=== PATIENT | male | born 1950 | race Caucasian/White ===

== ENCOUNTER → 2020-02-21 11:18 | Outpatient (REF) | payer MEDICAID, SELFPAY ==
--- NOTE | 2020-02-21 11:30 | CA_ITS ---
Transthoracic Echocardiogram Patient (Last, First, Middle): Wilfred Mccarthy C Gender: Male Date of : 1950 Age: 69 Procedure Date: 02/21/2020 Procedure Type: Transthoracic Echocardiogram Location: OP Height: 180.34 cm Weight: 99.79 kg BSA: 2.20 m2 Heart Rate: bpm BP: 140 / 72 mmHg Appeals Manager: Referring MD: Suhas Anton MD Adobe Flex Developer: Suhas Anton MD Symptoms: I48.0 PAF I44.7 LBBB Study Quality: Good ECG Rhythm: Sinus Conclusions: - 1. Normal LV systolic and diastolic function 2. Trace aortic regurgitation 3. Normal RV systolic pressure 4. No pericardial effusion Findings Left Ventricle Normal left ventricular size, thickness, and systolic function. The visually estimated ejection fraction is between 60-65%. There is paradoxical septal motion consistent with a left bundle branch block. Diastolic function is normal for age. Right Ventricle Normal right ventricular cavity size and systolic function. Atria Both atria are normal in size. There is no evidence of interatrial shunt. Aortic Valve There is mild thickening of the aortic valve. There is no aortic valve stenosis. There is trace (trivial) aortic valve regurgitation. Mitral Valve Normal mitral valve structure and function. There is no mitral valve regurgitation. There is no mitral valve stenosis. Pulmonic Valve The pulmonic valve was not well visualized. Tricuspid Valve Likely normal tricuspid valve structure and function. There is mild tricuspid valve regurgitation. The right ventricular systolic pressure is normal. The right ventricular systolic pressure is 38 mmHg. Normal right atrial pressure. There is no evidence of pulmonary hypertension. Great Vessels All visible segments of the aorta are normal in size. The pulmonary artery was not well visualized. Venous The inferior vena cava is normal in size and collapses greater than 50% with inspiration. Pericardium/Pleural There is no evidence of pericardial effusion. Prior Study Comparison No significant change compared to prior study dated: 07/22/2018. Measurements 2D Linear Measurements RVIDd: 2.99 RVIDd Index: 1.36 IVSd: 1.07 0.6-0.9/0.6-1.0 cm LVIDd: 5.50 3.9-5.3/4.2-5.9 cm LVIDd Index: 2.50 2.4-3.2/2.2-3.1 cm/m2 LVIDs: 3.63 2.0-3.6 cm LVPWd: 1.12 0.7-1.1 cm Ao Root: 3.20 2.1-3.5 cm LA Diam: 4.20 2.7-3.8/3.0-4.0 cm LAIDs Index: 1.91 1.5-2.3 cm/m2 LV Mass: 299.92 67-162/88-224 g LV Mass Index: 136.33 43-95/49-115 g/m2 LVOT Diam: 2.30 3.0+(-)1.3 cm 2D Systolic Function EF 4C: 45.80 >55% EF 2C: 70.50 >55% EF BiP: 60.80 >55% Mitral Valve MV Pk E: 0.83 MV PK A: 0.63 MV Decel Time: 207.00 E/A: 1.30 E'Lateral: 7.51 E'Medial: 8.49 E/E' Med: 9.70 E/E' Lat: 11.00 Aortic Valve AoV Pk Dominic: 1.30 AoV Mn Dominic: 0.84 AoV VTI: 0.25 AoV Pk Grad: 7.00 Aov Mn Grad: 3.00 MARLEE Cont.VTI: 3.68 AI Pk Dominic: 3.58 AI Glynn: 0.95 LVOT LVOT Pk Dominic: 0.93 LVOT Mn Dominic: 0.71 LVOT VTI: 0.22 LVOT Pk Grad: 3.00 LVOT Mn Grad: 2.00 LVOT Diam: 2.30 LVOT Area: 4.15 Diastolic Function MV Pk E: 0.83 MV Pk A: 0.63 E/A: 1.30 E'Medial: 8.49 E/E' Med: 9.70 E' Laterial: 7.51 E/E' Lat: 11.00 Tricuspid Valve TR Pk Dominic: 2.76 TR Pk Grad: 30.00 RA Press: 8.00 RVSP: 38.00 Great Vessels Aorta Ao Root-2D: 3.20 2.0-3.7 cm Ao Asc: 3.20 2.1-3.4 cm Ao Arch: 2.70 Updated in Other Vendor System with Status of Final Suhas Anton MD electronically signed on 02/22/2020 12:53:53 PM with status of Final
== END ==
LOC: HO.CARD 11:18
PROVIDERS: Visit Provider Internal Medicine Cardiovascular Disease
DX: I48.0 Paroxysmal atrial fibrillation (principal); I44.7 Left bundle-branch block, unspecified
CPT/HCPCS: 93306

== ENCOUNTER 2020-05-27 11:21 | Outpatient (REF) | payer MEDICAID, SELFPAY ==
--- NOTE | ~2020-05-27 | US_ITS ---
EXAMINATION: US SOFT TISSUE HEAD/NECK CLINICAL INFORMATION: Submandibular lymph nodes, bilateral. COMPARISON: None. TECHNIQUE: Linear transducer grayscale and color Doppler examination with attention to the region of the right and left submandibular areas. FINDINGS: The submandibular glands are normal appearing. There are bilateral small lymph nodes adjacent to the submandibular glands. These are normal in size, each measuring 0.5 cm in transverse dimension. These demonstrate normal ultrasound morphology and flow. US/US soft tiss head and/or neck IMPRESSION: Small normal-appearing lymph nodes adjacent to both submandibular glands..
[2020-05-27 14:33] LABS: Alanine Aminotransferase 32 U/L (0-40); Albumin Level 4.1 g/dL (3.5-5.0); Alkaline Phosphatase 91 U/L (39-117); Anion Gap 14 (12-20); Aspartate Amino Transferase 36 U/L (5-37); Bilirubin Total 0.4 mg/dL (0.0-1.0); Blood Urea Nitrogen 17 mg/dL (9-16); Calcium 8.8 mg/dL (8.4-10.2); Carbon Dioxide 25 mmol/L (22-29); Chloride 107 mmol/L (96-108); Cholesterol 136 mg/dL; Estimated Glomerular Filt Rate > 60; Glucose Fasting 92 mg/dL (60-99); HDL Cholesterol 37 mg/dL; LDL Cholesterol Calculated 88 mg/dl; Potassium 4.7 mmol/L (3.3-5.1); Sodium 141 mmol/L (135-145); Total Protein 6.7 g/dL (6.5-8.0); Triglycerides 56 mg/dL
[2020-05-27 14:56] LABS: TSH reflex Free T4 0.87 uIU/mL (0.32-4.0)
[2020-05-27 15:26] LABS: Prostate Specific Antigen Scr 0.52 ng/mL (<0.05-4.0)
== END 2020-05-27 11:22 | disposition home or self-care (01) ==
LOC: HO.HMGCX 11:21
PROVIDERS: PCP Nurse Practitioner Family; Visit Provider Nurse Practitioner Family
DX: R09.89 Other specified symptoms and signs involving the circulatory and respiratory systems (principal); I10 Essential (primary) hypertension; Z12.5 Encounter for screening for malignant neoplasm of prostate
CPT/HCPCS: 36415; 76536; 80053; 80061; 84153; 84443

== ENCOUNTER → 2020-06-06 11:09 | Outpatient (BNVA) | payer MEDICAID, SELFPAY | PROVIDERS: PCP Nurse Practitioner Family; Visit Provider Internal Medicine Cardiovascular Disease | DX: I48.0 Paroxysmal atrial fibrillation (principal); I44.7 Left bundle-branch block, unspecified; R55 Syncope and collapse | CPT/HCPCS: 99212 ==

== ENCOUNTER 2020-06-13 09:42 | Outpatient (REF) | payer MEDICAID, SELFPAY ==
[2020-06-13 09:47] VITALS: BP 159/59; PULSE 120; RESP 16; TEMP 36.4; O2SAT 97
[2020-06-13 09:51] VITALS: BMI 28.5
--- NOTE | 2020-06-13 10:04 | ECG_ITS ---
Test Reason : AFIB Blood Pressure : / mmHG Vent. Rate : 120 BPM Atrial Rate : 144 BPM P-R Int : 000 ms QRS Dur : 140 ms QT Int : 370 ms P-R-T Axes : 000 030 153 degrees QTc Int : 522 ms Atrial fibrillation with rapid ventricular response Left bundle branch block Abnormal ECG When compared with ECG of 20-JUL-2018 07:38, T wave inversion less evident in Inferior leads Referred By: Suhas Anton Electronically Signed By:SUHAS ANTON MD
[2020-06-13 10:40] VITALS: BP 155/90; PULSE 85; RESP 16; O2SAT 97
--- NOTE | 2020-06-13 11:59 | PM.OP ---
Brief Operative Note Date of Service: 06/13/20 Pre-op diagnosis: Syncope, paroxysmal atrial fibrillation Post-op diagnosis: same Procedure: Implantable loop recorder placement Implants: Patient was brought to the minor surgery suite. Patient was then laid supine on the surgical table. The patient's precordial area was then prepped and draped in a sterile fashion. 2% lidocaine with epinephrine was then injected intra dermally and subcutaneoaul;y. A small incision was made in the 4th intercostal space. [facility] Confirm ILT was then placed using Seldinger technique. WOund was then closed withDermabond and Steritripos. Patient tolerated the procedure well. Confirm serial NO. [id number] Surgeon: Suhas Anton MD Anesthesia: local Estimated blood loss (mL): 1 Pathology: none sent Condition: stable Disposition: same day
== END 2020-06-13 09:43 | disposition home or self-care (01) ==
LOC: HO.MS 09:42
PROVIDERS: PCP Nurse Practitioner Family; Visit Provider Internal Medicine Cardiovascular Disease
PROC: (CPT 33285; principal; 2020-06-13 10:00)
DX: I48.0 Paroxysmal atrial fibrillation (principal); R55 Syncope and collapse
CPT/HCPCS: 33285; 93005; C1764

== ENCOUNTER → 2020-06-27 11:28 | Outpatient (BNVA) | payer MEDICAID, SELFPAY | PROVIDERS: PCP Nurse Practitioner Family; Visit Provider Internal Medicine Cardiovascular Disease | DX: R55 Syncope and collapse (principal); I48.0 Paroxysmal atrial fibrillation; Z79.899 Other long term (current) drug therapy | CPT/HCPCS: 99212 ==

== ENCOUNTER → 2020-07-21 14:53 | Outpatient (BNVA) | payer MEDICAID, SELFPAY | PROVIDERS: PCP Nurse Practitioner Family; Visit Provider Internal Medicine Cardiovascular Disease ==

== ENCOUNTER → 2021-02-10 10:55 | Outpatient (BNVA) | payer MEDICAID, SELFPAY | PROVIDERS: PCP Nurse Practitioner Family; Referring Provider Nurse Practitioner Family; Visit Provider Internal Medicine Cardiovascular Disease | DX: Z45.09 Encounter for adjustment and management of other cardiac device (principal); I48.0 Paroxysmal atrial fibrillation; R55 Syncope and collapse | CPT/HCPCS: 99212 ==

== ENCOUNTER → 2021-08-11 10:40 | Outpatient (BNVA) | payer MEDICAID, SELFPAY | PROVIDERS: PCP Nurse Practitioner Family; Referring Provider Nurse Practitioner Family; Visit Provider Internal Medicine Cardiovascular Disease | DX: I48.0 Paroxysmal atrial fibrillation (principal); I44.7 Left bundle-branch block, unspecified; R55 Syncope and collapse; Z95.818 Presence of other cardiac implants and grafts | CPT/HCPCS: 93005; 99212 ==

== ENCOUNTER 2021-08-20 14:16 | Outpatient (REF) | payer MEDICAID, SELFPAY ==
[2021-08-22 17:56] LABS: Immunoglobulin A 246 mg/dL (70-320)
[2021-08-24 13:31] LABS: Gliadin Deamidated IgA Ab >250.0 U/mL; Gliadin Deamidated IgG Ab 34.2 U/mL; Transglutaminase Ab IgG 1.6 U/mL; Transglutaminase IgA 81.9 U/mL
[2021-08-27 13:51] LABS: Endomysial IgA Antibody Positive (Negative); Endomysial Titer 1:40 titer (<1:5)
== END 2021-08-20 14:17 | disposition home or self-care (01) ==
LOC: HO.HMGCLDS 14:16
PROVIDERS: PCP Nurse Practitioner Family; Visit Provider Internal Medicine
DX: K90.0 Celiac disease (principal)
CPT/HCPCS: 36415; 82784; 86231; 86258; 86364

== ENCOUNTER 2021-08-26 08:04 | Day surgery (SDC) | payer MEDICAID, SELFPAY ==
[2021-08-20 13:47] VITALS: BMI 27.8
--- NOTE | 2021-08-25 09:15 | HO.ANESPROP2 ---
Documented by User: Jody Parker NP 08/25/21 09:18 HPI - Anesthesia Eval Consult details Narrative: 70yo M for Upper Endoscopy and Colonoscopy Afib - no OAC - ILR in situ - tx with prn Cardizem PMFSH Active Problems Active Problems: All Active Problems (Updated 08/20/21 @ 13:51 by Emi Cunningham RN) HTN (hypertension) (Acute) Screening PSA (prostate specific antigen) (Acute) Firm lymph node (Acute) Syncope (Acute) Physical exam (Acute) LBBB (left bundle branch block) (Acute) Paroxysmal atrial fibrillation (Acute) Past Medical History Medical History Barretts esophagus Celiac disease Chronic neck and back pain Failed back syndrome Frequent PVCs GERD (gastroesophageal reflux disease) History of blood transfusion History of thyrotoxicosis LBBB (left bundle branch block) Paroxysmal atrial fibrillation PHN (postherpetic neuralgia) Family History Family History Father CVD (cardiovascular disease) Mother Leukemia Son No problems noted. Son No problems noted. Daughter No problems noted. Daughter No problems noted. Surgical History Surgical History H/O prior ablation treatment History of appendectomy History of back surgery History of colonoscopy History of esophagogastroduodenoscopy (EGD) History of inguinal hernia History of lymph node excision Hx laparoscopic cholecystectomy Social History Social History Housing: House Alcohol intake: current Alcohol intake frequency: holidays/special occasions only Patient Tobacco Use Status: Never used Tobacco e-Cigarette/Vaping Use: Never Used Second Hand Smoke Exposure: Yes (years ago ) Use of substances other than those prescribed or required for medical reasons: No Are you DNR?: No Advance Directives: No Advance Directives Information Provided: No Advance Directives on File: No Recently lost weight without trying: No Nutrition Risks: No Nutritional Risk service: Yes Current occupational status: employed Current occupation: [employer] Current occupational exposures/hazards: No Meds Allergies Allergy/AdvReac Type Severity Reaction Status Date / Time Iodinated Contrast Media Allergy Severe ANAPHYLAXIS Verified 08/11/21 10:53 [IV DYE, IODINE CONTAINING] gluten [GLUTEN] Allergy Intermediate BLOATING,SEVERE Verified 08/11/21 10:53 GI PAIN NSAIDS (Non-Steroidal Allergy Intermediate HIVES, can Verified 08/11/21 10:53 Anti-Inflamma take [NSAIDS] green gel caps ibuprofen Allergy Unknown unknown Verified 08/11/21 10:53 anti inflammatory Allergy Unknown unknown Uncoded 08/11/21 10:53 Home Medications Medication Instructions Recorded Confirmed Last Taken Type omeprazole 20 mg capsule,delayed 20 mg PO DAILY cap 08/11/21 08/26/21 08/26/21 07:00 History release Exam Exam Date and Time: August 25, 2021 0915 Height,Weight and Vital Signs: Height 5 ft 11 in Weight 90.718 kg Narrative Narrative: EKG 07/2021 normal sinus rhythm with left bundle-branch block ILR 07/2021 Cardiac Device Check Details: ?remote implantable loop recorder report generated 08/08/2021.? Total of 12 episodes of paroxysmal atrial fibrillation noted with episodes lasting as long as 1 day and 15 hours.? no patient reported symptoms ECHO 2020 Conclusions: - 1. Normal LV systolic and diastolic function ? 2. Trace aortic regurgitation? 3. Normal RV systolic pressure ? 4. No pericardial effusion ? Assessment and Plan Assessment Anesthesia Assessment: Chart Reviewed Documented by User: Lamonte Ibanez MD 08/26/21 08:45 [facility] Past Medical History Medical History Barretts esophagus Celiac disease Chronic neck and back pain Failed back syndrome Frequent PVCs GERD (gastroesophageal reflux disease) History of blood transfusion History of thyrotoxicosis LBBB (left bundle branch block) Paroxysmal atrial fibrillation PHN (postherpetic neuralgia) Family History Family History Father CVD (cardiovascular disease) Mother Leukemia Son No problems noted. Son No problems noted. Daughter No problems noted. Daughter No problems noted. Family history of problems with anesthesia: No Surgical History Surgical History H/O prior ablation treatment History of appendectomy History of back surgery History of colonoscopy History of esophagogastroduodenoscopy (EGD) History of inguinal hernia History of lymph node excision Hx laparoscopic cholecystectomy History of Problems with Anesthesia: No Social History Social History Housing: House Alcohol intake: current Alcohol intake frequency: holidays/special occasions only Patient Tobacco Use Status: Never used Tobacco e-Cigarette/Vaping Use: Never Used Second Hand Smoke Exposure: Yes (years ago ) Use of substances other than those prescribed or required for medical reasons: No Are you DNR?: No Advance Directives: No Advance Directives Information Provided: No Advance Directives on File: No Recently lost weight without trying: No Nutrition Risks: No Nutritional Risk service: Yes Current occupational status: employed Current occupation: [employer] Current occupational exposures/hazards: No Meds Allergies Allergy/AdvReac Type Severity Reaction Status Date / Time Iodinated Contrast Media Allergy Severe ANAPHYLAXIS Verified 08/11/21 10:53 [IV DYE, IODINE CONTAINING] gluten [GLUTEN] Allergy Intermediate BLOATING,SEVERE Verified 08/11/21 10:53 GI PAIN NSAIDS (Non-Steroidal Allergy Intermediate HIVES, can Verified 08/11/21 10:53 Anti-Inflamma take [NSAIDS] green gel caps ibuprofen Allergy Unknown unknown Verified 08/11/21 10:53 anti inflammatory Allergy Unknown unknown Uncoded 08/11/21 10:53 Home Medications Medication Instructions Recorded Confirmed Last Taken Type omeprazole 20 mg capsule,delayed 20 mg PO DAILY cap 08/11/21 08/26/21 08/26/21 07:00 History release Exam Airway Mallampati Class: I TM Dist: >3cm Neck ROM: Full Assessment and Plan Assessment Anesthesia Assessment: Anesthesia Plan Discussed Final Anesthetic Review Family History of Problems with Anesthesia: No History of Problems with Anesthesia: No NPO: Yes ASA Class: III Final Preanesthetic Review: No Changes in Pt Med Stat, Meds/Allgs Chart Reviewed, Consent Obtained/Reviewed and Anes Risks/Benef Reviewed Patient Risk: Low Procedure Risk: Low Anesthetic Plan Anesthetic Plan: MAC: Disposition: Standard PACU
[2021-08-26 08:29] VITALS: BP 124/72; PULSE 69; RESP 16; TEMP 36.6; O2SAT 99
[2021-08-26] MEDS: Lactated Ringers 1,000 ML 100 ML IVCONT (08:36)
[2021-08-26 10:25] VITALS: BP 98/58; PULSE 70; RESP 16; TEMP 36.5; O2SAT 98
--- NOTE | 2021-08-26 10:29 | PM.OP ---
Brief Operative Note Date of Service: 08/26/21 Pre-op diagnosis: Peacock's, Screening Post-op diagnosis: other (Same, Hx of celiac disease, Diverticulosis) Procedure: EGD with biopsies, Colonoscopy to the cecum and TI Surgeon: Rich Lawler Anesthesia: MAC Was an Radiologic Technologist Mammogram used for this Procedure?: No Estimated blood loss (mL): 2.0 Pathology: other (A. Descending duodenum B. EG Junction at 40cm) Condition: stable Disposition: PACU
[2021-08-26 10:40] VITALS: BP 110/63; PULSE 71; RESP 16; TEMP 36.5; O2SAT 97
--- NOTE | 2021-08-26 13:48 | OP_ITS ---
SURGEON: Rich Lawler MD INDICATIONS: The patient presents for followup of history of Peacock esophagus, celiac disease, personal history of tubular adenoma of the colon, and colorectal cancer screening. Full consent was obtained from him for this, including risks of bleeding and perforation. PREOPERATIVE DIAGNOSIS: POSTOPERATIVE DIAGNOSIS: PROCEDURE PERFORMED: Esophagogastroduodenoscopy with biopsies, and colonoscopy to the cecum and terminal ileum. ESTIMATED BLOOD LOSS: COMPLICATIONS: ANESTHESIA: Monitored anesthesia care. ASSISTANTS: SPECIMENS: PREOPERATIVE DIAGNOSES: Gastroesophageal reflux, Peacock esophagus, celiac disease, personal history of tubular adenoma of the colon, and colorectal cancer screening. POSTOPERATIVE DIAGNOSES: Gastroesophageal reflux, Peacock esophagus, celiac disease, personal history of tubular adenoma of the colon, and colorectal cancer screening, minimal hiatal hernia, diverticulosis and internal hemorrhoids. DESCRIPTION OF PROCEDURE: The patient was placed in the left lateral decubitus position. The Olympus video gastroscope was passed in the posterior oropharynx and upper esophagus under direct vision. The scope was passed slowly into the distal esophagus. The gastroesophageal junction appeared at 40 cm. There was some very slight irregularity, but no evidence of any esophagitis nor any definitive evidence of Peacock mucosa. The scope entered into the stomach. There was a minimal hiatal hernia. The scope was advanced to the pylorus and the duodenum was cannulated to the descending portion. The duodenum including the bulb appeared normal without mass or ulceration. Biopsies were obtained in the 2nd and 3rd portions of duodenum. The scope was withdrawn back from the stomach. The gastric antrum and body appeared normal with good peristalsis. The scope was retroflexed visualizing the proximal stomach carefully, which appeared normal, without any sign of mass or ulceration. Scope was straightened and withdrawn back from the esophagus. Biopsies were obtained at the EG junction at 40 cm. Proximal to this, the esophageal mucosa appeared normal. The scope was withdrawn from the patient. He tolerated the procedure well and was turned around for colonoscopy. The digital rectal exam revealed no abnormalities. The Olympus video pediatric colonoscope was entered into the rectum and advanced easily to the cecum. Once in the cecum, I did identify normal-appearing cecal pouch with appendiceal orifice and a normal-appearing ileocecal valve. The terminal ileum was cannulated and appeared normal. The scope was withdrawn back in the colon. The entire cecum and ileocecal valve appeared normal. The scope was slowly withdrawn assessing all mucosal surfaces carefully. Preparation was excellent. I did not visualize any sign of polyps, colitis, or angiodysplasia. There was a mild amount of sigmoid diverticulosis. In the rectum, scope was retroflexed visualizing internal hemorrhoids, but no other pathology. The rectal mucosa appeared normal. The scope was straightened and withdrawn from the patient. He tolerated the procedure well and was returned to the recovery area in stable condition. IMPRESSION: 1. Minimal hiatal hernia, gastroesophageal reflux, history of Peacock esophagus. 2. History of celiac disease. 3. Diverticulosis. 4. Internal hemorrhoids. PLAN: The results of biopsies will be checked. I would recommend a repeat upper endoscopy and colonoscopy in 5 years. He was advised to continue his gluten free diet. He was advised that he could resume his aspirin in 48 hours. He will continue his omeprazole. MD JOLENE Flores/SREEKANTH / [phone]
== END 2021-08-26 11:28 | disposition home or self-care (01) ==
PROVIDERS: PCP Nurse Practitioner Family; Visit Provider Internal Medicine
PROC: (CPT 45378; principal; 2021-08-26 09:10)
DX: Z12.11 Encounter for screening for malignant neoplasm of colon (principal); Z86.010 Personal history of colon polyps; K57.30 Diverticulosis of large intestine without perforation or abscess without bleeding; K64.8 Other hemorrhoids; K21.9 Gastro-esophageal reflux disease without esophagitis; K22.70 Barrett's esophagus without dysplasia; K90.0 Celiac disease; K44.9 Diaphragmatic hernia without obstruction or gangrene; I44.7 Left bundle-branch block, unspecified; I48.0 Paroxysmal atrial fibrillation; B02.29 Other postherpetic nervous system involvement; Z79.899 Other long term (current) drug therapy; Z79.82 Long term (current) use of aspirin; Z91.041 Radiographic dye allergy status; Z88.8 Allergy status to other drugs, medicaments and biological substances; Z90.49 Acquired absence of other specified parts of digestive tract
CPT/HCPCS: 45378; 43239; 88305; 88342; J2250; J3010

== ENCOUNTER 2021-11-05 08:22 | Emergency (ER) | payer MEDICAID, SELFPAY ==
[2021-11-05 08:40] VITALS: BP 120/74; PULSE 72; RESP 18; TEMP 36.7; O2SAT 98; BMI 27.8
== END 2021-11-05 15:39 | disposition left against medical advice (07) ==
PROVIDERS: Emergency Provider Emergency Medicine; PCP Nurse Practitioner Family
DX: R10.31 Right lower quadrant pain (principal); I10 Essential (primary) hypertension; I48.0 Paroxysmal atrial fibrillation
CPT/HCPCS: 99281

== ENCOUNTER 2021-11-05 10:19 | Outpatient (REF) | payer MEDICAID, SELFPAY ==
[2021-11-05 13:17] LABS: MANUAL DIFF FLAG NO
[2021-11-05 13:17] LABS: Appearance Urine CLEAR; Color Urine YELLOW; Glucose Urine UA NEG (NEG); Leukocyte Esterase Urine NEG (NEG); Nitrite Urine NEG (NEG); PH 5.5 (5.0-8.0); Specific Gravity - Urine >= 1.030 (1.005-1.025); Urine Blood NEG (NEG); Urine Ketones 15 MG/DL (NEG); Urine Protein NEG (NEG-TRACE)
[2021-11-05 13:23] LABS: Basophils Absolute Auto 0.1 X10*3/uL (0.0-0.2); Basophils Percent Auto 0.5 % (0-2); Eosinophils Absolute Auto 0.2 X10*3/uL (0.0-0.4); Eosinophils Percent Auto 1.3 % (0-4); Hematocrit 38.5 % (42.0-52.0); Hemoglobin 12.2 g/dl (14.0-18.0); Imm Gran Abs Auto 0.06 X10*3/uL (0.00-0.03); Imm Gran Pct Auto 0.5 % (0.0-0.4); Lymphocytes Absolute Auto 1.4 X10*3/uL (1.2-4.9); Lymphocytes Percent Auto 12.4 % (20-40); Mean Corpuscular HGB Conc 31.7 g/dl (31.0-36.0); Mean Corpuscular Hemoglobin 30.3 pg (27.0-33.0); Mean Corpuscular Volume 95.8 fL (80.0-98.0); Mean Platelet Volume 8.7 fL (9.4-12.4); Monocytes Absolute Auto 0.6 X10*3/uL (0.1-1.2); Monocytes Percent Auto 5.5 % (2-11); Neutrophils Percent Auto 79.8 % (45-73); Platelet Count 351 X10*3/uL (160-400); Red Blood Count 4.02 X10*6/uL (4.60-5.80); Red Cell Distribution Width 13.5 % (11.0-16.0); White Blood Count 11.3 X10*3/uL (4.8-10.8)
[2021-11-05 13:29] LABS: INTERNATIONAL NORM RATIO 1.1 (0.9-1.1); Prothrombin Time 12.9 SEC (10.0-13.1)
[2021-11-05 13:53] LABS: Alanine Aminotransferase 17 U/L (0-40); Alanine Aminotransferase 18 U/L (0-40); Albumin Level 4.2 g/dL (3.5-5.0); Albumin Level 4.3 g/dL (3.5-5.0); Alkaline Phosphatase 118 U/L (39-117); Anion Gap 15 (12-20); Aspartate Amino Transferase 23 U/L (5-37); Aspartate Amino Transferase 24 U/L (5-37); Bilirubin Direct 0.2 mg/dL (0.0-0.5); Bilirubin Total 0.4 mg/dL (0.0-1.0); Blood Urea Nitrogen 21 mg/dL (9-16); Calcium 9.3 mg/dL (8.4-10.2); Carbon Dioxide 23 mmol/L (22-29); Chloride 106 mmol/L (96-108); Cholesterol 127 mg/dL; Estimated Glomerular Filt Rate 56; Glucose Fasting 76 mg/dL (60-99); HDL Cholesterol 33 mg/dL; LDL Cholesterol Calculated 74 mg/dl; Lipase 14 U/L (8-78); Potassium 4.8 mmol/L (3.3-5.1); Sodium 139 mmol/L (135-145); Total Protein 7.5 g/dL (6.5-8.0); Triglycerides 101 mg/dL
[2021-11-05 13:56] LABS: Amylase 85 U/L (28-100)
[2021-11-05 14:02] LABS: TSH reflex Free T4 0.68 uIU/mL (0.32-4.0)
== END 2021-11-05 10:20 | disposition home or self-care (01) ==
LOC: HO.10HDL 10:19
PROVIDERS: Absent Provider Internal Medicine; Visit Provider Nurse Practitioner Family
DX: Z00.00 Encounter for general adult medical examination without abnormal findings (principal); Z12.5 Encounter for screening for malignant neoplasm of prostate; R10.11 Right upper quadrant pain
CPT/HCPCS: 36415; 80053; 80061; 80076; 81003; 82150; 82248; 83690; 84153; 84443; 85025; 85610

== ENCOUNTER 2021-11-13 09:15 | Emergency (ER) | payer MEDICAID, SELFPAY ==
--- NOTE | ~2021-11-13 | US_ITS ---
EXAMINATION: US ABDOMEN COMPLETE CLINICAL INFORMATION: Right upper quadrant pain. COMPARISON: CT abdomen pelvis 07/22/2018. TECHNIQUE: Real-time imaging of the abdominal viscera. FINDINGS: PANCREAS: The pancreas is obscured by overlying gas. ABDOMINAL AORTA: The proximal, mid, and distal segments are normal in caliber. INFERIOR VENA CAVA: Visualized portions are normal. LIVER: There is a large complex fluid collection anterior to the left hepatic lobe and posterior to the abdominal wall with a large calcification. The collection which appears septated measures 9.37 x 3.10 x 4.6 cm. The large calcification with shadowing measures 1.5 cm. The liver is normal in size. The liver contour is normal. Parenchymal echogenicity is normal. No focal hepatic lesion. There is no intrahepatic biliary duct dilatation seen. GALLBLADDER: Cholecystectomy in 2019. COMMON BILE DUCT: Normal in caliber measuring 0.754 cm in diameter. RIGHT KIDNEY: There is anechoic cysts. The upper pole cyst measures 3.8 x 3.7 x 4.7 cm and lower pole cyst measures 1.7 x 0.90 x 1.2 cm . No hydronephrosis. No renal calculi or focal parenchymal lesions. The kidney measures 10.9 cm in maximum dimension. LEFT KIDNEY: There is a anechoic cyst in upper pole measuring 2.1 x 2.1 x 2.2 cm. No hydronephrosis. No renal calculi or focal parenchymal lesions. The kidney measures 11.9 cm in maximum dimension. SPLEEN: Normal. The spleen measures 10.4 cm in maximum dimension. FREE FLUID: None. US/US abdomen complete IMPRESSION: Bilateral renal cysts. No echogenic renal calculi or hydronephrosis. Complex fluid collection anterior to left hepatic lobe and posterior to abdominal wall with a echogenic calcification.Findings are most suggestive of a complex cyst such as hematoma or loculated ascites. Patient had previous cholecystectomy. 2019 CT abdomen and pelvis revealed cholecystectomy with no residual gallstones.
--- NOTE | ~2021-11-13 | CT_ITS ---
EXAMINATION: CT ABDOMEN AND PELVIS WITHOUT CONTRAST CLINICAL INFORMATION: Right upper quadrant pain. COMPARISON: CT scan of the abdomen and pelvis dated 07/22/2018, abdominal ultrasound from today. TECHNIQUE: Multidetector volumetric imaging was performed from the superior aspect of the liver through the pubic symphysis. Sagittal and coronal reformatted images were obtained on the technologist's workstation. Lack of intravenous and oral contrast limits visceral evaluation. This CT examination was performed using dose optimization techniques as appropriate, variously including the following: *Automated exposure control *Adjustment of mA and/or kV according to patient size (this includes techniques or standardized protocols for targeted exams where dose is matched to indication/reason for exam; i.e. extremities or head) *Use of iterative reconstruction technique DLP: 717 mGy-cm FINDINGS: LUNG BASES: The visualized lung bases are unremarkable. LIVER, GALLBLADDER, AND BILIARY TREE: A subcapsular, mildly heterogeneous hypoechoic focus is seen laterally in the right hepatic lobe measuring approximately 9.0 x 6.7 x 2.6 cm (image 22, series 3; image 54, series 7). Status post cholecystectomy. Correlating mild dilatation of the common bile duct up to 1.2 cm (image 40, series 7). PANCREAS: Mild atrophy. No pancreatic ductal dilatation. No peripancreatic abnormality. SPLEEN: Unremarkable. ADRENAL GLANDS: Unremarkable. KIDNEYS AND URETERS: Noncalcified fluid attenuation cysts bilaterally. A aircraft sales representative cyst in the interpolar right kidney measures 4.0 cm (image 62, series 7). No nephrolithiasis or hydroureteronephrosis. BLADDER: Unremarkable. GASTROINTESTINAL TRACT: Small duodenal diverticuli proximally without associated abnormality or change. The remainder of the small bowel and appendix are unremarkable. The colon shows mild diverticulosis distally without surrounding abnormality. ABDOMINAL WALL: No significant hernia is appreciated. LYMPH NODES: No lymphadenopathy. VASCULAR: Unremarkable. PELVIC VISCERA: Unremarkable. OSSEOUS STRUCTURES: Mild to moderate multilevel degenerative changes in the thoracolumbar spine without acute or suspicious abnormality. CT/CT abdomen pelvis wo con IMPRESSION: 1. Heterogeneous subcapsular collection laterally in the right hepatic lobe correlates with recent ultrasound findings. This is nonspecific and could be better characterized with contrast-enhanced abdominal MRI. 2. Bilateral renal cysts demonstrate benign features not requiring follow-up. 3. Duodenal and distal colonic diverticuli without acute associated abnormality.
[2021-11-13 09:31] VITALS: BP 145/57; PULSE 81; RESP 16; TEMP 36.7; O2SAT 97; BMI 27.6
--- NOTE | 2021-11-13 10:01 | ECG_ITS ---
Test Reason : abd pain Blood Pressure : / mmHG Vent. Rate : 078 BPM Atrial Rate : 078 BPM P-R Int : 184 ms QRS Dur : 142 ms QT Int : 428 ms P-R-T Axes : 044 030 157 degrees QTc Int : 487 ms Normal sinus rhythm Left bundle branch block Abnormal ECG When compared with ECG of 13-JUN-2020 10:15, Sinus rhythm has replaced Atrial fibrillation Vent. rate has decreased BY 42 BPM Referred By: Eda Chandler Electronically Signed By:LILY STOCK
--- NOTE | 2021-11-13 10:26 | ED_ITS ---
HPI - Abdominal Pain General Chief Complaint: Abdominal Pain Time Seen by Provider: 11/13/21 10:01 Source: patient Mode of arrival: ambulatory History of Present Illness HPI narrative: 70-year-old male with history of paroxysmal atrial fibrillation not on any anticoagulation despite being prescribed Eliquis. Patient reports that he fell approximately 6 months ago and has had a persistent right upper quadrant pain radiating into the back that initially was severe and he was unable to sleep and now only occurs when he lies on his back for a few minutes in the evening and then again in the morning. It is not been associated with any fever, chills, shortness of breath, chest pain/palpitations, GI or symptoms. He was evaluated by Dr. Lawler who had concerns regarding a possible bleed on his liver and sent him to the emergency room for further evaluation. Related Data Home Medications Medication Instructions Recorded Confirmed omeprazole 20 mg capsule,delayed 20 mg PO DAILY 08/11/21 09/22/21 release Previous Rx's Medication Instructions Recorded diltiazem HCl 30 mg tablet 30 mg PO QID PRN afib #20 tabs 06/06/20 tramadol 50 mg tablet 50 mg PO BID PRN pain 10 days #20 09/22/21 tabs apixaban 5 mg tablet (Eliquis) 5 mg PO BID 30 days #60 tabs 10/23/21 acebutolol 200 mg capsule 400 mg PO BID #360 caps 10/27/21 Allergies Allergy/AdvReac Type Severity Reaction Status Date / Time Iodinated Contrast Media Allergy Severe ANAPHYLAXIS Verified 11/13/21 09:31 [IV DYE, IODINE CONTAINING] gluten [GLUTEN] Allergy Intermediate BLOATING,SEVERE Verified 09/22/21 10:55 GI PAIN NSAIDS (Non-Steroidal Allergy Intermediate HIVES, can Verified 09/22/21 10:55 Anti-Inflamma take [NSAIDS] green gel caps ibuprofen Allergy Unknown Hives Verified 09/22/21 10:55 anti inflammatory Allergy Unknown unknown Uncoded 09/22/21 10:55 Review of Systems Review of Systems Pertinent positives and negatives as stated in HPI 10 point review of systems is otherwise negative. PMFSH Past Medical History Source: nursing notes reviewed Medical History Barretts esophagus Celiac disease Chronic neck and back pain Failed back syndrome Frequent PVCs GERD (gastroesophageal reflux disease) History of blood transfusion History of thyrotoxicosis LBBB (left bundle branch block) Paroxysmal atrial fibrillation PHN (postherpetic neuralgia) Surgical History H/O prior ablation treatment History of appendectomy History of back surgery History of colonoscopy History of esophagogastroduodenoscopy (EGD) History of inguinal hernia History of lymph node excision Hx laparoscopic cholecystectomy Family History Family History Father CVD (cardiovascular disease) Mother Leukemia Son No problems noted. Son No problems noted. Daughter No problems noted. Daughter No problems noted. Social History Social History Housing: House Alcohol intake: current Alcohol intake frequency: holidays/special occasions only Patient Tobacco Use Status: Never used Tobacco e-Cigarette/Vaping Use: Never Used Second Hand Smoke Exposure: Yes (years ago ) service: Yes Current occupational status: employed Current occupation: [employer] Current occupational exposures/hazards: No Cognitive needs: No Hearing needs: No Vision needs: Yes Physical Exam ED Vital Signs: Vital Signs - 24 hr 11/13/21 09:31 Temperature 98.1 F Pulse Rate 81 Respiratory Rate 16 Blood Pressure 145/57 H Pulse Oximetry 97 Oxygen Delivery Method Room Air BMI result Body Mass Index 27.6 VITAL SIGNS: Reviewed. GENERAL: Well developed, well nourished, in no acute distress. HEAD: Normocephalic/atraumatic EYES: PERRLA, EOMI EARS: Ext canals without abnormality OROPHARYNX: no oral lesions noted, posterior pharynx clear LUNGS: Normal breath sounds. No adventitious sounds or accessory muscle use. SpO2<97> CARDIOVASCULAR: Regular rate and rhythm without noted murmurs ABDOMEN: Soft, pain on deeper palpation at right upper quadrant laterally towards the mid axillary line, non-distended with bowel sounds. MUSCULOSKELETAL: No tenderness, deformities, or effusions noted on gross inspection. EXTREMITIES: No cyanosis, clubbing or edema. SKIN: Inspection of the skin reveals no rashes NEUROLOGIC: Alert and oriented x 4. Strength and sensation to light touch were g rossly intact x 4. Course Course Course Narrative: This is a 70-year-old male with history and clinical presentation suggestive of a liver hematoma that is chronic in nature as the only historical event that may have contributed to this. Review of all investigations demonstrates heterogeneous subcapsular collection laterally in the right hepatic lobe and investigations are limited by patient's allergy to IV contrast. At this time an MRI is indicated but patient is otherwise hemodynamically stable. Reevaluation(s) Reevaluation #1: I discussed the case with General surgery, Dr. Valencia, who agrees that as patient is otherwise hemodynamically stable that this is a further outpatient workup and recommends IR for aspiration. In addition, patient could get MRI as an outpatient. Time: 15:17 Reevaluation #2: I discussed this case with Dr. Lawler and explained that the patient wishes to leave and that the MRI schedule is fully booked at this time. Dr. Lawler agrees and wishes for the patient to contact him next week and he will schedule the ou tpatient MRI. Time: 03:10 MDM - Abdominal Pain Lab Data Result diagrams: 11/13/21 10:57 11/13/21 10:57 Labs: Lab Results 11/13/21 11/13/21 11/13/21 Range/Units 10:57 10:57 10:57 WBC 8.7 (4.8-10.8) X10*3/uL RBC 3.65 L (4.60-5.80) X10*6/uL Hgb 11.3 L (14.0-18.0) g/dl Hct 34.6 L (42.0-52.0) % MCV 94.8 (80.0-98.0) fL MCH 31.0 (27.0-33.0) pg MCHC 32.7 (31.0-36.0) g/dl RDW 13.5 (11.0-16.0) % Plt Count 299 (160-400) X10*3/uL MPV 8.6 L (9.4-12.4) fL Immature Gran % (Auto) 0.5 H (0.0-0.4) % Neut % (Auto) 75.0 H (45-73) % Lymph % (Auto) 14.0 L (20-40) % [place] % (Auto) 7.4 (2-11) % Eos % (Auto) 2.6 (0-4) % Baso % (Auto) 0.5 (0-2) % Lymph # (Auto) 1.2 (1.2-4.9) X10*3/uL [place] # (Auto) 0.6 (0.1-1.2) X10*3/uL Eos # (Auto) 0.2 (0.0-0.4) X10*3/uL Baso # (Auto) 0.0 (0.0-0.2) X10*3/uL Abs Immat Gran (auto) 0.04 H (0.00-0.03) X10*3/uL Absolute Neuts (auto) 6.5 (2.0-8.3) x10*3/uL Absolute Nucleated RBC 0.000 (0.0-0.012) X10*3/uL Nucleated RBC % (auto) 0.0 (0.0-0.2) /100WBC PT 12.3 (10.0-13.1) SEC INR 1.1 (0.9-1.1) Sodium 139 (135-145) mmol/L Potassium 4.4 (3.3-5.1) mmol/L Chloride 107 (96-108) mmol/L Carbon Dioxide 23 (22-29) mmol/L Anion Gap 13 (12-20) BUN 30 H (9-16) mg/dL Creatinine 1.39 (0.5-1.4) mg/dL Estim Creat Clear Calc 51.1 Estimated GFR 50 Random Glucose 94 (60-115) mg/dL Calcium 9.3 (8.4-10.2) mg/dL Total Bilirubin 0.3 (0.0-1.0) mg/dL AST 24 (5-37) U/L ALT 19 (0-40) U/L Alkaline Phosphatase 112 (39-117) U/L Total Protein 7.5 (6.5-8.0) g/dL Albumin 4.3 (3.5-5.0) g/dL ECG Data Attestation: I personally reviewed and interpreted this ECG as follows: Prior ECG tracings: available for review Interpretation: Normal sinus rhythm, LBBB, HR-78, no STEMI, [place] and QTC are within normal limits. Discharge Plan Discharge Clinical Impression: Subcapsular hepatic hematoma Patient Disposition: Home, Self-Care Instructions: Abdominal Pain (ED) Additional Instructions: 1. Resume all home medications as prescribed. As you are not currently taking your Eliquis please continue this. Recommend [id number] Tylenol/ibuprofen as needed for pain control. 2. Please call the office of Dr. Lawler and he will schedule an outpatient MRI. Return to the ER for any acute worsening of your symptoms. Prescriptions: No Action Eliquis 5 mg tablet 5 mg PO BID 30 Days Qty: 60 5RF acebutolol 200 mg capsule 400 mg PO BID Qty: 360 0RF omeprazole 20 mg capsule,delayed release(DR/EC) 20 mg PO DAILY tramadol 50 mg tablet 50 mg PO BID PRN (Reason: pain) 10 Days Qty: 20 0RF diltiazem HCl 30 mg tablet 30 mg PO QID PRN (Reason: afib) Qty: 20 1RF Referrals: Rich Lawler [Physician] -
[2021-11-13 11:18] LABS: MANUAL DIFF FLAG NO
[2021-11-13 11:21] LABS: Basophils Percent Auto 0.5 % (0-2); Eosinophils Absolute Auto 0.2 X10*3/uL (0.0-0.4); Eosinophils Percent Auto 2.6 % (0-4); Hematocrit 34.6 % (42.0-52.0); Hemoglobin 11.3 g/dl (14.0-18.0); Imm Gran Abs Auto 0.04 X10*3/uL (0.00-0.03); Imm Gran Pct Auto 0.5 % (0.0-0.4); Lymphocytes Absolute Auto 1.2 X10*3/uL (1.2-4.9); Mean Corpuscular HGB Conc 32.7 g/dl (31.0-36.0); Mean Corpuscular Volume 94.8 fL (80.0-98.0); Mean Platelet Volume 8.6 fL (9.4-12.4); Monocytes Absolute Auto 0.6 X10*3/uL (0.1-1.2); Monocytes Percent Auto 7.4 % (2-11); Neutrophils Absolute Auto 6.5 x10*3/uL (2.0-8.3); Platelet Count 299 X10*3/uL (160-400); Red Blood Count 3.65 X10*6/uL (4.60-5.80); Red Cell Distribution Width 13.5 % (11.0-16.0); White Blood Count 8.7 X10*3/uL (4.8-10.8)
[2021-11-13 11:28] LABS: INTERNATIONAL NORM RATIO 1.1 (0.9-1.1); Prothrombin Time 12.3 SEC (10.0-13.1)
[2021-11-13 12:24] LABS: Alanine Aminotransferase 19 U/L (0-40); Albumin Level 4.3 g/dL (3.5-5.0); Alkaline Phosphatase 112 U/L (39-117); Anion Gap 13 (12-20); Aspartate Amino Transferase 24 U/L (5-37); Bilirubin Total 0.3 mg/dL (0.0-1.0); Blood Urea Nitrogen 30 mg/dL (9-16); Calcium 9.3 mg/dL (8.4-10.2); Carbon Dioxide 23 mmol/L (22-29); Chloride 107 mmol/L (96-108); Creatinine Clr Calc Pharmacy 51.1; Estimated Glomerular Filt Rate 50; Glucose Random 94 mg/dL (60-115); Potassium 4.4 mmol/L (3.3-5.1); Sodium 139 mmol/L (135-145); Total Protein 7.5 g/dL (6.5-8.0)
--- NOTE | 2021-11-13 15:37 | PC.NURSE ---
DR HEADLEY UPDATED PATIENT ON RESULTS OF TESTING AND PLAN OF CARE. PT AWARE AND AGREEABLE TO PLAN AND FOLLOW UP. IV REMOVED. PT STATES NO PAIN. NO ACUTE DISTRESS NOTED.
== END 2021-11-13 15:43 | disposition home or self-care (01) ==
LOC: HO.ED 09:16
PROVIDERS: Emergency Provider Student in an Organized Health Care Education/Training Program; Visit Provider Internal Medicine
DX: S36.112A Contusion of liver, initial encounter (principal); W19.XXXA Unspecified fall, initial encounter; R10.11 Right upper quadrant pain; I48.0 Paroxysmal atrial fibrillation; I10 Essential (primary) hypertension; Y93.9 Activity, unspecified; Y92.9 Unspecified place or not applicable; Y99.9 Unspecified external cause status; Z79.01 Long term (current) use of anticoagulants
CPT/HCPCS: 36415; 74176; 76700; 80053; 85025; 85610; 93005; 99284

== ENCOUNTER 2021-11-22 13:04 | Emergency (ER) | payer MEDICAID, SELFPAY ==
[2021-11-22 13:11] VITALS: BP 155/69; PULSE 74; RESP 18; TEMP 36.8; O2SAT 98; BMI 27.8
[2021-11-22 13:22] LABS: MANUAL DIFF FLAG NO
[2021-11-22 13:23] LABS: Basophils Percent Auto 0.4 % (0-2); Eosinophils Absolute Auto 0.2 X10*3/uL (0.0-0.4); Eosinophils Percent Auto 1.9 % (0-4); Hematocrit 33.6 % (42.0-52.0); Hemoglobin 11.1 g/dl (14.0-18.0); Imm Gran Abs Auto 0.04 X10*3/uL (0.00-0.03); Imm Gran Pct Auto 0.4 % (0.0-0.4); Lymphocytes Absolute Auto 1.4 X10*3/uL (1.2-4.9); Lymphocytes Percent Auto 13.3 % (20-40); Mean Corpuscular Hemoglobin 30.7 pg (27.0-33.0); Mean Corpuscular Volume 93.1 fL (80.0-98.0); Mean Platelet Volume 8.3 fL (9.4-12.4); Monocytes Absolute Auto 0.7 X10*3/uL (0.1-1.2); Monocytes Percent Auto 6.4 % (2-11); Neutrophils Absolute Auto 8.3 x10*3/uL (2.0-8.3); Neutrophils Percent Auto 77.6 % (45-73); Platelet Count 266 X10*3/uL (160-400); Red Blood Count 3.61 X10*6/uL (4.60-5.80); Red Cell Distribution Width 13.3 % (11.0-16.0); White Blood Count 10.7 X10*3/uL (4.8-10.8)
[2021-11-22 13:40] LABS: Alanine Aminotransferase 19 U/L (0-40); Alkaline Phosphatase 106 U/L (39-117); Anion Gap 15 (12-20); Aspartate Amino Transferase 26 U/L (5-37); Bilirubin Direct < 0.2 mg/dL (0.0-0.5); Bilirubin Total 0.3 mg/dL (0.0-1.0); Blood Urea Nitrogen 15 mg/dL (9-16); Carbon Dioxide 23 mmol/L (22-29); Chloride 107 mmol/L (96-108); Creatinine Clr Calc Pharmacy 86.4; Estimated Glomerular Filt Rate > 60; Glucose Random 96 mg/dL (60-115); Lipase 19 U/L (8-78); Potassium 4.7 mmol/L (3.3-5.1); Sodium 140 mmol/L (135-145); Total Protein 7.1 g/dL (6.5-8.0)
== END 2021-11-22 19:57 | disposition left against medical advice (07) ==
LOC: HO.ED 19:56
PROVIDERS: Emergency Provider Emergency Medicine; PCP Nurse Practitioner Family
DX: R10.9 Unspecified abdominal pain (principal); K22.70 Barrett's esophagus without dysplasia; I10 Essential (primary) hypertension; I48.0 Paroxysmal atrial fibrillation
CPT/HCPCS: 36415; 80053; 82248; 83690; 85025; 99281; 99283

== ENCOUNTER → 2021-12-15 10:21 | Outpatient (BNVA) | payer MEDICAID, SELFPAY | PROVIDERS: PCP Nurse Practitioner Family; Referring Provider Internal Medicine; Visit Provider Surgery | DX: K76.89 Other specified diseases of liver (principal); R10.11 Right upper quadrant pain; R63.4 Abnormal weight loss; Z79.899 Other long term (current) drug therapy | CPT/HCPCS: 99202 ==

== ENCOUNTER 2021-12-30 07:59 | Inpatient (IN) | payer MEDICARE, MEDICAID, SELFPAY ==
[2021-12-24 12:08] VITALS: BMI 25.7
[2021-12-24 12:17] VITALS: BP 105/66; PULSE 74; RESP 20; O2SAT 98
--- NOTE | 2021-12-24 12:29 | HO.ANESPROP2 ---
Documented by User: Jody Parker NP 12/24/21 13:43 HPI - Anesthesia Eval Consult details Narrative: 71yo M for Laparoscopy Exploratory, drainage of Subcapsular liver hematoma and removal of dropped gallstone Afib, no anticoag, pill in pocket approach - ILR in situ without arrhythmias - Pt denies palps PMFSH Active Problems Active Problems: All Active Problems (Updated 12/23/21 @ 10:16 by Yanet Wick RN) HTN (hypertension) (Acute) Screening PSA (prostate specific antigen) (Acute) Firm lymph node (Acute) Syncope (Acute) Physical exam (Acute) Varicose veins of both lower extremities (Acute) Subcapsular hematoma of liver (Acute) LBBB (left bundle branch block) (Acute) Paroxysmal atrial fibrillation (Acute) Past Medical History Medical History Barretts esophagus Celiac disease Chronic neck and back pain Failed back syndrome Frequent PVCs GERD (gastroesophageal reflux disease) History of blood transfusion History of thyrotoxicosis Implantable loop recorder present LBBB (left bundle branch block) Paroxysmal atrial fibrillation PHN (postherpetic neuralgia) Family History Family History Father CVD (cardiovascular disease) Mother Leukemia Son No problems noted. Son No problems noted. Daughter No problems noted. Daughter No problems noted. Family history of problems with anesthesia: No Surgical History Surgical History H/O prior ablation treatment History of appendectomy History of back surgery History of colonoscopy History of esophagogastroduodenoscopy (EGD) History of inguinal hernia History of lymph node excision Hx laparoscopic cholecystectomy History of Problems with Anesthesia: No Social History Social History Housing: House Are you a primary senior care manager to a significant other at home: Yes (- mod dementia) Do you presently have visiting nurse or other home services: Yes ([employer] for ) Alcohol intake: current Alcohol intake frequency: holidays/special occasions only Patient Tobacco Use Status: Never used Tobacco e-Cigarette/Vaping Use: Never Used Second Hand Smoke Exposure: No Use of substances other than those prescribed or required for medical reasons: No Have you been hit, kicked, punched, or otherwise hurt by someone within the past year? If so, by whom?: No Are you DNR?: No Advance Directives: No Advance Directives Information Provided: Yes (daughter Donnie Rollins) Advance Directives on File: No Recently lost weight without trying: Yes How much weight loss: 14-23 pounds Eating poorly because of decreased appetite: Yes Nutrition screen score: 5 Nutrition Risks: Anorexia Poor oral hygiene: No (missing teeth) service: Yes Current occupational status: employed Current occupation: [employer] Current occupational exposures/hazards: No Cognitive needs: No Hearing needs: No Vision needs: Yes Narrative Narrative: No recent illness (weightloss d/t pain with hematoma and gallstone) No CP/SOB with >4 mets Meds Allergies Allergy/AdvReac Type Severity Reaction Status Date / Time Iodinated Contrast Media Allergy Severe ANAPHYLAXIS Verified 12/28/21 07:36 [IV DYE, IODINE CONTAINING] gluten [GLUTEN] Allergy Intermediate BLOATING,SEVERE Verified 12/28/21 07:36 GI PAIN morphine AdvReac Nausea and Verified 12/28/21 07:36 Vomiting Home Medications Medication Instructions Recorded Confirmed Last Taken Type omeprazole 20 mg capsule,delayed 20 mg PO DAILY 08/11/21 12/23/21 12/28/21 05:30 History release aspirin 81 mg capsule 81 mg PO DAILY 12/24/21 12/24/21 12/21/21 History dicyclomine 10 mg capsule 10 mg PO BID 12/24/21 12/24/21 Unknown History Exam Exam Date and Time: December 24, 2021 1229 Height,Weight and Vital Signs: Height 5 ft 11 in Weight 83.915 kg Last Vital Signs Pulse 74 12/24/21 12:17 Resp 20 12/24/21 12:17 BP 105/66 12/24/21 12:17 Pulse Ox 98 12/24/21 12:17 O2 Del Method 12/24/21 12:17 Narrative Narrative: Cardiac Device Check 11/2021 Details: Remote implantable loop recorder report generated 12/10/2021.? No arrhythmias noted. EKG 10/2021 Vent. Rate : 078 BPM ? ? Atrial Rate : 078 BPM ?? P-R Int : 184 ms? QRS Dur : 142 ms ? ? QT Int : 428 ms ? ? ? P-R-T Axes : 044 030 157 degrees ?? QTc Int : 487 ms ? Normal sinus rhythm Left bundle branch block Abnormal ECG When compared with ECG of 13-JUN-2020 10:15, Sinus rhythm has replaced Atrial fibrillation Vent. rate has decreased BY? 42 BPM ECHO 2019 (checked q2-3yrs) Conclusions: - 1. Normal LV systolic and diastolic function ? 2. Trace aortic regurgitation? 3. Normal RV systolic pressure ? 4. No pericardial effusion ? ?? Airway Mallampati Class: I TM Dist: >3cm Neck ROM: Full Loose/Missing/Broken Teeth: Yes (Molars missing) Heart: RRR Lungs: CTAB Assessment and Plan Assessment Anesthesia Assessment: Anesthesia Plan Discussed and PAT Visit Final Anesthetic Review Family History of Problems with Anesthesia: No History of Problems with Anesthesia: No Documented by User: Lilian Benjamin MD 12/28/21 08:10 [facility] Past Medical History Medical History Barretts esophagus Celiac disease Chronic neck and back pain Failed back syndrome Frequent PVCs GERD (gastroesophageal reflux disease) History of blood transfusion History of thyrotoxicosis Implantable loop recorder present LBBB (left bundle branch block) Paroxysmal atrial fibrillation PHN (postherpetic neuralgia) Family History Family History Father CVD (cardiovascular disease) Mother Leukemia Son No problems noted. Son No problems noted. Daughter No problems noted. Daughter No problems noted. Surgical History Surgical History H/O prior ablation treatment History of appendectomy History of back surgery History of colonoscopy History of esophagogastroduodenoscopy (EGD) History of inguinal hernia History of lymph node excision Hx laparoscopic cholecystectomy Social History Social History Housing: House Are you a primary senior care manager to a significant other at home: Yes (- mod dementia) Do you presently have visiting nurse or other home services: Yes ([employer] for ) Alcohol intake: current Alcohol intake frequency: holidays/special occasions only Patient Tobacco Use Status: Never used Tobacco e-Cigarette/Vaping Use: Never Used Second Hand Smoke Exposure: No Use of substances other than those prescribed or required for medical reasons: No Have you been hit, kicked, punched, or otherwise hurt by someone within the past year? If so, by whom?: No Are you DNR?: No Advance Directives: No Advance Directives Information Provided: Yes (daughter Donnie Rollins) Advance Directives on File: No Recently lost weight without trying: Yes How much weight loss: 14-23 pounds Eating poorly because of decreased appetite: Yes Nutrition screen score: 5 Nutrition Risks: Anorexia Poor oral hygiene: No (missing teeth) service: Yes Current occupational status: employed Current occupation: [employer] Current occupational exposures/hazards: No Cognitive needs: No Hearing needs: No Vision needs: Yes Meds Allergies Allergy/AdvReac Type Severity Reaction Status Date / Time Iodinated Contrast Media Allergy Severe ANAPHYLAXIS Verified 12/28/21 07:36 [IV DYE, IODINE CONTAINING] gluten [GLUTEN] Allergy Intermediate BLOATING,SEVERE Verified 12/28/21 07:36 GI PAIN morphine AdvReac Nausea and Verified 12/28/21 07:36 Vomiting Home Medications Medication Instructions Recorded Confirmed Last Taken Type omeprazole 20 mg capsule,delayed 20 mg PO DAILY 08/11/21 12/23/21 12/28/21 05:30 History release aspirin 81 mg capsule 81 mg PO DAILY 12/24/21 12/24/21 12/21/21 History dicyclomine 10 mg capsule 10 mg PO BID 12/24/21 12/24/21 Unknown History Exam Height,Weight and Vital Signs: Height 5 ft 11 in Weight 83.915 kg Last Vital Signs Pulse 74 12/24/21 12:17 Resp 20 12/24/21 12:17 BP 105/66 12/24/21 12:17 Pulse Ox 98 09/08/22 12:17 O2 Del Method 12/24/21 12:17 Vital Signs Temp Pulse Resp BP Pulse Ox O2 Del Method 12/28/21 07:19 98.3 F 80 17 129/76 97 Room Air Pertinent Lab Results Pertinent Lab Results: Lab Results 12/24/21 12/24/21 12/24/21 Range/Units 13:03 13:05 13:08 WBC 13.6 H (4.8-10.8) X10*3/uL RBC 3.54 L (4.60-5.80) X10*6/uL Hgb 10.8 L (14.0-18.0) g/dl Hct 33.5 L (42.0-52.0) % MCV 94.6 (80.0-98.0) fL MCH 30.5 (27.0-33.0) pg MCHC 32.2 (31.0-36.0) g/dl RDW 13.2 (11.0-16.0) % Plt Count 404 H D (160-400) X10*3/uL MPV 8.6 L (9.4-12.4) fL Immature Gran % (Auto) (0.0-0.4) % Neut % (Auto) (45-73) % Lymph % (Auto) (20-40) % [place] % (Auto) (2-11) % Eos % (Auto) (0-4) % Baso % (Auto) (0-2) % Lymph # (Auto) (1.2-4.9) X10*3/uL [place] # (Auto) (0.1-1.2) X10*3/uL Eos # (Auto) (0.0-0.4) X10*3/uL Baso # (Auto) (0.0-0.2) X10*3/uL Abs Immat Gran (auto) (0.00-0.03) X10*3/uL Absolute Neuts (auto) (2.0-8.3) x10*3/uL Absolute Nucleated RBC 0.000 (0.0-0.012) X10*3/uL Nucleated RBC % (auto) 0.0 (0.0-0.2) /100WBC Sodium (135-145) mmol/L Potassium (3.3-5.1) mmol/L Chloride (96-108) mmol/L Carbon Dioxide (22-29) mmol/L Anion Gap (12-20) BUN (9-16) mg/dL Creatinine (0.5-1.4) mg/dL Estim Creat Clear Calc Estimated GFR Fasting Glucose (60-99) mg/dL Calcium (8.4-10.2) mg/dL Total Bilirubin (0.0-1.0) mg/dL AST (5-37) U/L ALT (0-40) U/L Alkaline Phosphatase (39-117) U/L Total Protein (6.5-8.0) g/dL Albumin (3.5-5.0) g/dL Triglycerides mg/dL Cholesterol mg/dL LDL Cholesterol, Calc mg/dl HDL Cholesterol mg/dL TSH (0.32-4.0) uIU/mL Urine Color Dark Yellow Urine Appearance Clear Urine pH 5.5 (5.0-9.0) Ur Specific [place] 1.025 (1.005-1.025) Urine Protein Trace (Neg-Trace) mg/dL Urine Glucose (UA) Negative (Negative) mg/dL Urine Ketones Trace (Negative) mg/dL Urine Blood Negative (Negative) Urine Nitrite Negative (Negative) Ur Leukocyte Esterase Negative (Negative) COVID-19 ([facility]) (Negative) COVID-19 Clin Com Blood Type O Positive Antibody Screen NEGATIVE 12/24/21 12/28/21 12/28/21 Range/Units 13:08 07:09 07:09 WBC 12.1 H (4.8-10.8) X10*3/uL RBC 3.53 L (4.60-5.80) X10*6/uL Hgb 10.6 L (14.0-18.0) g/dl Hct 32.6 L (42.0-52.0) % MCV 92.4 (80.0-98.0) fL MCH 30.0 (27.0-33.0) pg MCHC 32.5 (31.0-36.0) g/dl RDW 13.2 (11.0-16.0) % Plt Count 365 (160-400) X10*3/uL MPV 8.1 L (9.4-12.4) fL Immature Gran % (Auto) 0.5 H (0.0-0.4) % Neut % (Auto) 79.5 H (45-73) % Lymph % (Auto) 10.1 L (20-40) % [place] % (Auto) 7.4 (2-11) % Eos % (Auto) 2.0 (0-4) % Baso % (Auto) 0.5 (0-2) % Lymph # (Auto) 1.2 (1.2-4.9) X10*3/uL [place] # (Auto) 0.9 (0.1-1.2) X10*3/uL Eos # (Auto) 0.2 (0.0-0.4) X10*3/uL Baso # (Auto) 0.1 (0.0-0.2) X10*3/uL Abs Immat Gran (auto) 0.06 H (0.00-0.03) X10*3/uL Absolute Neuts (auto) 9.6 H (2.0-8.3) x10*3/uL Absolute Nucleated RBC 0.000 (0.0-0.012) X10*3/uL Nucleated RBC % (auto) 0.0 (0.0-0.2) /100WBC Sodium 136 138 (135-145) mmol/L Potassium 5.8 H D 4.5 D (3.3-5.1) mmol/L Chloride 102 103 (96-108) mmol/L Carbon Dioxide 24 25 (22-29) mmol/L Anion Gap 16 15 (12-20) BUN 23 H D (9-16) mg/dL Creatinine 1.41 H (0.5-1.4) mg/dL Estim Creat Clear Calc 49.6 Estimated GFR 49 Fasting Glucose 91 (60-99) mg/dL Calcium 9.1 (8.4-10.2) mg/dL Total Bilirubin 0.3 (0.0-1.0) mg/dL AST 24 (5-37) U/L ALT 20 (0-40) U/L Alkaline Phosphatase 117 (39-117) U/L Total Protein 7.3 (6.5-8.0) g/dL Albumin 3.8 (3.5-5.0) g/dL Triglycerides 66 mg/dL Cholesterol 103 mg/dL LDL Cholesterol, Calc 58 mg/dl HDL Cholesterol 32 mg/dL TSH 0.62 (0.32-4.0) uIU/mL Urine Color Urine Appearance Urine pH (5.0-9.0) Ur Specific [place] (1.005-1.025) Urine Protein (Neg-Trace) mg/dL Urine Glucose (UA) (Negative) mg/dL Urine Ketones (Negative) mg/dL Urine Blood (Negative) Urine Nitrite (Negative) Ur Leukocyte Esterase (Negative) COVID-19 ([facility]) (Negative) COVID-19 Clin Com Blood Type Antibody Screen 12/28/21 Range/Units 07:25 WBC (4.8-10.8) X10*3/uL RBC (4.60-5.80) X10*6/uL Hgb (14.0-18.0) g/dl Hct (42.0-52.0) % MCV (80.0-98.0) fL MCH (27.0-33.0) pg MCHC (31.0-36.0) g/dl RDW (11.0-16.0) % Plt Count (160-400) X10*3/uL MPV (9.4-12.4) fL Immature Gran % (Auto) (0.0-0.4) % Neut % (Auto) (45-73) % Lymph % (Auto) (20-40) % [place] % (Auto) (2-11) % Eos % (Auto) (0-4) % Baso % (Auto) (0-2) % Lymph # (Auto) (1.2-4.9) X10*3/uL [place] # (Auto) (0.1-1.2) X10*3/uL Eos # (Auto) (0.0-0.4) X10*3/uL Baso # (Auto) (0.0-0.2) X10*3/uL Abs Immat Gran (auto) (0.00-0.03) X10*3/uL Absolute Neuts (auto) (2.0-8.3) x10*3/uL Absolute Nucleated RBC (0.0-0.012) X10*3/uL Nucleated RBC % (auto) (0.0-0.2) /100WBC Sodium (135-145) mmol/L Potassium (3.3-5.1) mmol/L Chloride (96-108) mmol/L Carbon Dioxide (22-29) mmol/L Anion Gap (12-20) BUN (9-16) mg/dL Creatinine (0.5-1.4) mg/dL Estim Creat Clear Calc Estimated GFR Fasting Glucose (60-99) mg/dL Calcium (8.4-10.2) mg/dL Total Bilirubin (0.0-1.0) mg/dL AST (5-37) U/L ALT (0-40) U/L Alkaline Phosphatase (39-117) U/L Total Protein (6.5-8.0) g/dL Albumin (3.5-5.0) g/dL Triglycerides mg/dL Cholesterol mg/dL LDL Cholesterol, Calc mg/dl HDL Cholesterol mg/dL TSH (0.32-4.0) uIU/mL Urine Color Urine Appearance Urine pH (5.0-9.0) Ur Specific [place] (1.005-1.025) Urine Protein (Neg-Trace) mg/dL Urine Glucose (UA) (Negative) mg/dL Urine Ketones (Negative) mg/dL Urine Blood (Negative) Urine Nitrite (Negative) Ur Leukocyte Esterase (Negative) COVID-19 ([facility]) Negative (Negative) COVID-19 Clin Com See Note Blood Type Antibody Screen Assessment and Plan Assessment Anesthesia Assessment: Chart Reviewed Final Anesthetic Review NPO: Yes ASA Class: III Final Preanesthetic Review: No Changes in Pt Med Stat, Meds/Allgs Chart Reviewed, Consent Obtained/Reviewed and Anes Risks/Benef Reviewed Patient Risk: Intermediate Procedure Risk: Intermediate Assessment/Block/Sedation in SS: Assess/Block/Sedation-SS Anesthetic Plan Anesthetic Plan: GA Disposition: Standard PACU
[2021-12-24 13:40] LABS: Hematocrit 33.5 % (42.0-52.0); Hemoglobin 10.8 g/dl (14.0-18.0); Mean Corpuscular HGB Conc 32.2 g/dl (31.0-36.0); Mean Corpuscular Hemoglobin 30.5 pg (27.0-33.0); Mean Corpuscular Volume 94.6 fL (80.0-98.0); Mean Platelet Volume 8.6 fL (9.4-12.4); Platelet Count 404 X10*3/uL (160-400); Red Blood Count 3.54 X10*6/uL (4.60-5.80); Red Cell Distribution Width 13.2 % (11.0-16.0); White Blood Count 13.6 X10*3/uL (4.8-10.8)
[2021-12-24 14:02] LABS: Appearance Urine Clear; Color Urine Dark Yellow; Glucose Urine UA Negative (Negative); Leukocyte Esterase Urine Negative (Negative); Nitrite Urine Negative (Negative); PH 5.5 (5.0-9.0); Specific Gravity - Urine 1.025 (1.005-1.025); Urine Blood Negative (Negative); Urine Ketones Trace mg/dL (Negative); Urine Protein Trace mg/dL (Neg-Trace)
[2021-12-24 14:30] LABS: Alanine Aminotransferase 20 U/L (0-40); Albumin Level 3.8 g/dL (3.5-5.0); Alkaline Phosphatase 117 U/L (39-117); Anion Gap 16 (12-20); Aspartate Amino Transferase 24 U/L (5-37); Bilirubin Total 0.3 mg/dL (0.0-1.0); Blood Urea Nitrogen 23 mg/dL (9-16); Calcium 9.1 mg/dL (8.4-10.2); Carbon Dioxide 24 mmol/L (22-29); Chloride 102 mmol/L (96-108); Cholesterol 103 mg/dL; Creatinine Clr Calc Pharmacy 49.6; Estimated Glomerular Filt Rate 49; Glucose Fasting 91 mg/dL (60-99); HDL Cholesterol 32 mg/dL; LDL Cholesterol Calculated 58 mg/dl; Potassium 5.8 mmol/L (3.3-5.1); Sodium 136 mmol/L (135-145); Total Protein 7.3 g/dL (6.5-8.0); Triglycerides 66 mg/dL
[2021-12-24 14:53] LABS: TSH reflex Free T4 0.62 uIU/mL (0.32-4.0)
[2021-12-28] VITALS (31 sets, daily range): BP systolic 93–156; BP diastolic 48–76; PULSE 66–81; RESP 16–20; TEMP 36.2–37; O2SAT 94–100
[2021-12-28 07:12] LABS: MANUAL DIFF FLAG NO
[2021-12-28 07:18] LABS: Basophils Absolute Auto 0.1 X10*3/uL (0.0-0.2); Basophils Percent Auto 0.5 % (0-2); Eosinophils Absolute Auto 0.2 X10*3/uL (0.0-0.4); Hematocrit 32.6 % (42.0-52.0); Hemoglobin 10.6 g/dl (14.0-18.0); Imm Gran Abs Auto 0.06 X10*3/uL (0.00-0.03); Imm Gran Pct Auto 0.5 % (0.0-0.4); Lymphocytes Absolute Auto 1.2 X10*3/uL (1.2-4.9); Lymphocytes Percent Auto 10.1 % (20-40); Mean Corpuscular HGB Conc 32.5 g/dl (31.0-36.0); Mean Corpuscular Volume 92.4 fL (80.0-98.0); Mean Platelet Volume 8.1 fL (9.4-12.4); Monocytes Absolute Auto 0.9 X10*3/uL (0.1-1.2); Monocytes Percent Auto 7.4 % (2-11); Neutrophils Absolute Auto 9.6 x10*3/uL (2.0-8.3); Neutrophils Percent Auto 79.5 % (45-73); Platelet Count 365 X10*3/uL (160-400); Red Blood Count 3.53 X10*6/uL (4.60-5.80); Red Cell Distribution Width 13.2 % (11.0-16.0); White Blood Count 12.1 X10*3/uL (4.8-10.8)
[2021-12-28 07:34] LABS: Anion Gap 15 (12-20); Carbon Dioxide 25 mmol/L (22-29); Chloride 103 mmol/L (96-108); Potassium 4.5 mmol/L (3.3-5.1); Sodium 138 mmol/L (135-145)
[2021-12-28] MEDS: Lactated Ringers 1,000 ML 100 ML IVCONT (07:52)
[2021-12-28 07:59] LABS: COVID-19 Test Negative (Negative)
--- NOTE | 2021-12-28 08:32 | MHC.SHP ---
Pre-Procedural Eval Section A Date of Service: 12/28/21 The patient is an INPATIENT: No Changes since office visit: Yes Patient answered all questions; No Cold of Flu in the past 2 weeks, No New Medical Problems and No Changes in Medication The History & Physical has been completed within 30 days and I have reviewed it.: Yes Section B Chief Complaint: other disease of liver Allergies: Allergies Allergy/AdvReac Type Severity Reaction Status Date / Time Iodinated Contrast Media Allergy Severe ANAPHYLAXIS Verified 12/28/21 07:36 [IV DYE, IODINE CONTAINING] gluten [GLUTEN] Allergy Intermediate BLOATING,SEVERE Verified 12/28/21 07:36 GI PAIN morphine AdvReac Nausea and Verified 12/28/21 07:36 Vomiting Plan Diagnosis/Plan: Unchanged I have reviewed the history and physical and performed a pertinent physical examination on my patient. No changes have occurred unless specified.
--- NOTE | 2021-12-28 10:43 | W.PM.OPN ---
Operative Note Operative Note Date of Service: 12/28/21 Narrative: Preoperative diagnosis: right subcapsular hematoma, dropped gallstone Postoperative diagnosis: right chest wall abscess, dropped gallstone Procedure: exploratory laparoscopy, lysis of adhesions, drainage of chest wall abscess and removal of dropped gallstone Surgeon: Jeff Ramos MD Irrigation Supervisor: Tait Triana PA-C, James ESPINOZA Anesthesia: general ET Indications for procedure: 71-year-old male patient status post laparoscopic cholecystectomy 2019, status post fall on right chest now presenting with chronic abdominal pain and right chest wall pain. Patient was found to have a fluid collection with a possible dropped gallstone over the lateral surface of the liver right side. This was felt to be possibly a subcapsular hematoma. Operative findings: Large abscess within the chest wall extending to the lateral surface of the liver. Gallstone within the collection able to be removed. Specimen: Wound culture, gallstone Estimated blood loss: 10 mL Complications: non Procedure details: patient was brought to the OR placed in a supine position. After administering general anesthesia he was placed in a slightly lateral position with right side up. The abdomen was prepped with ChloraPrep and draped in a sterile fashion. A surgical time-out was called the consent confirmed. Patient received preoperative antibiotics and Venodyne boots were in place. Local anesthesia consisting of 0.5% Sensorcaine was infiltrated in a periumbilical location. A 5 mm incision was then made above the umbilicus. Veress needle was then inserted while elevating abdominal cavity with towel clips. After a positive drop test the abdomen was insufflated to a pressure 15 mmHg. The Veress needle was removed and a 5 mm trocar inserted. The camera was then inserted in the above findings noted. Dense adhesions were noted from his previous appendectomy scar in the right lower quadrant. There was also adhesions over the liver and along the sidewall of the liver. A 2nd 5 mm port was placed in the right upper quadrant at the midclavicular line. This was then a subcostal location. A LigaSure was then inserted in the adhesions taken down off the abdominal wall. A 2nd right upper quadrant 5 mm port was placed and then later converted to a 12 mm port. This was placed in the anterior axillary line. Adhesions were then taken down over the liver in the right upper quadrant. A large abscess collection was then identified at this location. This was drained and a wound culture obtained. The abscess cavity was explored and multiple pockets purulence fluid was identified. The various the loculations were broken up and drained with the suction. In addition the adhesions to the lateral surface of the right lobe of the liver were taken down along the peritoneum. No intraperitoneal abscess could be identified. The abscess cavity was irrigated and a gallstone noted within the base of the abscess collection. This was grasped with a grasper and placed into a Endo-Catch bag and removed from the abdominal cavity. The abscess cavity was further irrigated and suctioned dry. No active bleeding was identified. A 7 Garcia-Gallagher drain was then placed in the abscess cavity. This was brought out through the lateral trocar site and secured to the skin using a nylon suture. The remaining trocars removed and the CO2 evacuated. Trocar sites were then closed using 4-0 Polysorb suture. Sterile dressings were then applied. The patient tolerated the procedure well. Sponge, instrument, and needle counts reported as correct. Patient was transferred to PACU in stable condition.
[2021-12-28] MEDS: ondansetron HCL 4 MG/2 ML VIAL IVPUSH (10:53)
[2021-12-28] MEDS: HYDROmorphone HCl 0.5 MG/0.5 ML SYRINGE 0.25 MG IVPUSH ×4 (10:54→13:28)
--- NOTE | 2021-12-28 11:17 | PHA.MEDREC ---
Pharmacy Consult ? Medication Reconciliation Pharmacy has completed the medication reconciliation. Reviewed med rec done by nursing
[2021-12-28] MEDS: fentaNYL citrate/PF 100 MCG/2 ML VIAL 25 MCG IVPUSH ×4 (11:20→12:32)
[2021-12-28] MEDS: oxyCODONE HCl Immed Release 5 MG TABLET PO (13:15)
[2021-12-28] MEDS: HYDROmorphone HCl 0.5 MG/0.5 ML SYRINGE IM (13:48)
[2021-12-28] MEDS: HYDROmorphone HCl 1 MG/ML SYRINGE 0.5 MG IVPUSH (15:17)
[2021-12-28] MEDS: Dextrose 5 % and Lactated Ring 1,000 ML 125 ML IVCONT ×2 (15:17→23:03)
[2021-12-28] MEDS: 0.9 % Sodium Chloride Flush 3 ML SYRINGE IVFLUSH (15:18)
[2021-12-28] MEDS: Acetaminophen 325 MG TABLET 650 MG PO (16:26)
[2021-12-28] MEDS: HYDROmorphone HCl 1 MG/ML SYRINGE IVPUSH ×3 (17:02→23:01)
[2021-12-28] MEDS: Piperacillin Sodium/Tazobactam 3.375 GM in 0.9 % Sodium Chloride 50 ML IV ×2 (17:03→23:02)
[2021-12-28] MEDS: Metoprolol Tartrate 100 MG TABLET 200 MG PO (23:00)
[2021-12-28] MEDS: Dicyclomine HCl 10 MG CAPSULE PO (23:00)
[2021-12-29] VITALS (8 sets, daily range): BP systolic 99–126; BP diastolic 55–64; PULSE 67–94; RESP 17–19; TEMP 36.4–38.7; O2SAT 91–96; BMI 25.7
[2021-12-29] MEDS: HYDROmorphone HCl 1 MG/ML SYRINGE IVPUSH ×6 (02:10→22:23)
[2021-12-29] MEDS: Omeprazole 20 MG CAPSULE.DR PO (05:36)
[2021-12-29] MEDS: Piperacillin Sodium/Tazobactam 3.375 GM in 0.9 % Sodium Chloride 50 ML IV ×4 (05:36→22:30)
[2021-12-29] MEDS: Dextrose 5 % and Lactated Ring 1,000 ML 125 ML IVCONT ×2 (05:37→15:49)
[2021-12-29 05:58] LABS: Basophils Percent Auto 0.2 % (0-2); Hematocrit 26.9 % (42.0-52.0); Hemoglobin 8.7 g/dl (14.0-18.0); Imm Gran Abs Auto 0.18 X10*3/uL (0.00-0.03); Imm Gran Pct Auto 0.8 % (0.0-0.4); Lymphocytes Percent Auto 4.3 % (20-40); MANUAL DIFF FLAG SCAN; Mean Corpuscular HGB Conc 32.3 g/dl (31.0-36.0); Mean Corpuscular Hemoglobin 30.4 pg (27.0-33.0); Mean Corpuscular Volume 94.1 fL (80.0-98.0); Mean Platelet Volume 8.7 fL (9.4-12.4); Monocytes Absolute Auto 0.8 X10*3/uL (0.1-1.2); Monocytes Percent Auto 3.7 % (2-11); Neutrophils Absolute Auto 20.4 x10*3/uL (2.0-8.3); Platelet Count 335 X10*3/uL (160-400); Red Blood Count 2.86 X10*6/uL (4.60-5.80); Red Cell Distribution Width 13.2 % (11.0-16.0); SCAN SMEAR FLAG 1; White Blood Count 22.4 X10*3/uL (4.8-10.8)
[2021-12-29 06:20] LABS: SLIDE REVIEW VERIFIED
--- NOTE | 2021-12-29 08:07 | PM.PNGS ---
Subjective Subjective Date of Service: 12/29/21 Interval history: Reports right side pain 10 today. Denies na Physical Exam Vital Signs: Vital Signs: Last Vital Signs Temp 98.5 F 12/29/21 07:27 Pulse 69 12/29/21 07:27 Resp 18 12/29/21 07:27 BP 101/56 L 12/29/21 07:27 Pulse Ox 96 12/29/21 07:27 O2 Del Method 12/29/21 07:27 O2 Flow Rate 1.5 12/28/21 15:53 Oxygen Flow Rate 1 12/28/21 13:13 BMI result Body Mass Index 25.7 Const: General: cooperative and no acute distress Nutritional Appearance: thin Orientation/consciousness: patient oriented x3 Resp: Effort & Inspection: normal respiratory effort GI: Other: incisions clean and intact without redness or discharge. ADIEL with serous discharge, no puss Skin: General skin exam: no rashes or lesions noted Neuro: General: patient oriented x3 Objective Data Active Medications Aspirin (Aspirin Enteric Coated 81 Mg Tablet.Dr) 81 mg PO DAILY [facility] Dicyclomine HCl (Dicyclomine Hcl 10 Mg Capsule) 10 mg PO BID [facility] Last Admin: 12/28/21 23:00 Dose: 10 mg Documented By: LAURA Diltiazem HCl (Diltiazem Hcl 30 Mg Tablet) 30 mg PO QID PRN; Protocol PRN Reason: episodes of palpatations Docusate Sodium (Docusate Sodium 100 Mg Capsule) 100 mg PO DAILY PRN PRN Reason: Constipation Hydromorphone HCl (Hydromorphone Hcl 1 Mg/Ml Syringe) 1 mg IVPUSH Q2H PRN; Protocol PRN Reason: Pain, Severe (Pain Scale 7-10) Last Admin: 12/29/21 05:59 Dose: 1 mg Documented By: LAURA Dextrose/Lactated Ringer's (D5lr) 1,000 mls @ 125 mls/hr IVCONT .Q8H [facility] Last Admin: 12/29/21 05:37 Dose: 125 mls/hr Documented By: LAURA Piperacillin Sod/Tazobactam (Sod 3.375 gm/ Sodium Chloride) 50 mls @ 100 mls/hr IV Q6H [facility] Last Infusion: 12/29/21 06:14 Dose: 0 mls/hr Documented By: LAURA Acetaminophen (Ofirmev) 1,000 mg in 100 mls @ 400 mls/hr IV Q6H [facility] Last Infusion: 12/29/21 06:13 Dose: 0 mls/hr Documented By: LAURA Metoprolol Tartrate (Metoprolol Tartrate 100 Mg Tablet) 200 mg PO BID [facility] Last Admin: 12/28/21 23:00 Dose: 200 mg Documented By: LAURA Omeprazole (Omeprazole 20 Mg Capsule.Dr) 20 mg PO DAILY@0630 [facility] Last Admin: 12/29/21 05:36 Dose: 20 mg Documented By: LAURA Oxycodone HCl (Oxycodone Hcl Immed Release 5 Mg Tablet) 10 mg PO Q4H PRN PRN Reason: Pain, Moderate (Pain Scale 4-6 Sodium Chloride (0.9 % Sodium Chloride Flush 3 Ml Syringe) 3 ml IVFLUSH QSHIFT [facility] Last Admin: 12/29/21 01:09 Dose: Not Given Documented By: LAURA Non-Admin Reason: IV Running Zolpidem Tartrate (Zolpidem Tartrate 5 Mg Tablet) 5 mg PO BEDTIME PRN PRN Reason: Insomnia Labs CBC & Chem 7: 12/29/21 05:23 12/28/21 07:09 Labs: Laboratory Results - last 24 hr 12/29/21 05:23 MCV 94.1 MCH 30.4 MCHC 32.3 RDW 13.2 Plt Count 335 MPV 8.7 L Immature Gran % (Auto) 0.8 H Neut % (Auto) 91.0 H Lymph % (Auto) 4.3 L [place] % (Auto) 3.7 Eos % (Auto) 0.0 Baso % (Auto) 0.2 Lymph # (Auto) 1.0 L [place] # (Auto) 0.8 Eos # (Auto) 0.0 Baso # (Auto) 0.0 Abs Immat Gran (auto) 0.18 H Absolute Neuts (auto) 20.4 H Absolute Nucleated RBC 0.000 Nucleated RBC % (auto) 0.0 Smear Tech's Comments VERIFIED Microbiology Microbiology Results: Microbiology 12/28/21 Unknown Gram Stain - Final Abscess Intra-abdominal Procedures Date of Service Date of Service: 12/29/21 Progress Note: A&P Assessment and plan (1) Abscess of abdominal wall: Status: Acute Assessment and Plan: POD # 1 s/p drainage of large abscess abdominal wall and removal of gallstone, he is still sore but improved. Wounds are clean and intact. WBC is elevated to 22k. Will need to continue inpatient status for IV antibiotics. Will recheck WBC. Encouraged OOB and ambulate. Time Spent With Patient Time: Total time spent is greater than 50% in coordination of care (as documented) at patient's floor/unit and/or counseling patient: Quality Stroke Does the patient have a stroke diagnosis?: No VTE Prior VTE?: No VTE Risk Level:: Surgical - moderate VTE Device Contraindication: N/A - Device Ordered VTE Drug Contraindication: Treatment Not Indicated
[2021-12-29] MEDS: Aspirin Enteric Coated 81 MG TABLET.DR PO (09:03)
[2021-12-29] MEDS: 0.9 % Sodium Chloride Flush 3 ML SYRINGE IVFLUSH ×2 (09:03→22:22)
[2021-12-29] MEDS: Dicyclomine HCl 10 MG CAPSULE PO ×2 (09:03→20:23)
--- NOTE | 2021-12-29 09:04 | HO.POSTANES ---
Post Anesthesia Evaluation Post Anesthesia Evaluation Vital Signs: Vital Signs Temp Pulse Resp BP Pulse Ox O2 Del Method 12/29/21 07:27 98.5 F 69 18 101/56 L 96 Room Air 12/29/21 04:00 97.5 F 67 17 99/55 L 95 Room Air 12/29/21 00:00 97.6 F 76 17 109/59 L 95 Room Air Anesthesia: General Endotracheal-GETA Mental Status: Awake Pain Control: Satisfactory (pain was difficult to control throughout the night) Nausea/Vomiting: Mild Hydration: Adequate Anesthesia-Related Issues: No Anes. Related Issues
--- NOTE | 2021-12-29 09:07 | MHC.CM.PN ---
PT REPORTS HE LIVES AT HOME WITH HIS , WHO HAS DEMENTIA AND HIS DAUGHTER WHO IS DEVELOPMENTALLY DELAYED HE REPORTS HIS DAUGHTER IS PRETTY FUNCTIONAL AND CAN HELP WITH HIS 'S CARE HIS ALSO HAS 23 HOURS OF [employer] SERVICES PER WEEK PT REPORTS HE DOES NOT HAVE ANY SERVICES OR DME IN THE HOME FOR HIMSELF PT COMPLETED A NEW HCP TODAY NAMING HIS DAUGHTER, JEANNE HASSAN AND SON, CATHIE CADET JR, HIS PRIMARY AND ALTERNATE AGENTS RESPECTIVELY PT CONFIRMS HIS PCP IS LORIE CLEMONS PT REPORTS HE IS COVID-19 VACCINATED CURRENT DC PLAN IS HOME WITH NO SERVICES PT TO ARRANGE TRANSPORT
[2021-12-29] MEDS: oxyCODONE HCl Immed Release 5 MG TABLET 10 MG PO (11:57)
[2021-12-29] MEDS: Docusate Sodium 100 MG CAPSULE PO (11:59)
--- NOTE | 2021-12-29 14:08 | MHC.CLN ---
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
[2021-12-29] MEDS: ondansetron HCL 4 MG/2 ML VIAL IVPUSH (15:48)
[2021-12-29] MEDS: LORazepam 0.5 MG TABLET PO (16:55)
[2021-12-30] VITALS (21 sets, daily range): BP systolic 80–147; BP diastolic 46–79; PULSE 84–170; RESP 17–25; TEMP 36.6–39.1; O2SAT 85–96
--- NOTE | 2021-12-30 | ECG_ITS ---
Test Reason : rapid response Blood Pressure : / mmHG Vent. Rate : 163 BPM Atrial Rate : 000 BPM P-R Int : 000 ms QRS Dur : 124 ms QT Int : 300 ms P-R-T Axes : 000 042 218 degrees QTc Int : 494 ms Atrial fibrillation with rapid ventricular response Left bundle branch block Abnormal ECG When compared with ECG of 13-NOV-2021 13:41, Atrial fibrillation has replaced Sinus rhythm Vent. rate has increased BY 85 BPM T wave inversion more evident in Inferior leads Referred By: Agusto Ca Electronically Signed By:VERONIQUE HUBBARD
--- NOTE | ~2021-12-30 | XR_ITS ---
EXAMINATION: XR CHEST CLINICAL INFORMATION: Hypoxia COMPARISON: 12/28/2021 TECHNIQUE: Frontal view of the chest was obtained. FINDINGS: Lungs are hypoinflated. The lower lobes are suboptimally evaluated due to the hypoinflation. There are grossly unchanged hazy, streaky opacities from atelectasis or infiltrates in the lower lobes. Cardiac silhouette is normal in size. The pulmonary vascular pattern is normal. The visualized bones are intact. There is a cardiac loop recorder of the left chest wall. A skinfold projects over the right chest. XR/XR chest 1V IMPRESSION: * Lungs remain hypoinflated. The hazy, streaky opacities within the suboptimally visualized lower lobes probably represent atelectasis rather than pneumonia. * No new cardiopulmonary findings compared to chest radiograph from 12/28/2021.
--- NOTE | ~2021-12-30 | CT_ITS ---
EXAMINATION: CT ABDOMEN AND PELVIS WITHOUT CONTRAST CLINICAL INFORMATION: Reason for Exam abd pain COMPARISON: None. TECHNIQUE: Multidetector volumetric imaging was performed from the lung bases through the pubic symphysis. Sagittal and coronal reformatted images were obtained on the technologist workstation. This CT examination was performed using dose optimization techniques as appropriate, variously including the following: *Automated exposure control *Adjustment of mA and/or kV according to patient size (this includes techniques or standardized protocols for targeted exams where dose is matched to indication/reason for exam; i.e. extremities or head) *Use of iterative reconstruction technique DLP 682 FINDINGS: The lack of intravenous contrast limits evaluation of the solid visceral organs including the liver, spleen, pancreas, and kidneys. LUNG BASES: Small bilateral pleural effusions with right greater than left posterior dependent bibasilar atelectasis. These are improved from the prior study. Normal heart size. LIVER, GALLBLADDER, AND BILIARY TREE: No focal liver lesions seen. Previously seen pneumobilia has resolved. Again seen is a complex fluid collection along the right lateral margin of the liver, scalloping the liver margin. There are a few foci of internal gas. The previously seen drainage catheter has been removed since the prior study 12/30/2021. The collection measures 8.8 x 1.8 cm. Gallbladder surgically absent. Common bile duct remains dilated to 1.4 cm, similar to prior. PANCREAS: Diffuse pancreatic atrophy. SPLEEN: Limited non-contrast evaluation is normal. ADRENAL GLANDS: Normal; no adrenal mass. KIDNEYS AND URETERS: Simple bilateral renal cysts for which no imaging follow-up is recommended. No hydronephrosis or calculi.. GASTROINTESTINAL TRACT: Stomach is collapsed. There are increasingly prominent distended loops of small bowel in the left abdomen, up to 3.2 cm in diameter with fluid levels. These taper to normal caliber in the mid to distal small bowel. Also seen is increasing gaseous distention of the nondependent colon. The sigmoid colon remains collapsed. New small volume of ascites is present with fluid seen adjacent the spleen and along both paracolic gutters into the pelvis. There is new diffuse fat stranding throughout the central mesentery. ABDOMINAL WALL: Developing anasarca. There is skin thickening of the right lateral buttock with subcutaneous fat stranding suggesting soft tissue infection. LYMPH NODES: No pathologically enlarged lymph nodes in the abdomen or pelvis. VASCULAR: Normal caliber abdominal aorta. BLADDER: Unremarkable. PELVIC VISCERA: Normal noncontrast appearance of the prostate and seminal vesicles. OSSEOUS STRUCTURES: No acute or suspicious osseous abnormalities. CT/CT abdomen pelvis wo IV con IMPRESSION: Subcapsular collection scalloping the right lateral margin of the liver persists with a drain having been removed. The size is not convincingly changed from the prior study 12/30/2021. There is new small volume of ascites with diffuse fluid and fat stranding throughout the mesentery. There is developing anasarca with new skin thickening and subcutaneous stranding of the right lateral buttock consistent with soft tissue infection. The etiology for the ascites is unclear. Peritonitis is possible. Increasing gaseous distention of small bowel particularly in the left abdomen with gaseous distention of the nondependent colon. The appearance favors a developing ileus rather than a bowel obstruction but careful attention on follow-up is recommended. Recommendation: Given the worsening findings, recommend contrast-enhanced CT scan of the abdomen and pelvis. Prior studies indicate history of contrast allergy. The patient could be premedicated for an allergy.
--- NOTE | ~2021-12-30 | NM_ITS ---
PULMONARY PERFUSION ONLY STUDY: CLINICAL INDICATION: 71-year-old male with hypoxia. Pleuritic chest pain. Atrial fibrillation. History of allergy to iodinated contrast material. PROCEDURE: Following the intravenous administration of 4.0 millicuries technetium 99m MAA, images of the chest were obtained in multiple projections using a gamma scintiphotographic camera. COMPARISON: Chest radiograph done on 12/30/2021 and VQ scan done on 07/22/2018. PERFUSION IMAGES: No large segmental perfusion defect identified on either side. A small subsegmental perfusion defect however is present within the right lung base. NM/NM pul perfusion IMPRESSION: Based on perfusion only modified PIOPED 2 criteria, pulmonary thromboembolism is considered absent.
--- NOTE | ~2021-12-30 | CT_ITS ---
EXAMINATION: CT ABDOMEN AND PELVIS WITHOUT CONTRAST CLINICAL INFORMATION: Abdominal wall abscess, fever, abdominal pain. COMPARISON: 11/13/2021 TECHNIQUE: Multidetector volumetric imaging was performed from the superior aspect of the liver through the pubic symphysis. Sagittal and coronal reformatted images were obtained on the technologist's workstation. This CT examination was performed using dose optimization techniques as appropriate, variously including the following: *Automated exposure control *Adjustment of mA and/or kV according to patient size (this includes techniques or standardized protocols for targeted exams where dose is matched to indication/reason for exam; i.e. extremities or head) *Use of iterative reconstruction technique DLP: 750 mGy-cm FINDINGS: LUNG BASES: Bilateral lower lobe consolidation with air bronchograms. Small right pleural effusion. LIVER, GALLBLADDER, AND BILIARY TREE: The liver is normal in size, shape, and attenuation. No focal hepatic lesion or biliary ductal dilatation is present. There is increased. There is a drain within the subcapsular fluid collection along the margin of the liver. The collection is significantly decreased from prior with internal gas noted. Difficult to measure the collection, though this currently has a thickness up to 1.5 cm. This compares to 2.5 cm on prior. Cholecystectomy. PANCREAS: Atrophic with no focal abnormality. SPLEEN: Unremarkable. ADRENAL GLANDS: Unremarkable. KIDNEYS AND URETERS: The kidneys are normal in size, shape, and attenuation. No hydronephrosis, hydroureter, or calculi seen. No perinephric stranding. Simple bilateral renal cysts. No follow-up imaging recommended. BLADDER: Unremarkable. GASTROINTESTINAL TRACT: The stomach is unremarkable. Normal caliber small bowel. No obstruction. Scattered diverticulosis without diverticulitis. No colonic wall thickening or inflammatory change. The appendix is not seen. No significant free fluid. Small amount of free air, likely associated with placement of the drain. ABDOMINAL WALL: No significant hernia is appreciated. LYMPH NODES: Normal. VASCULAR: Normal caliber aorta with mild atherosclerotic calcification. PELVIC VISCERA: The prostate and seminal vesicles are unremarkable. OSSEOUS STRUCTURES: No acute or suspicious osseous abnormality. Degenerative change throughout the spine. CT/CT abdomen pelvis wo IV con IMPRESSION: Significant decrease in the subcapsular liver collection with a drain in place. No new collection. Small right pleural effusion. Bilateral lower lobe consolidation could be atelectasis or pneumonia. Fleischner guidelines were followed.
--- NOTE | ~2021-12-30 | XR_ITS ---
EXAMINATION: XR CHEST CLINICAL INFORMATION: Evaluate for pneumothorax COMPARISON: Chest x-ray 07/25/2018 TECHNIQUE: Frontal view of the chest was obtained. FINDINGS: Cardiac silhouette is not enlarged. Hypoinflated lungs. There is no lobar consolidation. No pleural effusion or pneumothorax. XR/XR chest 1V IMPRESSION: Hypoinflated lungs without acute pulmonary pathology.
[2021-12-30] MEDS: HYDROmorphone HCl 1 MG/ML SYRINGE IVPUSH ×6 (03:06→14:55)
[2021-12-30] MEDS: Dextrose 5 % and Lactated Ring 1,000 ML 125 ML IVCONT ×2 (03:09→08:27)
[2021-12-30] MEDS: Piperacillin Sodium/Tazobactam 3.375 GM in 0.9 % Sodium Chloride 50 ML IV ×2 (05:03→11:11)
[2021-12-30] MEDS: Omeprazole 20 MG CAPSULE.DR PO (05:10)
--- NOTE | 2021-12-30 05:34 | PC.NURSE ---
PT running low grade temp on/off, scheduled APAP given as ordered. PT asymptomatic, PT C/O pain in abd, pain meds given with some effect. MD assessed 12/29/21 for fever and pain. Cat scan ordered for today.
[2021-12-30] MEDS: ondansetron HCL 4 MG/2 ML VIAL IVPUSH (06:33)
[2021-12-30 06:39] LABS: Basophils Absolute Auto 0.1 X10*3/uL (0.0-0.2); Basophils Percent Auto 0.3 % (0-2); Eosinophils Absolute Auto 0.2 X10*3/uL (0.0-0.4); Eosinophils Percent Auto 0.7 % (0-4); Hematocrit 26.2 % (42.0-52.0); Hemoglobin 8.5 g/dl (14.0-18.0); Imm Gran Abs Auto 0.32 X10*3/uL (0.00-0.03); Imm Gran Pct Auto 1.3 % (0.0-0.4); Lymphocytes Absolute Auto 0.9 X10*3/uL (1.2-4.9); Lymphocytes Percent Auto 3.8 % (20-40); MANUAL DIFF FLAG SCAN; Mean Corpuscular HGB Conc 32.4 g/dl (31.0-36.0); Mean Corpuscular Hemoglobin 30.6 pg (27.0-33.0); Mean Corpuscular Volume 94.2 fL (80.0-98.0); Mean Platelet Volume 8.9 fL (9.4-12.4); Monocytes Absolute Auto 0.6 X10*3/uL (0.1-1.2); Monocytes Percent Auto 2.6 % (2-11); Neutrophils Absolute Auto 22.1 x10*3/uL (2.0-8.3); Neutrophils Percent Auto 91.3 % (45-73); Platelet Count 363 X10*3/uL (160-400); Red Blood Count 2.78 X10*6/uL (4.60-5.80); Red Cell Distribution Width 13.4 % (11.0-16.0); SCAN SMEAR FLAG 1; White Blood Count 24.3 X10*3/uL (4.8-10.8)
[2021-12-30 07:26] LABS: SLIDE REVIEW VERIFIED
--- NOTE | 2021-12-30 07:42 | P.PNGS_ITS ---
Subjective Subjective Date of Service: 12/30/21 Interval history: Continued abdominal pain in the right upper quadrant. Patient tolerated some p.o. but not much of an appetite still. No BM yet. Reported feeling shortness of breath during the night. Physical Exam Vital Signs: Vital Signs: Last Vital Signs Temp 100.3 F 12/30/21 04:00 Pulse 86 12/30/21 04:00 Resp 17 12/30/21 04:00 BP 98/55 L 12/30/21 04:00 Pulse Ox 93 12/30/21 04:00 O2 Del Method 12/30/21 04:00 O2 Flow Rate 1.5 12/28/21 15:53 Oxygen Flow Rate 1 12/28/21 13:13 BMI result Body Mass Index 25.7 Const: Other: Awake alert, no acute distress Resp: Other: Shallow respirations, mildly short of breath. No wheezing GI: Other: Soft, mildly distended, no tympany to percussion. Decreased bowel sounds. ADIEL with serous discharge. Incisions clean and intact. Skin: Other: Warm, dry, no rash, brisk capillary refill. Extrem: General: Yes capillary refill normal and Yes normal exam except as noted Objective Data Active Medications Aspirin (Aspirin Enteric Coated 81 Mg Tablet.) 81 mg PO DAILY [facility] Last Admin: 12/29/21 09:03 Dose: 81 mg Documented By: ANNA Dicyclomine HCl (Dicyclomine Hcl 10 Mg Capsule) 10 mg PO BID [facility] Last Admin: 12/29/21 20:23 Dose: 10 mg Documented By: WOLFGANG Diltiazem HCl (Diltiazem Hcl 30 Mg Tablet) 30 mg PO QID PRN; Protocol PRN Reason: episodes of palpatations Docusate Sodium (Docusate Sodium 100 Mg Capsule) 100 mg PO DAILY PRN PRN Reason: Constipation Last Admin: 12/29/21 11:59 Dose: 100 mg Documented By: AMAURY Hydromorphone HCl (Hydromorphone Hcl 1 Mg/Ml Syringe) 1 mg IVPUSH Q2H PRN; Pro tocol PRN Reason: Pain, Severe (Pain Scale 7-10) Last Admin: 12/30/21 05:59 Dose: 1 mg Documented By: WOLFGANG Dextrose/Lactated Ringer's (D5lr) 1,000 mls @ 125 mls/hr IVCONT .Q8H [facility] Last Admin: 12/30/21 03:09 Dose: 125 mls/hr Documented By: WOLFGANG Piperacillin Sod/Tazobactam (Sod 3.375 gm/ Sodium Chloride) 50 mls @ 100 mls/hr IV Q6H [facility] Last Infusion: 12/30/21 06:04 Dose: 0 mls/hr Documented By: WOLFGANG Acetaminophen (Ofirmev) 1,000 mg in 100 mls @ 400 mls/hr IV Q6H [facility] Last Infusion: 12/30/21 04:24 Dose: 0 mls/hr Documented By: WOLFGANG Lorazepam (Lorazepam 0.5 Mg Tablet) 0.5 mg PO Q8H PRN PRN Reason: anxiety Last Admin: 12/29/21 16:55 Dose: 0.5 mg Documented By: NICKY Metoprolol Tartrate (Metoprolol Tartrate 100 Mg Tablet) 200 mg PO BID [facility] Last Admin: 12/29/21 20:23 Dose: Not Given Documented By: WOLFGANG Non-Admin Reason: Patient Refused Pt Own (Acebutolol (Hcl 200 Mg Capsule)) 2 caplet PO BID [facility] Last Admin: 12/29/21 20:26 Dose: 2 caplet Documented By: WOLFGANG Omeprazole (Omeprazole 20 Mg Capsule.Dr) 20 mg PO DAILY@0630 [facility] Last Admin: 12/30/21 05:10 Dose: 20 mg Documented By: WOLFGANG Ondansetron HCl (Ondansetron Hcl 4 Mg/2 Ml Vial) 4 mg IVPUSH Q4H PRN PRN Reason: nausea Last Admin: 12/30/21 06:33 Dose: 4 mg Documented By: WOLFGANG Oxycodone HCl (Oxycodone Hcl Immed Release 5 Mg Tablet) 10 mg PO Q4H PRN PRN Reason: Pain, Moderate (Pain Scale 4-6 Last Admin: 12/29/21 11:57 Dose: 10 mg Documented By: AMAURY Polyethylene Glycol (Polyethylene Glycol 3350 17 Gm Powd.Pack) 17 gm PO DAILY PRN PRN Reason: Constipation Sodium Chloride (0.9 % Sodium Chloride Flush 3 Ml Syringe) 3 ml IVFLUSH QSHIFT [facility] Last Admin: 12/29/21 22:22 Dose: 3 ml Documented By: WOLFGANG Zolpidem Tartrate (Zolpidem Tartrate 5 Mg Tablet) 5 mg PO BEDTIME PRN PRN Reason: Insomnia Labs CBC & Chem 7: 12/30/21 05:56 12/28/21 07:09 Labs: Laboratory Results - last 24 hr 12/30/21 05:56 MCV 94.2 MCH 30.6 MCHC 32.4 RDW 13.4 Plt Count 363 MPV 8.9 L Immature Gran % (Auto) 1.3 H Neut % (Auto) 91.3 H Lymph % (Auto) 3.8 L [place] % (Auto) 2.6 Eos % (Auto) 0.7 Baso % (Auto) 0.3 Lymph # (Auto) 0.9 L [place] # (Auto) 0.6 Eos # (Auto) 0.2 Baso # (Auto) 0.1 Abs Immat Gran (auto) 0.32 H Absolute Neuts (auto) 22.1 H Absolute Nucleated RBC 0.000 Nucleated RBC % (auto) 0.0 Smear Tech's Comments VERIFIED Microbiology Microbiology Results: Microbiology 12/28/21 Unknown Gram Stain - Final Abscess Intra-abdominal Routine Culture - Preliminary Gram negative sandra Procedures Date of Service Date of Service: 12/30/21 Progress Note: A&P Assessment and plan (1) Abscess of abdominal wall: Status: Acute Plan Patient with a known abscess of the right upper quadrant abdominal wall associated with a dropped gallstone. Wound cultures revealing Gram-negative rods. Patient's WBC continues to rise despite Zosyn. Will consult Infectious Disease for assistance with antibiotics. Increase IV fluids. Continue Zosyn for now. Awaiting culture sensitivities. Will obtain blood cultures as well. Patient will be converted to inpatient status. Time Spent With Patient Time: Total time spent is greater than 50% in coordination of care (as documented) at patient's floor/unit and/or counseling patient: Quality Stroke Does the patient have a stroke diagnosis?: No VTE Prior VTE?: No VTE Risk Level:: Surgical - moderate VTE Device Contraindication: N/A - Device Ordered VTE Drug Contraindication: Treatment Not Indicated
--- NOTE | 2021-12-30 08:04 | PHA.MEDREC ---
Pharmacy Consult ? Medication Reconciliation Pharmacy has completed the medication reconciliation. Double checked overnight med rec
[2021-12-30] MEDS: Dicyclomine HCl 10 MG CAPSULE PO ×2 (08:28→21:07)
[2021-12-30] MEDS: Aspirin Enteric Coated 81 MG TABLET.DR PO (08:28)
[2021-12-30] MEDS: polyethylene glycoL 3350 17 GM POWD.PACK PO (08:38)
[2021-12-30 09:01] LABS: Lactic Acid 0.9 mmol/L (0.5-2.0)
[2021-12-30] MEDS: LORazepam 0.5 MG TABLET PO (09:24)
--- NOTE | 2021-12-30 11:31 | MHC.CLN ---
F/U S/P DRAINAGE OF ABDOMINAL WALL ABSCESS AND GALLSTONE REMOVAL. INTAKE APPEARS 50-100%. DIET=REGULAR, GLUTEN FREE. CONTINUE ENSURE TID (1050 KCALS, 60 G PROTEIN). FOLLOW FOR INTAKE AND DIET TOLERANCE.
--- NOTE | 2021-12-30 14:40 | PC.NURSE ---
At approximately 14:30 pt c/o of shakiness after waking up and still SOB due to pain. VSA were checked with O2 saturation 85% on room air, O2 was applied at 2L and a temperature of 101.4. Hospitalsts notified.
--- NOTE | 2021-12-30 15:20 | P.CONHOSP_ITS ---
History of Present Illness Data of Consult Service Date: 12/30/21 Requesting physician: Jeff Ramos Primary Care Provider: Jeff Rivas, [facility]- HPI Reason for consult: sob following abdominal wall abscess drainage 71 year old male s/p chest wall abscess drainage post op day 2 admitted to general surgery consulted on for new SOB. Since his surgery patient has had increasing leukocytosis, now at 24.3 and is febrile with temp of 102.4. Now with tachycardia at 104 and hypoxia at 85% now on 2L O2 via NC. Pt complaining of sob without o2 with occassional nonproductive cough. No chest pain or palpitations. Has been on zosyn and infectious disease has been consulted. Last lactic acid was 1.9 this morning. No hypotension. Review of Systems Review of Systems: General: No fevers, malaise, unintentional weight loss Cardiovascular: No chest pain, palpitations, or leg edema Respiratory: +sob, +cough GI: +RUQ pain at surgical sit. No nausea, vomiting, diarrhea, constipation, melena, hematochezia Neuro: No headaches, weakness, paresthesias Skin: No rashes or lesions [facility] Medical History Barretts esophagus Celiac disease Chronic neck and back pain Failed back syndrome Frequent PVCs GERD (gastroesophageal reflux disease) History of blood transfusion History of thyrotoxicosis Implantable loop recorder present LBBB (left bundle branch block) Paroxysmal atrial fibrillation PHN (postherpetic neuralgia) Family History Father CVD (cardiovascular disease) Mother Leukemia Son No problems noted. Son No problems noted. Daughter No problems noted. Daughter No problems noted. 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 If so, by whom?: No Are you DNR?: No Advance Directives: No Advance Directives Information Provided: Yes (daughter Donnie Rollins) Advance Directives on File: No Recently lost weight without trying: Yes How much weight loss: 14-23 pounds Eating poorly because of decreased appetite: Yes Nutrition screen score: 5 Nutrition Risks: Anorexia Poor oral hygiene: No (missing teeth) service: Yes Current occupational status: employed Current occupation: [employer] Current occupational exposures/hazards: No Cognitive needs: No Hearing needs: No Vision needs: Yes Meds Allergies Allergy/AdvReac Type Severity Reaction Status Date / Time Iodinated Contrast Media Allergy Severe ANAPHYLAXIS Verified 12/28/21 07:36 [IV DYE, IODINE CONTAINING] gluten [GLUTEN] Allergy Intermediate BLOATING,SEVERE Verified 12/28/21 07:36 GI PAIN morphine AdvReac Nausea and Verified 12/28/21 07:36 Vomiting Active Medications: Current Medications Aspirin (Aspirin Enteric Coated 81 Mg Tablet.Dr) 81 mg PO DAILY [facility] Last Admin: 12/30/21 08:28 Dose: 81 mg Dicyclomine HCl (Dicyclomine Hcl 10 Mg Capsule) 10 mg PO BID [facility] Last Admin: 12/30/21 08:28 Dose: 10 mg Diltiazem HCl (Diltiazem Hcl 30 Mg Tablet) 30 mg PO QID PRN; Protocol PRN Reason: episodes of palpatations Docusate Sodium (Docusate Sodium 100 Mg Capsule) 100 mg PO DAILY PRN PRN Reason: Constipation Last Admin: 12/29/21 11:59 Dose: 100 mg Hydromorphone HCl (Hydromorphone Hcl 1 Mg/Ml Syringe) 1 mg IVPUSH Q2H PRN; Protocol PRN Reason: Pain, Severe (Pain Scale 7-10) Last Admin: 12/30/21 14:55 Dose: 1 mg Acetaminophen (Ofirmev) 1,000 mg in 100 mls @ 400 mls/hr IV Q6H [facility] Last Infusion: 12/30/21 10:54 Dose: Infused Piperacillin Sod/Tazobactam (Sod 4.5 gm/ Sodium Chloride) 50 mls @ 100 mls/hr IV Q6H [facility] Lactated Ringer's (Lr) 500 mls @ 999 mls/hr IV .Q31M ONE Stop: 12/30/21 15:43 Lorazepam (Lorazepam 0.5 Mg Tablet) 0.5 mg PO Q8H PRN PRN Reason: anxiety Last Admin: 12/30/21 09:24 Dose: 0.5 mg Pt Own (Acebutolol (Hcl 200 Mg Capsule)) 2 caplet PO BID [facility] Last Admin: 12/30/21 08:31 Dose: 2 caplet Omeprazole (Omeprazole 20 Mg Capsule.Dr) 20 mg PO DAILY@0630 [facility] Last Admin: 12/30/21 05:10 Dose: 20 mg Ondansetron HCl (Ondansetron Hcl 4 Mg/2 Ml Vial) 4 mg IVPUSH Q4H PRN PRN Reason: nausea Last Admin: 12/30/21 06:33 Dose: 4 mg Oxycodone HCl (Oxycodone Hcl Immed Release 5 Mg Tablet) 10 mg PO Q4H PRN PRN Reason: Pain, Moderate (Pain Scale 4-6 Last Admin: 12/29/21 11:57 Dose: 10 mg Polyethylene Glycol (Polyethylene Glycol 3350 17 Gm Powd.Pack) 17 gm PO DAILY PRN PRN Reason: Constipation Last Admin: 12/30/21 08:38 Dose: 17 gm Sodium Chloride (0.9 % Sodium Chloride Flush 3 Ml Syringe) [facility] Last Admin: 12/30/21 08:38 Dose: Not Given Zolpidem Tartrate (Zolpidem Tartrate 5 Mg Tablet) 5 mg PO BEDTIME PRN PRN Reason: Insomnia Home Medications Medication Instructions Recorded Confirmed Last Taken Type omeprazole 20 mg capsule,delayed 20 mg PO DAILY 08/11/21 12/23/21 12/28/21 05:30 History release aspirin 81 mg capsule 81 mg PO DAILY 12/24/21 12/24/21 12/21/21 History dicyclomine 10 mg capsule 10 mg PO BID 12/24/21 12/24/21 Unknown History Physical Exam Vital Signs and Narrative: Vital Signs: Last Vital Signs Temp 102.4 F H 12/30/21 14:29 Pulse 104 H 12/30/21 14:29 Resp 18 12/30/21 14:29 BP 138/68 12/30/21 14:29 Pulse Ox 85 L 12/30/21 14:29 O2 Del Method 12/30/21 14:29 O2 Flow Rate 1 12/30/21 11:33 Oxygen Flow Rate 2 12/30/21 13:00 BMI result Body Mass Index 25.7 Constitutional - Awake and Alert, No apparent distress Eyes - PERRLA, EOMI Cardiovascular - S1S2, tachycardic with regular rhythm, No edema Respiratory - Normal lung expansion, Normal respiratory effort, No respiratory distress, CTA bilaterally Gastrointestinal - Mild ttp ruq with ADIEL drain with serosanguinous drainage. Otherwise NT / ND; +BS; No rebound or guarding Extremities - no calf tenderness bilaterally, no swelling Musculoskeletal - Normal inspection, normal ROM Skin - Warm/Dry Neurological - Alert & oriented x3, No focal deficit Psychological - Appropriate affect Results Labs CBC and Chem 7: 12/30/21 05:56 12/28/21 07:09 Labs: Laboratory Results - last 24 hr 12/30/21 12/30/21 05:56 08:32 MCV 94.2 MCH 30.6 MCHC 32.4 RDW 13.4 Plt Count 363 MPV 8.9 L Immature Gran % (Auto) 1.3 H Neut % (Auto) 91.3 H Lymph % (Auto) 3.8 L [place] % (Auto) 2.6 Eos % (Auto) 0.7 Baso % (Auto) 0.3 Lymph # (Auto) 0.9 L [place] # (Auto) 0.6 Eos # (Auto) 0.2 Baso # (Auto) 0.1 Abs Immat Gran (auto) 0.32 H Absolute Neuts (auto) 22.1 H Absolute Nucleated RBC 0.000 Nucleated RBC % (auto) 0.0 Smear Tech's Comments VERIFIED Lactic Acid 0.9 Imaging Radiologist's Impressions: Impressions Abdomen/Pelvis CT 12/30/21 06:25 IMPRESSION: Significant decrease in the subcapsular liver collection with a drain in place. No new collection. Small right pleural effusion. Bilateral lower lobe consolidation could be atelectasis or pneumonia. Fleischner guidelines were followed. Assessment and Plan (1) Abscess of abdominal wall: Status: Acute (2) Sepsis with acute hypoxic respiratory failure: Status: Acute Plan 71 year old male s/p chest wall abscess drainage post op day 2 admitted to general surgery consulted on for hypoxia and shortness of breath. 1-Abscess of abdominal wall with sepsis -Plan per general surgery -Wound cultures growing gram negative rods -Continue IV Zosyn. ID consulted 2-Acute hypoxic respiratory failure secondary- possibly secondary to sepsis -Pt 85% on oximetry. Continue O2 to maintain O2 sat >93%. -Pt post op day 2 with sob with hypoxia and tachycardia. EKG ordered. ABG ordered. CT chest and cxr ordered -ABG- pH 7.45, pCO2 31, pO2 56. Pt to be transferred per surgery 3-Atrial fibrillation with RVR -Rapid response called as patient's rate elevated to 170. EKG showed rapid AFib -10mg diltiazem push given -80mg lovenox ordered -Patient to be transferred per surgery 4-HTN- BP soft -1L LR ordered -Hold home bp meds We will continue to follow patient
[2021-12-30] MEDS: Lactated Ringers 500 ML 999 ML IV (15:22)
[2021-12-30 15:36] LABS: Basophils Absolute Auto 0.1 X10*3/uL (0.0-0.2); Basophils Percent Auto 0.3 % (0-2); Eosinophils Absolute Auto 0.3 X10*3/uL (0.0-0.4); Eosinophils Percent Auto 1.2 % (0-4); Hematocrit 30.4 % (42.0-52.0); Hemoglobin 9.9 g/dl (14.0-18.0); Imm Gran Pct Auto 1.7 % (0.0-0.4); Lymphocytes Absolute Auto 1.2 X10*3/uL (1.2-4.9); MANUAL DIFF FLAG SCAN; Mean Corpuscular HGB Conc 32.6 g/dl (31.0-36.0); Mean Corpuscular Hemoglobin 30.7 pg (27.0-33.0); Mean Corpuscular Volume 94.1 fL (80.0-98.0); Mean Platelet Volume 8.7 fL (9.4-12.4); Monocytes Absolute Auto 0.6 X10*3/uL (0.1-1.2); Monocytes Percent Auto 1.9 % (2-11); Neutrophils Absolute Auto 26.3 x10*3/uL (2.0-8.3); Neutrophils Percent Auto 90.9 % (45-73); Platelet Count 413 X10*3/uL (160-400); Red Blood Count 3.23 X10*6/uL (4.60-5.80); Red Cell Distribution Width 13.4 % (11.0-16.0); SCAN SMEAR FLAG 1
[2021-12-30 15:39] LABS: ABG Base Excess -0.4 mmol/L; ABG HCO3 22 mmol/L (22-26); ABG pCO2 31 mmHg (32-45); ABG pH 7.45 (7.35-7.45); ABG pO2 56 mmHg (83-108)
[2021-12-30 15:44] LABS: Anion Gap 17 (12-20); Blood Urea Nitrogen 16 mg/dL (9-16); Calcium 8.4 mg/dL (8.4-10.2); Carbon Dioxide 23 mmol/L (22-29); Chloride 101 mmol/L (96-108); Creatinine Clr Calc Pharmacy 60.4; Estimated Glomerular Filt Rate > 60; Glucose Random 96 mg/dL (60-115); Potassium 4.2 mmol/L (3.3-5.1); Sodium 137 mmol/L (135-145)
[2021-12-30] MEDS: dilTIAZem HCL 50 MG/10 ML VIAL 10 MG IVPUSH ×2 (15:53→16:47)
[2021-12-30] MEDS: Enoxaparin Sodium 80 MG/0.8 ML SYRINGE SUBCUT (16:04)
[2021-12-30 16:12] LABS: SLIDE REVIEW VERIFIED
[2021-12-30] MEDS: dilTIAZem HCL 30 MG TABLET PO (16:15)
--- NOTE | 2021-12-30 16:19 | P.CNID_ITS ---
History of Present Illness Data of Consult Service Date: 12/30/21 Requesting physician: [id number] Onc MA Primary Care Provider: [facility] HPI Reason for consult: sepsis , E coli abdominal wall He presents with abdominal disomfort 7/10 RUQ over last week,started since fall six months ago. He saw GI. He has atrial fibrillation but not on anticoagulation at this time. He was found to have abdominal abscess E coli Review of Systems Review of Systems: Yes all other systems are reviewed and are negative [facility] Past Medical History Medical History Barretts esophagus Celiac disease Chronic neck and back pain Failed back syndrome Frequent PVCs GERD (gastroesophageal reflux disease) History of blood transfusion History of thyrotoxicosis Implantable loop recorder present LBBB (left bundle branch block) Paroxysmal atrial fibrillation PHN (postherpetic neuralgia) Family History Family History Father CVD (cardiovascular disease) Mother Leukemia Son No problems noted. Son No problems noted. Daughter No problems noted. Daughter No problems noted. 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 If so, by whom?: No Are you DNR?: No Advance Directives: No Advance Directives Information Provided: Yes (daughter Donnie Rollins) Advance Directives on File: No Recently lost weight without trying: Yes How much weight loss: 14-23 pounds Eating poorly because of decreased appetite: Yes Nutrition screen score: 5 Nutrition Risks: Anorexia Poor oral hygiene: No (missing teeth) service: Yes Current occupational status: employed Current occupation: [employer] Current occupational exposures/hazards: No Cognitive needs: No Hearing needs: No Vision needs: Yes Meds Allergies Allergy/AdvReac Type Severity Reaction Status Date / Time Iodinated Contrast Media Allergy Severe ANAPHYLAXIS Verified 12/28/21 07:36 [IV DYE, IODINE CONTAINING] gluten [GLUTEN] Allergy Intermediate BLOATING,SEVERE Verified 12/28/21 07:36 GI PAIN morphine AdvReac Nausea and Verified 12/28/21 07:36 Vomiting Active Medications: Current Medications Aspirin (Aspirin Enteric Coated 81 Mg Tablet.) 81 mg PO DAILY [facility] Last Admin: 12/30/21 08:28 Dose: 81 mg Dicyclomine HCl (Dicyclomine Hcl 10 Mg Capsule) 10 mg PO BID [facility] Last Admin: 12/30/21 08:28 Dose: 10 mg Diltiazem HCl (Diltiazem Hcl 30 Mg Tablet) 30 mg PO QID PRN; Protocol PRN Reason: episodes of palpatations Diltiazem HCl (Diltiazem Hcl 50 Mg/10 Ml Vial) 10 mg IVPUSH STAT STA Stop: 12/30/21 15:59 Docusate Sodium (Docusate Sodium 100 Mg Capsule) 100 mg PO DAILY PRN PRN Reason: Constipation Last Admin: 12/29/21 11:59 Dose: 100 mg Hydromorphone HCl (Hydromorphone Hcl 1 Mg/Ml Syringe) 1 mg IVPUSH Q2H PRN; Protocol PRN Reason: Pain, Severe (Pain Scale 7-10) Last Admin: 12/30/21 14:55 Dose: 1 mg Acetaminophen (Ofirmev) 1,000 mg in 100 mls @ 400 mls/hr IV Q6H [facility] Last Admin: 12/30/21 16:11 Dose: 400 mls/hr Piperacillin Sod/Tazobactam (Sod 4.5 gm/ Sodium Chloride) 50 mls @ 100 mls/hr IV Q6H [facility] Vancomycin HCl 1,500 mg/ (Sodium Chloride) 500 mls @ 333.333 mls/hr IV ONCE ONE Stop: 12/30/21 17:29 Lorazepam (Lorazepam 0.5 Mg Tablet) 0.5 mg PO Q8H PRN PRN Reason: anxiety Last Admin: 12/30/21 09:24 Dose: 0.5 mg Pt Own (Acebutolol (Hcl 200 Mg Capsule)) 2 caplet PO BID [facility] Last Admin: 12/30/21 08:31 Dose: 2 caplet Omeprazole (Omeprazole 20 Mg Capsule.Dr) 20 mg PO DAILY@0630 [facility] Last Admin: 12/30/21 05:10 Dose: 20 mg Ondansetron HCl (Ondansetron Hcl 4 Mg/2 Ml Vial) 4 mg IVPUSH Q4H PRN PRN Reason: nausea Last Admin: 12/30/21 06:33 Dose: 4 mg Oxycodone HCl (Oxycodone Hcl Immed Release 5 Mg Tablet) 10 mg PO Q4H PRN PRN Reason: Pain, Moderate (Pain Scale 4-6 Last Admin: 12/29/21 11:57 Dose: 10 mg Pharmacy Consult (Consult Rx Vancomycin Dosing) 1 each MISCELLANE DAILY PRN PRN Reason: Consult order Polyethylene Glycol (Polyethylene Glycol 3350 17 Gm Powd.Pack) 17 gm PO DAILY PRN PRN Reason: Constipation Last Admin: 12/30/21 08:38 Dose: 17 gm Sodium Chloride (0.9 % Sodium Chloride Flush 3 Ml Syringe) [facility] Last Admin: 12/30/21 08:38 Dose: Not Given Zolpidem Tartrate (Zolpidem Tartrate 5 Mg Tablet) 5 mg PO BEDTIME PRN PRN Reason: Insomnia Home Medications Medication Instructions Recorded Confirmed Last Taken Type omeprazole 20 mg capsule,delayed 20 mg PO DAILY 08/11/21 12/23/21 12/28/21 05:30 History release aspirin 81 mg capsule 81 mg PO DAILY 12/24/21 12/24/21 12/21/21 History dicyclomine 10 mg capsule 10 mg PO BID 12/24/21 12/24/21 Unknown History Physical Exam Vital Signs: Vital Signs: Last Vital Signs Temp 102.0 F H 12/30/21 15:31 Pulse 152 H 12/30/21 16:01 Resp 18 12/30/21 15:31 BP 104/71 12/30/21 16:01 Pulse Ox 90 L 12/30/21 16:01 O2 Del Method 12/30/21 16:01 O2 Flow Rate 15 12/30/21 16:01 Oxygen Flow Rate 2 12/30/21 13:00 BMI result Body Mass Index 25.7 Const: General: cooperative HEENT: Head: Yes normal to inspection Face and sinus: Yes normal facial exam Mouth: Normal oral and palatal mucosa present Teeth and gingiva: dentition normal Eyes: General: appearance normal, both eyes and all related structures P upils: Equal, round and reactive pupils present Resp: Effort & Inspection: normal respiratory effort Cardio: Rate: regular rate Rhythm: regular rhythm GI: Other: drain abdomen RUQ Palpation (GI): Soft to palpation and nontender : General: Yes no CVA tenderness Back/Spine/Pelvis: Back: no CVA tenderness Skin: General skin exam: no rashes or lesions noted Neuro: General: moves all extremities Cranial nerves: Yes Equal, round and reactive pupils present Extrem: General: Yes normal to inspection Psych: Appearance: grossly normal Results Labs CBC & Chem 7: 12/30/21 15:19 12/30/21 15:19 Labs: Short CBC 12/30/21 12/30/21 Range/Units 05:56 15:19 WBC 24.3 H 29.0 H (4.8-10.8) X10*3/uL Hgb 8.5 L 9.9 L (14.0-18.0) g/dl Hct 26.2 L 30.4 L (42.0-52.0) % Plt Count 363 413 H (160-400) X10*3/uL BMP 12/30/21 15:19 Sodium 137 Potassium 4.2 Chloride 101 Carbon Dioxide 23 BUN 16 Creatinine 1.16 Calcium 8.4 D Microbiology Microbiology Results: Microbiology 12/28/21 Unknown Abscess Intra-abdominal Gram Stain - Final 12/28/21 Unknown Abscess Intra-abdominal Routine Culture - Final Escherichia coli Assessment and Plan (1) Sepsis with acute hypoxic respiratory failure: Status: Acute He has abscess and E coli part of polymicrobial cornelio. Leukocytosis can persist for a while (2) Abscess of abdominal wall: Status: Acute Plan Continue piperacillin/tazobactam and may stop Vancomycin tomorrow if blood culture negative. Duration of antibiotics to be determined
[2021-12-30 16:33] LABS: Hematocrit 28.3 % (42.0-52.0); Hemoglobin 9.1 g/dl (14.0-18.0); Mean Corpuscular HGB Conc 32.2 g/dl (31.0-36.0); Mean Corpuscular Hemoglobin 29.8 pg (27.0-33.0); Mean Corpuscular Volume 92.8 fL (80.0-98.0); Mean Platelet Volume 8.6 fL (9.4-12.4); Platelet Count 371 X10*3/uL (160-400); Red Blood Count 3.05 X10*6/uL (4.60-5.80); Red Cell Distribution Width 13.5 % (11.0-16.0); White Blood Count 28.1 X10*3/uL (4.8-10.8)
[2021-12-30 16:40] LABS: D Dimer High Sensitivity 2586 NG/ML
[2021-12-30 16:46] LABS: Lactic Acid 1.3 mmol/L (0.5-2.0)
[2021-12-30] MEDS: dilTIAZem HCL 50 MG/10 ML VIAL 20 MG IVPUSH (16:47)
[2021-12-30] MEDS: Ibuprofen 400 MG TABLET PO (16:49)
[2021-12-30] MEDS: 0.9 % Sodium Chloride Flush 3 ML SYRINGE IVFLUSH (16:50)
--- NOTE | 2021-12-30 17:20 | PC.NURSE ---
Assumed care of patient at this time. Patient in rapid AFib HR-150's. 1L NS bolus, vanco, and zosyn hanging. Patient alert and oriented x4, speaking full sentences, [address]. Denies chest pain, just flutters . Requiring supplemental o2 via oxymask on 15L- o2 sat 94%. Denies SOB. WOB normal, unlabored. Report received from RASHEED Fuentes.
[2021-12-30] MEDS: 0.9 % Sodium Chloride 1,000 ML 999 ML IV (17:30)
[2021-12-30] MEDS: Piperacillin Sodium/Tazobactam 4.5 GM in 0.9 % Sodium Chloride 100 ML IV (17:33)
[2021-12-30 18:12] LABS: INTERNATIONAL NORM RATIO 1.4 (0.9-1.1); Prothrombin Time 16.8 SEC (10.0-13.1)
[2021-12-30 18:14] LABS: Partial Thromboplastin Time 30.3 SEC (26.0-36.4)
--- NOTE | 2021-12-30 18:15 | PM.EVENT ---
Event Note Date of Service: 12/30/21 Event Note: hypotension due to medication, not severe sepsis
[2021-12-30] MEDS: Digoxin 0.5 MG/2 ML AMPUL 0.25 MG IVPUSH (18:50)
--- NOTE | 2021-12-30 19:13 | PC.NURSE ---
Gave report to Jabier Jose assuming care of patient at this time.
[2021-12-30 22:25] LABS: ABG Refer to POC result
[2021-12-31] VITALS (8 sets, daily range): BP systolic 95–126; BP diastolic 52–68; PULSE 84–148; RESP 16–22; TEMP 36.7–37.6; O2SAT 91–96
--- NOTE | 2021-12-31 | ECG_ITS ---
Test Reason : afib Blood Pressure : / mmHG Vent. Rate : 131 BPM Atrial Rate : 000 BPM P-R Int : 000 ms QRS Dur : 130 ms QT Int : 348 ms P-R-T Axes : 000 032 198 degrees QTc Int : 513 ms Atrial fibrillation with rapid ventricular response Left bundle branch block Abnormal ECG When compared with ECG of 30-DEC-2021 15:37, ST no longer elevated in Anterior leads Referred By: Jeff Ramos Electronically Signed By:VERONIQUE HUBBARD
[2021-12-31] MEDS: Piperacillin Sodium/Tazobactam 4.5 GM in 0.9 % Sodium Chloride 100 ML IV ×5 (00:38→23:27)
[2021-12-31] MEDS: oxyCODONE HCl Immed Release 5 MG TABLET 10 MG PO ×2 (00:38→17:55)
[2021-12-31] MEDS: 0.9 % Sodium Chloride Flush 3 ML SYRINGE IVFLUSH ×4 (00:39→20:53)
[2021-12-31] MEDS: Digoxin 0.5 MG/2 ML AMPUL 0.25 MG IVPUSH (00:39)
[2021-12-31] MEDS: HYDROmorphone HCl 1 MG/ML SYRINGE IVPUSH ×5 (04:48→16:56)
[2021-12-31] MEDS: ondansetron HCL 4 MG/2 ML VIAL IVPUSH (04:54)
[2021-12-31 05:01] LABS: Leukocytes Stool Qualitative FEW: < 2/OIF (NEGATIVE)
[2021-12-31 06:19] LABS: Hematocrit 26.5 % (42.0-52.0); Hemoglobin 8.5 g/dl (14.0-18.0); Mean Corpuscular HGB Conc 32.1 g/dl (31.0-36.0); Mean Corpuscular Hemoglobin 30.4 pg (27.0-33.0); Mean Corpuscular Volume 94.6 fL (80.0-98.0); Mean Platelet Volume 8.9 fL (9.4-12.4); Platelet Count 366 X10*3/uL (160-400); Red Cell Distribution Width 13.6 % (11.0-16.0); White Blood Count 20.8 X10*3/uL (4.8-10.8)
[2021-12-31 06:43] LABS: Anion Gap 14 (12-20); Blood Urea Nitrogen 18 mg/dL (9-16); Calcium 8.3 mg/dL (8.4-10.2); Carbon Dioxide 25 mmol/L (22-29); Chloride 105 mmol/L (96-108); Creatinine Clr Calc Pharmacy 67.3; Estimated Glomerular Filt Rate > 60; Glucose Random 89 mg/dL (60-115); Potassium 4.2 mmol/L (3.3-5.1); Sodium 140 mmol/L (135-145)
[2021-12-31] MEDS: Omeprazole 20 MG CAPSULE.DR PO (06:43)
[2021-12-31] MEDS: Diphenoxylate/Atrop 2.5/0.025 TABLET 1 TAB PO ×3 (06:43→16:55)
[2021-12-31] MEDS: Aspirin Enteric Coated 81 MG TABLET.DR PO (07:40)
[2021-12-31] MEDS: Dicyclomine HCl 10 MG CAPSULE PO ×2 (07:40→20:47)
--- NOTE | 2021-12-31 08:22 | PM.PNGS ---
Subjective Subjective Date of Service: 12/31/21 Interval history: Reviewed the events of yesterday with the patient. He does feel improved today but does continue to feel his heart race on occasion. He denies chest pain. He does have some shortness of breath but is currently off Oxygen. Abdominal pain is improved. He reports multiple watery bowel movements yesterday and today. Physical Exam Vital Signs: Vital Signs: Last Vital Signs Temp 99.7 F 12/31/21 08:00 Pulse 84 12/31/21 08:00 Resp 20 12/31/21 08:00 BP 112/57 L 12/31/21 08:00 Pulse Ox 91 L 12/31/21 08:00 O2 Del Method 12/31/21 08:00 O2 Flow Rate 15 12/30/21 19:42 Oxygen Flow Rate 2 12/30/21 13:00 BMI result Body Mass Index 25.7 Const: General: comfortable and no acute distress Nutritional Appearance: thin Orientation/consciousness: patient oriented x3 Eyes: Sclerae: sclerae normal Resp: Effort & Inspection: normal respiratory effort and tachypneic GI: Other: ADIEL with serosanguinous, thin fluid Inspection: Yes normal to inspection Palpation (GI): Soft to palpation, nontender, no guarding and not rigid Percussion: Yes normal to percussion Auscultation: normal bowel sounds Skin: Other: warm and dry Neuro: General: patient oriented x3 Extrem: General: Yes no clubbing, cyanosis or edema Objective Data Active Medications Aspirin (Aspirin Enteric Coated 81 Mg Tablet.) 81 mg PO DAILY FORMERLY [facility], 1928–1983 Last Admin: 12/31/21 07:40 Dose: 81 mg Documented By: MATT Dicyclomine HCl (Dicyclomine Hcl 10 Mg Capsule) 10 mg PO BID FORMERLY [facility], 1928–1983 Last Admin: 12/31/21 07:40 Dose: 10 mg Documented By: MATT Diltiazem HCl (Diltiazem Hcl 30 Mg Tablet) 30 mg PO QID PRN; Protocol PRN Reason: episodes of palpatations Last Admin: 12/30/21 16:15 Dose: 30 mg Documented By: JIL Diphenoxylate HCl/Atropine (Diphenoxylate/Atrop 2.5/0.025 Tablet) 1 tab PO QID PRN PRN Reason: Diarrhea Last Admin: 12/31/21 06:43 Dose: 1 tab Documented By: SHERINE Docusate Sodium (Docusate Sodium 100 Mg Capsule) 100 mg PO DAILY PRN PRN Reason: Constipation Last Admin: 12/29/21 11:59 Dose: 100 mg Documented By: AMAURY Hydromorphone HCl (Hydromorphone Hcl 1 Mg/Ml Syringe) 1 mg IVPUSH Q2H PRN; Protocol PRN Reason: Pain, Severe (Pain Scale 7-10) Last Admin: 12/31/21 07:40 Dose: 1 mg Documented By: MATT Acetaminophen ([facility]) 1,000 mg in 100 mls @ 400 mls/hr IV Q6H FORMERLY [facility], [facility]–1983 Last Infusion: 12/31/21 06:38 Dose: 0 mls/hr Documented By: SHERINE Vancomycin HCl 1,500 mg/ (Sodium Chloride) 500 mls @ 333.333 mls/hr IV Q24H ANTIONE Piperacillin Sod/Tazobactam (Sod 4.5 gm/ Sodium Chloride) 100 mls @ 200 mls/hr IV Q6H ANTIONE Last Infusion: 12/31/21 07:41 Dose: 0 mls/hr Documented By: MATT Lorazepam (Lorazepam 0.5 Mg Tablet) 0.5 mg PO Q8H PRN PRN Reason: anxiety Last Admin: 12/30/21 09:24 Dose: 0.5 mg Documented By: JIL Pt Own (Acebutolol (Hcl 200 Mg Capsule)) 2 caplet PO BID FORMERLY [facility], [facility]1983 Last Admin: 12/31/21 07:47 Dose: Not Given Documented By: MATT Non-Admin Reason: Med Not Available Omeprazole (Omeprazole 20 Mg Capsule.Dr) 20 mg PO DAILY@0630 FOR[facility]LY [facility], [facility]–1983 Last Admin: 12/31/21 06:43 Dose: 20 mg Documented By: SHERINE Ondansetron HCl (Ondansetron Hcl 4 Mg/2 Ml Vial) 4 mg IVPUSH Q4H PRN PRN Reason: nausea Last Admin: 12/31/21 04:54 Dose: 4 mg Documented By: SHERINE Oxycodone HCl (Oxycodone Hcl Immed Release 5 Mg Tablet) 10 mg PO Q4H PRN PRN Reason: Pain, Moderate (Pain Scale 4-6 Last Admin: 12/31/21 00:38 Dose: 10 mg Documented By: SHERINE Pharmacy Consult (Consult Rx Vancomycin Dosing) 1 each MISCELLANE DAILY PRN PRN Reason: Consult order Polyethylene Glycol (Polyethylene Glycol 3350 17 Gm Powd.Pack) 17 gm PO DAILY PRN PRN Reason: Constipation Last Admin: 12/30/21 08:38 Dose: 17 gm Documented By: JIL Sodium Chloride (0.9 % Sodium Chloride Flush 3 Ml Syringe) 3 ml IVFLUSH QSHIFT ANTIONE Last Admin: 12/31/21 07:41 Dose: 3 ml Documented By: MATT Zolpidem Tartrate (Zolpidem Tartrate 5 Mg Tablet) 5 mg PO BEDTIME PRN PRN Reason: Insomnia Labs CBC & Chem 7: 12/31/21 05:48 12/31/21 05:48 Labs: Laboratory Results - last 24 hr 12/30/21 12/30/21 12/30/21 08:32 15:19 15:19 MCV 94.1 MCH 30.7 MCHC 32.6 RDW 13.4 Plt Count 413 H MPV 8.7 L Immature Gran % (Auto) 1.7 H Neut % (Auto) 90.9 H Lymph % (Auto) 4.0 L Wheeler % (Auto) 1.9 L Eos % (Auto) 1.2 Baso % (Auto) 0.3 Lymph # (Auto) 1.2 Wheeler # (Auto) 0.6 Eos # (Auto) 0.3 Baso # (Auto) 0.1 Abs Immat Gran (auto) 0.50 H Absolute Neuts (auto) 26.3 H Absolute Nucleated RBC 0.000 Nucleated RBC % (auto) 0.0 Smear Tech's Comments VERIFIED PT INR APTT D-Dimer High Sensitivty O2 Saturation ABG pH at Pt Temp ABG pCO2 at Pt Temp ABG pO2 at Pt Temp ABG HCO3 ABG Base Excess (Actual) Anion Gap 17 Estim Creat Clear Calc 60.4 Estimated GFR > 60 Random Glucose 96 Lactic Acid 0.9 Calcium 8.4 D Stool Leukocytes, Qual 12/30/21 12/30/21 12/30/21 15:33 16:25 16:25 MCV 92.8 MCH 29.8 MCHC 32.2 RDW 13.5 Plt Count 371 MPV 8.6 L Immature Gran % (Auto) Neut % (Auto) Lymph % (Auto) Wheeler % (Auto) Eos % (Auto) Baso % (Auto) Lymph # (Auto) Wheeler # (Auto) Eos # (Auto) Baso # (Auto) Abs Immat Gran (auto) Absolute Neuts (auto) Absolute Nucleated RBC 0.000 Nucleated RBC % (auto) 0.0 Smear Tech's Comments PT INR APTT D-Dimer High Sensitivty O2 Saturation 88.0 ABG pH at Pt Temp 7.45 ABG pCO2 at Pt Temp 31 L ABG pO2 at Pt Temp 56 L ABG HCO3 22 ABG Base Excess (Actual) -0.4 Anion Gap Estim Creat Clear Calc Estimated GFR Random Glucose Lactic Acid 1.3 Calcium Stool Leukocytes, Qual 12/30/21 12/30/21 12/31/21 16:25 16:25 03:36 MCV MCH MCHC RDW Plt Count MPV Immature Gran % (Auto) Neut % (Auto) Lymph % (Auto) Wheeler % (Auto) Eos % (Auto) Baso % (Auto) Lymph # (Auto) Wheeler # (Auto) Eos # (Auto) Baso # (Auto) Abs Immat Gran (auto) Absolute Neuts (auto) Absolute Nucleated RBC Nucleated RBC % (auto) Smear Tech's Comments PT Cancelled 16.8 H INR Cancelled 1.4 H APTT Cancelled 30.3 D-Dimer High Sensitivty 2586 O2 Saturation ABG pH at Pt Temp ABG pCO2 at Pt Temp ABG pO2 at Pt Temp ABG HCO3 ABG Base Excess (Actual) Anion Gap Estim Creat Clear Calc Estimated GFR Random Glucose Lactic Acid Calcium Stool Leukocytes, Qual FEW: < 2/OIF 12/31/21 12/31/21 05:48 05:48 MCV 94.6 MCH 30.4 MCHC 32.1 RDW 13.6 Plt Count 366 MPV 8.9 L Immature Gran % (Auto) Neut % (Auto) Lymph % (Auto) Wheeler % (Auto) Eos % (Auto) Baso % (Auto) Lymph # (Auto) Wheeler # (Auto) Eos # (Auto) Baso # (Auto) Abs Immat Gran (auto) Absolute Neuts (auto) Absolute Nucleated RBC 0.000 Nucleated RBC % (auto) 0.0 Smear Tech's Comments PT INR APTT D-Dimer High Sensitivty O2 Saturation ABG pH at Pt Temp ABG pCO2 at Pt Temp ABG pO2 at Pt Temp ABG HCO3 ABG Base Excess (Actual) Anion Gap 14 Estim Creat Clear Calc 67.3 Estimated GFR > 60 Random Glucose 89 Lactic Acid Calcium 8.3 L Stool Leukocytes, Qual Microbiology Microbiology Results: Microbiology 12/28/21 Unknown Gram Stain - Final Abscess Intra-abdominal Routine Culture - Final Escherichia coli Procedures Date of Service Date of Service: 12/31/21 Progress Note: A&P Assessment and plan (1) Sepsis with acute hypoxic respiratory failure: Status: Acute Assessment and Plan: WBC improved. Appreciate ID and hospitalist input. E.coli on wound cultures. Blood cultures pending. On Zosyn. Received Vanco yesterday. (2) Abscess of abdominal wall: Status: Acute Assessment and Plan: Decreased output from ADIEL, clear fluid. Will probably be able to remove tomorrow. (3) Paroxysmal atrial fibrillation: Status: Acute Assessment and Plan: Continued Afib this morning on the monitor, HR 80s - 120s. Management per hospitalist team. Time Spent With Patient Time: Total time spent is greater than 50% in coordination of care (as documented) at patient's floor/unit and/or counseling patient: Quality Stroke Does the patient have a stroke diagnosis?: No VTE Prior VTE?: No VTE Risk Level:: Surgical - moderate VTE Device Contraindication: N/A - Device Ordered VTE Drug Contraindication: Treatment Not Indicated
[2021-12-31] MEDS: LORazepam 0.5 MG TABLET PO ×2 (10:14→18:26)
--- NOTE | 2021-12-31 12:00 | P.PNIM_ITS ---
Subjective Subjective Date of Service: 12/31/21 Interval History: No significant nursing events overnight. Patient in sinus rhythm this morning. He is maintaining normal oxygen saturation on room air. No new complaints. Review of Systems All 13 review of systems are negative except as noted in HPI Physical Exam Vital Signs: Vital Signs: Last Vital Signs Temp 99.5 F 12/31/21 11:16 Pulse 88 12/31/21 11:16 Resp 22 H 12/31/21 11:16 BP 126/65 12/31/21 11:16 Pulse Ox 94 12/31/21 11:16 O2 Del Method 12/31/21 11:16 O2 Flow Rate 15 12/30/21 19:42 Oxygen Flow Rate 2 12/30/21 13:00 BMI result Body Mass Index 25.7 Elderly male lying in bed in no distress S1-S2 heard, normal sinus rhythm Neck supple, no JVD Mild tenderness in the right upper quadrant with ADIEL drain present positive bowel sounds, no guarding or rigidity No pedal edema Patient is awake, alert and oriented x3, no focal motor deficit Psych: Normal mood Objective Data Active Medications Aspirin (Aspirin Enteric Coated 81 Mg Tablet.) 81 mg PO DAILY [facility] Last Admin: 12/31/21 07:40 Dose: 81 mg Documented By: MATT Dicyclomine HCl (Dicyclomine Hcl 10 Mg Capsule) 10 mg PO BID [facility] Last Admin: 12/31/21 07:40 Dose: 10 mg Documented By: MATT Diltiazem HCl (Diltiazem Hcl 30 Mg Tablet) 30 mg PO QID PRN; Protocol PRN Reason: episodes of palpatations Last Admin: 12/30/21 16:15 Dose: 30 mg Documented By: JIL Diphenoxylate HCl/Atropine (Diphenoxylate/Atrop 2.5/0.025 Tablet) 1 tab PO QID PRN PRN Reason: Diarrhea Last Admin: 12/31/21 06:43 Dose: 1 tab Documented By: SHERINE Docusate Sodium (Docusate Sodium 100 Mg Capsule) 100 mg PO DAILY PRN PRN Reason: Constipation Last Admin: 12/29/21 11:59 Dose: 100 mg Documented By: AMAURY Hydromorphone HCl (Hydromorphone Hcl 1 Mg/Ml Syringe) 1 mg IVPUSH Q2H PRN; Protocol PRN Reason: Pain, Severe (Pain Scale 7-10) Last Admin: 12/31/21 10:14 Dose: 1 mg Documented By: MATT Vancomycin HCl 1,500 mg/ (Sodium Chloride) 500 mls @ 333.333 mls/hr IV Q24H [facility] Piperacillin Sod/Tazobactam (Sod 4.5 gm/ Sodium Chloride) 100 mls @ 200 mls/hr IV Q6H [facility] Last Infusion: 12/31/21 07:41 Dose: 0 mls/hr Documented By: MATT Acetaminophen ([facility]) 1,000 mg in 100 mls @ 400 mls/hr IV Q6H PRN PRN Reason: Pain, Moderate (Pain Scale 4-6 Lorazepam (Lorazepam 0.5 Mg Tablet) 0.5 mg PO Q8H PRN PRN Reason: anxiety Last Admin: 12/31/21 10:14 Dose: 0.5 mg Documented By: MATT Pt Own (Acebutolol (Hcl 200 Mg Capsule)) 2 caplet PO BID [facility] Last Admin: 12/31/21 09:51 Dose: 2 caplet Documented By: MATT Omeprazole (Omeprazole 20 Mg Capsule.Dr) 20 mg PO DAILY@0630 [facility] Last Admin: 12/31/21 06:43 Dose: 20 mg Documented By: SHERINE Ondansetron HCl (Ondansetron Hcl 4 Mg/2 Ml Vial) 4 mg IVPUSH Q4H PRN PRN Reason: nausea Last Admin: 12/31/21 04:54 Dose: 4 mg Documented By: SHERINE Oxycodone HCl (Oxycodone Hcl Immed Release 5 Mg Tablet) 10 mg PO Q4H PRN PRN Reason: Pain, Moderate (Pain Scale 4-6 Last Admin: 12/31/21 00:38 Dose: 10 mg Documented By: SHERINE Pharmacy Consult (Consult Rx Vancomycin Dosing) 1 each MISCELLANE DAILY PRN PRN Reason: Consult order Polyethylene Glycol (Polyethylene Glycol 3350 17 Gm Powd.Pack) 17 gm PO DAILY PRN PRN Reason: Constipation Last Admin: 12/30/21 08:38 Dose: 17 gm Documented By: JIL Sodium Chloride (0.9 % Sodium Chloride Flush 3 Ml Syringe) 3 ml IVFLUSH QSHIFT [facility] Last Admin: 12/31/21 07:41 Dose: 3 ml Documented By: MATT Zolpidem Tartrate (Zolpidem Tartrate 5 Mg Tablet) 5 mg PO BEDTIME PRN PRN Reason: Insomnia Labs CBC & Chem 7: 12/31/21 05:48 12/31/21 05:48 Labs: Laboratory Results - last 24 hr 12/30/21 12/30/21 12/30/21 15:19 15:19 15:33 MCV 94.1 MCH 30.7 MCHC 32.6 RDW 13.4 Plt Count 413 H MPV 8.7 L Immature Gran % (Auto) 1.7 H Neut % (Auto) 90.9 H Lymph % (Auto) 4.0 L Kimble % (Auto) 1.9 L Eos % (Auto) 1.2 Baso % (Auto) 0.3 Lymph # (Auto) 1.2 Kimble # (Auto) 0.6 Eos # (Auto) 0.3 Baso # (Auto) 0.1 Abs Immat Gran (auto) 0.50 H Absolute Neuts (auto) 26.3 H Absolute Nucleated RBC 0.000 Nucleated RBC % (auto) 0.0 Smear Tech's Comments VERIFIED PT INR APTT D-Dimer High Sensitivty O2 Saturation 88.0 ABG pH at Pt Temp 7.45 ABG pCO2 at Pt Temp 31 L ABG pO2 at Pt Temp 56 L ABG HCO3 22 ABG Base Excess (Actual) -0.4 Anion Gap 17 Estim Creat Clear Calc 60.4 Estimated GFR > 60 Random Glucose 96 Lactic Acid Calcium 8.4 D Stool Leukocytes, Qual 12/30/21 12/30/21 12/30/21 16:25 16:25 16:25 MCV 92.8 MCH 29.8 MCHC 32.2 RDW 13.5 Plt Count 371 MPV 8.6 L Immature Gran % (Auto) Neut % (Auto) Lymph % (Auto) Kimble % (Auto) Eos % (Auto) Baso % (Auto) Lymph # (Auto) Kimble # (Auto) Eos # (Auto) Baso # (Auto) Abs Immat Gran (auto) Absolute Neuts (auto) Absolute Nucleated RBC 0.000 Nucleated RBC % (auto) 0.0 Smear Tech's Comments PT Cancelled INR Cancelled APTT Cancelled D-Dimer High Sensitivty O2 Saturation ABG pH at Pt Temp ABG pCO2 at Pt Temp ABG pO2 at Pt Temp ABG HCO3 ABG Base Excess (Actual) Anion Gap Estim Creat Clear Calc Estimated GFR Random Glucose Lactic Acid 1.3 Calcium Stool Leukocytes, Qual 12/30/21 12/31/21 12/31/21 16:25 03:36 05:48 MCV 94.6 MCH 30.4 MCHC 32.1 RDW 13.6 Plt Count 366 MPV 8.9 L Immature Gran % (Auto) Neut % (Auto) Lymph % (Auto) Kimble % (Auto) Eos % (Auto) Baso % (Auto) Lymph # (Auto) Kimble # (Auto) Eos # (Auto) Baso # (Auto) Abs Immat Gran (auto) Absolute Neuts (auto) Absolute Nucleated RBC 0.000 Nucleated RBC % (auto) 0.0 Smear Tech's Comments PT 16.8 H INR 1.4 H APTT 30.3 D-Dimer High Sensitivty 2586 O2 Saturation ABG pH at Pt Temp ABG pCO2 at Pt Temp ABG pO2 at Pt Temp ABG HCO3 ABG Base Excess (Actual) Anion Gap Estim Creat Clear Calc Estimated GFR Random Glucose Lactic Acid Calcium Stool Leukocytes, Qual FEW: < 2/OIF 12/31/21 05:48 MCV MCH MCHC RDW Plt Count MPV Immature Gran % (Auto) Neut % (Auto) Lymph % (Auto) Kimble % (Auto) Eos % (Auto) Baso % (Auto) Lymph # (Auto) Kimble # (Auto) Eos # (Auto) Baso # (Auto) Abs Immat Gran (auto) Absolute Neuts (auto) Absolute Nucleated RBC Nucleated RBC % (auto) Smear Tech's Comments PT INR APTT D-Dimer High Sensitivty O2 Saturation ABG pH at Pt Temp ABG pCO2 at Pt Temp ABG pO2 at Pt Temp ABG HCO3 ABG Base Excess (Actual) Anion Gap 14 Estim Creat Clear Calc 67.3 Estimated GFR > 60 Random Glucose 89 Lactic Acid Calcium 8.3 L Stool Leukocytes, Qual Microbiology Microbiology Results: Microbiology 12/30/21 08:35 Blood Culture - Preliminary Blood - Venous No growth after 24 hours. 12/30/21 08:35 Blood Culture - Preliminary Blood - Venous No growth after 24 hours. 12/28/21 Unknown Gram Stain - Final Abscess Intra-abdominal Routine Culture - Final Escherichia coli Assessment and Plan (1) Abscess of abdominal wall: Status: Acute (2) Paroxysmal atrial fibrillation: Status: Acute (3) Sepsis with acute hypoxic respiratory failure: Status: Acute Plan 71 year old male s/p chest wall abscess drainage post op day 2 admitted to general surgery consulted on for hypoxia and shortness of breath. 1-Abscess of abdominal wall with sepsis -Plan per general surgery -Wound cultures growing gram negative rods -Continue IV Zosyn. ID consulted. Vancomycin discontinued as per ID. Pending final cultures. 2-Acute hypoxic respiratory failure likely due to sepsis -resolved and patient currently maintaining normal oxygen saturation on room air. -PE was in the differential diagnosis but V/Q scan isnt suggestive 3-Paroxysmal atrial fibrillation with RVR -Rapid response called as patient's rate elevated to 170. EKG showed rapid AFib -converted to normal sinus rhythm after IV diltiazem and digoxin. Will initiate on anticoagulation, Eliquis 5 mg b.i.d. Thank you for the consult. Will continue to follow patient Quality Stroke Does the patient have a stroke diagnosis?: No VTE Prior VTE?: No VTE Risk Level:: Medical - moderate - high VTE Device Contraindication: N/A - Device Ordered VTE Drug Contraindication: N/A - Med Ordered
[2021-12-31] MEDS: Apixaban 5 MG TABLET PO ×2 (12:40→20:47)
[2021-12-31 17:21] LABS: INTERNATIONAL NORM RATIO 1.7 (0.9-1.1); Prothrombin Time 19.4 SEC (10.0-13.1)
[2021-12-31] MEDS: dilTIAZem HCL 30 MG TABLET PO (23:26)
[2022-01-01] VITALS (10 sets, daily range): BP systolic 110–132; BP diastolic 55–80; PULSE 79–135; RESP 18–20; TEMP 36.8–37.6; O2SAT 91–98
[2022-01-01] MEDS: dilTIAZem HCL 50 MG/10 ML VIAL 10 MG IVPUSH (01:08)
[2022-01-01] MEDS: Metoprolol Tartrate 5 MG/5 ML VIAL IVPUSH (03:53)
[2022-01-01] MEDS: Piperacillin Sodium/Tazobactam 4.5 GM in 0.9 % Sodium Chloride 100 ML IV ×4 (06:29→23:29)
[2022-01-01] MEDS: Omeprazole 20 MG CAPSULE.DR PO (06:29)
[2022-01-01] MEDS: LORazepam 0.5 MG TABLET PO ×2 (06:30→20:11)
[2022-01-01] MEDS: HYDROmorphone HCl 1 MG/ML SYRINGE IVPUSH ×5 (06:30→23:28)
[2022-01-01] MEDS: 0.9 % Sodium Chloride Flush 3 ML SYRINGE IVFLUSH ×2 (08:13→15:13)
[2022-01-01] MEDS: Apixaban 5 MG TABLET PO ×2 (08:23→20:12)
[2022-01-01] MEDS: Dicyclomine HCl 10 MG CAPSULE PO ×2 (08:24→20:12)
[2022-01-01] MEDS: oxyCODONE HCl Immed Release 5 MG TABLET 10 MG PO ×3 (08:24→20:12)
[2022-01-01] MEDS: Benzonatate 100 MG CAPSULE 200 MG PO ×2 (09:59→20:12)
[2022-01-01] MEDS: dilTIAZem HCL 30 MG TABLET PO ×2 (10:00→21:19)
--- NOTE | 2022-01-01 11:18 | P.PNGS_ITS ---
Subjective Subjective Date of Service: 01/01/22 Interval history: Had a difficult night due to irregular heart rate. Still with abdominal pain especially in the right upper quadrant. Continues to have loose bowel movements. Physical Exam Vital Signs: Vital Signs: Last Vital Signs Temp 98.2 F 01/01/22 08:00 Pulse 117 H 01/01/22 08:00 Resp 20 01/01/22 08:00 BP 120/80 01/01/22 08:00 Pulse Ox 96 01/01/22 08:00 O2 Del Method 01/01/22 08:00 O2 Flow Rate 3 01/01/22 08:00 FiO2 88 12/31/21 15:45 Oxygen Flow Rate 2 12/30/21 13:00 BMI result Body Mass Index 25.7 Const: General: tired appearing Nutritional Appearance: thin Orientation/consciousness: patient oriented x3 Resp: Effort & Inspection: normal respiratory effort, no cough and no respiratory distress GI: Inspection: Yes normal to inspection and Yes incision (Trocar incisions are clean and intact.) Palpation (GI): Soft to palpation, Tenderness to palpation present (GI) in the RUQ, no guarding and not rigid Neuro: General: patient oriented x3 Extrem: General: No cyanosis Objective Data Active Medications Acetaminophen (Acetaminophen 325 Mg Tablet) 650 mg PO Q4H PRN PRN Reason: Fever Apixaban (Apixaban 5 Mg Tablet) 5 mg PO BID [facility] Last Admin: 01/01/22 08:23 Dose: 5 mg Documented By: MATT Benzonatate (Benzonatate 100 Mg Capsule) 200 mg PO TID PRN PRN Reason: Cough Last Admin: 01/01/22 09:59 Dose: 200 mg Documented By: MATT Dicyclomine HCl (Dicyclomine Hcl 10 Mg Capsule) 10 mg PO BID [facility] Last Admin: 01/01/22 08:24 Dose: 10 mg Documented By: MATT Diltiazem HCl (Diltiazem Hcl 30 Mg Tablet) 30 mg PO QID PRN; Protocol PRN Reason: episodes of palpatations Last Admin: 01/01/22 10:00 Dose: 30 mg Documented By: MATT Diphenoxylate HCl/Atropine (Diphenoxylate/Atrop 2.5/0.025 Tablet) 1 tab PO QID PRN PRN Reason: Diarrhea Last Admin: 12/31/21 16:55 Dose: 1 tab Documented By: MATT Docusate Sodium (Docusate Sodium 100 Mg Capsule) 100 mg PO DAILY PRN PRN Reason: Constipation Last Admin: 12/29/21 11:59 Dose: 100 mg Documented By: AMAURY Hydromorphone HCl (Hydromorphone Hcl 1 Mg/Ml Syringe) 1 mg IVPUSH Q2H PRN; Protocol PRN Reason: Pain, Severe (Pain Scale 7-10) Last Admin: 01/01/22 10:02 Dose: 1 mg Documented By: MATT Piperacillin Sod/Tazobactam (Sod 4.5 gm/ Sodium Chloride) 100 mls @ 200 mls/hr IV Q6H [facility] Last Infusion: 01/01/22 07:10 Dose: 0 mls/hr Documented By: SHERINE Lorazepam (Lorazepam 0.5 Mg Tablet) 0.5 mg PO Q8H PRN PRN Reason: anxiety Last Admin: 01/01/22 06:30 Dose: 0.5 mg Documented By: SHERINE Pt Own (Acebutolol (Hcl 200 Mg Capsule)) 2 caplet PO BID [facility] Last Admin: 01/01/22 08:13 Dose: 2 caplet Documented By: MATT Omeprazole (Omeprazole 20 Mg Capsule.Dr) 20 mg PO DAILY@0630 [facility] Last Admin: 01/01/22 06:29 Dose: 20 mg Documented By: SHERINE Ondansetron HCl (Ondansetron Hcl 4 Mg/2 Ml Vial) 4 mg IVPUSH Q4H PRN PRN Reason: nausea Last Admin: 12/31/21 04:54 Dose: 4 mg Documented By: SHERINE Oxycodone HCl (Oxycodone Hcl Immed Release 5 Mg Tablet) 10 mg PO Q4H PRN PRN Reason: Pain, Moderate (Pain Scale 4-6 Last Admin: 01/01/22 08:24 Dose: 10 mg Documented By: MATT Pharmacy Consult (Consult Rx Vancomycin Dosing) 1 each MISCELLANE DAILY PRN PRN Reason: Consult order Polyethylene Glycol (Polyethylene Glycol 3350 17 Gm Powd.Pack) 17 gm PO DAILY PRN PRN Reason: Constipation Last Admin: 12/30/21 08:38 Dose: 17 gm Documented By: JIL Sodium Chloride (0.9 % Sodium Chloride Flush 3 Ml Syringe) 3 ml IVFLUSH QSHIFT [facility] Last Admin: 01/01/22 08:13 Dose: 3 ml Documented By: MATT Zolpidem Tartrate (Zolpidem Tartrate 5 Mg Tablet) 5 mg PO BEDTIME PRN PRN Reason: Insomnia Labs CBC & Chem 7: 12/31/21 05:48 12/31/21 05:48 Labs: Laboratory Results - last 24 hr 12/31/21 16:48 PT 19.4 H INR 1.7 H Microbiology Microbiology Results: Microbiology 12/30/21 08:35 Blood Culture - Preliminary Blood - Venous No growth after 48 hours. 12/30/21 08:35 Blood Culture - Preliminary Blood - Venous No growth after 48 hours. Procedures Date of Service Date of Service: 01/01/22 Progress Note: A&P Assessment and plan (1) Abscess of abdominal wall: Status: Acute (2) Sepsis with acute hypoxic respiratory failure: Status: Acute Plan Patient with acute onset of shortness of breath, evaluated for pulmonary embolism. Perfusion scan is negative for pulmonary embolism. Patient with E coli abscess resistant to ampicillin and Levaquin. Blood cultures pending. Abdominal pain may be more related to the drain which will be removed later today. Output is mainly serosanguineous, thin fluid. AFib management per hospitalist team. Time Spent With Patient Time: Total time spent is greater than 50% in coordination of care (as documented) at patient's floor/unit and/or counseling patient: Quality Stroke Does the patient have a stroke diagnosis?: No VTE Prior VTE?: No VTE Risk Level:: Medical - moderate - high VTE Device Contraindication: N/A - Device Ordered VTE Drug Contraindication: N/A - Med Ordered
[2022-01-01] MEDS: ondansetron HCL 4 MG/2 ML VIAL IVPUSH ×2 (12:12→17:24)
--- NOTE | 2022-01-01 13:33 | MHC.CLN ---
F/U PT IS MODERATELY MALNOURISHED SEE FULL CLINICAL NUTRITION ASSESSMENT DATED 12/29/21 PO INTAKE VARIABLE; NOTED PT REFUSED LUNCH PT REPORTS HE IS STRUGGLING WITH HIS APPETITE , ALTHOUGH HE FEELS IT IS IMPROVING S/P SURGERY DIET RX: REGULAR GLUTEN FREE-APPROPRIATE PT RECEPTIVE TO DRINKING ENSURE PLUS HIGH PROTEIN TID (PREFERS VANILLA) SUPP PROVIDES 1050KCALS, 60G PROTEIN MONITOR PO INTAKE CLOSELY
--- NOTE | 2022-01-01 13:52 | P.PNIM_ITS ---
Subjective Subjective Date of Service: 01/01/22 Interval History: Patient required IV SA ronni blocking agent for episodes of AFib with RVR overnight. Rate well controlled at the time of examination. No new complaints. Review of Systems All 13 review of systems are negative except as noted in HPI Physical Exam Vital Signs: Vital Signs: Last Vital Signs Temp 99.6 F 01/01/22 11:43 Pulse 79 01/01/22 11:43 Resp 20 01/01/22 11:43 BP 110/60 01/01/22 11:43 Pulse Ox 91 L 01/01/22 13:00 O2 Del Method 01/01/22 13:00 O2 Flow Rate 2 01/01/22 11:43 FiO2 88 12/31/21 15:45 Oxygen Flow Rate 2 01/01/22 13:00 BMI result Body Mass Index 25.7 Elderly male lying in bed in no distress S1-S2 heard, irregularly irregular Neck supple, no JVD Mild tenderness in the right upper quadrant with ADIEL drain present positive bowel sounds, no guarding or rigidity No pedal edema Patient is awake, alert and oriented x3, no focal motor deficit Psych:? Normal mood Objective Data Active Medications Acetaminophen (Acetaminophen 325 Mg Tablet) 650 mg PO Q4H PRN PRN Reason: Fever Apixaban (Apixaban 5 Mg Tablet) 5 mg PO BID [facility] Last Admin: 01/01/22 08:23 Dose: 5 mg Documented By: MATT Benzonatate (Benzonatate 100 Mg Capsule) 200 mg PO TID PRN PRN Reason: Cough Last Admin: 01/01/22 09:59 Dose: 200 mg Documented By: MATT Dicyclomine HCl (Dicyclomine Hcl 10 Mg Capsule) 10 mg PO BID [facility] Last Admin: 01/01/22 08:24 Dose: 10 mg Documented By: MATT Diltiazem HCl (Diltiazem Hcl 30 Mg Tablet) 30 mg PO QID PRN; Protocol PRN Reason: episodes of palpatations Last Admin: 01/01/22 10:00 Dose: 30 mg Documented By: MATT Diphenoxylate HCl/Atropine (Diphenoxylate/Atrop 2.5/0.025 Tablet) 1 tab PO QID PRN PRN Reason: Diarrhea Last Admin: 12/31/21 16:55 Dose: 1 tab Documented By: MATT Docusate Sodium (Docusate Sodium 100 Mg Capsule) 100 mg PO DAILY PRN PRN Reason: Constipation Last Admin: 12/29/21 11:59 Dose: 100 mg Documented By: AMAURY Hydromorphone HCl (Hydromorphone Hcl 1 Mg/Ml Syringe) 1 mg IVPUSH Q2H PRN; Protocol PRN Reason: Pain, Severe (Pain Scale 7-10) Last Admin: 01/01/22 12:06 Dose: 1 mg Documented By: MATT Piperacillin Sod/Tazobactam (Sod 4.5 gm/ Sodium Chloride) 100 mls @ 200 mls/hr IV Q6H [facility] Last Infusion: 01/01/22 13:33 Dose: 0 mls/hr Documented By: MATT Lorazepam (Lorazepam 0.5 Mg Tablet) 0.5 mg PO Q8H PRN PRN Reason: anxiety Last Admin: 01/01/22 06:30 Dose: 0.5 mg Documented By: SHERINE Pt Own (Acebutolol (Hcl 200 Mg Capsule)) 2 caplet PO BID [facility] Last Admin: 01/01/22 08:13 Dose: 2 caplet Documented By: MATT Omeprazole (Omeprazole 20 Mg Capsule.Dr) 20 mg PO DAILY@0630 [facility] Last Admin: 01/01/22 06:29 Dose: 20 mg Documented By: SHERINE Ondansetron HCl (Ondansetron Hcl 4 Mg/2 Ml Vial) 4 mg IVPUSH Q4H PRN PRN Reason: nausea Last Admin: 01/01/22 12:12 Dose: 4 mg Documented By: MATT Oxycodone HCl (Oxycodone Hcl Immed Release 5 Mg Tablet) 10 mg PO Q4H PRN PRN Reason: Pain, Moderate (Pain Scale 4-6 Last Admin: 01/01/22 13:42 Dose: 10 mg Documented By: MATT Pharmacy Consult (Consult Rx Vancomycin Dosing) 1 each MISCELLANE DAILY PRN PRN Reason: Consult order Polyethylene Glycol (Polyethylene Glycol 3350 17 Gm Powd.Pack) 17 gm PO DAILY PRN PRN Reason: Constipation Last Admin: 12/30/21 08:38 Dose: 17 gm Documented By: JIL Sodium Chloride (0.9 % Sodium Chloride Flush 3 Ml Syringe) 3 ml IVFLUSH QSHIFT [facility] Last Admin: 01/01/22 08:13 Dose: 3 ml Documented By: MATT Zolpidem Tartrate (Zolpidem Tartrate 5 Mg Tablet) 5 mg PO BEDTIME PRN PRN Reason: Insomnia Labs CBC & Chem 7: 12/31/21 05:48 12/31/21 05:48 Labs: Laboratory Results - last 24 hr 12/31/21 16:48 PT 19.4 H INR 1.7 H Microbiology Microbiology Results: Microbiology 12/30/21 08:35 Blood Culture - Preliminary Blood - Venous No growth after 48 hours. 12/30/21 08:35 Blood Culture - Preliminary Blood - Venous No growth after 48 hours. Assessment and Plan (1) Abscess of abdominal wall: Status: Acute (2) Sepsis with acute hypoxic respiratory failure: Status: Acute (3) Paroxysmal atrial fibrillation: Status: Acute Plan 71 year old male s/p chest wall abscess drainage post op day 2 admitted to general surgery consulted on for hypoxia and shortness of breath. 1-Abscess of abdominal wall with sepsis -Plan per general surgery -Wound cultures isolated E coli -Continue IV Zosyn. ID consulted. Vancomycin discontinued as per ID. Defer antibiotic deescalation to Infectious Disease and primary team 2-Acute hypoxic respiratory failure likely due to sepsis -resolved and patient currently maintaining normal oxygen saturation on room air. -PE was in the differential diagnosis but V/Q scan isnt suggestive 3-Paroxysmal atrial fibrillation with RVR -Resumed patient's home acebutolol. Initiated anticoagulation, Eliquis 5 mg b.i.d. Received IV diltiazem, metoprolol and digoxin for episodes of RVR thr oughout hospitalization. Currently well controlled, titrate rate/rhythm controlling agents as appropriate Thank you for the consult. Will continue to follow patient until AFib treatment is optimized Quality Stroke Does the patient have a stroke diagnosis?: No VTE Prior VTE?: No VTE Risk Level:: Medical - moderate - high VTE Device Contraindication: N/A - Device Ordered VTE Drug Contraindication: N/A - Med Ordered
[2022-01-01 16:34] LABS: Vancomycin Random < 3.0 mcg/mL (15-20)
[2022-01-02] VITALS (11 sets, daily range): BP systolic 97–124; BP diastolic 55–69; PULSE 70–78; RESP 12–18; TEMP 36.8–37.4; O2SAT 92–98
[2022-01-02] MEDS: HYDROmorphone HCl 1 MG/ML SYRINGE IVPUSH ×6 (02:22→23:11)
[2022-01-02] MEDS: guaiFENesin 100 MG/5 ML LIQUID PO (02:32)
[2022-01-02] MEDS: ondansetron HCL 4 MG/2 ML VIAL IVPUSH ×3 (02:32→16:19)
[2022-01-02] MEDS: 0.9 % Sodium Chloride Flush 3 ML SYRINGE IVFLUSH ×4 (02:39→20:38)
[2022-01-02] MEDS: Piperacillin Sodium/Tazobactam 4.5 GM in 0.9 % Sodium Chloride 100 ML IV ×3 (06:05→18:34)
[2022-01-02] MEDS: Omeprazole 20 MG CAPSULE.DR PO (06:05)
[2022-01-02 06:38] LABS: MANUAL DIFF FLAG NO
[2022-01-02 06:40] LABS: Basophils Percent Auto 0.3 % (0-2); Eosinophils Absolute Auto 0.5 X10*3/uL (0.0-0.4); Eosinophils Percent Auto 5.3 % (0-4); Hematocrit 24.2 % (42.0-52.0); Hemoglobin 7.8 g/dl (14.0-18.0); Imm Gran Pct Auto 1.2 % (0.0-0.4); Lymphocytes Percent Auto 11.5 % (20-40); Mean Corpuscular HGB Conc 32.2 g/dl (31.0-36.0); Mean Corpuscular Hemoglobin 30.2 pg (27.0-33.0); Mean Corpuscular Volume 93.8 fL (80.0-98.0); Mean Platelet Volume 8.7 fL (9.4-12.4); Monocytes Absolute Auto 0.7 X10*3/uL (0.1-1.2); Monocytes Percent Auto 7.8 % (2-11); Neutrophils Absolute Auto 6.4 x10*3/uL (2.0-8.3); Neutrophils Percent Auto 73.9 % (45-73); Platelet Count 334 X10*3/uL (160-400); Red Blood Count 2.58 X10*6/uL (4.60-5.80); Red Cell Distribution Width 13.9 % (11.0-16.0); White Blood Count 8.6 X10*3/uL (4.8-10.8)
[2022-01-02 08:32] LABS: Anion Gap 15 (12-20); Blood Urea Nitrogen 13 mg/dL (9-16); Calcium 8.2 mg/dL (8.4-10.2); Carbon Dioxide 25 mmol/L (22-29); Chloride 101 mmol/L (96-108); Creatinine Clr Calc Pharmacy 74.5; Estimated Glomerular Filt Rate > 60; Glucose Random 98 mg/dL (60-115); Potassium 3.6 mmol/L (3.3-5.1); Sodium 137 mmol/L (135-145)
[2022-01-02] MEDS: Dicyclomine HCl 10 MG CAPSULE PO ×2 (08:58→20:32)
[2022-01-02] MEDS: Apixaban 5 MG TABLET PO (08:58)
[2022-01-02] MEDS: dilTIAZem HCL 30 MG TABLET PO (08:58)
[2022-01-02] MEDS: Benzonatate 100 MG CAPSULE 200 MG PO (08:58)
--- NOTE | 2022-01-02 09:26 | HO.PM.IMPN ---
Subjective Subjective Date of Service: 01/02/22 Interval History: cc: abdominal pain interval history:ongoing pain, paroxysmal palpitations correlating to afib Cardiovascular Cardiovascular: Reports no additional cardiovascular complaints Respiratory Respiratory: Reports no additional respiratory complaints Physical Exam Vital Signs: Vital Signs: Last Vital Signs Temp 98.8 F 01/02/22 07:43 Pulse 70 01/02/22 07:43 Resp 12 01/02/22 07:43 BP 120/61 01/02/22 07:43 Pulse Ox 97 01/02/22 07:43 O2 Del Method 01/02/22 07:43 O2 Flow Rate 2 01/02/22 07:43 FiO2 88 12/31/21 15:45 Oxygen Flow Rate 2 01/01/22 13:00 BMI result Body Mass Index 25.7 General: AO X 3, no acute distress Resp: CTA bilateral, no accessory muscles used CVS: S1,S2,RRR GI: soft, tender, non distended Neuro: motor grossly intact, alert Psych: appropriate affect, appropriate insight Objective Data Active Medications Acetaminophen (Acetaminophen 325 Mg Tablet) 650 mg PO Q4H PRN PRN Reason: Fever Apixaban (Apixaban 5 Mg Tablet) 5 mg PO BID [facility] Last Admin: 01/02/22 08:58 Dose: 5 mg Documented By: AGUSTÍN Benzonatate (Benzonatate 100 Mg Capsule) 200 mg PO TID PRN PRN Reason: Cough Last Admin: 01/02/22 08:58 Dose: 200 mg Documented By: AGUSTÍN Dicyclomine HCl (Dicyclomine Hcl 10 Mg Capsule) 10 mg PO BID [facility] Last Admin: 01/02/22 08:58 Dose: 10 mg Documented By: AGUSTÍN Diltiazem HCl (Diltiazem Hcl 30 Mg Tablet) 30 mg PO QID PRN; Protocol PRN Reason: episodes of palpatations Last Admin: 01/02/22 08:58 Dose: 30 mg Documented By: AGUSTÍN Diphenoxylate HCl/Atropine (Diphenoxylate/Atrop 2.5/0.025 Tablet) 1 tab PO QID PRN PRN Reason: Diarrhea Last Admin: 12/31/21 16:55 Dose: 1 tab Documented By: MATT Docusate Sodium (Docusate Sodium 100 Mg Capsule) 100 mg PO DAILY PRN PRN Reason: Constipation Last Admin: 12/29/21 11:59 Dose: 100 mg Documented By: AMAURY Hydromorphone HCl (Hydromorphone Hcl 1 Mg/Ml Syringe) 1 mg IVPUSH Q2H PRN; Protocol PRN Reason: Pain, Severe (Pain Scale 7-10) Last Admin: 01/02/22 08:57 Dose: 1 mg Documented By: AGUSTÍN Piperacillin Sod/Tazobactam (Sod 4.5 gm/ Sodium Chloride) 100 mls @ 200 mls/hr IV Q6H [facility] Last Infusion: 01/02/22 09:06 Dose: 0 mls/hr Documented By: AGUSTÍN Lorazepam (Lorazepam 0.5 Mg Tablet) 0.5 mg PO Q8H PRN PRN Reason: anxiety Last Admin: 01/01/22 20:11 Dose: 0.5 mg Documented By: TERRANCE Metoprolol Tartrate (Metoprolol Tartrate 25 Mg Tablet) 25 mg PO BID [facility]; Protocol Pt Own (Acebutolol (200 Mg Capsule)) 2 cap PO BID [facility] Last Admin: 01/02/22 08:58 Dose: 2 cap Documented By: AGUSTÍN Omeprazole (Omeprazole 20 Mg Capsule.Dr) 20 mg PO DAILY@0630 [facility] Last Admin: 01/02/22 06:05 Dose: 20 mg Documented By: TERRANCE Ondansetron HCl (Ondansetron Hcl 4 Mg/2 Ml Vial) 4 mg IVPUSH Q4H PRN PRN Reason: nausea Last Admin: 01/02/22 08:58 Dose: 4 mg Documented By: AGUSTÍN Oxycodone HCl (Oxycodone Hcl Immed Release 5 Mg Tablet) 10 mg PO Q4H PRN PRN Reason: Pain, Moderate (Pain Scale 4-6 Last Admin: 01/01/22 20:12 Dose: 10 mg Documented By: TERRANCE Pharmacy Consult (Consult Rx Vancomycin Dosing) 1 each MISCELLANE DAILY PRN PRN Reason: Consult order Polyethylene Glycol (Polyethylene Glycol 3350 17 Gm Powd.Pack) 17 gm PO DAILY PRN PRN Reason: Constipation Last Admin: 12/30/21 08:38 Dose: 17 gm Documented By: JIL Sodium Chloride (0.9 % Sodium Chloride Flush 3 Ml Syringe) 3 ml IVFLUSH QSHIFT [facility] Last Admin: 01/02/22 09:00 Dose: 3 ml Documented By: AGUSTÍN Zolpidem Tartrate (Zolpidem Tartrate 5 Mg Tablet) 5 mg PO BEDTIME PRN PRN Reason: Insomnia Labs CBC & Chem 7: 01/02/22 06:22 01/02/22 06:22 Labs: Laboratory Results - last 24 hr 01/01/22 01/02/22 01/02/22 16:02 06:22 06:22 MCV 93.8 MCH 30.2 MCHC 32.2 RDW 13.9 Plt Count 334 MPV 8.7 L Immature Gran % (Auto) 1.2 H Neut % (Auto) 73.9 H Lymph % (Auto) 11.5 L [place] % (Auto) 7.8 Eos % (Auto) 5.3 H Baso % (Auto) 0.3 Lymph # (Auto) 1.0 L [place] # (Auto) 0.7 Eos # (Auto) 0.5 H Baso # (Auto) 0.0 Abs Immat Gran (auto) 0.10 H Absolute Neuts (auto) 6.4 Absolute Nucleated RBC 0.000 Nucleated RBC % (auto) 0.0 Anion Gap 15 Estim Creat Clear Calc 74.5 Estimated GFR > 60 Random Glucose 98 Calcium 8.2 L Random Vancomycin < 3.0 L Microbiology Microbiology Results: Microbiology 12/30/21 08:35 Blood Culture - Preliminary Blood - Venous No growth after 48 hours. 12/30/21 08:35 Blood Culture - Preliminary Blood - Venous No growth after 48 hours. Assessment and Plan (1) Abscess of abdominal wall: Status: Acute (2) Sepsis with acute hypoxic respiratory failure: Status: Acute (3) Paroxysmal atrial fibrillation: Status: Acute Plan 71 year old male with PMH paroxysmal afib (not on AC per patient choice, normally pill in pocket - cardizem), celiac, HTN, s/p chest wall abscess drainage complicated by sepsis, afib with rvr Abscess of abdominal wall with sepsis (not severe sepsis) Wound cultures grew ecoli E coli Continue IV Zosyn. blood cultures negative - Vancomycin discontinued Acute hypoxic respiratory failure likely due to sepsis resolved and patient currently maintaining normal oxygen saturation on room air. PE was in the differential diagnosis but V/Q scan isnt suggestive Paroxysmal atrial fibrillation with RVR continue home acebutolol. Initiated anticoagulation, Eliquis 5 mg b.i.d. still with episodes of symptomatic afib, will change to scheduled cardizem 60mg q8, cardio following anemia hgb decreased from 12.2 in october 2021 to 7.8 today likely mostly inflammatory related to infection check iron studies, b12, folate transfuse 1 unit prbc dvt prophylaxis - on eliquis full code Quality Stroke Does the patient have a stroke diagnosis?: No VTE Prior VTE?: No VTE Risk Level:: Medical - moderate - high VTE Device Contraindication: N/A - Device Ordered VTE Drug Contraindication: N/A - Med Ordered
--- NOTE | 2022-01-02 10:00 | P.PNGS_ITS ---
Subjective Subjective Date of Service: 01/02/22 Interval history: Continued soreness on the right abdomen, better after removal of drain. Still not very hungry, picking at his food. He is still aware of his AFib. Physical Exam Vital Signs: Vital Signs: Last Vital Signs Temp 98.8 F 01/02/22 07:43 Pulse 70 01/02/22 07:43 Resp 12 01/02/22 07:43 BP 120/61 01/02/22 07:43 Pulse Ox 97 01/02/22 07:43 O2 Del Method 01/02/22 07:43 O2 Flow Rate 2 01/02/22 07:43 FiO2 88 12/31/21 15:45 Oxygen Flow Rate 2 01/01/22 13:00 BMI result Body Mass Index 25.7 Const: General: tired appearing Nutritional Appearance: thin Orientation/consciousness: patient oriented x3 Resp: Effort & Inspection: normal respiratory effort, no cough and no respiratory distress GI: Inspection: Yes normal to inspection and Yes incision (Trocar incisions are clean and intact.) Palpation (GI): Soft to palpation, Tenderness to palpation present (GI) in the RUQ, no guarding and not rigid Skin: Other: Warm and dry, pale Neuro: General: patient oriented x3 Extrem: General: No cyanosis Objective Data Active Medications Acetaminophen (Acetaminophen 325 Mg Tablet) 650 mg PO Q4H PRN PRN Reason: Fever Apixaban (Apixaban 5 Mg Tablet) 5 mg PO BID [facility] Last Admin: 01/02/22 08:58 Dose: 5 mg Documented By: AGUSTÍN Benzonatate (Benzonatate 100 Mg Capsule) 200 mg PO TID PRN PRN Reason: Cough Last Admin: 01/02/22 08:58 Dose: 200 mg Documented By: AGUSTÍN Dicyclomine HCl (Dicyclomine Hcl 10 Mg Capsule) 10 mg PO BID [facility] Last Admin: 01/02/22 08:58 Dose: 10 mg Documented By: AGUSTÍN Diltiazem HCl (Diltiazem Hcl 60 Mg Tablet) 60 mg PO Q8H [facility]; Protocol Diphenoxylate HCl/Atropine (Diphenoxylate/Atrop 2.5/0.025 Tablet) 1 tab PO QID PRN PRN Reason: Diarrhea Last Admin: 12/31/21 16:55 Dose: 1 tab Documented By: MATT Docusate Sodium (Docusate Sodium 100 Mg Capsule) 100 mg PO DAILY PRN PRN Reason: Constipation Last Admin: 12/29/21 11:59 Dose: 100 mg Documented By: AMAURY Hydromorphone HCl (Hydromorphone Hcl 1 Mg/Ml Syringe) 1 mg IVPUSH Q2H PRN; Protocol PRN Reason: Pain, Severe (Pain Scale 7-10) Last Admin: 01/02/22 08:57 Dose: 1 mg Documented By: AGUSTÍN Piperacillin Sod/Tazobactam (Sod 4.5 gm/ Sodium Chloride) 100 mls @ 200 mls/hr IV Q6H [facility] Last Infusion: 01/02/22 09:06 Dose: 0 mls/hr Documented By: AGUSTÍN Lorazepam (Lorazepam 0.5 Mg Tablet) 0.5 mg PO Q8H PRN PRN Reason: anxiety Last Admin: 01/01/22 20:11 Dose: 0.5 mg Documented By: TERRANCE Pt Own (Acebutolol (200 Mg Capsule)) 2 cap PO BID [facility] Last Admin: 01/02/22 08:58 Dose: 2 cap Documented By: AGUSTÍN Omeprazole (Omeprazole 20 Mg Capsule.Dr) 20 mg PO DAILY@0630 [facility] Last Admin: 01/02/22 06:05 Dose: 20 mg Documented By: TERRANCE Ondansetron HCl (Ondansetron Hcl 4 Mg/2 Ml Vial) 4 mg IVPUSH Q4H PRN PRN Reason: nausea Last Admin: 01/02/22 08:58 Dose: 4 mg Documented By: AGUSTÍN Oxycodone HCl (Oxycodone Hcl Immed Release 5 Mg Tablet) 10 mg PO Q4H PRN PRN Reason: Pain, Moderate (Pain Scale 4-6 Last Admin: 01/01/22 20:12 Dose: 10 mg Documented By: TERRANCE Pharmacy Consult (Consult Rx Vancomycin Dosing) 1 each MISCELLANE DAILY PRN PRN Reason: Consult order Polyethylene Glycol (Polyethylene Glycol 3350 17 Gm Powd.Pack) 17 gm PO DAILY PRN PRN Reason: Constipation Last Admin: 12/30/21 08:38 Dose: 17 gm Documented By: JIL Sodium Chloride (0.9 % Sodium Chloride Flush 3 Ml Syringe) 3 ml IVFLUSH QSHIFT [facility] Last Admin: 01/02/22 09:00 Dose: 3 ml Documented By: AGUSTÍN Zolpidem Tartrate (Zolpidem Tartrate 5 Mg Tablet) 5 mg PO BEDTIME PRN PRN Reason: Insomnia Labs CBC & Chem 7: 01/02/22 06:22 01/02/22 06:22 Labs: Laboratory Results - last 24 hr 01/01/22 01/02/22 01/02/22 16:02 06:22 06:22 MCV 93.8 MCH 30.2 MCHC 32.2 RDW 13.9 Plt Count 334 MPV 8.7 L Immature Gran % (Auto) 1.2 H Neut % (Auto) 73.9 H Lymph % (Auto) 11.5 L [place] % (Auto) 7.8 Eos % (Auto) 5.3 H Baso % (Auto) 0.3 Lymph # (Auto) 1.0 L [place] # (Auto) 0.7 Eos # (Auto) 0.5 H Baso # (Auto) 0.0 Abs Immat Gran (auto) 0.10 H Absolute Neuts (auto) 6.4 Absolute Nucleated RBC 0.000 Nucleated RBC % (auto) 0.0 Anion Gap 15 Estim Creat Clear Calc 74.5 Estimated GFR > 60 Random Glucose 98 Calcium 8.2 L Random Vancomycin < 3.0 L Microbiology Microbiology Results: Microbiology 12/30/21 08:35 Blood Culture - Preliminary Blood - Venous No growth after 48 hours. 12/30/21 08:35 Blood Culture - Preliminary Blood - Venous No growth after 48 hours. Procedures Date of Service Date of Service: 01/02/22 Progress Note: A&P Assessment and plan (1) Abscess of abdominal wall: Status: Acute (2) Paroxysmal atrial fibrillation: Status: Acute Plan S/p drainage of chest wall/abdominal wall abscess, removal of dropped gallstone, complicated by sepsis, rapid AFib. Patient is now improved but continues to have soreness in the right upper quadrant with anorexia. WBC is now improved however H&H has drifted down. 1 unit PRBC be transfused today. Patient is not ready for discharge, continue cardiac monitoring. Appreciate hospitalist's input. Time Spent With Patient Time: Total time spent is greater than 50% in coordination of care (as documented) at patient's floor/unit and/or counseling patient: Quality Stroke Does the patient have a stroke diagnosis?: No VTE Prior VTE?: No VTE Risk Level:: Medical - moderate - high VTE Device Contraindication: N/A - Device Ordered VTE Drug Contraindication: N/A - Med Ordered
[2022-01-02 10:27] LABS: Iron 23 mcg/dL (45-160); Percent Iron Saturation 15 % (15-50); Total Iron Binding Capacity 152 mcg/dL (228-428); Unsaturated Iron Binding 129 ug/dL
[2022-01-02 10:50] LABS: Ferritin 687 ng/mL (20-250)
[2022-01-02 11:07] LABS: Folate 10.9 ng/mL (> or = 4.0); Vitamin B12 1719 pg/mL (200-900)
--- NOTE | 2022-01-02 11:07 | PM.CNCAR ---
History of Present Illness History of Present Illness Date of Service: 01/02/22 Requesting physician: Tom Shane Consult reason: atrial fibrillation Chief complaint: other disease of liver Narrative: I was consulted to see Wilfred in cardiology consultation today for atrial fibrillation. His well known to me with prior history of highly symptomatic paroxysmal atrial fibrillation status post ablation many years ago and difficult control atrial fibrillation the past with intolerance to multiple medications the past. Patient present to the hospital with right upper quadrant discomfort and subsequently diagnosed to have right abdominal wall abscess along with gallstone with E coli sepsis. He was very ill but is now getting better after surgery. Review of Systems Constitutional: Constitutional: Reports fatigue, Reports malaise and Reports weakness Eyes: Eyes: Reports no additional eye complaints Cardiovascular: Cardiovascular: Denies chest pain, Denies lightheadedness, Denies Loss of Consciousness, Reports palpitations and Reports dyspnea Respiratory: Respiratory: Reports dyspnea Gastrointestinal: Gastrointestinal: Reports other (Right hypochondriac discomfort related to surgery) Musculoskeletal: Musculoskeletal: Reports no additional musculoskeletal complaints Integumentary/Breasts: Skin/Breast: Reports system reviewed and no additional complaints, except as docu Neurologic: Reports system reviewed and no additional complaints, except as documented and Reports weakness Psychiatric: Psychiatric: Reports no additional psychiatric complaints Endocrine: Endocrine: Reports no additional endocrine complaints, Reports fatigue and Reports palpitations Hematologic/Lymphatic: Hematologic/Lymphatic: Reports no additional hematologic/lymphatic complaints PMFSH Past Medical History Medical History Barretts esophagus Celiac disease Chronic neck and back pain Failed back syndrome Frequent PVCs GERD (gastroesophageal reflux disease) History of blood transfusion History of thyrotoxicosis Implantable loop recorder present LBBB (left bundle branch block) Paroxysmal atrial fibrillation PHN (postherpetic neuralgia) Family History Family History Father CVD (cardiovascular disease) Mother Leukemia Son No problems noted. Son No problems noted. Daughter No problems noted. Daughter No problems noted. Family history: reviewed and not pertinent Surgical History Surgical History H/O prior ablation treatment History of appendectomy History of back surgery History of colonoscopy History of esophagogastroduodenoscopy (EGD) History of inguinal hernia History of lymph node excision Hx laparoscopic cholecystectomy Social History Social History Housing: House Are you a primary critical care unit manager to a significant other at home: Yes (- mod dementia) Do you presently have visiting nurse or other home services: Yes (SURGERY SCHEDULER for ) Alcohol intake: current Alcohol intake frequency: holidays/special occasions only Patient Tobacco Use Status: Never used Tobacco e-Cigarette/Vaping Use: Never Used Second Hand Smoke Exposure: No Use of substances other than those prescribed or required for medical reasons: No Currently Displaying Signs/Symptoms of Drug Intoxication Withdrawal: No Have you been hit, kicked, punched, or otherwise hurt by someone within the past year? If so, by whom?: No Are you DNR?: No Advance Directives: No Advance Directives Information Provided: Yes (daughter Donnie Rollins) Advance Directives on File: No Recently lost weight without trying: Yes How much weight loss: 14-23 pounds Eating poorly because of decreased appetite: Yes Nutrition screen score: 5 Nutrition Risks: Anorexia Poor oral hygiene: No (missing teeth) service: Yes Current occupational status: employed Current occupation: [employer] Current occupational exposures/hazards: No Cognitive needs: No Hearing needs: No Vision needs: Yes Meds Allergies Allergy/AdvReac Type Severity Reaction Status Date / Time Iodinated Contrast Media Allergy Severe ANAPHYLAXIS Verified 12/28/21 07:36 [IV DYE, IODINE CONTAINING] gluten [GLUTEN] Allergy Intermediate BLOATING,SEVERE Verified 12/28/21 07:36 GI PAIN amiodarone AdvReac Severe hyperthyroi Verified 12/30/21 18:51 d morphine AdvReac Nausea and Verified 12/28/21 07:36 Vomiting Active Medications: Current Medications Acetaminophen (Acetaminophen 325 Mg Tablet) 650 mg PO Q4H PRN PRN Reason: Fever Apixaban (Apixaban 5 Mg Tablet) 5 mg PO BID [facility] Last Admin: 01/02/22 08:58 Dose: 5 mg Benzonatate (Benzonatate 100 Mg Capsule) 200 mg PO TID PRN PRN Reason: Cough Last Admin: 01/02/22 08:58 Dose: 200 mg Dicyclomine HCl (Dicyclomine Hcl 10 Mg Capsule) 10 mg PO BID [facility] Last Admin: 01/02/22 08:58 Dose: 10 mg Diltiazem HCl (Diltiazem Hcl 60 Mg Tablet) 60 mg PO Q8H [facility]; Protocol Diphenoxylate HCl/Atropine (Diphenoxylate/Atrop 2.5/0.025 Tablet) 1 tab PO QID PRN PRN Reason: Diarrhea Last Admin: 12/31/21 16:55 Dose: 1 tab Docusate Sodium (Docusate Sodium 100 Mg Capsule) 100 mg PO DAILY PRN PRN Reason: Constipation Last Admin: 12/29/21 11:59 Dose: 100 mg Hydromorphone HCl (Hydromorphone Hcl 1 Mg/Ml Syringe) 1 mg IVPUSH Q2H PRN; Protocol PRN Reason: Pain, Severe (Pain Scale 7-10) Last Admin: 01/02/22 08:57 Dose: 1 mg Piperacillin Sod/Tazobactam (Sod 4.5 gm/ Sodium Chloride) 100 mls @ 200 mls/hr IV Q6H [facility] Last Infusion: 01/02/22 09:06 Dose: Infused Lorazepam (Lorazepam 0.5 Mg Tablet) 0.5 mg PO Q8H PRN PRN Reason: anxiety Last Admin: 01/01/22 20:11 Dose: 0.5 mg Pt Own (Acebutolol (200 Mg Capsule)) 2 cap PO BID [facility] Last Admin: 01/02/22 08:58 Dose: 2 cap Omeprazole (Omeprazole 20 Mg Capsule.Dr) 20 mg PO DAILY@0630 [facility] Last Admin: 01/02/22 06:05 Dose: 20 mg Ondansetron HCl (Ondansetron Hcl 4 Mg/2 Ml Vial) 4 mg IVPUSH Q4H PRN PRN Reason: nausea Last Admin: 01/02/22 08:58 Dose: 4 mg Oxycodone HCl (Oxycodone Hcl Immed Release 5 Mg Tablet) 10 mg PO Q4H PRN PRN Reason: Pain, Moderate (Pain Scale 4-6 Last Admin: 01/01/22 20:12 Dose: 10 mg Pharmacy Consult (Consult Rx Vancomycin Dosing) 1 each MISCELLANE DAILY PRN PRN Reason: Consult order Polyethylene Glycol (Polyethylene Glycol 3350 17 Gm Powd.Pack) 17 gm PO DAILY PRN PRN Reason: Constipation Last Admin: 12/30/21 08:38 Dose: 17 gm Sodium Chloride (0.9 % Sodium Chloride Flush 3 Ml Syringe) 3 ml IVFLUSH QSHIFT ANTIONE Last Admin: 01/02/22 09:00 Dose: 3 ml Zolpidem Tartrate (Zolpidem Tartrate 5 Mg Tablet) 5 mg PO BEDTIME PRN PRN Reason: Insomnia Home Medications Medication Instructions Recorded Confirmed Last Taken Type omeprazole 20 mg capsule,delayed 20 mg PO DAILY 08/11/21 12/23/21 12/28/21 05:30 History release aspirin 81 mg capsule 81 mg PO DAILY 12/24/21 12/24/21 12/21/21 History dicyclomine 10 mg capsule 10 mg PO BID 12/24/21 12/24/21 Unknown History Physical Exam Vital Signs: Vital Signs: Last Vital Signs Temp 98.8 F 01/02/22 07:43 Pulse 70 01/02/22 07:43 Resp 12 01/02/22 07:43 BP 120/61 01/02/22 07:43 Pulse Ox 97 01/02/22 07:43 O2 Del Method 01/02/22 07:43 O2 Flow Rate 2 01/02/22 07:43 FiO2 88 12/31/21 15:45 Oxygen Flow Rate 2 01/01/22 13:00 BMI result Body Mass Index 25.7 Const: General: cooperative, comfortable, in distress mild and other (Due to pain), ill appearing and other ([place]) Nutritional Appearance: average body habitus Orientation/consciousness: patient oriented x3 HEENT: Head: Yes normocephalic and Yes atraumatic Neck: Neck: Yes trachea midline, Yes supple and Yes no JVD Resp: Effort & Inspection: decreased respiratory effort Auscultation: no rales, no wheezes and diminished lung sounds Cardio: Jugular venous distension: no JVD Palpation: normal PMI Rate: regular rate Rhythm: abnormal rhythm with ectopic beats Heart sounds: S1 normal heart sound present, S2 normal heart sound present, no click, no gallops and no murmurs GI: Auscultation: normal bowel sounds Skin: General skin exam: no rashes or lesions noted and ecchymosis Neuro: General: patient oriented x3 and no focal motor deficits Extrem: General: Yes no clubbing, cyanosis or edema Objective Labs and Meds Result diagrams: 01/02/22 06:22 01/02/22 06:22 Lab results: Laboratory Results - last 24 hr 01/01/22 01/02/22 01/02/22 16:02 06:22 06:22 WBC 8.6 RBC 2.58 L Hgb 7.8 L Hct 24.2 L MCV 93.8 MCH 30.2 MCHC 32.2 RDW 13.9 Plt Count 334 MPV 8.7 L Immature Gran % (Auto) 1.2 H Neut % (Auto) 73.9 H Lymph % (Auto) 11.5 L [place] % (Auto) 7.8 Eos % (Auto) 5.3 H Baso % (Auto) 0.3 Lymph # (Auto) 1.0 L [place] # (Auto) 0.7 Eos # (Auto) 0.5 H Baso # (Auto) 0.0 Abs Immat Gran (auto) 0.10 H Absolute Neuts (auto) 6.4 Absolute Nucleated RBC 0.000 Nucleated RBC % (auto) 0.0 Sodium 137 Potassium 3.6 Chloride 101 Carbon Dioxide 25 Anion Gap 15 BUN 13 Creatinine 0.94 Estim Creat Clear Calc 74.5 Estimated GFR > 60 Random Glucose 98 Calcium 8.2 L Iron 23 L TIBC 152 L % Saturation 15 Unsat Iron Binding 129 Ferritin 687 H Random Vancomycin < 3.0 L Blood Type Antibody Screen Crossmatch 01/02/22 10:12 WBC RBC Hgb Hct MCV MCH MCHC RDW Plt Count MPV Immature Gran % (Auto) Neut % (Auto) Lymph % (Auto) [place] % (Auto) Eos % (Auto) Baso % (Auto) Lymph # (Auto) [place] # (Auto) Eos # (Auto) Baso # (Auto) Abs Immat Gran (auto) Absolute Neuts (auto) Absolute Nucleated RBC Nucleated RBC % (auto) Sodium Potassium Chloride Carbon Dioxide Anion Gap BUN Creatinine Estim Creat Clear Calc Estimated GFR Random Glucose Calcium Iron TIBC % Saturation Unsat Iron Binding Ferritin Random Vancomycin Blood Type O Positive Antibody Screen NEGATIVE Crossmatch See Detail Assessment and Plan (1) Paroxysmal atrial fibrillation: Status: Acute Patient with recurrent bouts of intermittent episodes of paroxysmal atrial fibrillation highly symptomatic as he has been in the past triggered by his acute medical/surgical illness and pain and associated stressed. Patient currently has remained more stable had episode last night. He has responded well at home with pill in a pocket approach with Cardizem. For now will continue his acebutolol at home does and had Cardizem 60 mg q.8 hours to suppress his atrial fibrillation. Continue treat his underlying medical condition and surgical condition and treat his infection aggressively. Continue pain control. If he fails to maintain rhythm with this strategy can add antiarrhythmic drug therapy with Multaq given that he has normal LV systolic function no overt signs of heart failure. Also transfuse him 1-2 units of packed RBC as he has had significant dropped since admission over the last couple of months from baseline of 12 to 7.4 of hemoglobin. Blood pressure is optimized at this point time. Continue hydration. Management was discussed with him in details. He understands. Will follow with you Procedures Date of Service Date of Service: 01/02/22
[2022-01-02] MEDS: LORazepam 0.5 MG TABLET PO (11:14)
[2022-01-02] MEDS: dilTIAZem HCL 60 MG TABLET PO ×2 (12:19→20:32)
[2022-01-02] MEDS: Diphenoxylate/Atrop 2.5/0.025 TABLET 1 TAB PO (12:26)
[2022-01-02] MEDS: oxyCODONE HCl Immed Release 5 MG TABLET 10 MG PO (18:41)
[2022-01-03] VITALS (13 sets, daily range): BP systolic 100–129; BP diastolic 53–66; PULSE 72–77; RESP 12–20; TEMP 36.7–37.7; O2SAT 91–97
[2022-01-03] MEDS: Piperacillin Sodium/Tazobactam 4.5 GM in 0.9 % Sodium Chloride 100 ML IV ×4 (00:02→18:46)
[2022-01-03] MEDS: Benzonatate 100 MG CAPSULE 200 MG PO (00:47)
[2022-01-03] MEDS: HYDROmorphone HCl 1 MG/ML SYRINGE IVPUSH ×6 (02:33→22:56)
[2022-01-03] MEDS: dilTIAZem HCL 60 MG TABLET PO ×3 (03:48→20:31)
[2022-01-03] MEDS: ondansetron HCL 4 MG/2 ML VIAL IVPUSH ×3 (06:21→13:23)
--- NOTE | 2022-01-03 06:26 | PM.EVENT ---
Event Note Date of Service: 01/03/22 Event Note: Abd pain: pt complaining worsening abd pain. ordered stat CT abd. will pass on to day team as well.
[2022-01-03] MEDS: Omeprazole 20 MG CAPSULE.DR PO (07:20)
--- NOTE | 2022-01-03 08:46 | P.PNGS_ITS ---
Subjective Subjective Date of Service: 01/03/22 Interval history: Reported increased abdominal pain during the night. CT abdomen and pelvis obtained. Pain comes in waves. Reports he was not allowed to get out of bed. Physical Exam Vital Signs: Vital Signs: Last Vital Signs Temp 98.9 F 01/03/22 08:00 Pulse 72 01/03/22 08:00 Resp 12 01/03/22 08:00 BP 126/61 01/03/22 08:00 Pulse Ox 92 01/03/22 08:00 O2 Del Method 01/03/22 08:00 O2 Flow Rate 2 01/03/22 08:00 FiO2 88 12/31/21 15:45 Oxygen Flow Rate 2 01/02/22 13:00 BMI result Body Mass Index 25.7 Const: General: tired appearing Nutritional Appearance: thin Orientation/consciousness: patient oriented x3 Resp: Effort & Inspection: normal respiratory effort, no cough and no respiratory distress GI: Inspection: Yes normal to inspection, Yes distended and Yes incision (Trocar incisions are clean and intact.) Palpation (GI): Soft to palpation, Tenderness to palpation present (GI) in the RUQ, no guarding and not rigid P ercussion: Yes tympanic to percussion Auscultation: Hypoactive bowel sounds present Skin: Other: Warm and dry, pale Neuro: General: patient oriented x3 Extrem: General: No cyanosis Objective Data Active Medications Acetaminophen (Acetaminophen 325 Mg Tablet) 650 mg PO Q4H PRN PRN Reason: Fever Apixaban (Apixaban 5 Mg Tablet) 5 mg PO BID [facility] Last Admin: 01/02/22 23:26 Dose: Not Given Documented By: DYLON Non-Admin Reason: Physician Held Med Comments: Reported patient had a nose bleed during day shift, per RN holding eliquis. Benzonatate (Benzonatate 100 Mg Capsule) 200 mg PO TID PRN PRN Reason: Cough Last Admin: 01/03/22 00:47 Dose: 200 mg Documented By: DYLON Dicyclomine HCl (Dicyclomine Hcl 10 Mg Capsule) 10 mg PO BID [facility] Last Admin: 01/02/22 20:32 Dose: 10 mg Documented By: DYLON Diltiazem HCl (Diltiazem Hcl 60 Mg Tablet) 60 mg PO Q8H [facility]; Protocol Last Admin: 01/03/22 03:48 Dose: 60 mg Documented By: DYLON Diphenoxylate HCl/Atropine (Diphenoxylate/Atrop 2.5/0.025 Tablet) 1 tab PO QID PRN PRN Reason: Diarrhea Last Admin: 01/02/22 12:26 Dose: 1 tab Documented By: AGUSTÍN Docusate Sodium (Docusate Sodium 100 Mg Capsule) 100 mg PO DAILY PRN PRN Reason: Constipation Last Admin: 12/29/21 11:59 Dose: 100 mg Documented By: AMAURY Hydromorphone HCl (Hydromorphone Hcl 1 Mg/Ml Syringe) 1 mg IVPUSH Q2H PRN; Protocol PRN Reason: Pain, Severe (Pain Scale 7-10) Last Admin: 01/03/22 06:15 Dose: 1 mg Documented By: TERRANCE Piperacillin Sod/Tazobactam (Sod 4.5 gm/ Sodium Chloride) 100 mls @ 200 mls/hr IV Q6H [facility] Last Admin: 01/03/22 07:21 Dose: 200 mls/hr Documented By: DYLON Lorazepam (Lorazepam 0.5 Mg Tablet) 0.5 mg PO Q8H PRN PRN Reason: anxiety Last Admin: 01/02/22 11:14 Dose: 0.5 mg Documented By: AGUSTÍN Pt Own (Acebutolol (200 Mg Capsule)) 2 cap PO BID [facility] Last Admin: 01/02/22 20:32 Dose: 2 cap Documented By: DYLON Omeprazole (Omeprazole 20 Mg Capsule.Dr) 20 mg PO DAILY@0630 [facility] Last Admin: 01/03/22 07:20 Dose: 20 mg Documented By: DYLON Ondansetron HCl (Ondansetron Hcl 4 Mg/2 Ml Vial) 4 mg IVPUSH Q4H PRN PRN Reason: nausea Last Admin: 01/03/22 06:21 Dose: 4 mg Documented By: TERRANCE Oxycodone HCl (Oxycodone Hcl Immed Release 5 Mg Tablet) 10 mg PO Q4H PRN PRN Reason: Pain, Moderate (Pain Scale 4-6 Last Admin: 01/02/22 18:41 Dose: 10 mg Documented By: AGUSTÍN Pharmacy Consult (Consult Rx Vancomycin Dosing) 1 each MISCELLANE DAILY PRN PRN Reason: Consult order Polyethylene Glycol (Polyethylene Glycol 3350 17 Gm Powd.Pack) 17 gm PO DAILY PRN PRN Reason: Constipation Last Admin: 12/30/21 08:38 Dose: 17 gm Documented By: JIL Sodium Chloride (0.9 % Sodium Chloride Flush 3 Ml Syringe) 3 ml IVFLUSH QSHIFT ANTIONE Last Admin: 01/02/22 20:38 Dose: 3 ml Documented By: DYLON Zolpidem Tartrate (Zolpidem Tartrate 5 Mg Tablet) 5 mg PO BEDTIME PRN PRN Reason: Insomnia Labs CBC & Chem 7: 01/02/22 06:22 01/02/22 06:22 Labs: Laboratory Results - last 24 hr 01/02/22 01/02/22 01/02/22 06:22 06:22 10:12 Iron 23 L TIBC 152 L % Saturation 15 Unsat Iron Binding 129 Ferritin 687 H Vitamin B12 1719 H Folate 10.9 Blood Type O Positive Antibody Screen NEGATIVE Crossmatch See Detail Procedures Date of Service Date of Service: 01/03/22 Progress Note: A&P Assessment and plan (1) Abscess of abdominal wall: Status: Acute (2) Paroxysmal atrial fibrillation: Status: Acute (3) Anemia of chronic disease: Status: Acute Plan S/p drainage of chest wall/abdominal wall abscess, removal of dropped gallstone, complicated by sepsis, rapid AFib. patient developed increased abdominal pain during the night. CT abdomen and pelvis performed. Reading pending. I reviewed the images which appeared to show increased ascitic fluid especially along the liver and right gutter extending into the pelvis. Small amount of fluid on the left side as well. Does not appear to be an abscess. Dilated loops of small bowel and colon suggestive of an ileus. No evidence of obstruction. No free air to my evaluation. Await final reading from radiol ogist. WBC From yesterday is normal. Patient never received a transfusion yesterday. Requested transfusion for today. recheck CBC in a.m. Will request physical therapy for out of bed and ambulation. Time Spent With Patient Time: Total time spent is greater than 50% in coordination of care (as documented) at patient's floor/unit and/or counseling patient: Quality Stroke Does the patient have a stroke diagnosis?: No VTE Prior VTE?: No VTE Risk Level:: Medical - moderate - high VTE Device Contraindication: N/A - Device Ordered VTE Drug Contraindication: N/A - Med Ordered
[2022-01-03] MEDS: Apixaban 5 MG TABLET PO ×2 (09:04→20:31)
[2022-01-03] MEDS: Dicyclomine HCl 10 MG CAPSULE PO ×2 (09:04→20:31)
[2022-01-03] MEDS: 0.9 % Sodium Chloride Flush 3 ML SYRINGE IVFLUSH ×2 (09:05→13:23)
[2022-01-03 10:07] LABS: Hematocrit 27.2 % (42.0-52.0); Hemoglobin 8.8 g/dl (14.0-18.0); Mean Corpuscular HGB Conc 32.4 g/dl (31.0-36.0); Mean Corpuscular Hemoglobin 29.9 pg (27.0-33.0); Mean Corpuscular Volume 92.5 fL (80.0-98.0); Mean Platelet Volume 8.6 fL (9.4-12.4); Platelet Count 399 X10*3/uL (160-400); Red Blood Count 2.94 X10*6/uL (4.60-5.80); Red Cell Distribution Width 13.7 % (11.0-16.0); White Blood Count 11.1 X10*3/uL (4.8-10.8)
[2022-01-03] MEDS: LORazepam 0.5 MG TABLET PO ×2 (10:13→20:31)
--- NOTE | 2022-01-03 11:01 | P.PNIM_ITS ---
Subjective Subjective Date of Service: 01/03/22 Interval History: cc: abdominal pain interval history:ongoing pain, paroxysmal palpitations correlating to afib - did not have last 24hrs Cardiovascular Cardiovascular: Reports no additional cardiovascular complaints Respiratory Respiratory: Reports no additional respiratory complaints Physical Exam Vital Signs: Vital Signs: Last Vital Signs Temp 98.9 F 01/03/22 08:00 Pulse 72 01/03/22 08:00 Resp 12 01/03/22 08:00 BP 126/61 01/03/22 08:00 Pulse Ox 92 01/03/22 08:00 O2 Del Method 01/03/22 08:00 O2 Flow Rate 2 01/03/22 08:00 FiO2 88 12/31/21 15:45 Oxygen Flow Rate 2 01/02/22 13:00 BMI result Body Mass Index 25.7 Const: General: tired appearing Nutritional Appearance: thin Orientation/consciousness: patient oriented x3 Resp: Effort & Inspection: normal respiratory effort, no cough and no respiratory distress GI: Inspection: Yes normal to inspection, Yes distended and Yes incision (Trocar incisions are clean and intact.) Palpation (GI): Soft to palpation, Tenderness to palpation present (GI) in the RUQ, no guarding and not rigid Percussion: Yes tympanic to percussion Auscultation: Hypoactive bowel sounds present Skin: Other: Warm and dry, pale Neuro: General: patient oriented x3 Extrem: General: No cyanosis Objective Data Active Medications Acetaminophen (Acetaminophen 325 Mg Tablet) 650 mg PO Q4H PRN PRN Reason: Fever Apixaban (Apixaban 5 Mg Tablet) 5 mg PO BID [facility] [place] Last Admin: 01/03/22 09:04 Dose: 5 mg Documented By: DENIA Benzonatate (Benzonatate 100 Mg Capsule) 200 mg PO TID PRN PRN Reason: Cough Last Admin: 01/03/22 00:47 Dose: 200 mg Documented By: DYLON Dicyclomine HCl (Dicyclomine Hcl 10 Mg Capsule) 10 mg PO BID [facility] [place] Last Admin: 01/03/22 09:04 Dose: 10 mg Documented By: DENIA Diltiazem HCl (Diltiazem Hcl 60 Mg Tablet) 60 mg PO Q8H [facility] [place]; Protocol Last Admin: 01/03/22 03:48 Dose: 60 mg Documented By: DYLON Diphenoxylate HCl/Atropine (Diphenoxylate/Atrop 2.5/0.025 Tablet) 1 tab PO QID PRN PRN Reason: Diarrhea Last Admin: 01/02/22 12:26 Dose: 1 tab Documented By: AGUSTÍN Docusate Sodium (Docusate Sodium 100 Mg Capsule) 100 mg PO DAILY PRN PRN Reason: Constipation Last Admin: 12/29/21 11:59 Dose: 100 mg Documented By: AMAURY Hydromorphone HCl (Hydromorphone Hcl 1 Mg/Ml Syringe) 1 mg IVPUSH Q2H PRN; Protocol PRN Reason: Pain, Severe (Pain Scale 7-10) Last Admin: 01/03/22 06:15 Dose: 1 mg Documented By: TERRANCE Piperacillin Sod/Tazobactam (Sod 4.5 gm/ Sodium Chloride) 100 mls @ 200 mls/hr IV Q6H [facility] Last Infusion: 01/03/22 09:16 Dose: 0 mls/hr Documented By: DENIA Lorazepam (Lorazepam 0.5 Mg Tablet) 0.5 mg PO Q8H PRN PRN Reason: anxiety Last Admin: 01/03/22 10:13 Dose: 0.5 mg Documented By: DENIA Pt Own (Acebutolol (200 Mg Capsule)) 2 cap PO BID [facility] [place] Last Admin: 01/03/22 09:12 Dose: 2 cap Documented By: DENIA Omeprazole (Omeprazole 20 Mg Capsule.Dr) 20 mg PO DAILY@0630 [facility] Last Admin: 01/03/22 07:20 Dose: 20 mg Documented By: DYLON Ondansetron HCl (Ondansetron Hcl 4 Mg/2 Ml Vial) 4 mg IVPUSH Q4H PRN PRN Reason: nausea Last Admin: 01/03/22 06:21 Dose: 4 mg Documented By: TERRANCE Oxycodone HCl (Oxycodone Hcl Immed Release 5 Mg Tablet) 10 mg PO Q4H PRN PRN Reason: Pain, Moderate (Pain Scale 4-6 Last Admin: 01/02/22 18:41 Dose: 10 mg Documented By: AGUSTÍN Pharmacy Consult (Consult Rx Vancomycin Dosing) 1 each MISCELLANE DAILY PRN PRN Reason: Consult order Polyethylene Glycol (Polyethylene Glycol 3350 17 Gm Powd.Pack) 17 gm PO DAILY PRN PRN Reason: Constipation Last Admin: 12/30/21 08:38 Dose: 17 gm Documented By: JIL Sodium Chloride (0.9 % Sodium Chloride Flush 3 Ml Syringe) 3 ml IVFLUSH QSHIFT ANTIONE Last Admin: 01/03/22 09:05 Dose: 3 ml Documented By: DENIA Zolpidem Tartrate (Zolpidem Tartrate 5 Mg Tablet) 5 mg PO BEDTIME PRN PRN Reason: Insomnia Labs CBC & Chem 7: 01/03/22 09:52 01/02/22 06:22 Labs: Laboratory Results - last 24 hr 01/02/22 01/03/22 06:22 09:52 MCV 92.5 MCH 29.9 MCHC 32.4 RDW 13.7 Plt Count 399 MPV 8.6 L Absolute Nucleated RBC 0.000 Nucleated RBC % (auto) 0.0 Vitamin B12 1719 H Folate 10.9 Assessment and Plan (1) Abscess of abdominal wall: Status: Acute (2) Sepsis with acute hypoxic respiratory failure: Status: Acute (3) Paroxysmal atrial fibrillation: Status: Acute Plan 71 year old male with PMH paroxysmal afib (not on AC per patient choice, normally pill in pocket - cardizem), celiac, HTN, s/p chest wall abscess drainage complicated by sepsis, afib with rvr Abscess of abdominal wall with sepsis (not severe sepsis) Wound cultures grew ecoli E coli Continue IV Zosyn. blood cultures negative - Vancomycin discontinued ongoing abd pain, ascites, will defer to primary team Acute hypoxic respiratory failure likely due to sepsis V/Q scan negative Paroxysmal atrial fibrillation with RVR continue home acebutolol. Initiated anticoagulation, Eliquis 5 mg b.i.d. changed to scheduled cardizem 60mg q8, cardio following anemia hgb decreased from 12.2 in october 2021 to 7.8 today iron studies consistent with inflammation due to infection. b12, folate normal transfused 1 unit prbc dvt prophylaxis - on eliquis full code Quality Stroke Does the patient have a stroke diagnosis?: No VTE Prior VTE?: No VTE Risk Level:: Medical - moderate - high VTE Device Contraindication: N/A - Device Ordered VTE Drug Contraindication: N/A - Med Ordered
--- NOTE | 2022-01-03 13:02 | P.PNCA_ITS ---
Subjective Subjective Date of Service: 01/03/22 Principal diagnosis: Paroxysmal atrial fibrillation Interval history: Since yesterday the burden of atrial fibrillation is much improved. He still has palpitations with associated PACs. No sustained atrial fibrillation. Hemodynamically stable. Continues to have significant pain in his right side at the surgical site. Review of Systems Constitutional: Reports fatigue and Reports malaise Eyes: Reports no additional eye complaints Cardiovascular: Denies chest pain, Reports irregular heart rhythm and Denies dyspnea Respiratory: Denies dyspnea Gastrointestinal: Reports other (Pain) Reports system reviewed and no additional complaints, except as documented Psychiatric: Reports no additional psychiatric complaints Endocrine: Reports no additional endocrine complaints and Reports fatigue Hematologic/Lymphatic: Reports no additional hematologic/lymphatic complaints Allergic/Immunologic: Reports no additional allergic/immunologic complaints Physical Exam Vital Signs: Last Vital Signs Temp 98.6 F 01/03/22 12:00 Pulse 76 01/03/22 12:00 Resp 16 01/03/22 12:00 BP 115/62 01/03/22 12:00 Pulse Ox 93 01/03/22 12:00 O2 Del Method 01/03/22 12:00 O2 Flow Rate 2 01/03/22 12:00 FiO2 88 12/31/21 15:45 Oxygen Flow Rate 2 01/02/22 13:00 BMI result Body Mass Index 25.7 Const General: cooperative, comfortable, in distress mild and other (Due to pain), ill appearing and other (Pallor) Nutritional Appearance: average body habitus Orientation/consciousness: patient oriented x3 Neck Neck: Yes trachea midline, Yes supple and Yes no JVD Resp Effort & Inspection: decreased respiratory effort Auscultation: no rales, no wheezes and diminished lung sounds Cardio Jugular venous distension: no JVD Palpation: normal PMI Rate: regular rate Rhythm: abnormal rhythm with ectopic beats Heart sounds: S1 normal heart sound present, S2 normal heart sound present, no click, no gallops and no murmurs GI Auscultation: normal bowel sounds Skin General skin exam: no rashes or lesions noted and ecchymosis Neuro General: patient oriented x3 and no focal motor deficits Extrem General: Yes no clubbing, cyanosis or edema Objective Labs and Meds Result diagrams: 01/03/22 09:52 01/02/22 06:22 Lab results: Laboratory Results - last 24 hr 01/03/22 09:52 WBC 11.1 H RBC 2.94 L Hgb 8.8 L Hct 27.2 L MCV 92.5 MCH 29.9 MCHC 32.4 RDW 13.7 Plt Count 399 MPV 8.6 L Absolute Nucleated RBC 0.000 Nucleated RBC % (auto) 0.0 Imaging Radiologist's impression: Impressions Abdomen/Pelvis CT 01/03/22 07:34 IMPRESSION: Subcapsular collection scalloping the right lateral margin of the liver persists with a drain having been removed. The size is not convincingly changed from the prior study 12/30/2021. There is new small volume of ascites with diffuse fluid and fat stranding throughout the mesentery. There is developing anasarca with new skin thickening and subcutaneous stranding of the right lateral buttock consistent with soft tissue infection. The etiology for the ascites is unclear. Peritonitis is possible. Increasing gaseous distention of small bowel particularly in the left abdomen with gaseous distention of the nondependent colon. The appearance favors a developing ileus rather than a bowel obstruction but careful attention on follow-up is recommended. Recommendation: Given the worsening findings, recommend contrast-enhanced CT scan of the abdomen and pelvis. Prior studies indicate history of contrast allergy. The patient could be premedicated for an allergy. Progress Note: A&P Assessment and plan (1) Paroxysmal atrial fibrillation: Status: Acute Assessment and Plan: Highly symptomatic paroxysmal atrial fibrillation known in this gentleman with prior history, currently exacerbated by her acute medical/surgical illness. Currently the arrhythmias have subsided significantly with dual therapy. Continue the same. Continue to avoid stimulants. I would consider transfusing him with packed RBC to reduce myocardial burden and excitability. Continue pain control. Continue to manage from surgical and medical perspective with IV antibiotics and treat her is infection/sepsis. Out of bed to chair and i ncentive spirometry as tolerated. Antianxiety medicines as needed. Continue with Eliquis Will sign of the case. If he continues to have sustained atrial arrhythmias please consult us. Time Spent With Patient Time: Total time spent is greater than 50% in coordination of care (as documented) at patient's floor/unit and/or counseling patient: Progress Note: Quality Stroke Does the patient have a stroke diagnosis?: No Procedures Date of Service Date of Service: 01/03/22
[2022-01-03] MEDS: Diphenoxylate/Atrop 2.5/0.025 TABLET 1 TAB PO (18:49)
[2022-01-03] MEDS: oxyCODONE HCl Immed Release 5 MG TABLET 10 MG PO (20:31)
[2022-01-04] VITALS (7 sets, daily range): BP systolic 111–126; BP diastolic 56–85; PULSE 63–77; RESP 18–20; TEMP 36.4–37.4; O2SAT 91–97
[2022-01-04] MEDS: dilTIAZem HCL 60 MG TABLET PO ×3 (03:34→20:27)
[2022-01-04] MEDS: HYDROmorphone HCl 1 MG/ML SYRINGE IVPUSH ×6 (03:35→23:29)
[2022-01-04] MEDS: Acetaminophen 325 MG TABLET 650 MG PO (03:36)
[2022-01-04] MEDS: Omeprazole 20 MG CAPSULE.DR PO (06:25)
[2022-01-04] MEDS: Piperacillin Sodium/Tazobactam 4.5 GM in 0.9 % Sodium Chloride 100 ML IV ×4 (06:25→23:29)
[2022-01-04] MEDS: ondansetron HCL 4 MG/2 ML VIAL IVPUSH ×2 (06:31→11:27)
[2022-01-04 06:49] LABS: MANUAL DIFF FLAG NO
[2022-01-04 06:56] LABS: Basophils Percent Auto 0.3 % (0-2); Eosinophils Absolute Auto 0.3 X10*3/uL (0.0-0.4); Eosinophils Percent Auto 2.9 % (0-4); Hematocrit 27.7 % (42.0-52.0); Hemoglobin 9.1 g/dl (14.0-18.0); Imm Gran Abs Auto 0.24 X10*3/uL (0.00-0.03); Imm Gran Pct Auto 2.1 % (0.0-0.4); Lymphocytes Absolute Auto 0.9 X10*3/uL (1.2-4.9); Lymphocytes Percent Auto 7.5 % (20-40); Mean Corpuscular HGB Conc 32.9 g/dl (31.0-36.0); Mean Corpuscular Hemoglobin 30.1 pg (27.0-33.0); Mean Corpuscular Volume 91.7 fL (80.0-98.0); Mean Platelet Volume 8.9 fL (9.4-12.4); Monocytes Absolute Auto 0.9 X10*3/uL (0.1-1.2); Monocytes Percent Auto 7.6 % (2-11); Neutrophils Absolute Auto 9.1 x10*3/uL (2.0-8.3); Neutrophils Percent Auto 79.6 % (45-73); Platelet Count 407 X10*3/uL (160-400); Red Blood Count 3.02 X10*6/uL (4.60-5.80); Red Cell Distribution Width 13.8 % (11.0-16.0); White Blood Count 11.4 X10*3/uL (4.8-10.8)
[2022-01-04 07:48] LABS: Anion Gap 15 (12-20); Blood Urea Nitrogen 10 mg/dL (9-16); Calcium 8.1 mg/dL (8.4-10.2); Carbon Dioxide 24 mmol/L (22-29); Chloride 103 mmol/L (96-108); Creatinine Clr Calc Pharmacy 84.4; Estimated Glomerular Filt Rate > 60; Glucose Fasting 93 mg/dL (60-99); Sodium 138 mmol/L (135-145)
--- NOTE | 2022-01-04 07:57 | PM.PNGS ---
Subjective Subjective Date of Service: 01/08/22 Interval history: incisional pain tolerating diet well but poor appetite transfused yesterday Physical Exam Vital Signs: Vital Signs: Last Vital Signs Temp 97.5 F 01/04/22 07:47 Pulse 63 01/04/22 07:47 Resp 20 01/04/22 07:47 BP 111/60 01/04/22 07:47 Pulse Ox 91 L 01/04/22 03:22 O2 Del Method 01/04/22 07:47 O2 Flow Rate 2 01/04/22 07:47 FiO2 88 12/31/21 15:45 Oxygen Flow Rate 2 01/02/22 13:00 BMI result Body Mass Index 25.7 Const: General: no acute distress Resp: Effort & Inspection: normal respiratory effort Cardio: Rate: regular rate GI: Other: some distension Palpation (GI): Soft to palpation, not firm and no guarding Objective Data Active Medications Acetaminophen (Acetaminophen 325 Mg Tablet) 650 mg PO Q4H PRN PRN Reason: Fever Last Admin: 01/04/22 03:36 Dose: 650 mg Documented By: SHERINE Apixaban (Apixaban 5 Mg Tablet) 5 mg PO BID [facility] Last Admin: 01/03/22 20:31 Dose: 5 mg Documented By: SHERINE Benzonatate (Benzonatate 100 Mg Capsule) 200 mg PO TID PRN PRN Reason: Cough Last Admin: 01/03/22 00:47 Dose: 200 mg Documented By: DYLON Dicyclomine HCl (Dicyclomine Hcl 10 Mg Capsule) 10 mg PO BID [facility] Last Admin: 01/03/22 20:31 Dose: 10 mg Documented By: SHERINE Diltiazem HCl (Diltiazem Hcl 60 Mg Tablet) 60 mg PO Q8H [facility]; Protocol Last Admin: 01/04/22 03:34 Dose: 60 mg Documented By: SHERINE Docusate Sodium (Docusate Sodium 100 Mg Capsule) 100 mg PO DAILY PRN PRN Reason: Constipation Last Admin: 12/29/21 11:59 Dose: 100 mg Documented By: AMAURY Hydromorphone HCl (Hydromorphone Hcl 1 Mg/Ml Syringe) 1 mg IVPUSH Q2H PRN; Protocol PRN Reason: Pain, Severe (Pain Scale 7-10) Last Admin: 01/04/22 06:25 Dose: 1 mg Documented By: SHERINE Piperacillin Sod/Tazobactam (Sod 4.5 gm/ Sodium Chloride) 100 mls @ 200 mls/hr IV Q6H [facility] Last Infusion: 01/04/22 07:03 Dose: 0 mls/hr Documented By: SHERINE Lorazepam (Lorazepam 0.5 Mg Tablet) 0.5 mg PO Q8H PRN PRN Reason: anxiety Last Admin: 01/03/22 20:31 Dose: 0.5 mg Documented By: SHERINE Pt Own (Acebutolol (200 Mg Capsule)) 2 cap PO BID [facility] Last Admin: 01/03/22 20:30 Dose: 2 cap Documented By: SHERINE Omeprazole (Omeprazole 20 Mg Capsule.Dr) 20 mg PO DAILY@0630 [facility] Last Admin: 01/04/22 06:25 Dose: 20 mg Documented By: SHERINE Ondansetron HCl (Ondansetron Hcl 4 Mg/2 Ml Vial) 4 mg IVPUSH Q4H PRN PRN Reason: nausea Last Admin: 01/04/22 06:31 Dose: 4 mg Documented By: SHERINE Oxycodone HCl (Oxycodone Hcl Immed Release 5 Mg Tablet) 10 mg PO Q4H PRN PRN Reason: Pain, Moderate (Pain Scale 4-6 Last Admin: 01/03/22 20:31 Dose: 10 mg Documented By: SHERINE Pharmacy Consult (Consult Rx Vancomycin Dosing) 1 each MISCELLANE DAILY PRN PRN Reason: Consult order Polyethylene Glycol (Polyethylene Glycol 3350 17 Gm Powd.Pack) 17 gm PO DAILY PRN PRN Reason: Constipation Last Admin: 12/30/21 08:38 Dose: 17 gm Documented By: JIL Sodium Chloride (0.9 % Sodium Chloride Flush 3 Ml Syringe) 3 ml IVFLUSH QSHIFT [facility] Last Admin: 01/04/22 00:42 Dose: Not Given Documented By: SHERINE Non-Admin Reason: Previously Administered Zolpidem Tartrate (Zolpidem Tartrate 5 Mg Tablet) 5 mg PO BEDTIME PRN PRN Reason: Insomnia Labs CBC & Chem 7: 01/06/22 06:04 01/06/22 06:04 Labs: Laboratory Results - last 24 hr 01/02/22 01/03/22 01/04/22 10:12 09:52 06:13 MCV 92.5 Cancelled MCH 29.9 Cancelled MCHC 32.4 Cancelled RDW 13.7 Cancelled Plt Count 399 Cancelled MPV 8.6 L Cancelled Immature Gran % (Auto) Neut % (Auto) Lymph % (Auto) Boundary % (Auto) Eos % (Auto) Baso % (Auto) Lymph # (Auto) Boundary # (Auto) Eos # (Auto) Baso # (Auto) Abs Immat Gran (auto) Absolute Neuts (auto) Absolute Nucleated RBC 0.000 Cancelled Nucleated RBC % (auto) 0.0 Cancelled Anion Gap Estim Creat Clear Calc Estimated GFR Fasting Glucose Calcium Blood Type O Positive Antibody Screen NEGATIVE Crossmatch See Detail 01/04/22 01/04/22 06:13 06:13 MCV 91.7 MCH 30.1 MCHC 32.9 RDW 13.8 Plt Count 407 H MPV 8.9 L Immature Gran % (Auto) 2.1 H Neut % (Auto) 79.6 H Lymph % (Auto) 7.5 L Boundary % (Auto) 7.6 Eos % (Auto) 2.9 Baso % (Auto) 0.3 Lymph # (Auto) 0.9 L Boundary # (Auto) 0.9 Eos # (Auto) 0.3 Baso # (Auto) 0.0 Abs Immat Gran (auto) 0.24 H Absolute Neuts (auto) 9.1 H Absolute Nucleated RBC 0.000 Nucleated RBC % (auto) 0.0 Anion Gap 15 Estim Creat Clear Calc 84.4 Estimated GFR > 60 Fasting Glucose 93 Calcium 8.1 L Blood Type Antibody Screen Crossmatch Procedures Date of Service Date of Service: 01/04/22 Progress Note: A&P Assessment and plan (1) Subcapsular hematoma of liver: Status: Acute Assessment and Plan: S/P laparoscopic drainage of abscess, removal of dropped stone transfused yesterday - Hg 9.[address] reviewed - anasarca, ascites, developing ileus in view of distension and ileus, will limit to clear liquid for now abd soft and benign follow Hg hemodynamically stable Time Spent With Patient Time: Total time spent is greater than 50% in coordination of care (as documented) at patient's floor/unit and/or counseling patient: Quality Stroke Does the patient have a stroke diagnosis?: No VTE Prior VTE?: No VTE Risk Level:: Medical - moderate - high VTE Device Contraindication: N/A - Device Ordered VTE Drug Contraindication: N/A - Med Ordered
[2022-01-04] MEDS: Dicyclomine HCl 10 MG CAPSULE PO ×2 (08:10→20:27)
[2022-01-04] MEDS: Apixaban 5 MG TABLET PO ×2 (08:10→20:27)
[2022-01-04] MEDS: 0.9 % Sodium Chloride Flush 3 ML SYRINGE IVFLUSH ×2 (08:10→23:30)
[2022-01-04] MEDS: oxyCODONE HCl Immed Release 5 MG TABLET 10 MG PO ×2 (08:19→20:27)
--- NOTE | 2022-01-04 09:52 | HO.PM.IMPN ---
Subjective Subjective Date of Service: 01/04/22 Interval History: cc: abdominal pain interval history:ongoing pain Cardiovascular Cardiovascular: Reports no additional cardiovascular complaints Respiratory Respiratory: Reports no additional respiratory complaints Physical Exam Vital Signs: Vital Signs: Last Vital Signs Temp 97.5 F 01/04/22 07:47 Pulse 63 01/04/22 07:47 Resp 20 01/04/22 07:47 BP 111/60 01/04/22 07:47 Pulse Ox 91 L 01/04/22 03:22 O2 Del Method 01/04/22 07:47 O2 Flow Rate 2 01/04/22 07:47 FiO2 88 12/31/21 15:45 Oxygen Flow Rate 2 01/02/22 13:00 BMI result Body Mass Index 25.7 Const: General: no acute distress Resp: Effort & Inspection: normal respiratory effort Cardio: Rate: regular rate GI: Other: some distension Palpation (GI): Soft to palpation, not firm and no guarding Objective Data Active Medications Acetaminophen (Acetaminophen 325 Mg Tablet) 650 mg PO Q4H PRN PRN Reason: Fever Last Admin: 01/04/22 03:36 Dose: 650 mg Documented By: SHERINE Apixaban (Apixaban 5 Mg Tablet) 5 mg PO BID [facility] Last Admin: 01/04/22 08:10 Dose: 5 mg Documented By: AGUSTÍN Benzonatate (Benzonatate 100 Mg Capsule) 200 mg PO TID PRN PRN Reason: Cough Last Admin: 01/03/22 00:47 Dose: 200 mg Documented By: DYLON Dicyclomine HCl (Dicyclomine Hcl 10 Mg Capsule) 10 mg PO BID [facility] Last Admin: 01/04/22 08:10 Dose: 10 mg Documented By: AGUSTÍN Diltiazem HCl (Diltiazem Hcl 60 Mg Tablet) 60 mg PO Q8H [facility]; Protocol Last Admin: 01/04/22 03:34 Dose: 60 mg Documented By: SHERINE Docusate Sodium (Docusate Sodium 100 Mg Capsule) 100 mg PO DAILY PRN PRN Reason: Constipation Last Admin: 12/29/21 11:59 Dose: 100 mg Documented By: AMAURY Hydromorphone HCl (Hydromorphone Hcl 1 Mg/Ml Syringe) 1 mg IVPUSH Q2H PRN; Protocol PRN Reason: Pain, Severe (Pain Scale 7-10) Last Admin: 01/04/22 06:25 Dose: 1 mg Documented By: SHERINE Piperacillin Sod/Tazobactam (Sod 4.5 gm/ Sodium Chloride) 100 mls @ 200 mls/hr IV Q6H [facility] Last Infusion: 01/04/22 07:03 Dose: 0 mls/hr Documented By: SHERINE Lorazepam (Lorazepam 0.5 Mg Tablet) 0.5 mg PO Q8H PRN PRN Reason: anxiety Last Admin: 01/03/22 20:31 Dose: 0.5 mg Documented By: SHERINE Pt Own (Acebutolol (200 Mg Capsule)) 2 cap PO BID [facility] Last Admin: 01/04/22 08:19 Dose: 2 cap Documented By: AGUSTÍN Omeprazole (Omeprazole 20 Mg Capsule.Dr) 20 mg PO DAILY@0630 [facility] Last Admin: 01/04/22 06:25 Dose: 20 mg Documented By: SHERINE Ondansetron HCl (Ondansetron Hcl 4 Mg/2 Ml Vial) 4 mg IVPUSH Q4H PRN PRN Reason: nausea Last Admin: 01/04/22 06:31 Dose: 4 mg Documented By: SHERINE Oxycodone HCl (Oxycodone Hcl Immed Release 5 Mg Tablet) 10 mg PO Q4H PRN PRN Reason: Pain, Moderate (Pain Scale 4-6 Last Admin: 01/04/22 08:19 Dose: 10 mg Documented By: AGUSTÍN Pharmacy Consult (Consult Rx Vancomycin Dosing) 1 each MISCELLANE DAILY PRN PRN Reason: Consult order Polyethylene Glycol (Polyethylene Glycol 3350 17 Gm Powd.Pack) 17 gm PO DAILY PRN PRN Reason: Constipation Last Admin: 12/30/21 08:38 Dose: 17 gm Documented By: JIL Sodium Chloride (0.9 % Sodium Chloride Flush 3 Ml Syringe) 3 ml IVFLUSH [facility] Last Admin: 01/04/22 08:10 Dose: 3 ml Documented By: AGUSTÍN Zolpidem Tartrate (Zolpidem Tartrate 5 Mg Tablet) 5 mg PO BEDTIME PRN PRN Reason: Insomnia Labs CBC & Chem 7: 01/04/22 06:13 01/04/22 06:13 Labs: Laboratory Results - last 24 hr 01/02/22 01/03/22 01/04/22 10:12 09:52 06:13 MCV 92.5 Cancelled MCH 29.9 Cancelled MCHC 32.4 Cancelled RDW 13.7 Cancelled Plt Count 399 Cancelled MPV 8.6 L Cancelled Immature Gran % (Auto) Neut % (Auto) Lymph % (Auto) [place] % (Auto) Eos % (Auto) Baso % (Auto) Lymph # (Auto) [place] # (Auto) Eos # (Auto) Baso # (Auto) Abs Immat Gran (auto) Absolute Neuts (auto) Absolute Nucleated RBC 0.000 Cancelled Nucleated RBC % (auto) 0.0 Cancelled Anion Gap Estim Creat Clear Calc Estimated GFR Random Glucose Fasting Glucose Calcium Blood Type O Positive Antibody Screen NEGATIVE Crossmatch See Detail 01/04/22 01/04/22 01/04/22 06:13 06:13 06:20 MCV 91.7 MCH 30.1 MCHC 32.9 RDW 13.8 Plt Count 407 H MPV 8.9 L Immature Gran % (Auto) 2.1 H Neut % (Auto) 79.6 H Lymph % (Auto) 7.5 L [place] % (Auto) 7.6 Eos % (Auto) 2.9 Baso % (Auto) 0.3 Lymph # (Auto) 0.9 L [place] # (Auto) 0.9 Eos # (Auto) 0.3 Baso # (Auto) 0.0 Abs Immat Gran (auto) 0.24 H Absolute Neuts (auto) 9.1 H Absolute Nucleated RBC 0.000 Nucleated RBC % (auto) 0.0 Anion Gap 15 Cancelled Estim Creat Clear Calc 84.4 Cancelled Estimated GFR > 60 Cancelled Random Glucose Cancelled Fasting Glucose 93 Calcium 8.1 L Cancelled Blood Type Antibody Screen Crossmatch Assessment and Plan (1) Abscess of abdominal wall: Status: Acute (2) Sepsis with acute hypoxic respiratory failure: Status: Acute (3) Paroxysmal atrial fibrillation: Status: Acute Plan 71 year old male with PMH paroxysmal afib (not on AC per patient choice, normally pill in pocket - cardizem), celiac, HTN, s/p chest wall abscess drainage complicated by sepsis, afib with rvr Abscess of abdominal wall with sepsis (not severe sepsis) Wound cultures grew ecoli E coli Continue IV Zosyn. blood cultures negative - Vancomycin discontinued ongoing abd pain, ascites, deferred to primary team, downgraded to clears Acute hypoxic respiratory failure likely due to sepsis V/Q scan negative Paroxysmal atrial fibrillation with RVR continue home acebutolol. Initiated anticoagulation, Eliquis 5 mg b.i.d. changed to scheduled cardizem 60mg q8, cardio following has been in sinus last 48hrs anemia hgb decreased from 12.2 in october 2021 to 7.8 today iron studies consistent with inflammation due to infection. b12, folate normal transfused 1 unit prbc 01/03/22, hgb improved appropriately dvt prophylaxis - on eliquis full code Quality Stroke Does the patient have a stroke diagnosis?: No VTE Prior VTE?: No VTE Risk Level:: Medical - moderate - high VTE Device Contraindication: N/A - Device Ordered VTE Drug Contraindication: N/A - Med Ordered
--- NOTE | 2022-01-04 10:27 | MHC.CM.PN ---
Male 71 Liver disease no dc today. Patient has developed an Illeus. Diet has been downgraded to clears. DP home no services with family providing transportation.
[2022-01-04] MEDS: LORazepam 0.5 MG TABLET PO ×2 (12:45→20:27)
--- NOTE | 2022-01-04 13:12 | MHC.CLN ---
F/U PT IS MODERATELY MALNOURISHED SEE FULL CLINICAL NUTRITION ASSESSMENT DATED 12/29/21 DIET RX: C/L-APPROPRIATE PT RECEPTIVE TO DRINKING ENSURE CLEAR TID SUPP PROVIDES 720KCALS, 24G PROTEIN MONITOR PO INTAKE CLOSELY
[2022-01-05] VITALS (8 sets, daily range): BP systolic 111–134; BP diastolic 57–87; PULSE 68–78; RESP 16–28; TEMP 36.6–37.2; O2SAT 88–97
[2022-01-05] MEDS: Omeprazole 20 MG CAPSULE.DR PO (06:29)
[2022-01-05] MEDS: Piperacillin Sodium/Tazobactam 4.5 GM in 0.9 % Sodium Chloride 100 ML IV ×3 (06:29→17:49)
[2022-01-05] MEDS: dilTIAZem HCL 60 MG TABLET PO ×3 (06:29→20:42)
[2022-01-05] MEDS: ondansetron HCL 4 MG/2 ML VIAL IVPUSH (06:30)
[2022-01-05] MEDS: HYDROmorphone HCl 1 MG/ML SYRINGE IVPUSH ×4 (06:30→17:53)
[2022-01-05 07:21] LABS: Anion Gap 16 (12-20); Blood Urea Nitrogen 7 mg/dL (9-16); Calcium 8.5 mg/dL (8.4-10.2); Carbon Dioxide 26 mmol/L (22-29); Chloride 101 mmol/L (96-108); Estimated Glomerular Filt Rate > 60; Glucose Fasting 95 mg/dL (60-99); Potassium 3.9 mmol/L (3.3-5.1); Sodium 139 mmol/L (135-145)
[2022-01-05 08:30] LABS: Hematocrit 29.7 % (42.0-52.0); Hemoglobin 9.6 g/dl (14.0-18.0); Mean Corpuscular HGB Conc 32.3 g/dl (31.0-36.0); Mean Corpuscular Hemoglobin 30.1 pg (27.0-33.0); Mean Corpuscular Volume 93.1 fL (80.0-98.0); Mean Platelet Volume 8.8 fL (9.4-12.4); Platelet Count 477 X10*3/uL (160-400); Red Blood Count 3.19 X10*6/uL (4.60-5.80); Red Cell Distribution Width 13.8 % (11.0-16.0); White Blood Count 11.7 X10*3/uL (4.8-10.8)
[2022-01-05] MEDS: Apixaban 5 MG TABLET PO ×2 (10:01→20:42)
[2022-01-05] MEDS: 0.9 % Sodium Chloride Flush 3 ML SYRINGE IVFLUSH ×2 (10:01→12:21)
[2022-01-05] MEDS: Dicyclomine HCl 10 MG CAPSULE PO ×2 (10:02→20:43)
--- NOTE | 2022-01-05 11:16 | HO.PM.IMPN ---
Subjective Subjective Date of Service: 01/05/22 Interval History: cc: abdominal pain interval history:ongoing pain Cardiovascular Cardiovascular: Reports no additional cardiovascular complaints Respiratory Respiratory: Reports no additional respiratory complaints Physical Exam Vital Signs: Vital Signs: Last Vital Signs Temp 99 F 01/05/22 07:43 Pulse 76 01/05/22 07:43 Resp 18 01/05/22 09:11 BP 134/62 01/05/22 07:43 Pulse Ox 94 01/05/22 10:21 O2 Del Method 01/05/22 09:11 O2 Flow Rate 3 01/05/22 07:43 FiO2 88 12/31/21 15:45 Oxygen Flow Rate 2 01/02/22 13:00 BMI result Body Mass Index 25.7 Const: General: no acute distress Resp: Effort & Inspection: normal respiratory effort Cardio: Rate: regular rate GI: Other: some distension Palpation (GI): Soft to palpation, not firm and no guarding Objective Data Active Medications Acetaminophen (Acetaminophen 325 Mg Tablet) 650 mg PO Q4H PRN PRN Reason: Fever Last Admin: 01/04/22 03:36 Dose: 650 mg Documented By: SHERINE Apixaban (Apixaban 5 Mg Tablet) 5 mg PO BID [facility] Last Admin: 01/05/22 10:01 Dose: 5 mg Documented By: ZOE Benzonatate (Benzonatate 100 Mg Capsule) 200 mg PO TID PRN PRN Reason: Cough Last Admin: 01/03/22 00:47 Dose: 200 mg Documented By: DYLON Dicyclomine HCl (Dicyclomine Hcl 10 Mg Capsule) 10 mg PO BID [facility] Last Admin: 01/05/22 10:02 Dose: 10 mg Documented By: ZOE Diltiazem HCl (Diltiazem Hcl 60 Mg Tablet) 60 mg PO Q8H [facility]; Protocol Last Admin: 01/05/22 06:29 Dose: 60 mg Documented By: SHERINE Docusate Sodium (Docusate Sodium 100 Mg Capsule) 100 mg PO DAILY PRN PRN Reason: Constipation Last Admin: 12/29/21 11:59 Dose: 100 mg Documented By: AMAURY Hydromorphone HCl (Hydromorphone Hcl 1 Mg/Ml Syringe) 1 mg IVPUSH Q2H PRN; Protocol PRN Reason: Pain, Severe (Pain Scale 7-10) Last Admin: 01/05/22 09:59 Dose: 1 mg Documented By: ZOE Piperacillin Sod/Tazobactam (Sod 4.5 gm/ Sodium Chloride) 100 mls @ 200 mls/hr IV Q6H [facility] Last Infusion: 01/05/22 09:00 Dose: 0 mls/hr Documented By: TYREE Lorazepam (Lorazepam 0.5 Mg Tablet) 0.5 mg PO Q8H PRN PRN Reason: anxiety Last Admin: 01/04/22 20:27 Dose: 0.5 mg Documented By: SHERINE Pt Own (Acebutolol (200 Mg Capsule)) 2 cap PO BID [facility] Last Admin: 01/05/22 10:02 Dose: 2 cap Documented By: ZOE Omeprazole (Omeprazole 20 Mg Capsule.Dr) 20 mg PO DAILY@0630 [facility] Last Admin: 01/05/22 06:29 Dose: 20 mg Documented By: SHERINE Ondansetron HCl (Ondansetron Hcl 4 Mg/2 Ml Vial) 4 mg IVPUSH Q4H PRN PRN Reason: nausea Last Admin: 01/05/22 06:30 Dose: 4 mg Documented By: SHERINE Oxycodone HCl (Oxycodone Hcl Immed Release 5 Mg Tablet) 10 mg PO Q4H PRN PRN Reason: Pain, Moderate (Pain Scale 4-6 Last Admin: 01/04/22 20:27 Dose: 10 mg Documented By: SHERINE Pharmacy Consult (Consult Rx Vancomycin Dosing) 1 each MISCELLANE DAILY PRN PRN Reason: Consult order Polyethylene Glycol (Polyethylene Glycol 3350 17 Gm Powd.Pack) 17 gm PO DAILY PRN PRN Reason: Constipation Last Admin: 12/30/21 08:38 Dose: 17 gm Documented By: JIL Sodium Chloride (0.9 % Sodium Chloride Flush 3 Ml Syringe) 3 ml IVFLUSH QSHIFT [facility] Last Admin: 01/05/22 10:01 Dose: 3 ml Documented By: ZOE Zolpidem Tartrate (Zolpidem Tartrate 5 Mg Tablet) 5 mg PO BEDTIME PRN PRN Reason: Insomnia Labs CBC & Chem 7: 01/05/22 06:50 01/05/22 06:54 Labs: Laboratory Results - last 24 hr 01/05/22 01/05/22 06:50 06:54 MCV 93.1 MCH 30.1 MCHC 32.3 RDW 13.8 Plt Count 477 H MPV 8.8 L Absolute Nucleated RBC 0.000 Nucleated RBC % (auto) 0.0 Anion Gap 16 Estim Creat Clear Calc 91.0 Estimated GFR > 60 Fasting Glucose 95 Calcium 8.5 Microbiology Microbiology Results: Microbiology 12/30/21 08:35 Blood Culture - Final Blood - Venous No growth after 5 days. 12/30/21 08:35 Blood Culture - Final Blood - Venous No growth after 5 days. Assessment and Plan (1) Abscess of abdominal wall: Status: Acute (2) Sepsis with acute hypoxic respiratory failure: Status: Acute (3) Paroxysmal atrial fibrillation: Status: Acute Plan 71 year old male with PMH paroxysmal afib (not on AC per patient choice, normally pill in pocket - cardizem), celiac, HTN, s/p chest wall abscess drainage complicated by sepsis, afib with rvr Abscess of abdominal wall with sepsis (not severe sepsis) Wound cultures grew ecoli E coli Continue IV Zosyn. blood cultures negative - Vancomycin discontinued ongoing abd pain, ascites, deferred to primary team, downgraded to clears Acute hypoxic respiratory failure likely due to atelectasis from abd pain/poor inspiratory effort V/Q scan negative incentive spirometry, pain control Paroxysmal atrial fibrillation with RVR continue home acebutolol. Initiated anticoagulation, Eliquis 5 mg b.i.d. changed to scheduled cardizem 60mg q8, cardio following has been in sinus last 72hrs anemia hgb decreased from 12.2 in october 2021 to 7.8 on 01/02/22 iron studies consistent with inflammation due to infection. b12, folate normal transfused 1 unit prbc 01/03/22, hgb improved appropriately, now stable at 9.6 dvt prophylaxis - on eliquis full code Quality Stroke Does the patient have a stroke diagnosis?: No VTE Prior VTE?: No VTE Risk Level:: Medical - moderate - high VTE Device Contraindication: N/A - Device Ordered VTE Drug Contraindication: N/A - Med Ordered
[2022-01-05] MEDS: oxyCODONE HCl Immed Release 5 MG TABLET 10 MG PO ×2 (12:20→20:43)
[2022-01-05] MEDS: LORazepam 0.5 MG TABLET PO (14:50)
--- NOTE | 2022-01-05 16:22 | P.PNGS_ITS ---
Subjective Subjective Date of Service: 01/05/22 Interval history: No BM for several days, pain mainly in the left upper quadrant. Less pain in the right upper quadrant. Feels bloated still. He is passing some flatus. Still not much of an appetite but feels he can tolerate Ensure if it is chilled. Physical Exam Vital Signs: Vital Signs: Last Vital Signs Temp 98 F 01/05/22 11:26 Pulse 75 01/05/22 11:26 Resp 18 01/05/22 11:26 BP 126/74 01/05/22 11:26 Pulse Ox 93 01/05/22 11:26 O2 Del Method 01/05/22 11:26 O2 Flow Rate 3 01/05/22 07:43 FiO2 88 12/31/21 15:45 Oxygen Flow Rate 2 01/02/22 13:00 BMI result Body Mass Index 25.7 Const: General: tired appearing Nutritional Appearance: thin Orientation/consciousness: patient oriented x3 Resp: Effort & Inspection: normal respiratory effort, no cough and no respiratory distress GI: Inspection: Yes normal to inspection, Yes distended and Yes incision (Trocar incisions are clean and intact.) Palpation (GI): Soft to palpation, Tenderness to palpation present (GI) in the RUQ, no guarding and not rigid Percussion: Yes tympanic to percussion Auscultation: Hypoactive bowel sounds present Skin: Other: Warm and dry, pale Neuro: General: patient oriented x3 Extrem: General: No cyanosis Objective Data Active Medications Acetaminophen (Acetaminophen 325 Mg Tablet) 650 mg PO Q4H PRN PRN Reason: Fever Last Admin: 01/04/22 03:36 Dose: 650 mg Documented By: SHERINE Apixaban (Apixaban 5 Mg Tablet) 5 mg PO BID [facility] Last Admin: 01/05/22 10:01 Dose: 5 mg Documented By: ZOE Benzonatate (Benzonatate 100 Mg Capsule) 200 mg PO TID PRN PRN Reason: Cough Last Admin: 01/03/22 00:47 Dose: 200 mg Documented By: DYLON Dicyclomine HCl (Dicyclomine Hcl 10 Mg Capsule) 10 mg PO BID [facility] Last Admin: 01/05/22 10:02 Dose: 10 mg Documented By: ZOE Diltiazem HCl (Diltiazem Hcl 60 Mg Tablet) 60 mg PO Q8H [facility]; Protocol Last Admin: 01/05/22 12:20 Dose: 60 mg Documented By: ZOE Docusate Sodium (Docusate Sodium 100 Mg Capsule) 100 mg PO DAILY PRN PRN Reason: Constipation Last Admin: 12/29/21 11:59 Dose: 100 mg Documented By: AMAURY Hydromorphone HCl (Hydromorphone Hcl 1 Mg/Ml Syringe) 1 mg IVPUSH Q2H PRN; Protocol PRN Reason: Pain, Severe (Pain Scale 7-10) Last Admin: 01/05/22 14:50 Dose: 1 mg Documented By: ZOE Piperacillin Sod/Tazobactam (Sod 4.5 gm/ Sodium Chloride) 100 mls @ 200 mls/hr IV Q6H [facility] Last Infusion: 01/05/22 13:23 Dose: 0 mls/hr Documented By: TYREE Lorazepam (Lorazepam 0.5 Mg Tablet) 0.5 mg PO Q8H PRN PRN Reason: anxiety Last Admin: 01/05/22 14:50 Dose: 0.5 mg Documented By: ZOE Pt Own (Acebutolol (200 Mg Capsule)) 2 cap PO BID [facility] Last Admin: 01/05/22 10:02 Dose: 2 cap Documented By: ZOE Omeprazole (Omeprazole 20 Mg Capsule.Dr) 20 mg PO DAILY@0630 [facility] Last Admin: 01/05/22 06:29 Dose: 20 mg Documented By: SHERINE Ondansetron HCl (Ondansetron Hcl 4 Mg/2 Ml Vial) 4 mg IVPUSH Q4H PRN PRN Reason: nausea Last Admin: 01/05/22 06:30 Dose: 4 mg Documented By: SHERINE Oxycodone HCl (Oxycodone Hcl Immed Release 5 Mg Tablet) 10 mg PO Q4H PRN PRN Reason: Pain, Moderate (Pain Scale 4-6 Last Admin: 01/05/22 12:20 Dose: 10 mg Documented By: ZOE Pharmacy Consult (Consult Rx Vancomycin Dosing) 1 each MISCELLANE DAILY PRN PRN Reason: Consult order Polyethylene Glycol (Polyethylene Glycol 3350 17 Gm Powd.Pack) 17 gm PO DAILY PRN PRN Reason: Constipation Last Admin: 12/30/21 08:38 Dose: 17 gm Documented By: JIL Sodium Chloride (0.9 % Sodium Chloride Flush 3 Ml Syringe) 3 ml IVFLUSH QSHIFT [facility] Last Admin: 01/05/22 12:21 Dose: 3 ml Documented By: ZOE Zolpidem Tartrate (Zolpidem Tartrate 5 Mg Tablet) 5 mg PO BEDTIME PRN PRN Reason: Insomnia Labs CBC & Chem 7: 01/05/22 06:50 01/05/22 06:54 Labs: Laboratory Results - last 24 hr 01/05/22 01/05/22 06:50 06:54 MCV 93.1 MCH 30.1 MCHC 32.3 RDW 13.8 Plt Count 477 H MPV 8.8 L Absolute Nucleated RBC 0.000 Nucleated RBC % (auto) 0.0 Anion Gap 16 Estim Creat Clear Calc 91.0 Estimated GFR > 60 Fasting Glucose 95 Calcium 8.5 Procedures Date of Service Date of Service: 01/05/22 Progress Note: A&P Assessment and plan (1) Subcapsular hematoma of liver: Status: Acute Assessment and Plan: S/P laparoscopic drainage of abscess, removal of dropped stone transfused over the weekend- Hg 9.1 CT with anasarca, intraperitoneal fluid. Will check lytes albumin TP in a.m. encourage patient to continue taking the dietary supplements. Recheck CBC in a.m.. Time Spent With Patient Time: Total time spent is greater than 50% in coordination of care (as documented) at patient's floor/unit and/or counseling patient: Quality Stroke Does the patient have a stroke diagnosis?: No VTE Prior VTE?: No VTE Risk Level:: Medical - moderate - high VTE Device Contraindication: N/A - Device Ordered VTE Drug Contraindication: N/A - Med Ordered
[2022-01-06] VITALS (7 sets, daily range): BP systolic 108–132; BP diastolic 51–76; PULSE 70–78; RESP 16–19; TEMP 36.4–37.3; O2SAT 88–94
[2022-01-06] MEDS: HYDROmorphone HCl 1 MG/ML SYRINGE IVPUSH ×6 (00:03→21:18)
[2022-01-06] MEDS: Piperacillin Sodium/Tazobactam 4.5 GM in 0.9 % Sodium Chloride 100 ML IV ×5 (00:03→22:18)
[2022-01-06] MEDS: 0.9 % Sodium Chloride Flush 3 ML SYRINGE IVFLUSH ×3 (00:04→14:44)
[2022-01-06] MEDS: Omeprazole 20 MG CAPSULE.DR PO (05:13)
[2022-01-06] MEDS: dilTIAZem HCL 60 MG TABLET PO ×3 (05:13→22:17)
[2022-01-06 06:22] LABS: MANUAL DIFF FLAG NO
[2022-01-06 06:43] LABS: Basophils Absolute Auto 0.1 X10*3/uL (0.0-0.2); Basophils Percent Auto 0.5 % (0-2); Eosinophils Absolute Auto 0.3 X10*3/uL (0.0-0.4); Eosinophils Percent Auto 2.5 % (0-4); Hematocrit 27.4 % (42.0-52.0); Imm Gran Abs Auto 0.19 X10*3/uL (0.00-0.03); Imm Gran Pct Auto 1.8 % (0.0-0.4); Lymphocytes Absolute Auto 1.1 X10*3/uL (1.2-4.9); Lymphocytes Percent Auto 10.2 % (20-40); Mean Corpuscular HGB Conc 32.8 g/dl (31.0-36.0); Mean Corpuscular Hemoglobin 30.3 pg (27.0-33.0); Mean Corpuscular Volume 92.3 fL (80.0-98.0); Mean Platelet Volume 8.6 fL (9.4-12.4); Monocytes Absolute Auto 0.6 X10*3/uL (0.1-1.2); Monocytes Percent Auto 5.5 % (2-11); Neutrophils Absolute Auto 8.3 x10*3/uL (2.0-8.3); Neutrophils Percent Auto 79.5 % (45-73); Platelet Count 488 X10*3/uL (160-400); Red Blood Count 2.97 X10*6/uL (4.60-5.80); Red Cell Distribution Width 13.8 % (11.0-16.0); White Blood Count 10.5 X10*3/uL (4.8-10.8)
[2022-01-06 06:46] LABS: Albumin Level 2.6 g/dL (3.5-5.0); Anion Gap 16 (12-20); Blood Urea Nitrogen 8 mg/dL (9-16); Calcium 8.1 mg/dL (8.4-10.2); Carbon Dioxide 25 mmol/L (22-29); Chloride 103 mmol/L (96-108); Creatinine Clr Calc Pharmacy 84.4; Estimated Glomerular Filt Rate > 60; Glucose Random 91 mg/dL (60-115); Potassium 3.9 mmol/L (3.3-5.1); Sodium 140 mmol/L (135-145); Total Protein 5.3 g/dL (6.5-8.0)
[2022-01-06] MEDS: Apixaban 5 MG TABLET PO ×2 (08:11→22:17)
[2022-01-06] MEDS: LORazepam 0.5 MG TABLET PO (08:11)
[2022-01-06] MEDS: ondansetron HCL 4 MG/2 ML VIAL IVPUSH (08:12)
[2022-01-06] MEDS: Dicyclomine HCl 10 MG CAPSULE PO ×2 (08:12→22:17)
--- NOTE | 2022-01-06 09:54 | MHC.CM.PN ---
Male 71 S/P drainage of abscess. PT recommends Home with services. Preferences obtained referral sent. Patient will arrange for transportation home.
[2022-01-06] MEDS: oxyCODONE HCl Immed Release 5 MG TABLET 10 MG PO ×2 (10:08→23:55)
--- NOTE | 2022-01-06 11:14 | PM.PNGS ---
Subjective Subjective Date of Service: 01/06/22 Interval history: Reports having a bowel movement yesterday and has decreased abdominal pain today. He was able to tolerate the Ensure yesterday and this morning. He actually fell hungry last evening and chicken sandwich. Denies any nausea or vomiting. Physical Exam Vital Signs: Vital Signs: Last Vital Signs Temp 98.9 F 01/06/22 07:43 Pulse 72 01/06/22 09:18 Resp 18 01/06/22 07:43 BP 120/58 L 01/06/22 09:18 Pulse Ox 92 01/06/22 09:18 O2 Del Method 01/06/22 07:43 O2 Flow Rate 3 01/05/22 07:43 FiO2 88 12/31/21 15:45 Oxygen Flow Rate 2 01/02/22 13:00 BMI result Body Mass Index 25.7 Const: General: comfortable Nutritional Appearance: thin Orientation/consciousness: patient oriented x3 Limitations: no limitations Resp: Effort & Inspection: normal respiratory effort, no cough and no respiratory distress GI: Inspection: Yes normal to inspection, No distended and Yes incision (Trocar incisions are clean and intact.) Palpation (GI): Soft to palpation, nontender, no guarding and not rigid Auscultation: normal bowel sounds Skin: Other: Warm and dry, normal color Neuro: General: patient oriented x3 Extrem: General: No cyanosis Objective Data Active Medications Acetaminophen (Acetaminophen 325 Mg Tablet) 650 mg PO Q4H PRN PRN Reason: Fever Last Admin: 01/04/22 03:36 Dose: 650 mg Documented By: SHERINE Apixaban (Apixaban 5 Mg Tablet) 5 mg PO BID [facility] Last Admin: 01/06/22 08:11 Dose: 5 mg Documented By: NATALYA Benzonatate (Benzonatate 100 Mg Capsule) 200 mg PO TID PRN PRN Reason: Cough Last Admin: 01/03/22 00:47 Dose: 200 mg Documented By: DYLON Dicyclomine HCl (Dicyclomine Hcl 10 Mg Capsule) 10 mg PO BID [facility] Last Admin: 01/06/22 08:12 Dose: 10 mg Documented By: NATALYA Diltiazem HCl (Diltiazem Hcl 60 Mg Tablet) 60 mg PO Q8H [facility]; Protocol Last Admin: 01/06/22 05:13 Dose: 60 mg Documented By: SHERINE Docusate Sodium (Docusate Sodium 100 Mg Capsule) 100 mg PO DAILY PRN PRN Reason: Constipation Last Admin: 12/29/21 11:59 Dose: 100 mg Documented By: AMAURY Hydromorphone HCl (Hydromorphone Hcl 1 Mg/Ml Syringe) 1 mg IVPUSH Q2H PRN; Protocol PRN Reason: Pain, Severe (Pain Scale 7-10) Last Admin: 01/06/22 08:12 Dose: 1 mg Documented By: NATALYA Piperacillin Sod/Tazobactam (Sod 4.5 gm/ Sodium Chloride) 100 mls @ 200 mls/hr IV Q6H [facility] Last Infusion: 01/06/22 05:53 Dose: 0 mls/hr Documented By: SHERINE Lorazepam (Lorazepam 0.5 Mg Tablet) 0.5 mg PO Q8H PRN PRN Reason: anxiety Last Admin: 01/06/22 08:11 Dose: 0.5 mg Documented By: NATALYA Pt Own (Acebutolol (200 Mg Capsule)) 2 cap PO BID [facility] Last Admin: 01/06/22 08:13 Dose: 2 cap Documented By: NATALYA Omeprazole (Omeprazole 20 Mg Capsule.Dr) 20 mg PO DAILY@0630 [facility] Last Admin: 01/06/22 05:13 Dose: 20 mg Documented By: SHERINE Ondansetron HCl (Ondansetron Hcl 4 Mg/2 Ml Vial) 4 mg IVPUSH Q4H PRN PRN Reason: nausea Last Admin: 01/06/22 08:12 Dose: 4 mg Documented By: NATALYA Oxycodone HCl (Oxycodone Hcl Immed Release 5 Mg Tablet) 10 mg PO Q4H PRN PRN Reason: Pain, Moderate (Pain Scale 4-6 Last Admin: 01/06/22 10:08 Dose: 10 mg Documented By: NATALYA Pharmacy Consult (Consult Rx Vancomycin Dosing) 1 each MISCELLANE DAILY PRN PRN Reason: Consult order Polyethylene Glycol (Polyethylene Glycol 3350 17 Gm Powd.Pack) 17 gm PO DAILY PRN PRN Reason: Constipation Last Admin: 12/30/21 08:38 Dose: 17 gm Documented By: JIL Sodium Chloride (0.9 % Sodium Chloride Flush 3 Ml Syringe) 3 ml IVFLUSH QSHIFT [facility] Last Admin: 01/06/22 08:12 Dose: 3 ml Documented By: NATALYA Zolpidem Tartrate (Zolpidem Tartrate 5 Mg Tablet) 5 mg PO BEDTIME PRN PRN Reason: Insomnia Labs CBC & Chem 7: 01/06/22 06:04 01/06/22 06:04 Labs: Laboratory Results - last 24 hr 01/06/22 01/06/22 06:04 06:04 MCV 92.3 MCH 30.3 MCHC 32.8 RDW 13.8 Plt Count 488 H MPV 8.6 L Immature Gran % (Auto) 1.8 H Neut % (Auto) 79.5 H Lymph % (Auto) 10.2 L [place] % (Auto) 5.5 Eos % (Auto) 2.5 Baso % (Auto) 0.5 Lymph # (Auto) 1.1 L [place] # (Auto) 0.6 Eos # (Auto) 0.3 Baso # (Auto) 0.1 Abs Immat Gran (auto) 0.19 H Absolute Neuts (auto) 8.3 Absolute Nucleated RBC 0.000 Nucleated RBC % (auto) 0.0 Anion Gap 16 Estim Creat Clear Calc 84.4 Estimated GFR > 60 Random Glucose 91 Calcium 8.1 L Total Protein 5.3 L D Albumin 2.6 L D Procedures Date of Service Date of Service: 01/06/22 Progress Note: A&P Assessment and plan (1) Subcapsular hematoma of liver: Status: Acute Assessment and Plan: S/P laparoscopic drainage of abscess, removal of dropped stone transfused over the weekend- Hg 9.0 CT with anasarca, intraperitoneal fluid. Albumin checked this morning in is low. H&H stable. Continue with dietary supplements, will advance diet as tolerated. Time Spent With Patient Time: Total time spent is greater than 50% in coordination of care (as documented) at patient's floor/unit and/or counseling patient: Quality Stroke Does the patient have a stroke diagnosis?: No VTE Prior VTE?: No VTE Risk Level:: Medical - moderate - high VTE Device Contraindication: N/A - Device Ordered VTE Drug Contraindication: N/A - Med Ordered
--- NOTE | 2022-01-06 11:41 | MHC.CLN ---
F/U DIET ADVANCED TO REGULAR PT RECEPTIVE TO DRINKING ENSURE TID (PREFERS VANILLA)-WILL RE-START SUPP PROVIDES 1050KCALS, 60G PROTEIN MONITOR PO INTAKE CLOSELY
--- NOTE | 2022-01-06 14:41 | P.PNIM_ITS ---
Subjective Subjective Date of Service: 01/06/22 Interval History: Seen and evaluated this morning Reporting pain is better controlled today Less cough and shortness of breath No other overnight events Review of Systems Review of Systems: Yes all other systems are reviewed and are negative Physical Exam Vital Signs: Vital Signs: Last Vital Signs Temp 98.6 F 01/06/22 11:50 Pulse 71 01/06/22 11:50 Resp 18 01/06/22 11:50 BP 108/51 L 01/06/22 11:50 Pulse Ox 94 01/06/22 11:50 O2 Del Method 01/06/22 11:50 O2 Flow Rate 3 01/05/22 07:43 FiO2 88 12/31/21 15:45 Oxygen Flow Rate 2 01/02/22 13:00 BMI result Body Mass Index 25.7 Const: Other: Constitutional : Alert, oriented, not in distress Neck : Normal inspection, Supple Cardiovascular : RRR, no JVP, +1 bilateral lower extremity edema Respiratory : fair bilateral air entry, no crackles, wheezes or rhonchi Gastrointestinal: soft, lax, Normal bowel sounds, mild generalized tenderness more in right upper quadrant Skin : Warm, Dry Neurological : Alert & oriented x3, No focal deficit Objective Data Active Medications Acetaminophen (Acetaminophen 325 Mg Tablet) 650 mg PO Q4H PRN PRN Reason: Fever Last Admin: 01/04/22 03:36 Dose: 650 mg Documented By: SHERINE Apixaban (Apixaban 5 Mg Tablet) 5 mg PO BID [facility] Last Admin: 01/06/22 08:11 Dose: 5 mg Documented By: NATALYA Benzonatate (Benzonatate 100 Mg Capsule) 200 mg PO TID PRN PRN Reason: Cough Last Admin: 01/03/22 00:47 Dose: 200 mg Documented By: DYLON Dicyclomine HCl (Dicyclomine Hcl 10 Mg Capsule) 10 mg PO BID [facility] Last Admin: 01/06/22 08:12 Dose: 10 mg Documented By: NATALYA Diltiazem HCl (Diltiazem Hcl 60 Mg Tablet) 60 mg PO Q8H [facility]; Protocol Last Admin: 01/06/22 11:45 Dose: 60 mg Documented By: NATALYA Docusate Sodium (Docusate Sodium 100 Mg Capsule) 100 mg PO DAILY PRN PRN Reason: Constipation Last Admin: 12/29/21 11:59 Dose: 100 mg Documented By: AMAURY Hydromorphone HCl (Hydromorphone Hcl 1 Mg/Ml Syringe) 1 mg IVPUSH Q2H PRN; Protocol PRN Reason: Pain, Severe (Pain Scale 7-10) Last Admin: 01/06/22 08:12 Dose: 1 mg Documented By: NATALYA Piperacillin Sod/Tazobactam (Sod 4.5 gm/ Sodium Chloride) 100 mls @ 200 mls/hr IV Q6H [facility] Last Infusion: 01/06/22 12:29 Dose: 0 mls/hr Documented By: NATALYA Lorazepam (Lorazepam 0.5 Mg Tablet) 0.5 mg PO Q8H PRN PRN Reason: anxiety Last Admin: 01/06/22 08:11 Dose: 0.5 mg Documented By: NATALYA Pt Own (Acebutolol (200 Mg Capsule)) 2 cap PO BID [facility] Last Admin: 01/06/22 08:13 Dose: 2 cap Documented By: NATALYA Omeprazole (Omeprazole 20 Mg Capsule.) 20 mg PO DAILY@0630 [facility] Last Admin: 01/06/22 05:13 Dose: 20 mg Documented By: SHERINE Ondansetron HCl (Ondansetron Hcl 4 Mg/2 Ml Vial) 4 mg IVPUSH Q4H PRN PRN Reason: nausea Last Admin: 01/06/22 08:12 Dose: 4 mg Documented By: NATALYA Oxycodone HCl (Oxycodone Hcl Immed Release 5 Mg Tablet) 10 mg PO Q4H PRN PRN Reason: Pain, Moderate (Pain Scale 4-6 Last Admin: 01/06/22 10:08 Dose: 10 mg Documented By: NATALYA Pharmacy Consult (Consult Rx Vancomycin Dosing) 1 each MISCELLANE DAILY PRN PRN Reason: Consult order Polyethylene Glycol (Polyethylene Glycol 3350 17 Gm Powd.Pack) 17 gm PO DAILY PRN PRN Reason: Constipation Last Admin: 12/30/21 08:38 Dose: 17 gm Documented By: JIL Sodium Chloride (0.9 % Sodium Chloride Flush 3 Ml Syringe) [facility] Last Admin: 01/06/22 08:12 Dose: 3 ml Documented By: NATALYA Zolpidem Tartrate (Zolpidem Tartrate 5 Mg Tablet) 5 mg PO BEDTIME PRN PRN Reason: Insomnia Labs CBC & Chem 7: 01/06/22 06:04 01/06/22 06:04 Labs: Laboratory Results - last 24 hr 01/06/22 01/06/22 06:04 06:04 MCV 92.3 MCH 30.3 MCHC 32.8 RDW 13.8 Plt Count 488 H MPV 8.6 L Immature Gran % (Auto) 1.8 H Neut % (Auto) 79.5 H Lymph % (Auto) 10.2 L Maverick % (Auto) 5.5 Eos % (Auto) 2.5 Baso % (Auto) 0.5 Lymph # (Auto) 1.1 L [place] # (Auto) 0.6 Eos # (Auto) 0.3 Baso # (Auto) 0.1 Abs Immat Gran (auto) 0.19 H Absolute Neuts (auto) 8.3 Absolute Nucleated RBC 0.000 Nucleated RBC % (auto) 0.0 Anion Gap 16 Estim Creat Clear Calc 84.4 Estimated GFR > 60 Random Glucose 91 Calcium 8.1 L Total Protein 5.3 L D Albumin 2.6 L D Assessment and Plan (1) Anemia of chronic disease: Status: Acute (2) Subcapsular hematoma of liver: Status: Acute Plan 71 year old male with PMH paroxysmal afib (not on AC per patient choice, normally pill in pocket - cardizem), celiac, HTN, s/p chest wall abscess drainage complicated by sepsis, afib with rvr Abscess of abdominal wall with sepsis Wound cultures grew ecoli E coli Treatment per surgical team On IV Zosyn. blood cultures negative Improving abd pain, ascites Tolerating diet Acute hypoxic respiratory failure likely due to atelectasis from abd pain/poor inspiratory effort V/Q scan negative incentive spirometry, pain control Paroxysmal atrial fibrillation with RVR Converted back to sinus Initiated anticoagulation, Eliquis 5 mg b.i.d. Continue cardizem 60mg q8, cardio following anemia hgb decreased from 12.2 in october 2021 to 7.8 on 01/02/22 iron studies consistent with inflammation due to infection. b12, folate normal transfused 1 unit prbc 01/03/22, hgb improved appropriately, now stable around [address] scan Likely secondary to hypoalbuminemia Increased oral intake and add supplements dvt prophylaxis - on eliquis full code Thank you for the consult, will continue to monitor with you Quality Stroke Does the patient have a stroke diagnosis?: No VTE Prior VTE?: No VTE Risk Level:: Medical - moderate - high VTE Device Contraindication: N/A - Device Ordered VTE Drug Contraindication: N/A - Med Ordered
[2022-01-07] MEDS: 0.9 % Sodium Chloride Flush 3 ML SYRINGE IVFLUSH ×3 (02:08→16:16)
[2022-01-07 03:45] VITALS: BP 118/63; PULSE 73; RESP 16; TEMP 36.9; O2SAT 92
[2022-01-07] MEDS: Omeprazole 20 MG CAPSULE.DR PO (05:26)
[2022-01-07] MEDS: Piperacillin Sodium/Tazobactam 4.5 GM in 0.9 % Sodium Chloride 100 ML IV (05:26)
[2022-01-07] MEDS: dilTIAZem HCL 60 MG TABLET PO ×3 (05:26→19:48)
[2022-01-07] MEDS: oxyCODONE HCl Immed Release 5 MG TABLET 10 MG PO ×3 (05:27→22:41)
[2022-01-07 07:50] VITALS: BP 133/66; PULSE 79; RESP 18; TEMP 36.6; O2SAT 93
[2022-01-07] MEDS: Apixaban 5 MG TABLET PO ×2 (08:15→19:48)
[2022-01-07] MEDS: Dicyclomine HCl 10 MG CAPSULE PO ×2 (08:15→19:48)
[2022-01-07] MEDS: HYDROmorphone HCl 1 MG/ML SYRINGE IVPUSH ×4 (08:59→16:34)
[2022-01-07] MEDS: ondansetron HCL 4 MG/2 ML VIAL IVPUSH ×2 (09:00→16:35)
[2022-01-07 09:38] VITALS: BP 133/66; PULSE 79; O2SAT 93
[2022-01-07 11:46] VITALS: BP 120/56; PULSE 57; RESP 19; TEMP 36.6; O2SAT 93
--- NOTE | 2022-01-07 12:27 | P.PNGS_ITS ---
Subjective Subjective Date of Service: 01/07/22 Interval history: Reports several episodes of loose stool yesterday, decreased abdominal pain, tolerating regular diet without nausea or vomiting. Physical Exam Vital Signs: Vital Signs: Last Vital Signs Temp 97.9 F 01/07/22 11:46 Pulse 57 01/07/22 11:46 Resp 19 01/07/22 11:46 BP 120/56 L 01/07/22 11:46 Pulse Ox 93 01/07/22 11:46 O2 Del Method 01/07/22 11:46 O2 Flow Rate 3 01/05/22 07:43 FiO2 88 12/31/21 15:45 Oxygen Flow Rate 2 01/02/22 13:00 BMI result Body Mass Index 25.7 Const: General: comfortable and no acute distress Nutritional Appearance: thin Orientation/consciousness: patient oriented x3 Limitations: no limitations Resp: Effort & Inspection: normal respiratory effort GI: Other: Incisions are clean, dry, and intact Palpation (GI): Soft to palpation, nontender, no guarding, not rigid and No Rebound tenderness present Neuro: General: patient oriented x3 Extrem: General: Yes normal to inspection Objective Data Active Medications Acetaminophen (Acetaminophen 325 Mg Tablet) 650 mg PO Q4H PRN PRN Reason: Fever Last Admin: 01/04/22 03:36 Dose: 650 mg Documented By: SHERINE Apixaban (Apixaban 5 Mg Tablet) 5 mg PO BID [facility] Last Admin: 01/07/22 08:15 Dose: 5 mg Documented By: DENIA Benzonatate (Benzonatate 100 Mg Capsule) 200 mg PO TID PRN PRN Reason: Cough Last Admin: 01/03/22 00:47 Dose: 200 mg Documented By: DYLON Dicyclomine HCl (Dicyclomine Hcl 10 Mg Capsule) 10 mg PO BID [facility] [place] Last Admin: 01/07/22 08:15 Dose: 10 mg Documented By: DENIA Diltiazem HCl (Diltiazem Hcl 60 Mg Tablet) 60 mg PO Q8H [facility]; Protocol Last Admin: 01/07/22 11:56 Dose: 60 mg Documented By: DENIA Docusate Sodium (Docusate Sodium 100 Mg Capsule) 100 mg PO DAILY PRN PRN Reason: Constipation Last Admin: 12/29/21 11:59 Dose: 100 mg Documented By: AMAURY Hydromorphone HCl (Hydromorphone Hcl 1 Mg/Ml Syringe) 1 mg IVPUSH Q2H PRN; Protocol PRN Reason: Pain, Severe (Pain Scale 7-10) Last Admin: 01/07/22 11:56 Dose: 1 mg Documented By: DENIA Piperacillin Sod/Tazobactam (Sod 4.5 gm/ Sodium Chloride) 100 mls @ 200 mls/hr IV Q6H [facility] [place] Last Infusion: 01/07/22 08:18 Dose: 0 mls/hr Documented By: DENIA Lorazepam (Lorazepam 0.5 Mg Tablet) 0.5 mg PO Q8H PRN PRN Reason: anxiety Last Admin: 01/06/22 08:11 Dose: 0.5 mg Documented By: NATALYA Pt Own (Acebutolol (200 Mg Capsule)) 2 cap PO BID [facility] [place] Last Admin: 01/07/22 08:15 Dose: 2 cap Documented By: DENIA Omeprazole (Omeprazole 20 Mg Capsule.Dr) 20 mg PO DAILY@0630 [facility] [place] Last Admin: 01/07/22 05:26 Dose: 20 mg Documented By: LAURA Ondansetron HCl (Ondansetron Hcl 4 Mg/2 Ml Vial) 4 mg IVPUSH Q4H PRN PRN Reason: nausea Last Admin: 01/07/22 09:00 Dose: 4 mg Documented By: DENIA Oxycodone HCl (Oxycodone Hcl Immed Release 5 Mg Tablet) 10 mg PO Q4H PRN PRN Reason: Pain, Moderate (Pain Scale 4-6 Last Admin: 01/07/22 05:27 Dose: 10 mg Documented By: LAURA Pharmacy Consult (Consult Rx Vancomycin Dosing) 1 each MISCELLANE DAILY PRN PRN Reason: Consult order Polyethylene Glycol (Polyethylene Glycol 3350 17 Gm Powd.Pack) 17 gm PO DAILY PRN PRN Reason: Constipation Last Admin: 12/30/21 08:38 Dose: 17 gm Documented By: JIL Sodium Chloride (0.9 % Sodium Chloride Flush 3 Ml Syringe) 3 ml IVFLUSH QSHIFT [facility] [place] Last Admin: 01/07/22 08:15 Dose: 3 ml Documented By: DENIA Zolpidem Tartrate (Zolpidem Tartrate 5 Mg Tablet) 5 mg PO BEDTIME PRN PRN Reason: Insomnia Labs CBC & Chem 7: 01/06/22 06:04 01/06/22 06:04 Procedures Date of Service Date of Service: 01/07/22 Progress Note: A&P Assessment and plan (1) Abscess of abdominal wall: Status: Acute Plan Patient appears much improved although now is having diarrhea. His wounds are clean and intact without redness or discharge. Abdomen is soft and nondistended. I will stop the IV antibiotics today. Will add Imodium for loose stool. Possible discharge in the next day or 2. Time Spent With Patient Time: Total time spent is greater than 50% in coordination of care (as documented) at patient's floor/unit and/or counseling patient: Quality Stroke Does the patient have a stroke diagnosis?: No VTE Prior VTE?: No VTE Risk Level:: Medical - moderate - high VTE Device Contraindication: N/A - Device Ordered VTE Drug Contraindication: N/A - Med Ordered
[2022-01-07 15:44] VITALS: BP 132/65; PULSE 76; RESP 17; TEMP 37.4; O2SAT 93
[2022-01-07 19:37] VITALS: BP 144/69; PULSE 75; RESP 18; TEMP 37.4; O2SAT 94
[2022-01-07] MEDS: LORazepam 0.5 MG TABLET PO (20:00)
--- NOTE | 2022-01-07 21:06 | PC.NURSE ---
patient has pitting edema +1 to fernie hips , some nonpitting dependent edema noted to the right flank. Pt was laying on the right side for a while and the edema to the right flank is greater than to the left. Pt was educated regarding the Plan of care regarding ascities ,low albumin , the nutrition , oral supplement.
[2022-01-08] VITALS (11 sets, daily range): BP systolic 112–142; BP diastolic 57–75; PULSE 68–77; RESP 14–20; TEMP 36.6–37.8; O2SAT 92–95
[2022-01-08] MEDS: 0.9 % Sodium Chloride Flush 3 ML SYRINGE IVFLUSH ×4 (00:58→20:25)
[2022-01-08] MEDS: Omeprazole 20 MG CAPSULE.DR PO (06:05)
[2022-01-08] MEDS: oxyCODONE HCl Immed Release 5 MG TABLET 10 MG PO ×3 (06:07→22:45)
[2022-01-08] MEDS: HYDROmorphone HCl 1 MG/ML SYRINGE IVPUSH ×4 (08:09→20:26)
[2022-01-08] MEDS: ondansetron HCL 4 MG/2 ML VIAL IVPUSH ×3 (08:09→20:34)
[2022-01-08] MEDS: dilTIAZem HCL CD 180 MG CAP.ER.24H PO (08:10)
[2022-01-08] MEDS: Dicyclomine HCl 10 MG CAPSULE PO ×2 (08:10→20:27)
[2022-01-08] MEDS: Apixaban 5 MG TABLET PO ×2 (08:11→20:27)
--- NOTE | 2022-01-08 08:25 | PM.PNGS ---
Subjective Subjective Date of Service: 01/08/22 Interval history: Reports swelling in the left hip, some mild abdominal pain well controlled with oral pain medication. Reports improvement in the diarrhea. Was able to tolerate for cans of Ensure yesterday. Also was able to ambulate in the hallways. Physical Exam Vital Signs: Vital Signs: Last Vital Signs Temp 99.0 F 01/08/22 07:39 Pulse 72 01/08/22 07:39 Resp 20 01/08/22 07:39 BP 142/75 H 01/08/22 07:39 Pulse Ox 93 01/08/22 07:39 O2 Del Method 01/08/22 07:39 O2 Flow Rate 3 01/05/22 07:43 FiO2 88 12/31/21 15:45 Oxygen Flow Rate 2 01/02/22 13:00 BMI result Body Mass Index 25.7 Const: General: no acute distress Nutritional Appearance: thin Orientation/consciousness: patient oriented x3 Limitations: no limitations Resp: Effort & Inspection: normal respiratory effort GI: Inspection: Yes normal to inspection Palpation (GI): Soft to palpation, nontender, no guarding and not rigid Percussion: Yes normal to percussion Abdomen image: 1. Area of pitting edema left hip Skin: Other: Warm, dry, no rash Neuro: General: patient oriented x3 Extrem: Other: No pitting edema Objective Data Active Medications Acetaminophen (Acetaminophen 325 Mg Tablet) 650 mg PO Q4H PRN PRN Reason: Fever Last Admin: 01/04/22 03:36 Dose: 650 mg Documented By: SHERINE Apixaban (Apixaban 5 Mg Tablet) 5 mg PO BID [facility] Last Admin: 01/08/22 08:11 Dose: 5 mg Documented By: DENIA Benzonatate (Benzonatate 100 Mg Capsule) 200 mg PO TID PRN PRN Reason: Cough Last Admin: 01/03/22 00:47 Dose: 200 mg Documented By: DYLON Dicyclomine HCl (Dicyclomine Hcl 10 Mg Capsule) 10 mg PO BID [facility] Last Admin: 01/08/22 08:10 Dose: 10 mg Documented By: DENIA Diltiazem HCl (Diltiazem Hcl Cd 180 Mg Cap.Er.24h) 180 mg PO DAILY [facility]; Protocol Last Admin: 01/08/22 08:10 Dose: 180 mg Documented By: DENIA Docusate Sodium (Docusate Sodium 100 Mg Capsule) 100 mg PO DAILY PRN PRN Reason: Constipation Last Admin: 12/29/21 11:59 Dose: 100 mg Documented By: AMAURY Hydromorphone HCl (Hydromorphone Hcl 1 Mg/Ml Syringe) 1 mg IVPUSH Q2H PRN; Protocol PRN Reason: Pain, Severe (Pain Scale 7-10) Last Admin: 01/08/22 08:09 Dose: 1 mg Documented By: DENIA Loperamide HCl (Loperamide Hcl 2 Mg Capsule) 2 mg PO Q4H PRN PRN Reason: Diarrhea Lorazepam (Lorazepam 0.5 Mg Tablet) 0.5 mg PO Q8H PRN PRN Reason: anxiety Last Admin: 01/07/22 20:00 Dose: 0.5 mg Documented By: EVAN Pt Own (Acebutolol (200 Mg Capsule)) 2 cap PO BID [facility] Last Admin: 01/08/22 08:11 Dose: 2 cap Documented By: DENIA Omeprazole (Omeprazole 20 Mg Capsule.Dr) 20 mg PO DAILY@0630 [facility] Last Admin: 01/08/22 06:05 Dose: 20 mg Documented By: JULISSA Ondansetron HCl (Ondansetron Hcl 4 Mg/2 Ml Vial) 4 mg IVPUSH Q4H PRN PRN Reason: nausea Last Admin: 01/08/22 08:09 Dose: 4 mg Documented By: DENIA Oxycodone HCl (Oxycodone Hcl Immed Release 5 Mg Tablet) 10 mg PO Q4H PRN PRN Reason: Pain, Moderate (Pain Scale 4-6 Last Admin: 01/08/22 06:07 Dose: 10 mg Documented By: JULISSA Pharmacy Consult (Consult Rx Vancomycin Dosing) 1 each MISCELLANE DAILY PRN PRN Reason: Consult order Polyethylene Glycol (Polyethylene Glycol 3350 17 Gm Powd.Pack) 17 gm PO DAILY PRN PRN Reason: Constipation Last Admin: 12/30/21 08:38 Dose: 17 gm Documented By: JIL Sodium Chloride (0.9 % Sodium Chloride Flush 3 Ml Syringe) 3 ml IVFLUSH [facility] Last Admin: 01/08/22 08:12 Dose: 3 ml Documented By: DENIA Zolpidem Tartrate (Zolpidem Tartrate 5 Mg Tablet) 5 mg PO BEDTIME PRN PRN Reason: Insomnia Labs CBC & Chem 7: 01/06/22 06:04 01/06/22 06:04 Procedures Date of Service Date of Service: 01/08/22 Progress Note: A&P Assessment and plan (1) Abscess of abdominal wall: Status: Acute Plan Patient continues to make steady improvement with abdominal pain now well controlled with oral pain medications. He is tolerating the Ensure and supplementing with a regular diet. He does not like the choices for his gluten free diet. Diarrhea has improved today. Patient is the diuresing nicely. Encouraged continued ambulation today and continued Ensure. I feel he will be ready for discharge to home tomorrow or Tuesday. 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 His children will be able to help him with his 's care. Time Spent With Patient Time: Total time spent is greater than 50% in coordination of care (as documented) at patient's floor/unit and/or counseling patient: Quality Stroke Does the patient have a stroke diagnosis?: No VTE Prior VTE?: No VTE Risk Level:: Medical - moderate - high VTE Device Contraindication: N/A - Device Ordered VTE Drug Contraindication: N/A - Med Ordered
--- NOTE | 2022-01-08 10:26 | P.PNIM_ITS ---
Subjective Subjective Date of Service: 01/08/22 Interval History: Seen and evaluated this morning pain is better controlled Tolerating diet Has been walking around No other overnight events Review of Systems Review of Systems: Yes all other systems are reviewed and are negative Physical Exam Vital Signs: Vital Signs: Last Vital Signs Temp 99.0 F 01/08/22 07:39 Pulse 72 01/08/22 09:19 Resp 20 01/08/22 07:39 BP 142/75 H 01/08/22 09:19 Pulse Ox 93 01/08/22 09:19 O2 Del Method 01/08/22 07:39 O2 Flow Rate 3 01/05/22 07:43 FiO2 88 12/31/21 15:45 Oxygen Flow Rate 2 01/02/22 13:00 BMI result Body Mass Index 25.7 Const: Other: Constitutional : Alert, oriented, not in distress Neck : Normal inspection, Supple Cardiovascular : RRR, no JVP, trace bilateral lower extremity edema up to pelvis Respiratory : fair bilateral air entry, no crackles, wheezes or rhonchi Gastrointestinal: soft, lax, Normal bowel sounds, mild generalized tenderness more in right upper quadrant Skin : Warm, Dry Neurological : Alert & oriented x3, No focal deficit Objective Data Active Medications Acetaminophen (Acetaminophen 325 Mg Tablet) 650 mg PO Q4H PRN PRN Reason: Fever Last Admin: 01/04/22 03:36 Dose: 650 mg Documented By: SHERINE Apixaban (Apixaban 5 Mg Tablet) 5 mg PO BID [facility] Last Admin: 01/08/22 08:11 Dose: 5 mg Documented By: DENIA Benzonatate (Benzonatate 100 Mg Capsule) 200 mg PO TID PRN PRN Reason: Cough Last Admin: 01/03/22 00:47 Dose: 200 mg Documented By: DYLON Dicyclomine HCl (Dicyclomine Hcl 10 Mg Capsule) 10 mg PO BID [facility] Last Admin: 01/08/22 08:10 Dose: 10 mg Documented By: DENIA Diltiazem HCl (Diltiazem Hcl Cd 180 Mg Cap.Er.24h) 180 mg PO DAILY [facility]; Protocol Last Admin: 01/08/22 08:10 Dose: 180 mg Documented By: DENIA Docusate Sodium (Docusate Sodium 100 Mg Capsule) 100 mg PO DAILY PRN PRN Reason: Constipation Last Admin: 12/29/21 11:59 Dose: 100 mg Documented By: AMAURY Hydromorphone HCl (Hydromorphone Hcl 1 Mg/Ml Syringe) 1 mg IVPUSH Q2H PRN; Protocol PRN Reason: Pain, Severe (Pain Scale 7-10) Last Admin: 01/08/22 08:09 Dose: 1 mg Documented By: DENIA Loperamide HCl (Loperamide Hcl 2 Mg Capsule) 2 mg PO Q4H PRN PRN Reason: Diarrhea Lorazepam (Lorazepam 0.5 Mg Tablet) 0.5 mg PO Q8H PRN PRN Reason: anxiety Last Admin: 01/07/22 20:00 Dose: 0.5 mg Documented By: EVAN Pt Own (Acebutolol (200 Mg Capsule)) 2 cap PO BID [facility] Last Admin: 01/08/22 08:11 Dose: 2 cap Documented By: DENAI Omeprazole (Omeprazole 20 Mg Capsule.Dr) 20 mg PO DAILY@0630 [facility] Last Admin: 01/08/22 06:05 Dose: 20 mg Documented By: JULISSA Ondansetron HCl (Ondansetron Hcl 4 Mg/2 Ml Vial) 4 mg IVPUSH Q4H PRN PRN Reason: nausea Last Admin: 01/08/22 08:09 Dose: 4 mg Documented By: DENIA Oxycodone HCl (Oxycodone Hcl Immed Release 5 Mg Tablet) 10 mg PO Q4H PRN PRN Reason: Pain, Moderate (Pain Scale 4-6 Last Admin: 01/08/22 06:07 Dose: 10 mg Documented By: JULISSA Pharmacy Consult (Consult Rx Vancomycin Dosing) 1 each MISCELLANE DAILY PRN PRN Reason: Consult order Polyethylene Glycol (Polyethylene Glycol 3350 17 Gm Powd.Pack) 17 gm PO DAILY PRN PRN Reason: Constipation Last Admin: 12/30/21 08:38 Dose: 17 gm Documented By: JIL Sodium Chloride (0.9 % Sodium Chloride Flush 3 Ml Syringe) 3 ml IVFLUSH [facility] Last Admin: 01/08/22 08:12 Dose: 3 ml Documented By: DENIA Zolpidem Tartrate (Zolpidem Tartrate 5 Mg Tablet) 5 mg PO BEDTIME PRN PRN Reason: Insomnia Labs CBC & Chem 7: 01/06/22 06:04 01/06/22 06:04 Assessment and Plan (1) Paroxysmal atrial fibrillation: Status: Acute Plan 71 year old male with PMH paroxysmal afib (not on AC per patient choice, normally pill in pocket - cardizem), celiac, HTN, s/p chest wall abscess drainage complicated by sepsis, afib with rvr Abscess of abdominal wall with sepsis Wound cultures grew E coli Treatment per surgical team blood cultures negative Antibiotics discontinued Tolerating diet Acute hypoxic respiratory failure , resolved likely due to atelectasis V/Q scan negative incentive spirometry, pain control Paroxysmal atrial fibrillation with RVR Converted back to sinus Continue Eliquis 5 mg b.i.d. Cardizem changed to 180 CD anemia hgb decreased from 12.2 in october 2021 to 7.8 on 01/02/22 iron studies consistent with inflammation due to infection. b12, folate normal transfused 1 unit prbc 01/03/22, hgb improved, now stable around [address] scan Likely secondary to hypoalbuminemia Increased oral intake and add supplements dvt prophylaxis hank Thank you for the consult, will continue to monitor with you Quality Stroke Does the patient have a stroke diagnosis?: No VTE Prior VTE?: No VTE Risk Level:: Medical - moderate - high VTE Device Contraindication: N/A - Device Ordered VTE Drug Contraindication: N/A - Med Ordered
--- NOTE | 2022-01-08 14:45 | MHC.CLN ---
F/U PO INTAKE 100% X 3 MEALS DIET RX: REGULAR-APPROPRIATE PT RECEIVING ENSURE TID (PREFERS VANILLA) SUPP PROVIDES 1050KCALS, 60G PROTEIN MONITOR PO INTAKE CLOSELY
[2022-01-08] MEDS: Loperamide HCl 2 MG CAPSULE PO (15:58)
--- NOTE | 2022-01-08 16:05 | MHC.CM.PN ---
Per MD rounds pt not ready to discharge. DP home with new [facility]. Family will provide transportation.
[2022-01-09] VITALS (7 sets, daily range): BP systolic 106–136; BP diastolic 56–73; PULSE 69–88; RESP 16–20; TEMP 36.4–37.1; O2SAT 92–97
[2022-01-09] MEDS: ondansetron HCL 4 MG/2 ML VIAL IVPUSH ×4 (01:01→23:06)
[2022-01-09] MEDS: Loperamide HCl 2 MG CAPSULE PO (01:01)
[2022-01-09] MEDS: Omeprazole 20 MG CAPSULE.DR PO (05:40)
[2022-01-09 06:30] LABS: Hematocrit 29.5 % (42.0-52.0); Hemoglobin 9.5 g/dl (14.0-18.0); Mean Corpuscular HGB Conc 32.2 g/dl (31.0-36.0); Mean Corpuscular Hemoglobin 29.8 pg (27.0-33.0); Mean Corpuscular Volume 92.5 fL (80.0-98.0); Mean Platelet Volume 8.5 fL (9.4-12.4); Platelet Count 507 X10*3/uL (160-400); Red Blood Count 3.19 X10*6/uL (4.60-5.80); Red Cell Distribution Width 13.8 % (11.0-16.0); White Blood Count 11.2 X10*3/uL (4.8-10.8)
[2022-01-09 07:21] LABS: Anion Gap 15 (12-20); Blood Urea Nitrogen 10 mg/dL (9-16); Calcium 8.6 mg/dL (8.4-10.2); Carbon Dioxide 25 mmol/L (22-29); Chloride 102 mmol/L (96-108); Creatinine Clr Calc Pharmacy 84.4; Estimated Glomerular Filt Rate > 60; Glucose Random 88 mg/dL (60-115); Potassium 4.6 mmol/L (3.3-5.1); Sodium 137 mmol/L (135-145)
[2022-01-09] MEDS: oxyCODONE HCl Immed Release 5 MG TABLET 10 MG PO ×2 (07:55→21:06)
[2022-01-09] MEDS: 0.9 % Sodium Chloride Flush 3 ML SYRINGE IVFLUSH ×2 (07:56→21:06)
[2022-01-09] MEDS: Dicyclomine HCl 10 MG CAPSULE PO ×2 (07:59→21:05)
[2022-01-09] MEDS: Apixaban 5 MG TABLET PO ×2 (07:59→21:05)
[2022-01-09] MEDS: dilTIAZem HCL CD 180 MG CAP.ER.24H PO (07:59)
[2022-01-09] MEDS: HYDROmorphone HCl 1 MG/ML SYRINGE IVPUSH ×4 (09:36→23:06)
--- NOTE | 2022-01-09 10:18 | P.PNGS_ITS ---
Subjective Subjective Date of Service: 01/09/22 Interval history: says he okay still with poor appetite taking Ensure but does not seem to have good p.o. intake has been ambulating with walker passing flatus but describes loose stools Physical Exam Vital Signs: Vital Signs: Last Vital Signs Temp 98.3 F 01/09/22 07:34 Pulse 72 01/09/22 07:34 Resp 20 01/09/22 07:34 BP 136/73 01/09/22 07:34 Pulse Ox 95 01/09/22 07:34 O2 Del Method 01/09/22 07:34 O2 Flow Rate 3 01/05/22 07:43 FiO2 88 12/31/21 15:45 Oxygen Flow Rate 2 01/02/22 13:00 BMI result Body Mass Index 25.7 Const: Other: appears frail and anxious General: comfortable and no acute distress Resp: Effort & Inspection: normal respiratory effort Cardio: Rate: regular rate GI: Palpation (GI): Soft to palpation, not firm, nontender and no guarding Objective Data Active Medications Acetaminophen (Acetaminophen 325 Mg Tablet) 650 mg PO Q4H PRN PRN Reason: Fever Last Admin: 01/04/22 03:36 Dose: 650 mg Documented By: HSERINE Apixaban (Apixaban 5 Mg Tablet) 5 mg PO BID [facility] Last Admin: 01/09/22 07:59 Dose: 5 mg Documented By: ELVIN Benzonatate (Benzonatate 100 Mg Capsule) 200 mg PO TID PRN PRN Reason: Cough Last Admin: 01/03/22 00:47 Dose: 200 mg Documented By: DYLON Dicyclomine HCl (Dicyclomine Hcl 10 Mg Capsule) 10 mg PO BID [facility] Last Admin: 01/09/22 07:59 Dose: 10 mg Documented By: ELVIN Diltiazem HCl (Diltiazem Hcl Cd 180 Mg Cap.Er.24h) 180 mg PO DAILY [facility]; Protocol Last Admin: 01/09/22 07:59 Dose: 180 mg Documented By: ELVIN Docusate Sodium (Docusate Sodium 100 Mg Capsule) 100 mg PO DAILY PRN PRN Reason: Constipation Last Admin: 12/29/21 11:59 Dose: 100 mg Documented By: AMAURY Hydromorphone HCl (Hydromorphone Hcl 1 Mg/Ml Syringe) 1 mg IVPUSH Q2H PRN; Protocol PRN Reason: Pain, Severe (Pain Scale 7-10) Last Admin: 01/09/22 09:36 Dose: 1 mg Documented By: ELVIN Loperamide HCl (Loperamide Hcl 2 Mg Capsule) 2 mg PO Q4H PRN PRN Reason: Diarrhea Last Admin: 01/09/22 01:01 Dose: 2 mg Documented By: AMRITA Lorazepam (Lorazepam 0.5 Mg Tablet) 0.5 mg PO Q8H PRN PRN Reason: anxiety Last Admin: 01/07/22 20:00 Dose: 0.5 mg Documented By: EVAN Pt Own (Acebutolol (200 Mg Capsule)) 2 cap PO BID [facility] Last Admin: 01/09/22 07:59 Dose: 2 cap Documented By: ELVIN Omeprazole (Omeprazole 20 Mg Capsule.Dr) 20 mg PO DAILY@0630 [facility] Last Admin: 01/09/22 05:40 Dose: 20 mg Documented By: AMRITA Ondansetron HCl (Ondansetron Hcl 4 Mg/2 Ml Vial) 4 mg IVPUSH Q4H PRN PRN Reason: nausea Last Admin: 01/09/22 09:29 Dose: 4 mg Documented By: ELVIN Oxycodone HCl (Oxycodone Hcl Immed Release 5 Mg Tablet) 10 mg PO Q4H PRN PRN Reason: Pain, Moderate (Pain Scale 4-6 Last Admin: 01/09/22 07:55 Dose: 10 mg Documented By: ELVIN Polyethylene Glycol (Polyethylene Glycol 3350 17 Gm Powd.Pack) 17 gm PO DAILY PRN PRN Reason: Constipation Last Admin: 12/30/21 08:38 Dose: 17 gm Documented By: JIL Sodium Chloride (0.9 % Sodium Chloride Flush 3 Ml Syringe) 3 ml IVFSH [facility] Last Admin: 01/09/22 07:56 Dose: 3 ml Documented By: ELVIN Zolpidem Tartrate (Zolpidem Tartrate 5 Mg Tablet) 5 mg PO BEDTIME PRN PRN Reason: Insomnia Labs CBC & Chem 7: 01/09/22 06:04 01/09/22 06:04 Labs: Laboratory Results - last 24 hr 01/09/22 01/09/22 06:04 06:04 MCV 92.5 MCH 29.8 MCHC 32.2 RDW 13.8 Plt Count 507 H MPV 8.5 L Absolute Nucleated RBC 0.000 Nucleated RBC % (auto) 0.0 Anion Gap 15 Estim Creat Clear Calc 84.4 Estimated GFR > 60 Random Glucose 88 Calcium 8.6 D Albumin 3.0 L Procedures Date of Service Date of Service: 01/09/22 Progress Note: A&P Assessment and plan (1) Anemia of chronic disease: Status: Acute Assessment and Plan: status post drainage of abscess above the liver laparoscopically hemoglobin stable seems deconditioned his main issue now is poor appetite encouraged on oral intake Check stool C diff in view of frequent loose stools ambulate appears stable otherwise plan is to discharge home once oral intake is much improved Time Spent With Patient Time: Total time spent is greater than 50% in coordination of care (as documented) at patient's floor/unit and/or counseling patient: Quality Stroke Does the patient have a stroke diagnosis?: No VTE Prior VTE?: No VTE Risk Level:: Medical - moderate - high VTE Device Contraindication: N/A - Device Ordered VTE Drug Contraindication: N/A - Med Ordered
--- NOTE | 2022-01-09 10:19 | HO.PM.IMPN ---
Subjective Subjective Date of Service: 01/09/22 Interval History: Seen and evaluated this morning pain is better controlled , having less diarrhea Tolerating diet, abdomen level increased Has been walking around No other overnight events Review of Systems Review of Systems: Yes all other systems are reviewed and are negative Physical Exam Vital Signs: Vital Signs: Last Vital Signs Temp 98.3 F 01/09/22 07:34 Pulse 72 01/09/22 07:34 Resp 20 01/09/22 07:34 BP 136/73 01/09/22 07:34 Pulse Ox 95 01/09/22 07:34 O2 Del Method 01/09/22 07:34 O2 Flow Rate 3 01/05/22 07:43 FiO2 88 12/31/21 15:45 Oxygen Flow Rate 2 01/02/22 13:00 BMI result Body Mass Index 25.7 Const: Other: Constitutional : Alert, oriented, not in distress Neck : Normal inspection, Supple Cardiovascular : RRR, no JVP, trace bilateral lower extremity edema up to pelvis Respiratory : fair bilateral air entry, no crackles, wheezes or rhonchi Gastrointestinal: soft, lax, Normal bowel sounds, no more in right upper quadrant Skin : Warm, Dry Neurological : Alert & oriented x3, No focal deficit Objective Data Active Medications Acetaminophen (Acetaminophen 325 Mg Tablet) 650 mg PO Q4H PRN PRN Reason: Fever Last Admin: 01/04/22 03:36 Dose: 650 mg Documented By: SHERINE Apixaban (Apixaban 5 Mg Tablet) 5 mg PO BID [facility] Last Admin: 01/09/22 07:59 Dose: 5 mg Documented By: ELVIN Benzonatate (Benzonatate 100 Mg Capsule) 200 mg PO TID PRN PRN Reason: Cough Last Admin: 01/03/22 00:47 Dose: 200 mg Documented By: DYLON Dicyclomine HCl (Dicyclomine Hcl 10 Mg Capsule) 10 mg PO BID [facility] Last Admin: 01/09/22 07:59 Dose: 10 mg Documented By: ELVIN Diltiazem HCl (Diltiazem Hcl Cd 180 Mg Cap.Er.24h) 180 mg PO DAILY [facility]; Protocol Last Admin: 01/09/22 07:59 Dose: 180 mg Documented By: ELVIN Docusate Sodium (Docusate Sodium 100 Mg Capsule) 100 mg PO DAILY PRN PRN Reason: Constipation Last Admin: 12/29/21 11:59 Dose: 100 mg Documented By: AMAURY Hydromorphone HCl (Hydromorphone Hcl 1 Mg/Ml Syringe) 1 mg IVPUSH Q2H PRN; Protocol PRN Reason: Pain, Severe (Pain Scale 7-10) Last Admin: 01/09/22 09:36 Dose: 1 mg Documented By: ELVIN Loperamide HCl (Loperamide Hcl 2 Mg Capsule) 2 mg PO Q4H PRN PRN Reason: Diarrhea Last Admin: 01/09/22 01:01 Dose: 2 mg Documented By: AMRITA Lorazepam (Lorazepam 0.5 Mg Tablet) 0.5 mg PO Q8H PRN PRN Reason: anxiety Last Admin: 01/07/22 20:00 Dose: 0.5 mg Documented By: EVAN Pt Own (Acebutolol (200 Mg Capsule)) 2 cap PO BID [facility] Last Admin: 01/09/22 07:59 Dose: 2 cap Documented By: ELVIN Omeprazole (Omeprazole 20 Mg Capsule.Dr) 20 mg PO DAILY@0630 [facility] Last Admin: 01/09/22 05:40 Dose: 20 mg Documented By: AMRITA Ondansetron HCl (Ondansetron Hcl 4 Mg/2 Ml Vial) 4 mg IVPUSH Q4H PRN PRN Reason: nausea Last Admin: 01/09/22 09:29 Dose: 4 mg Documented By: ELVIN Oxycodone HCl (Oxycodone Hcl Immed Release 5 Mg Tablet) 10 mg PO Q4H PRN PRN Reason: Pain, Moderate (Pain Scale 4-6 Last Admin: 01/09/22 07:55 Dose: 10 mg Documented By: ELVIN Polyethylene Glycol (Polyethylene Glycol 3350 17 Gm Powd.Pack) 17 gm PO DAILY PRN PRN Reason: Constipation Last Admin: 12/30/21 08:38 Dose: 17 gm Documented By: JIL Sodium Chloride (0.9 % Sodium Chloride Flush 3 Ml Syringe) 3 ml IVFLUSH [facility] Last Admin: 01/09/22 07:56 Dose: 3 ml Documented By: ELVIN Zolpidem Tartrate (Zolpidem Tartrate 5 Mg Tablet) 5 mg PO BEDTIME PRN PRN Reason: Insomnia Labs CBC & Chem 7: 01/09/22 06:04 01/09/22 06:04 Labs: Laboratory Results - last 24 hr 01/09/22 01/09/22 06:04 06:04 MCV 92.5 MCH 29.8 MCHC 32.2 RDW 13.8 Plt Count 507 H MPV 8.5 L Absolute Nucleated RBC 0.000 Nucleated RBC % (auto) 0.0 Anion Gap 15 Estim Creat Clear Calc 84.4 Estimated GFR > 60 Random Glucose 88 Calcium 8.6 D Albumin 3.0 L Assessment and Plan (1) Anemia of chronic disease: Status: Acute (2) Paroxysmal atrial fibrillation: Status: Acute Plan 71 year old male with PMH paroxysmal afib (not on AC per patient choice, normally pill in pocket - cardizem), celiac, HTN, s/p chest wall abscess drainage complicated by sepsis, afib with rvr Abscess of abdominal wall with sepsis Wound cultures grew E coli Treatment per surgical team blood cultures negative Antibiotics discontinued Tolerating diet Acute hypoxic respiratory failure , resolved likely due to atelectasis V/Q scan negative incentive spirometry, pain control Paroxysmal atrial fibrillation with RVR Converted back to sinus Continue Eliquis 5 mg b.i.d. Cardizem changed to 180 CD To follow-up by Cardiology as outpatient anemia hgb decreased from 12.2 in october 2021 to 7.8 on 01/02/22 iron studies consistent with inflammation due to infection. b12, folate normal transfused 1 unit prbc 01/03/22, hemoglobin stable around 9 Ascites, hypoalbuminemia Noted on CT scan Likely secondary to hypoalbuminemia Increased oral intake and add supplements , hypoalbuminemia improving dvt prophylaxis hank Thank you for the consult, will sign of, please contact hospitalist team for any further questions. Quality Stroke Does the patient have a stroke diagnosis?: No VTE Prior VTE?: No VTE Risk Level:: Medical - moderate - high VTE Device Contraindication: N/A - Device Ordered VTE Drug Contraindication: N/A - Med Ordered
[2022-01-09] MEDS: Acetaminophen 325 MG TABLET 650 MG PO (13:11)
[2022-01-09 20:18] LABS: CDiff Gene PCR NEGATIVE (Negative)
[2022-01-10] MEDS: oxyCODONE HCl Immed Release 5 MG TABLET 10 MG PO ×2 (02:29→10:53)
[2022-01-10 04:00] VITALS: BP 136/78; PULSE 125; RESP 20; TEMP 37.1; O2SAT 94
--- NOTE | 2022-01-10 06:04 | PM.EVENT ---
Event Note Date of Service: 01/10/22 Event Note: patient converted to AFib with a heart rate in the 110s to 125. Blood pressure 136/ 78. Will give 5 mg of Lopressor and check TSH.
[2022-01-10] MEDS: Omeprazole 20 MG CAPSULE.DR PO (06:11)
[2022-01-10] MEDS: HYDROmorphone HCl 1 MG/ML SYRINGE IVPUSH (06:11)
[2022-01-10] MEDS: Metoprolol Tartrate 5 MG/5 ML VIAL IVPUSH (06:11)
[2022-01-10] MEDS: ondansetron HCL 4 MG/2 ML VIAL IVPUSH (06:21)
[2022-01-10] MEDS: Apixaban 5 MG TABLET PO ×2 (07:07→22:10)
[2022-01-10] MEDS: dilTIAZem HCL CD 180 MG CAP.ER.24H PO ×2 (07:07→07:11)
[2022-01-10 07:10] VITALS: BP 120/80; PULSE 125; RESP 18; TEMP 36.8; O2SAT 96
[2022-01-10] MEDS: Dicyclomine HCl 10 MG CAPSULE PO ×2 (07:16→22:10)
[2022-01-10 08:30] LABS: Thyroid Stimulating Hormone 0.98 uIU/mL (0.32-4.0)
--- NOTE | 2022-01-10 09:19 | P.PNGS_ITS ---
Subjective Subjective Date of Service: 01/10/22 Interval history: Had episodes of AFib last night Reverted to sinus Was given Lopressor Says he had forced himself to eat more but had some nausea Diarrhea seems resolved He has been ambulating with walker Physical Exam Vital Signs: Vital Signs: Last Vital Signs Temp 98.2 F 01/10/22 07:10 Pulse 125 H 01/10/22 07:10 Resp 18 01/10/22 07:10 BP 120/80 01/10/22 07:10 Pulse Ox 96 01/10/22 07:10 O2 Del Method 01/10/22 07:10 O2 Flow Rate 3 01/05/22 07:43 FiO2 88 12/31/21 15:45 Oxygen Flow Rate 2 01/02/22 13:00 BMI result Body Mass Index 25.7 Const: Other: Anxious looking General: comfortable and no acute distress Resp: Effort & Inspection: normal respiratory effort Cardio: Rhythm: regular rhythm GI: Other: Soft no guarding rebound, no obvious tenderness, incisions clean Objective Data Active Medications Acetaminophen (Acetaminophen 325 Mg Tablet) 650 mg PO Q4H PRN PRN Reason: Fever Last Admin: 01/09/22 13:11 Dose: 650 mg Documented By: ELVIN Apixaban (Apixaban 5 Mg Tablet) 5 mg PO BID [facility] Last Admin: 01/10/22 07:07 Dose: 5 mg Documented By: ELVIN Benzonatate (Benzonatate 100 Mg Capsule) 200 mg PO TID PRN PRN Reason: Cough Last Admin: 01/03/22 00:47 Dose: 200 mg Documented By: DYLON Dicyclomine HCl (Dicyclomine Hcl 10 Mg Capsule) 10 mg PO BID [facility] Last Admin: 01/10/22 07:16 Dose: 10 mg Documented By: ELVIN Diltiazem HCl (Diltiazem Hcl Cd 180 Mg Cap.Er.24h) 180 mg PO DAILY [facility]; Protocol Last Admin: 01/10/22 07:11 Dose: 180 mg Documented By: ELVIN Docusate Sodium (Docusate Sodium 100 Mg Capsule) 100 mg PO DAILY PRN PRN Reason: Constipation Last Admin: 12/29/21 11:59 Dose: 100 mg Documented By: AMAURY Hydromorphone HCl (Hydromorphone Hcl 1 Mg/Ml Syringe) 1 mg IVPUSH Q2H PRN; Protocol PRN Reason: Pain, Severe (Pain Scale 7-10) Last Admin: 01/10/22 06:11 Dose: 1 mg Documented By: SHERINE Loperamide HCl (Loperamide Hcl 2 Mg Capsule) 2 mg PO Q4H PRN PRN Reason: Diarrhea Last Admin: 01/09/22 01:01 Dose: 2 mg Documented By: BEAUTEKMarlene Lorazepam (Lorazepam 0.5 Mg Tablet) 0.5 mg PO Q8H PRN PRN Reason: anxiety Last Admin: 01/07/22 20:00 Dose: 0.5 mg Documented By: EVAN Pt Own (Acebutolol (200 Mg Capsule)) 2 cap PO BID [facility] Last Admin: 01/10/22 07:07 Dose: 2 cap Documented By: ELVIN Omeprazole (Omeprazole 20 Mg Capsule.Dr) 20 mg PO DAILY@0630 [facility] Last Admin: 01/10/22 06:11 Dose: 20 mg Documented By: SHERINE Ondansetron HCl (Ondansetron Hcl 4 Mg/2 Ml Vial) 4 mg IVPUSH Q4H PRN PRN Reason: nausea Last Admin: 01/10/22 06:21 Dose: 4 mg Documented By: SHERINE Oxycodone HCl (Oxycodone Hcl Immed Release 5 Mg Tablet) 10 mg PO Q4H PRN PRN Reason: Pain, Moderate (Pain Scale 4-6 Last Admin: 01/10/22 02:29 Dose: 10 mg Documented By: SHERINE Polyethylene Glycol (Polyethylene Glycol 3350 17 Gm Powd.Pack) 17 gm PO DAILY PRN PRN Reason: Constipation Last Admin: 12/30/21 08:38 Dose: 17 gm Documented By: JIL Sodium Chloride (0.9 % Sodium Chloride Flush 3 Ml Syringe) [facility] Last Admin: 01/09/22 21:06 Dose: 3 ml Documented By: SHERINE Zolpidem Tartrate (Zolpidem Tartrate 5 Mg Tablet) 5 mg PO BEDTIME PRN PRN Reason: Insomnia Labs CBC & Chem 7: 01/09/22 06:04 01/09/22 06:04 Labs: Laboratory Results - last 24 hr 01/09/22 01/10/22 18:30 07:46 TSH 0.98 C. difficile Tox B Gene NEGATIVE Procedures Date of Service Date of Service: 01/10/22 Progress Note: A&P Assessment and plan (1) Abscess of abdominal wall: Status: Acute Assessment and Plan: Had episode of AFib last night, reverted to sinus Diarrhea has resolved as per patient C diff negative Oral intake better yesterday says he was nauseous after that On potline monitor for his rhythm issues Encourage oral intake Ambulation Abdominal exam benign Time Spent With Patient Time: Total time spent is greater than 50% in coordination of care (as documented) at patient's floor/unit and/or counseling patient: Quality Stroke Does the patient have a stroke diagnosis?: No VTE Prior VTE?: No VTE Risk Level:: Medical - moderate - high VTE Device Contraindication: N/A - Device Ordered VTE Drug Contraindication: N/A - Med Ordered
[2022-01-10] MEDS: Acetaminophen 325 MG TABLET 650 MG PO (10:54)
[2022-01-10 11:36] VITALS: BP 124/83; PULSE 93; RESP 16; TEMP 36.8; O2SAT 98
[2022-01-10 15:37] VITALS: BP 114/59; PULSE 70; RESP 17; TEMP 36.5; O2SAT 93
[2022-01-10 19:06] VITALS: BP 102/59; PULSE 67; RESP 17; TEMP 36.2; O2SAT 94
[2022-01-10] MEDS: LORazepam 0.5 MG TABLET PO (22:22)
[2022-01-10] MEDS: 0.9 % Sodium Chloride Flush 3 ML SYRINGE IVFLUSH (22:25)
[2022-01-10 23:20] VITALS: BP 100/53; PULSE 71; RESP 18; TEMP 36.7; O2SAT 94
[2022-01-11 03:28] VITALS: BP 110/54; PULSE 69; RESP 17; TEMP 36.6; O2SAT 93
[2022-01-11] MEDS: Omeprazole 20 MG CAPSULE.DR PO (05:57)
[2022-01-11 07:29] VITALS: BP 128/69; PULSE 72; RESP 18; TEMP 36.6; O2SAT 96
[2022-01-11] MEDS: Apixaban 5 MG TABLET PO (08:02)
[2022-01-11] MEDS: Dicyclomine HCl 10 MG CAPSULE PO (08:03)
[2022-01-11] MEDS: 0.9 % Sodium Chloride Flush 3 ML SYRINGE IVFLUSH (08:11)
[2022-01-11] MEDS: dilTIAZem HCL CD 180 MG CAP.ER.24H PO (08:17)
[2022-01-11 09:17] VITALS: BP 128/69; PULSE 72; O2SAT 96
[2022-01-11 11:18] VITALS: BP 106/56; PULSE 68; RESP 16; TEMP 36.9; O2SAT 96
--- NOTE | 2022-01-11 11:22 | PM.DS ---
DS: Providers Provider Date of Service: 01/11/22 Date of admission: 12/30/21 07:59 Date of discharge: 01/11/22 Primary care physician: Jeff Rivas [facility] Admitting clinician: Jeff Ramos Consults: 12/30/21 07:38 Consult to Infectious Diseases Routine Consulting Provider: Corine Millard Reason for consultation: abdominal wall abscess, antibiotic management Has provider been notified: No 12/30/21 13:56 Consult to Hospitalist Routine Consulting Provider: Hospitalist Reason For Exam: SOB following drainage abd wall abscess 01/02/22 08:30 Consult to Cardiology Routine Consulting Provider: Suhas Anton Reason for consultation: pafib - symptomatic DS: Diagnosis Discharge Diagnosis (1) Abscess of abdominal wall: Status: Acute DS: Summary Hospital Course Hospital Course: Pt is a 71 year old male who previously underwent laparoscopic cholecystectomy 2018 and more recently sustained a fall on his right chest. He presented with chronic abdominal pain and right chest wall pain.? On imaging, patient was found to have a fluid collection with a possible dropped gallstone over the lateral surface of the liver right side, felt to be possibly a subcapsular hematoma. Decision was made to proceed with surgery. On 12/28/2021, pt was brought to the OR and underwent exploratory laparoscopy, lysis of adhesions, drainage of large chest wall abscess and removal of dropped gallstone. ADIEL drain was placed. Postoperatively, pt was continued on IV Zosyn and wound cultures grew Gram-negative rods.?However, WBC continued to rise so ID consult was obtained, with recommendations to continue Zosyn. Vancomycin was added. Pt had sudden onset dyspnea with pleuritic chest discomfort and hypoxemia and went into AFib with RVR on 12/30; hospitalist consutation was obtained, with IV and oral diltiazem ordered. He also received metoprolol and digoxin during his hospital stay which helped convert him back to sinus rhythm. Perfusion scan was negative for pulmonary embolism.?Pt was started on Eliquis. Wound cultures ultimately grew E coli resistant to ampicillin and Levaquin; blood cultures were ultimately negative and vanco was stopped. ADIEL drain was removed on 01/01. Due to downtrending H/H, pt was given 1U PRBCs on 01/03. He had increasing abdominal pain for which CT scan was ordered. Imaging showed increased ascitic fluid especially along the liver and right gutter extending into the pelvis with a small amount of fluid on the left side as well, no abscess; and dilated loops of small bowel and colon suggestive of an ileus, no evidence of obstruction. Pt was backed down to clear liquids in light of CT findings. Once pain improved, pt's diet was again advanced with PO supplements added. IV antibiotics were stopped on 01/07 when pt began to experience diarrhea; Imodium was added, and C. diff was negative. During pt's hospital stay, he was seen by PT who recommended home with services. Pt was able to be discharged to home on 01/11 ambulatory, tolerating adequate PO intake, and with pain controlled on PO medications. He was discharged off antibiotics, on diltiazem and Eliquis for afib, and was in sinus rhythm. Time Spent with Patient Time attestation: Total time spent providing and/or coordinating discharge services: Discharge coordination time: Less than 30 minutes Quality: Safe Use of Opioids Does Pt have an Active Cancer Diagnosis on the Problem List?: No Quality: Stroke Does the patient have a stroke diagnosis?: No Physical Exam Vital Signs: Vital Signs: Last Vital Signs Temp 98.5 F 01/11/22 11:18 Pulse 68 01/11/22 11:18 Resp 16 01/11/22 11:18 BP 106/56 L 01/11/22 11:18 Pulse Ox 96 01/11/22 11:18 O2 Del Method 01/11/22 11:18 O2 Flow Rate 3 01/05/22 07:43 FiO2 88 12/31/21 15:45 Oxygen Flow Rate 2 01/02/22 13:00 BMI result Body Mass Index 25.7 DS: Data Data Completed and Pending Completed studies during hospitalization [Text1]: Pending at discharge 12/28/21 10:23 Surgical [PTH] Routine Discharge Plan Discharge Patient Disposition: Home Health Service Discharge Diagnosis: Abscess abdominal wall, paroxysmal atrial fib, sepsis Referrals: Jordan SIMPSON [Outside] - 1 Week Jeff Rivas FNP- [Primary Care Provider] - 1 Week Jeff Ramos MD [Physician] - 1 Week Discharge Medications: New diltiazem HCl [Cardizem CD] 180 mg Capsule,Extended Release 24hr 180 mg PO DAILY 30 Days Qty: 30 0RF Protocol: Hold for SBP/HR < HOLD for SBP < : 90 HOLD for HR < : 60 Eliquis 5 mg Tablet 5 mg PO BID 30 Days Qty: 60 0RF oxycodone 5 mg tablet 5 mg PO Q6H PRN (Reason: pain (scale score 7-10)) Qty: 20 0RF Rx Instructions: Partial Fill upon patient request. Continued acebutolol 200 mg capsule 400 mg PO BID Qty: 360 0RF dicyclomine 10 mg capsule 10 mg PO BID aspirin 81 mg Capsule 81 mg PO DAILY Label Comments: takes when he remembers omeprazole 20 mg capsule,delayed release(DR/EC) 20 mg PO DAILY Discontinued diltiazem HCl 30 mg tablet 30 mg PO QID PRN (Reason: episodes of palpatations) Qty: 20 0RF Discharge Orders: Discharge Order (Routine); Ordered 01/11/22 Ordered By: Jeff Ramos Diet: Advance to usual diet Activity on Discharge: As tolerated Stand Alone Forms: Patient Portal Discharge page Activity Restrictions/Additional Instructions: If the incision area is tender, you may apply an ice pack for short intervals (No more than 20 minutes on, followed by at least 20 minutes off). Do not apply heat. Do not use creams, lotions, or topical antibiotics unless instructed to do so by your surgeon. These can cause infection or allergic reaction. Ok to shower. Call Your Doctor If: -Your temperature exceeds 101.5? F -You experience excessive pain or swelling -You have an unexpected reaction to medication -You have excessive bleeding -You experience continued vomiting/nausea -Your incision begins to separate -Your incision shows signs of infection such as increased redness, swelling, excessive pain, drainage (light blood or clear fluid is normal) or heat Care Plan Goals: Return to normal activity and diet, improved nutrition Health Concerns: Weight loss, abdominal pain Plan of Treatment: Exploratory laparoscopy, drainage of abdominal wall abscess Assessment: Abdominal wall abscess, sepsis, paroxysmal atrial fibrillation
--- NOTE | 2022-01-11 11:33 | W.MHC.F2F ---
Service Date Service Date: 01/11/22 Encounter Date of encounter: 01/11/22 Encounter: Examination of incision, discussion of albumin level, assessment anasarca improvement Reasons for Services Signs and symptoms assessed: Vital signs reviewed and incision examined. Reason for residential: CV/CP assess and/or care (Atrial fibrillation), postoperative assessment and/or care and medication management Reason for physical therapy: home safety and mobility and therapeutic exercises Overseeing Care: Jeff Ramos Homebound: Leaving the home is medically contraindicated at this time without the asist of a device and/or another person due th the listed conditions above and below. Reason homebound: unsteady gait / fall risk and weakness related to hospital stay Homebound supporting statement: Patient is very weekend due to a prolonged hospital stay and recent rapid AFib, sepsis. Certification: Based on the above findings, I certify that this patient is confined to the home and needs intermittent residential care, physical therapy and/or speech therapy, or continues to need occupational therapy. The patient is under my care, and I have initiated the establishment of the plan of care. The patient will be followed by a physician who will periodically review the plan of care.
--- NOTE | 2022-01-11 11:53 | MHC.CM.PN ---
Patient has been medically cleared for dc to home today with [facility]NA. A referral was made to [facility]IN, who has been notified of today's dc. IMM addressed with Patient at bedside today and original has been given to him and a copy has been placed on the chart.
[2022-01-11] MEDS: oxyCODONE HCl Immed Release 5 MG TABLET 10 MG PO (12:20)
--- NOTE | 2022-01-11 12:36 | PC.NURSE ---
Pt A+Ox4, no c/o pain this morning. States he slept well and is feeling better. MD into see pt and cleared him for DC home. Pt aware. Discharge education given, pt states he understands and says he has no further questions. IV removed, Tele monitor removed, home meds returned to pt along with all belongings in pt room. Pt brought down by hospital staff in wheelchair, pt son arrived to bring him home.
== END 2022-01-11 12:41 | disposition home health service (06) | DRG 856 ==
LOC: HO.SSS 07:59 → HO.S3 07:59 → HO.IMC 16:19
PROVIDERS: Anesthesiology; Hospitalist; Internal Medicine; Nurse Practitioner; Physician Assistant; Student in an Organized Health Care Education/Training Program; Surgery; Admitting Provider Surgery; PCP Nurse Practitioner Family; Visit Provider Surgery
PROC: 0DNW4ZZ Release Peritoneum, Percutaneous Endoscopic Approach (ICD-10-PCS; CPT 49320; principal; 2021-12-28 09:10)
DX: T81.44XA Sepsis following a procedure, initial encounter (principal); J95.821 Acute postprocedural respiratory failure; L02.213 Cutaneous abscess of chest wall; K56.7 Ileus, unspecified; R18.8 Other ascites; K91.86 Retained cholelithiasis following cholecystectomy; B96.20 Unspecified Escherichia coli [E. coli] as the cause of diseases classified elsewhere; I48.0 Paroxysmal atrial fibrillation; E88.09 Other disorders of plasma-protein metabolism, not elsewhere classified; K66.0 Peritoneal adhesions (postprocedural) (postinfection); Y83.8 Other surgical procedures as the cause of abnormal reaction of the patient, or of later complication, without mention of misadventure at the time of the procedure; Z20.822 Contact with and (suspected) exposure to COVID-19; Z95.818 Presence of other cardiac implants and grafts; Z91.041 Radiographic dye allergy status; Z88.5 Allergy status to narcotic agent; Z79.82 Long term (current) use of aspirin; Z79.899 Other long term (current) drug therapy
CPT/HCPCS: 36415; 36600; 71045; 74176; 78580; 80048; 80051; 80053; 80061; 80202; 81003; 82040; 82607; 82728; 82746; 82803; 83540; 83605; 84155; 84443; 85025; 85027; 85379; 85610; 85730; 86850; 86900; 86901; 86923; 87040; 87071; 87077; 87186; 87205; 87493; 87635; 88300; 89055; 93005; 94799; 97116; 97162; A9540; J0131; J0690; J1100; J1160; J1170; J1650; J2370; J2405; J2543; J2550; J2795; J3010; J3370; P9016

== ENCOUNTER → 2022-01-18 12:55 | Outpatient (BNVA) | payer MEDICAID, SELFPAY | PROVIDERS: PCP Nurse Practitioner Family; Referring Provider Nurse Practitioner Family; Visit Provider Internal Medicine Cardiovascular Disease | DX: Z45.09 Encounter for adjustment and management of other cardiac device (principal); I48.0 Paroxysmal atrial fibrillation; I44.7 Left bundle-branch block, unspecified | CPT/HCPCS: 99212 ==

== ENCOUNTER 2022-01-20 14:00 | Outpatient (REF) | payer MEDICAID, SELFPAY ==
[2022-01-20 16:31] LABS: MANUAL DIFF FLAG NO
[2022-01-20 16:34] LABS: Basophils Absolute Auto 0.1 X10*3/uL (0.0-0.2); Basophils Percent Auto 0.8 % (0-2); Eosinophils Absolute Auto 0.4 X10*3/uL (0.0-0.4); Eosinophils Percent Auto 2.7 % (0-4); Hematocrit 34.1 % (42.0-52.0); Hemoglobin 10.6 g/dl (14.0-18.0); Imm Gran Abs Auto 0.07 X10*3/uL (0.00-0.03); Imm Gran Pct Auto 0.5 % (0.0-0.4); Lymphocytes Absolute Auto 1.8 X10*3/uL (1.2-4.9); Lymphocytes Percent Auto 13.1 % (20-40); Mean Corpuscular HGB Conc 31.1 g/dl (31.0-36.0); Mean Corpuscular Hemoglobin 28.8 pg (27.0-33.0); Mean Corpuscular Volume 92.7 fL (80.0-98.0); Mean Platelet Volume 9.1 fL (9.4-12.4); Monocytes Absolute Auto 1.5 X10*3/uL (0.1-1.2); Monocytes Percent Auto 10.5 % (2-11); Neutrophils Absolute Auto 10.1 x10*3/uL (2.0-8.3); Neutrophils Percent Auto 72.4 % (45-73); Platelet Count 383 X10*3/uL (160-400); Red Blood Count 3.68 X10*6/uL (4.60-5.80); White Blood Count 13.9 X10*3/uL (4.8-10.8)
[2022-01-20 16:42] LABS: Albumin Level 3.5 g/dL (3.5-5.0); Anion Gap 14 (12-20); Blood Urea Nitrogen 23 mg/dL (9-16); Carbon Dioxide 24 mmol/L (22-29); Chloride 104 mmol/L (96-108); Estimated Glomerular Filt Rate 57; Glucose Random 96 mg/dL (60-115); Potassium 4.5 mmol/L (3.3-5.1); Sodium 137 mmol/L (135-145)
== END 2022-01-20 14:01 | disposition home or self-care (01) ==
LOC: HO.HMGCLDS 14:00
PROVIDERS: PCP Nurse Practitioner Family; Visit Provider Surgery
DX: L02.211 Cutaneous abscess of abdominal wall (principal); D64.9 Anemia, unspecified
CPT/HCPCS: 36415; 80048; 82040; 85025

== ENCOUNTER 2022-01-26 08:59 | Outpatient (REF) | payer MEDICAID, SELFPAY ==
--- NOTE | ~2022-01-26 | CT_ITS ---
EXAMINATION: CT ABDOMEN AND PELVIS WITHOUT CONTRAST CLINICAL INFORMATION: Cutaneous abscess of the abdominal wall COMPARISON: Previous CT of the abdomen and pelvis December 2021 TECHNIQUE: Multidetector volumetric imaging was performed from the superior aspect of the liver through the pubic symphysis. Sagittal and coronal reformatted images were obtained on the technologist's workstation. This CT examination was performed using dose optimization techniques as appropriate, variously including the following: *Automated exposure control *Adjustment of mA and/or kV according to patient size (this includes techniques or standardized protocols for targeted exams where dose is matched to indication/reason for exam; i.e. extremities or head) *Use of iterative reconstruction technique DLP: 511 mGy-cm FINDINGS: LUNG BASES: There is subsegmental atelectasis at the right lung base. There is a small right pleural effusion. LIVER, GALLBLADDER, AND BILIARY TREE: The liver is normal in size and shape. The gallbladder has been removed. There is air seen in the left lobe of the liver this is not seen on most recent exam January 03 but can be seen on prior exam 12/30/2021. There is no intrahepatic biliary duct dilatation. The common bile duct is slightly dilated measuring 1.4 cm. This is similar to previous exam. The gallbladder has been removed. There is a subcapsular fluid collection seen adjacent to the right lobe of the liver. This is slightly increased in size compared to most recent exam 01/03/2022. This measures 3 x 9.5 cm in transverse and AP dimension and 9 cm in length.. There is no longer seen. There is adjacent right lateral abdominal wall thickening.. PANCREAS: Fatty infiltration of the pancreas. SPLEEN: Unremarkable. ADRENAL GLANDS: Unremarkable. KIDNEYS AND URETERS: Bilateral renal cysts. No imaging follow-up needed. BLADDER: Unremarkable. GASTROINTESTINAL TRACT: There is diverticulosis of the colon. Small and large bowel is otherwise unremarkable. The appendix is not seen. There are no inflammatory changes in the right lower quadrant. The stomach is normal. ABDOMINAL WALL: There is some stranding of the subcutaneous fat of the right lateral abdominal wall thickening of the muscles. No focal abdominal wall or subcutaneous/superficial fluid collection is seen. LYMPH NODES: Normal. VASCULAR: Unremarkable. PELVIC VISCERA: Unremarkable. OSSEOUS STRUCTURES: Postsurgical changes to the lower lumbar spine. Degenerative changes of the spine. Irregularity of the left iliac bone likely related to bone harvest site. CT/CT abdomen pelvis wo IV con IMPRESSION: Slight interval increase in the subcapsular fluid collection adjacent to the right lobe of the liver. Thickening of the adjacent right lateral abdominal wall muscles. No abdominal wall or superficial fluid collection seen. Small right pleural effusion. Subsegmental atelectasis of the right lung base. Pneumobilia in the left lobe of the liver. Normal caliber intrahepatic bile ducts. Mild dilatation of the common bile duct measuring 1.4 cm similar to previous exams. Bilateral renal cysts. Fleischner guidelines were followed.
== END 2022-01-26 09:00 | disposition home or self-care (01) ==
LOC: HO.CT 08:59
PROVIDERS: PCP Nurse Practitioner Family; Visit Provider Surgery
DX: L02.211 Cutaneous abscess of abdominal wall (principal)
CPT/HCPCS: 74176

== ENCOUNTER 2022-01-29 17:08 | Inpatient (IN) | payer MEDICARE, MEDICAID, SELFPAY ==
--- NOTE | ~2022-01-29 | CT_ITS ---
PROCEDURE: CT GUIDED DRAINAGE, PERITONEAL ABSCESS CLINICAL INFORMATION: Perihepatic increase in fluid collection. COMPARISON: None TECHNIQUE: Following explaining CT fluoroscopy-guided right perihepatic fluid drainage catheter placement procedure, benefits and risk, a written consent was obtained. Patient was placed in left lateral decubitus view and preliminary CT imaging was obtained. Lead markers were placed along the right posterolateral upper abdomen and repeat CT imaging was obtained. An optimal site was selected, marked, cleaned and draped in usual sterile manner. 1% lidocaine was injected at puncture site. Through a small skin incision a 5 Burkinan long Yueh catheter was advanced from the skin into the right perihepatic fluid collection under fluoroscopy. After observing tip of the catheter in the central collection, stylet was withdrawn and a 0.035 J-wire was introduced and the catheter removed. Over the J-wire a 10.2 Burkinan APD catheter with stiffener was placed over the wire into the collection and the guidewire and stiffener was removed. Repeat CT CT imaging was performed confirming pigtail catheter in the flexion. A pigtail was formed following pulling the thread. A 3 way valve was attached and fluid was aspirated in a 10 mL syringe and it was isaias pus. The catheter was then collected to a suction ball via connecting cannula. Catheter was anchored to the skin with 3-0 nonabsorbable nylon sutures. Sterile dressing applied postprocedure. Patient tolerated procedure extremely well. Results of the entire test and pus sent to the lab for culture and sensitivity, anaerobic and aerobic. The case was discussed with referring physician's office PA. Physician was supposed to call back and discussed case with the radiologist. All sterile barriers such as cap, mask, gown, gloves, boots and a sterile drape was utilized during the procedure with sterile precautions done. This CT examination was performed using dose optimization techniques as appropriate, variously including the following: *Automated exposure control *Adjustment of mA and/or kV according to patient size (this includes techniques or standardized protocols for targeted exams where dose is matched to indication/reason for exam; i.e. extremities or head) *Use of iterative reconstruction technique DLP: 338 mGy-cm FINDINGS: On preliminary CT imaging there is a focal moderate collection seen in the right perihepatic space localized laterally to the liver. A 10.2 Burkinan APD catheter was placed under CT fluoroscopy guidance and left in the collection. Initial 10 mL puss was collected and sent to lab for aerobic and anaerobic cultures and Gram stain. Postprocedure repeat CT imaging revealed slight decrease in the collection. CT/CT drain peritoneum IMPRESSION: Fluoroscopy-guided right perihepatic fluid drainage with placement of drainage catheter connected to suction ball. The fluid collected can be changed every 8 hour to 12 hour shifts with suction maintained within the suction ball.
--- NOTE | ~2022-01-29 | CT_ITS ---
EXAMINATION: CT ABDOMEN AND PELVIS WITHOUT CONTRAST CLINICAL INFORMATION: Right perihepatic abscess. Follow-up. COMPARISON: CT-guided drainage of peritoneal abscess 02/01/2022, CT abdomen and pelvis noncontrast 01/26/2022, 07/17/2018. TECHNIQUE: Multidetector volumetric imaging was performed from the superior aspect of the liver through the pubic symphysis. No oral or intravenous contrast. Sagittal and coronal reformatted images were obtained on the technologist's workstation. This CT examination was performed using dose optimization techniques as appropriate, variously including the following: *Automated exposure control *Adjustment of mA and/or kV according to patient size (this includes techniques or standardized protocols for targeted exams where dose is matched to indication/reason for exam; i.e. extremities or head) *Use of iterative reconstruction technique DLP: 665 mGy-cm FINDINGS: LUNG BASES: 5 mm nodule left anterior lateral base similar to CT 2019 consistent with benign nodule (Fleischner guidelines). Subsegmental atelectasis left posterior base. Subsegmental airspace consolidation and atelectasis right base with small right effusion borderline increased from 01/26/2022. LIVER, GALLBLADDER, AND BILIARY TREE: Liver is smooth in contour is normal in size and homogeneous. There is been prior cholecystectomy. Pneumobilia is again noted, increased from prior exam. PANCREAS: Atrophic. No pancreatic ductal distention or peripancreatic inflammatory changes. SPLEEN: Unremarkable. ADRENAL GLANDS: Unremarkable. KIDNEYS AND URETERS: No hydronephrosis, hydroureter, calculi, or perinephric stranding. Again, there is a chronic cyst right kidney approximately 4.3 cm and smaller cyst posterior medial upper pole right kidney under 2 cm similar to prior studies. No additional imaging follow-up recommended. BLADDER: Unremarkable. GASTROINTESTINAL TRACT: No bowel obstruction or focal inflammatory changes. Large amount of stool throughout colon. No bowel wall thickening and pneumatosis. There is percutaneous drainage catheter again seen right side of the liver. The fluid collection is substantially decreased. There is still some fluid remaining superior to the catheter approximately 1.5 cm in thickness by 7.6 cm anterior to posterior. There is no new fluid collection in the peritoneal cavity or interval ascites. ABDOMINAL WALL: There are some subcutaneous emphysema adjacent to the drainage catheter right flank with some edema in the soft tissues. LYMPH NODES: No interval adenopathy. VASCULAR: Unremarkable. PELVIC VISCERA: No additional findings. OSSEOUS STRUCTURES: No acute abnormality. There are multilevel degenerative changes lower thoracic and lumbosacral spine. CT/CT abdomen pelvis wo IV con IMPRESSION: -Right perihepatic fluid collection decreased status post drainage catheter. Residual fluid superior to catheter approximately 1.5 cm thickness by 7.6 cm anterior to posterior. No new fluid collection or ascites. -Prior cholecystectomy. Pneumobilia increased from prior exam. -Large amount of stool throughout colon. No bowel obstruction or focal inflammatory changes. -Subsegmental airspace consolidation and atelectasis right base with small right effusion borderline increased from 01/26/2022.
--- NOTE | 2022-01-29 17:19 | ECG_ITS ---
Test Reason : GENERAL MEDICAL Blood Pressure : / mmHG Vent. Rate : 078 BPM Atrial Rate : 078 BPM P-R Int : 162 ms QRS Dur : 138 ms QT Int : 424 ms P-R-T Axes : 024 016 108 degrees QTc Int : 483 ms Normal sinus rhythm Left bundle branch block Abnormal ECG When compared with ECG of 31-DEC-2021 23:03, Sinus rhythm has replaced Atrial fibrillation Vent. rate has decreased BY 53 BPM T wave inversion no longer evident in Inferior leads Referred By: Tr Cloud Electronically Signed By:HOLDEN ALVAREZ MD
--- NOTE | 2022-01-29 17:22 | P.HPGS_ITS ---
History of Present Illness History of Present Illness Date of Service: 01/31/22 Chief complaint: Abdominal wall abscess Narrative: Wilfred Mccarthy Sr is a 71 year old male who is here in the ER for low-grade fevers. He states that for the past week, he has been having low-grade fevers at home about 99 to 100 degrees F. He says that today, he did have a temperature of 101 degrees. He denies any other complaints although he has had this right-sided pain his upper abdomen and his chest and back. He does state that this been worse for the past few days. He is familiar to the surgical service. He had a cholecystectomy last July,. He complaints of abdominal pain on the right upper quadrant and right flank earlier this year. He had a CAT scan her son showing what appeared to be a dropped gallstone in the middle of a collection adjacent to the rightupper lobe of the liver near the chest wall. He therefore underwent diagnostic this laparoscopy, with drainage of an abscess on this area with Dr. Ramos on December 30, 2021. He also had retrieval of a dropped gallstone on the same area at that time. The abscess appeared to be just inside the chest wall and outside the capsule of the liver. He had a prolonged hospital stay then because of new onset atrial fibrillation. He had received metoprolol and digoxin time and had converted to sinus rhythm. He was started on Eliquis. He also developed some ileus with abdominal pain then. He was eventually discharged on December. He was discharged off antibiotics and was on diltiazem and Eliquis at that time. He states that he seems to have had this recurrence of the same pain from [facility]. He therefore had a CT scan as ordered by Dr. Ramos last 01/26/2022. Had shown another collection, although smaller and the same area just adjacent to the right lobe of the liver. He otherwise denies any other significant complaints. Review of Systems Constitutional: Constitutional: Reports chills and Reports fever(s) Cardiovascular: Cardiovascular: Denies chest pain, Denies dyspnea and Denies dyspnea on exertion Respiratory: Respiratory: Denies cough, Denies dyspnea and Denies dyspnea on exertion Gastrointestinal: Gastrointestinal: Denies hematochezia and Denies change in bowel habits Genitourinary: Genitourinary: Denies hematuria and Denies difficulty urinating Musculoskeletal: Musculoskeletal: Denies back pain and Denies limited range of motion Neurologic: Denies focal weakness and Denies convulsions Psychiatric: Psychiatric: Denies depression and Denies mood swings [facility] Past Medical History Medical History Abscess of abdominal wall Barretts esophagus Celiac disease Chronic neck and back pain Failed back syndrome Frequent PVCs GERD (gastroesophageal reflux disease) History of blood transfusion History of thyrotoxicosis Implantable loop recorder present LBBB (left bundle branch block) Paroxysmal atrial fibrillation PHN (postherpetic neuralgia) Sepsis with acute hypoxic respiratory failure Subcapsular hematoma of liver Family History Family History Father CVD (cardiovascular disease) Mother Leukemia Son No problems noted. Son No problems noted. Daughter No problems noted. Daughter No problems noted. Surgical History Surgical History H/O prior ablation treatment History of appendectomy History of back surgery History of colonoscopy History of esophagogastroduodenoscopy (EGD) History of exploratory laparotomy (12/28/21) History of inguinal hernia History of lymph node excision Hx laparoscopic cholecystectomy Social History Social History Household Members: Spouse and Children Housing: House Are you a primary home care companion to a significant other at home: Yes (- mod dementia) Do you presently have visiting nurse or other home services: Yes (vna) Alcohol intake: current Alcohol intake frequency: does not drink Patient Tobacco Use Status: Never used Tobacco e-Cigarette/Vaping Use: Never Used Second Hand Smoke Exposure: No Use of substances other than those prescribed or required for medical reasons: No Currently Displaying Signs/Symptoms of Drug Intoxication Withdrawal: No Any prior treatment program specific to substance use: No Have you been hit, kicked, punched, or otherwise hurt by someone within the past year? If so, by whom?: No Do you feel safe in your current relationship?: Yes Is there a partner from a previous relationship who is making you feel unsafe now?: No Are you made to feel afraid or neglected: No Advance Directives: No Advance Directives Information Provided: No Do you have thoughts of harming others: None Do you have a plan to hurt others: No Plan Recently lost weight without trying: Yes How much weight loss: 24-33 pounds Eating poorly because of decreased appetite: Yes Nutrition screen score: 6 service: Yes Current occupational status: employed Current occupation: [employer] Current occupational exposures/hazards: No Cognitive needs: No Hearing needs: No Vision needs: Yes Meds Allergies Allergy/AdvReac Type Severity Reaction Status Date / Time Iodinated Contrast Media Allergy Severe ANAPHYLAXIS Verified 01/21/22 14:27 [IV DYE, IODINE CONTAINING] gluten [GLUTEN] Allergy Intermediate BLOATING,SEVERE Verified 01/21/22 14:27 GI PAIN amiodarone AdvReac Severe hyperthyroi Verified 01/21/22 14:27 d morphine AdvReac Nausea and Verified 01/21/22 14:27 Vomiting Active Medications: Current Medications Ceftriaxone Sodium 1 gm/ (Sodium Chloride) 50 mls @ 100 mls/hr IV ONCE ONE Stop: 01/29/22 17:49 Lactated Ringer's (Lr) 1,000 mls @ 125 mls/hr IVCONT .Q8H [facility] Home Medications Medication Instructions Recorded Confirmed Last Taken Type omeprazole 20 mg capsule,delayed 40 mg PO DAILY 08/11/21 01/29/22 01/29/22 10:00 History release acetaminophen 500 mg tablet 1,000 mg PO TID PRN Pain, Mild 01/29/22 01/29/22 Unknown History Physical Exam Const: General: comfortable and no acute distress Orientation/consciousness: patient oriented x3 Neck: Neck: Yes no lymphadenopathy Resp: Auscultation: clear to auscultation bilaterally Cardio: Rhythm: regular rhythm GI: Other: Mild tenderness on the right side of the abdomen Palpation (GI): Soft to palpation, nontender and no guarding Neuro: General: patient oriented x3 Assessment and Plan (1) Abscess of abdominal wall: Status: Acute His CAT scan from 01/26/2022 shows reaccumulation of fluid collection the same area adjacent to the right lobe of the liver and the wall. This does appear smaller than the previous collection. He had the office complaining of a fever of 101F at home so he was recommended to go to the ER to be admitted. He does not appear septic at this time. He actually looks comfortable and is ambulatory. I will start him on ceftriaxone as his abscess cultures last December 30 showed E coli sensitive to this and resistant to ampicillin. I will consult the radiologist as well to see if he can have this small collection drained. I will consult the hospitalist because of his hx of HTN and recent atrial fibrillation. He seems to be in sinus currently. His abdominal exam is benign. I will hold his Eliquis temporarily in case he undergoes IR drainage of this collection this weekend He does state that he actually has not been taking his Eliquis at home despite instructions to do so. He is still takes as acebutololl Quality Stroke Does the patient have a stroke diagnosis?: No VTE Prior VTE?: No VTE Risk Level:: Medical - moderate - high VTE Device Contraindication: N/A - Device Ordered VTE Drug Contraindication: Treatment Not Indicated Procedures Date of Service Date of Service: 01/29/22
--- NOTE | 2022-01-29 17:25 | ECG_ITS ---
Test Reason : afib Blood Pressure : / mmHG Vent. Rate : 078 BPM Atrial Rate : 078 BPM P-R Int : 176 ms QRS Dur : 138 ms QT Int : 430 ms P-R-T Axes : 081 036 082 degrees QTc Int : 490 ms Normal sinus rhythm Left bundle branch block Abnormal ECG When compared with ECG of 29-JAN-2022 17:55, No significant change was found Referred By: Tr Cloud Electronically Signed By:HOLDEN ALVAREZ MD
[2022-01-29 17:38] VITALS: BP 120/63; PULSE 78; RESP 18; TEMP 36.9; O2SAT 98; BMI 24.3
[2022-01-29] MEDS: cefTRIAXone sodium 1 GM in 0.9 % Sodium Chloride 50 ML IV (18:28)
[2022-01-29 18:40] VITALS: BP 104/52; PULSE 77
[2022-01-29] MEDS: Lactated Ringers 1,000 ML 125 ML IVCONT (18:40)
[2022-01-29 18:41] LABS: MANUAL DIFF FLAG NO
[2022-01-29] MEDS: Omeprazole 20 MG CAPSULE.DR PO (18:41)
[2022-01-29 18:43] LABS: Basophils Absolute Auto 0.1 X10*3/uL (0.0-0.2); Basophils Percent Auto 0.4 % (0-2); Eosinophils Absolute Auto 0.2 X10*3/uL (0.0-0.4); Eosinophils Percent Auto 0.9 % (0-4); Hematocrit 30.9 % (42.0-52.0); Hemoglobin 9.9 g/dl (14.0-18.0); Imm Gran Abs Auto 0.13 X10*3/uL (0.00-0.03); Imm Gran Pct Auto 0.8 % (0.0-0.4); Lymphocytes Absolute Auto 1.3 X10*3/uL (1.2-4.9); Lymphocytes Percent Auto 7.4 % (20-40); Mean Corpuscular Hemoglobin 28.9 pg (27.0-33.0); Mean Corpuscular Volume 90.4 fL (80.0-98.0); Mean Platelet Volume 8.6 fL (9.4-12.4); Monocytes Absolute Auto 0.8 X10*3/uL (0.1-1.2); Monocytes Percent Auto 4.9 % (2-11); Neutrophils Absolute Auto 14.5 x10*3/uL (2.0-8.3); Neutrophils Percent Auto 85.6 % (45-73); Platelet Count 417 X10*3/uL (160-400); Red Blood Count 3.42 X10*6/uL (4.60-5.80); Red Cell Distribution Width 14.2 % (11.0-16.0)
[2022-01-29 18:50] LABS: INTERNATIONAL NORM RATIO 1.2 (0.9-1.1); Prothrombin Time 14.1 SEC (10.0-13.1)
[2022-01-29 18:52] LABS: Partial Thromboplastin Time 29.6 SEC (26.0-36.4)
[2022-01-29] MEDS: HYDROmorphone HCl 0.5 MG/0.5 ML SYRINGE IVPUSH (18:55)
[2022-01-29 19:00] LABS: Lactic Acid 0.9 mmol/L (0.5-2.0)
[2022-01-29 19:03] LABS: COVID-19 Test Negative (Negative); IDNOW Serial# 16C4AD1C
[2022-01-29 19:06] LABS: Alanine Aminotransferase 10 U/L (0-40); Albumin Level 3.5 g/dL (3.5-5.0); Alkaline Phosphatase 110 U/L (39-117); Anion Gap 18 (12-20); Aspartate Amino Transferase 20 U/L (5-37); Bilirubin Total 0.4 mg/dL (0.0-1.0); Blood Urea Nitrogen 33 mg/dL (9-16); C Reactive Protein 25.53 mg/dL (< or = 0.50); Calcium 9.2 mg/dL (8.4-10.2); Carbon Dioxide 24 mmol/L (22-29); Chloride 100 mmol/L (96-108); Creatinine Clr Calc Pharmacy 43.5; Estimated Glomerular Filt Rate 42; Glucose Random 98 mg/dL (60-115); Lipase 9 U/L (8-78); Potassium 5.5 mmol/L (3.3-5.1); Sodium 136 mmol/L (135-145); Total Protein 7.5 g/dL (6.5-8.0)
--- NOTE | 2022-01-29 19:43 | ED.ABDPAIN ---
HPI - Abdominal Pain General Chief Complaint: Abdominal Pain Stated Complaint: abscess/sepsis Time Seen by Provider: 01/29/22 17:22 Source: patient and other (Information was obtained from the patient's general surgeon, Dr. Stroud) Mode of arrival: ambulatory Limitations: no limitations History of Present Illness HPI narrative: 71-year-old male patient who presents emergency department for evaluation of low-grade fever, loss of appetite, weight loss, right sided abdominal pain x1 week. Patient had a cholecystectomy in July 2018. Patient had right upper quadrant and flank pain times weeks and was eventually found to have a right upper abdominal abscess. He had a diagnostic laparoscopic drainage of the abscess done by Dr. Ramos on 12/30/2021, he also had a dropped gallstone which was retrieved. The patient grew E coli sensitive to ceftriaxone. Patient was eventually discharged from the hospital. He told me that he has not completely recovered since leaving the hospital. He was feeling very weak and had a decreased appetite. He states that over the past week he has had low-grade fevers with a high his temperature being 101 degrees F. he complains of right upper quadrant pain that goes around to his right back. This pain is a constant, stabbing/aching pain which is 7/10. He had a CT scan of his abdomen pelvis done by Dr. Ramos on 01/26/2022 and there is a small fluid collection in the area of adjacent to the right lobe of the liver. The patient was therefore advised to come to the emergency department for evaluation. The general surgeon, Dr. Stroud was in the emergency department, he evaluated the patient and the patient will be admitted to the surgical service for further management. Laboratory evaluation was ordered. Patient was ordered to get ceftriaxone 1 g IV since the E coli that a group previously was sensitive to this medication. MD elicited complaint: abdominal pain and flank pain Pertinent past history: other (Right upper quadrant abdominal abscess status post surgical drainage 12/30/2021) Onset (ago): week(s) (1) Pain Consistency: constant Location: RUQ and R flank Severity: severe Pain scale (0-10): 8 Quality: stabbing and aching Migration to: no migration Exacerbating factors: nothing Relieving factors: nothing Associated symptoms: nausea and anorexia Related Data Home Medications Medication Instructions Recorded Confirmed omeprazole 20 mg capsule,delayed 40 mg PO DAILY 08/11/21 01/29/22 release acetaminophen 500 mg tablet 1,000 mg PO TID PRN Pain, Mild 01/29/22 01/29/22 Previous Rx's Medication Instructions Recorded diltiazem HCl 30 mg tablet 30 mg PO ONCE PRN For atrial 01/18/22 (Cardizem) fibrillation #20 tabs sulfamethoxazole 800 1 tab PO Q12H #20 tabs 01/21/22 mg-trimethoprim 160 mg tablet (Bactrim DS) acebutolol 200 mg capsule 400 mg PO BID #360 caps 01/24/22 Allergies Allergy/AdvReac Type Severity Reaction Status Date / Time Iodinated Contrast Media Allergy Severe ANAPHYLAXIS Verified 01/21/22 14:27 [IV DYE, IODINE CONTAINING] gluten [GLUTEN] Allergy Intermediate BLOATING,SEVERE Verified 01/21/22 14:27 GI PAIN amiodarone AdvReac Severe hyperthyroi Verified 01/21/22 14:27 d morphine AdvReac Nausea and Verified 01/21/22 14:27 Vomiting Review of Systems Review of Systems Yes all other systems are reviewed and are negative [facility] Past Medical History [facility] Narrative: Social history: He denies tobacco, alcohol and drug use. Medical History Abscess of abdominal wall Barretts esophagus Celiac disease Chronic neck and back pain Failed back syndrome Frequent PVCs GERD (gastroesophageal reflux disease) History of blood transfusion History of thyrotoxicosis Implantable loop recorder present LBBB (left bundle branch block) Paroxysmal atrial fibrillation PHN (postherpetic neuralgia) Sepsis with acute hypoxic respiratory failure Subcapsular hematoma of liver Surgical History H/O prior ablation treatment History of appendectomy History of back surgery History of colonoscopy History of esophagogastroduodenoscopy (EGD) History of exploratory laparotomy (12/28/21) History of inguinal hernia History of lymph node excision Hx laparoscopic cholecystectomy Family History Family History Father CVD (cardiovascular disease) Mother Leukemia Son No problems noted. Son No problems noted. Daughter No problems noted. Daughter No problems noted. Social History Social History Household Members: Spouse and Children Housing: House Are you a primary career development counselor to a significant other at home: Yes (- mod dementia) Do you presently have visiting nurse or other home services: Yes (vna) Alcohol intake: current Alcohol intake frequency: does not drink Patient Tobacco Use Status: Never used Tobacco e-Cigarette/Vaping Use: Never Used Second Hand Smoke Exposure: No Use of substances other than those prescribed or required for medical reasons: No Currently Displaying Signs/Symptoms of Drug Intoxication Withdrawal: No Any prior treatment program specific to substance use: No Have you been hit, kicked, punched, or otherwise hurt by someone within the past year? If so, by whom?: No Do you feel safe in your current relationship?: Yes Is there a partner from a previous relationship who is making you feel unsafe now?: No Are you made to feel afraid or neglected: No Advance Directives: No Advance Directives Information Provided: No Do you have thoughts of harming others: None Do you have a plan to hurt others: No Plan Recently lost weight without trying: Yes How much weight loss: 24-33 pounds Eating poorly because of decreased appetite: Yes Nutrition screen score: 6 service: Yes Current occupational status: employed Current occupation: [employer] Current occupational exposures/hazards: No Cognitive needs: No Hearing needs: No Vision needs: Yes Physical Exam ED Vital Signs: Vital Signs - 24 hr 01/29/22 17:38 Temperature 98.4 F Pulse Rate 78 Respiratory Rate 18 Blood Pressure 120/63 Pulse Oximetry 98 Oxygen Delivery Method Room Air BMI result Body Mass Index 24.3 Const Other: Awake, alert, male patient, very thin, BMI 24, pleasant, cooperative, answers all questions appropriately [facility] Head: Yes normal to inspection, Yes normocephalic and Yes atraumatic Ears: external ears normal General nose exam: Normal external nose present Face and sinus: Yes normal facial exam Mouth: Normal oral and palatal mucosa present Throat: Yes posterior oropharynx normal Eyes General: appearance normal, both eyes and all related structures Pupils: Equal, round and reactive pupils present Neck Neck: Yes normal visual inspection, Yes no lymphadenopathy, Yes trachea midline and Yes supple Chest Chest palpation & inspection: normal inspection of the chest and normal palpation of entire chest wall Resp Effort & Inspection: normal respiratory effort and able to speak in complete sentences Auscultation: clear to auscultation bilaterally Cardio Rate: regular rate Rhythm: regular rhythm Heart sounds: S1 normal heart sound present, S2 normal heart sound present and no murmurs GI Inspection: Yes normal to inspection Palpation (GI): Soft to palpation, Tenderness to palpation present (GI) in the RUQ (Moderate) and no guarding Auscultation: normal bowel sounds General: Yes CVA tenderness on the right (Moderate) Back/Spine/Pelvis Back: CVA tenderness Skin General skin exam: no rashes or lesions noted Neuro Cranial nerves: Yes CN's II-XII intact bilaterally and Yes Equal, round and reactive pupils present Cognition (Neuro): normal cognition Motor exam (neuro): 5/5 motor strength present throughout Extrem General: Yes normal to inspection Psych Appearance: grossly normal Speech and movement: Normal speech and movement present Affect: normal affect Attitude: cooperative Thought process: Normal thought process present Thought content: Normal thought content present Course Course Course Narrative: 71-year-old male who had a right perihepatic abscess status post laparoscopic drainage 12/30/[address] Ramos, who was referred to the emergency department for evaluation of right upper quadrant, right flank pain with fever x1 week, patient's repeat CT scan on 01/26/2022 reveals a small fluid collection by the liver which is concerning for possible abscess. Patient's exam did reveal right upper quadrant tenderness otherwise was unremarkable. CBC was elevated 17,000. Patient is anemic with an H&H of 9.9 and 30.9, this is chronic. Platelet count was elevated foreign 17,000. BUN and creatinine are elevated 33 and 1.61-this is above his baseline suggested he may be pre renal. CRP is elevated 25.53. Lactate was normal at 0.9. COVID-19 was negative. Patient was ordered to get lactated Ringer's x1 L then lactated Ringer's at 125 cc/hour. The patient did receive Dilaudid 0.5 mg IV with only minimal improvement of his pain, patient does not want any pain medications at this time but if needed I will given a 2nd dose of Dilaudid 1.0 mg IV. The patient will be admitted for further treatment. MDM - Abdominal Pain Medical Records Attestation: I reviewed the patient's medical records. Lab Data Attestation: I reviewed the patient's lab results. Result diagrams: 01/29/22 18:29 01/29/22 18:29 Labs: Lab Results 01/29/22 01/29/22 01/29/22 Range/Units 18:29 18:29 18:29 WBC (4.8-10.8) X10*3/uL RBC (4.60-5.80) X10*6/uL Hgb (14.0-18.0) g/dl Hct (42.0-52.0) % MCV (80.0-98.0) fL MCH (27.0-33.0) pg MCHC (31.0-36.0) g/dl RDW (11.0-16.0) % Plt Count (160-400) X10*3/uL MPV (9.4-12.4) fL Immature Gran % (Auto) (0.0-0.4) % Neut % (Auto) (45-73) % Lymph % (Auto) (20-40) % Hamlin % (Auto) (2-11) % Eos % (Auto) (0-4) % Baso % (Auto) (0-2) % Lymph # (Auto) (1.2-4.9) X10*3/uL Hamlin # (Auto) (0.1-1.2) X10*3/uL Eos # (Auto) (0.0-0.4) X10*3/uL Baso # (Auto) (0.0-0.2) X10*3/uL Abs Immat Gran (auto) (0.00-0.03) X10*3/uL Absolute Neuts (auto) (2.0-8.3) x10*3/uL Absolute Nucleated RBC (0.0-0.012) X10*3/uL Nucleated RBC % (auto) (0.0-0.2) /100WBC PT 14.1 H (10.0-13.1) SEC INR 1.2 H (0.9-1.1) APTT 29.6 (26.0-36.4) SEC Sodium 136 (135-145) mmol/L Potassium 5.5 H D (3.3-5.1) mmol/L Chloride 100 (96-108) mmol/L Carbon Dioxide 24 (22-29) mmol/L Anion Gap 18 (12-20) BUN 33 H (9-16) mg/dL Creatinine 1.61 H (0.5-1.4) mg/dL Estim Creat Clear Calc 43.5 Estimated GFR 42 Random Glucose 98 (60-115) mg/dL Lactic Acid 0.9 (0.5-2.0) mmol/L Calcium 9.2 (8.4-10.2) mg/dL Total Bilirubin 0.4 (0.0-1.0) mg/dL AST 20 (5-37) U/L ALT 10 (0-40) U/L Alkaline Phosphatase 110 (39-117) U/L C-Reactive Protein 25.53 H (< or = 0.50) mg/dL Total Protein 7.5 D (6.5-8.0) g/dL Albumin 3.5 (3.5-5.0) g/dL Lipase 9 (8-78) U/L COVID-19 ([facility]) (Negative) COVID-19 Clin Com 01/29/22 01/29/22 01/29/22 Range/Units 18:29 18:29 18:29 WBC 17.0 H (4.8-10.8) X10*3/uL RBC 3.42 L (4.60-5.80) X10*6/uL Hgb 9.9 L (14.0-18.0) g/dl Hct 30.9 L (42.0-52.0) % MCV 90.4 (80.0-98.0) fL MCH 28.9 (27.0-33.0) pg MCHC 32.0 (31.0-36.0) g/dl RDW 14.2 (11.0-16.0) % Plt Count 417 H (160-400) X10*3/uL MPV 8.6 L (9.4-12.4) fL Immature Gran % (Auto) 0.8 H (0.0-0.4) % Neut % (Auto) 85.6 H (45-73) % Lymph % (Auto) 7.4 L (20-40) % Hamlin % (Auto) 4.9 (2-11) % Eos % (Auto) 0.9 (0-4) % Baso % (Auto) 0.4 (0-2) % Lymph # (Auto) 1.3 (1.2-4.9) X10*3/uL Hamlin # (Auto) 0.8 (0.1-1.2) X10*3/uL Eos # (Auto) 0.2 (0.0-0.4) X10*3/uL Baso # (Auto) 0.1 (0.0-0.2) X10*3/uL Abs Immat Gran (auto) 0.13 H (0.00-0.03) X10*3/uL Absolute Neuts (auto) 14.5 H (2.0-8.3) x10*3/uL Absolute Nucleated RBC 0.000 (0.0-0.012) X10*3/uL Nucleated RBC % (auto) 0.0 (0.0-0.2) /100WBC PT (10.0-13.1) SEC INR (0.9-1.1) APTT (26.0-36.4) SEC Sodium (135-145) mmol/L Potassium (3.3-5.1) mmol/L Chloride (96-108) mmol/L Carbon Dioxide (22-29) mmol/L Anion Gap (12-20) BUN (9-16) mg/dL Creatinine (0.5-1.4) mg/dL Estim Creat Clear Calc Estimated GFR Random Glucose (60-115) mg/dL Lactic Acid (0.5-2.0) mmol/L Calcium (8.4-10.2) mg/dL Total Bilirubin (0.0-1.0) mg/dL AST (5-37) U/L ALT (0-40) U/L Alkaline Phosphatase (39-117) U/L C-Reactive Protein (< or = 0.50) mg/dL Total Protein (6.5-8.0) g/dL Albumin (3.5-5.0) g/dL Lipase Cancelled (8-78) U/L COVID-19 ([facility]) Negative (Negative) COVID-19 Clin Com See Note ECG Data Attestation: I personally reviewed and interpreted this ECG as follows: Discharge Plan Discharge Clinical Impression: Abscess of abdominal cavity, Fever Patient Disposition: Admitted As Inpatient Interventions: Admission Worksheet (ED) Last Done: 01/30/22 00:29 Discharge Date/Time: 01/30/22 00:31
[2022-01-29] MEDS: Lactated Ringers 1,000 ML 999 ML IV (20:21)
--- NOTE | 2022-01-29 20:31 | PC.NURSE ---
Pt aox4. Breaths are even and unlabored. HR 81. Abd soft and tender with active bowel sounds in all quadrants. No swelling/edema of extremities. Skin is warm, pink and dry. Reports right side abd pain/flank pain, 11/25. LR running at 125ml/hr stopped. LR bolus running at this time. Pt aware of plan of care. MD aware.
[2022-01-29 20:50] LABS: IDNOW Serial# 16C4AD1C; Influenza A Negative (Negative); Influenza B2 Negative (Negative)
--- NOTE | 2022-01-29 21:09 | PC.NURSE ---
pt reporting increased pain, provider notified.
[2022-01-29 21:29] LABS: Appearance Urine Clear; Color Urine Yellow; Glucose Urine UA Negative (Negative); Leukocyte Esterase Urine Negative (Negative); Nitrite Urine Negative (Negative); PH 5.5 (5.0-9.0); Urine Blood Negative (Negative); Urine Ketones Trace mg/dL (Negative); Urine Protein Trace mg/dL (Neg-Trace)
[2022-01-29] MEDS: HYDROmorphone HCl 1 MG/ML SYRINGE IVPUSH (21:41)
[2022-01-29 21:51] VITALS: BP 123/61; PULSE 82; RESP 12; TEMP 36.9; O2SAT 97
--- NOTE | 2022-01-29 22:06 | PC.NURSE ---
Med rec completed.
--- NOTE | 2022-01-29 22:32 | PHA.MEDREC ---
Pharmacy Consult ? Medication Reconciliation Pharmacy has completed the medication reconciliation.
--- NOTE | 2022-01-29 22:52 | PC.NURSE ---
Pt ambulated to the bathroom with no difficulty.
--- NOTE | 2022-01-29 23:11 | PC.NURSE ---
Pt reports pain improvement after being medicated with dilaudid. Will continue to monitor.
--- NOTE | 2022-01-29 23:56 | PC.NURSE ---
RN to RN report given to Shayna. Pt going to room 379.
[2022-01-30] VITALS (8 sets, daily range): BP systolic 115–128; BP diastolic 56–66; PULSE 80–90; RESP 16–19; TEMP 36.7–38.3; O2SAT 91–95
[2022-01-30] MEDS: HYDROmorphone HCl 0.5 MG/0.5 ML SYRINGE IVPUSH ×2 (00:56→04:46)
[2022-01-30] MEDS: Acetaminophen 325 MG TABLET 650 MG PO ×3 (02:12→21:49)
[2022-01-30] MEDS: ondansetron HCL 4 MG/2 ML VIAL IVPUSH ×3 (02:16→23:15)
[2022-01-30] MEDS: oxyCODONE HCl Immed Release 5 MG TABLET PO ×2 (02:17→17:53)
[2022-01-30] MEDS: Lactated Ringers 1,000 ML 125 ML IVCONT ×3 (04:52→21:48)
[2022-01-30 05:49] LABS: MANUAL DIFF FLAG NO
[2022-01-30 05:55] LABS: Basophils Absolute Auto 0.1 X10*3/uL (0.0-0.2); Basophils Percent Auto 0.3 % (0-2); Eosinophils Absolute Auto 0.1 X10*3/uL (0.0-0.4); Eosinophils Percent Auto 0.7 % (0-4); Hematocrit 28.2 % (42.0-52.0); Imm Gran Abs Auto 0.11 X10*3/uL (0.00-0.03); Imm Gran Pct Auto 0.7 % (0.0-0.4); Lymphocytes Absolute Auto 1.6 X10*3/uL (1.2-4.9); Lymphocytes Percent Auto 10.1 % (20-40); Mean Corpuscular HGB Conc 31.9 g/dl (31.0-36.0); Mean Corpuscular Hemoglobin 28.8 pg (27.0-33.0); Mean Corpuscular Volume 90.4 fL (80.0-98.0); Mean Platelet Volume 8.8 fL (9.4-12.4); Monocytes Absolute Auto 0.9 X10*3/uL (0.1-1.2); Monocytes Percent Auto 5.6 % (2-11); Neutrophils Absolute Auto 13.3 x10*3/uL (2.0-8.3); Neutrophils Percent Auto 82.6 % (45-73); Platelet Count 397 X10*3/uL (160-400); Red Blood Count 3.12 X10*6/uL (4.60-5.80); Red Cell Distribution Width 14.1 % (11.0-16.0); White Blood Count 16.1 X10*3/uL (4.8-10.8)
[2022-01-30 06:09] LABS: Anion Gap 14 (12-20); Blood Urea Nitrogen 23 mg/dL (9-16); Calcium 8.7 mg/dL (8.4-10.2); Carbon Dioxide 24 mmol/L (22-29); Chloride 101 mmol/L (96-108); Creatinine Clr Calc Pharmacy 64.2; Estimated Glomerular Filt Rate > 60; Glucose Random 95 mg/dL (60-115); Potassium 5.1 mmol/L (3.3-5.1); Sodium 134 mmol/L (135-145)
--- NOTE | 2022-01-30 09:21 | PM.PNGS ---
Subjective Subjective Date of Service: 01/30/22 Interval history: complaints of same pain on the right side, all the way to the back has nausea, no vomiting Physical Exam Vital Signs: Vital Signs: Last Vital Signs Temp 99.5 F 01/30/22 08:00 Pulse 82 01/30/22 08:00 Resp 16 01/30/22 08:00 BP 128/61 01/30/22 08:00 Pulse Ox 95 01/30/22 08:00 O2 Del Method 01/30/22 08:00 BMI result Body Mass Index 24.3 Const: Other: anxious looking General: comfortable and no acute distress Resp: Effort & Inspection: normal respiratory effort Cardio: Rate: regular rate GI: Other: soft, no guarding rebound, tender on the right side and the back, benign otherwise Objective Data Active Medications Acetaminophen (Acetaminophen 325 Mg Tablet) 650 mg PO Q6H PRN PRN Reason: Fever >101 Last Admin: 01/30/22 02:12 Dose: 650 mg Documented By: ARIANA Diltiazem HCl (Diltiazem Hcl 30 Mg Tablet) 30 mg PO ONCE PRN; Protocol PRN Reason: For atrial fibrillation Hydromorphone HCl (Hydromorphone Hcl 0.5 Mg/0.5 Ml Syringe) 0.5 mg IVPUSH Q3H PRN; Protocol PRN Reason: Pain, Severe (Pain Scale 7-10) Last Admin: 01/30/22 04:46 Dose: 0.5 mg Documented By: ARIANA Lactated Ringer's (Lr) 1,000 mls @ 125 mls/hr IVCONT .Q8H COUNTS INCLUDE 234 BEDS AT THE [facility] Last Admin: 01/30/22 04:52 Dose: 125 mls/hr Documented By: ARIANA Ceftriaxone Sodium 1 gm/ (Sodium Chloride) 50 mls @ 100 mls/hr IV Q24H COUNTS INCLUDE 234 BEDS AT THE [facility] Last Infusion: 01/29/22 18:56 Dose: 0 mls/hr Documented By: RAUL Non-Formulary Medication (Acebutolol) 400 mg PO BID COUNTS INCLUDE 234 BEDS AT THE [facility] Last Admin: 01/30/22 08:42 Dose: 400 mg Documented By: FLORY Ondansetron HCl (Ondansetron Hcl 4 Mg/2 Ml Vial) 4 mg IVPUSH Q8H PRN PRN Reason: Nausea and Vomiting Last Admin: 01/30/22 02:16 Dose: 4 mg Documented By: ARIANA Oxycodone HCl (Oxycodone Hcl Immed Release 5 Mg Tablet) 5 mg PO Q6H PRN PRN Reason: Pain, Moderate (Pain Scale 4-6 Last Admin: 01/30/22 02:17 Dose: 5 mg Documented By: ARIANA Pharmacy Consult (Consult Rx Perform Med Rec) 1 each MISCELLANE ONCE PRN PRN Reason: Consult order Sodium Chloride (0.9 % Sodium Chloride Flush 3 Ml Syringe) 3 ml IVFLUSH QSHIFT COUNTS INCLUDE 234 BEDS AT THE [facility] Last Admin: 01/30/22 08:42 Dose: Not Given Documented By: FLORY Non-Admin Reason: IV Running Labs CBC & Chem 7: 01/30/22 05:37 01/30/22 05:37 Labs: Laboratory Results - last 24 hr 01/29/22 01/29/22 01/29/22 18:29 18:29 18:29 MCV MCH MCHC RDW Plt Count MPV Immature Gran % (Auto) Neut % (Auto) Lymph % (Auto) [place] % (Auto) Eos % (Auto) Baso % (Auto) Lymph # (Auto) [place] # (Auto) Eos # (Auto) Baso # (Auto) Abs Immat Gran (auto) Absolute Neuts (auto) Absolute Nucleated RBC Nucleated RBC % (auto) PT 14.1 H INR 1.2 H APTT 29.6 Anion Gap 18 Estim Creat Clear Calc 43.5 Estimated GFR 42 Random Glucose 98 Lactic Acid 0.9 Calcium 9.2 Total Bilirubin 0.4 AST 20 ALT 10 Alkaline Phosphatase 110 C-Reactive Protein 25.53 H Total Protein 7.5 D Albumin 3.5 Lipase 9 Urine Color Urine Appearance Urine pH Ur Specific [place] Urine Protein Urine Glucose (UA) Urine Ketones Urine Blood Urine Nitrite Ur Leukocyte Esterase COVID-19 (ASHOK) COVID-19 Clin Com Influenza Type A (UVALDO) Influenza Type B (UVALDO) Influenza A & B Note 01/29/22 01/29/22 01/29/22 18:29 18:29 18:29 MCV 90.4 MCH 28.9 MCHC 32.0 RDW 14.2 Plt Count 417 H MPV 8.6 L Immature Gran % (Auto) 0.8 H Neut % (Auto) 85.6 H Lymph % (Auto) 7.4 L [place] % (Auto) 4.9 Eos % (Auto) 0.9 Baso % (Auto) 0.4 Lymph # (Auto) 1.3 [place] # (Auto) 0.8 Eos # (Auto) 0.2 Baso # (Auto) 0.1 Abs Immat Gran (auto) 0.13 H Absolute Neuts (auto) 14.5 H Absolute Nucleated RBC 0.000 Nucleated RBC % (auto) 0.0 PT INR APTT Anion Gap Estim Creat Clear Calc Estimated GFR Random Glucose Lactic Acid Calcium Total Bilirubin AST ALT Alkaline Phosphatase C-Reactive Protein Total Protein Albumin Lipase Cancelled Urine Color Urine Appearance Urine pH Ur Specific [place] Urine Protein Urine Glucose (UA) Urine Ketones Urine Blood Urine Nitrite Ur Leukocyte Esterase COVID-19 (ASHOK) Negative COVID-19 Clin Com See Note Influenza Type A (UVALDO) Influenza Type B (UVALDO) Influenza A & B Note 01/29/22 01/29/22 01/30/22 20:09 21:17 05:37 MCV 90.4 MCH 28.8 MCHC 31.9 RDW 14.1 Plt Count 397 MPV 8.8 L Immature Gran % (Auto) 0.7 H Neut % (Auto) 82.6 H Lymph % (Auto) 10.1 L [place] % (Auto) 5.6 Eos % (Auto) 0.7 Baso % (Auto) 0.3 Lymph # (Auto) 1.6 [place] # (Auto) 0.9 Eos # (Auto) 0.1 Baso # (Auto) 0.1 Abs Immat Gran (auto) 0.11 H Absolute Neuts (auto) 13.3 H Absolute Nucleated RBC 0.000 Nucleated RBC % (auto) 0.0 PT INR APTT Anion Gap Estim Creat Clear Calc Estimated GFR Random Glucose Lactic Acid Calcium Total Bilirubin AST ALT Alkaline Phosphatase C-Reactive Protein Total Protein Albumin Lipase Urine Color Yellow Urine Appearance Clear Urine pH 5.5 Ur Specific [place] 1.020 Urine Protein Trace Urine Glucose (UA) Negative Urine Ketones Trace Urine Blood Negative Urine Nitrite Negative Ur Leukocyte Esterase Negative COVID-19 (ASHOK) COVID-19 Clin Com Influenza Type A (UVALDO) Negative Influenza Type B (UVALDO) Negative Influenza A & B Note See Note 01/30/22 05:37 MCV MCH MCHC RDW Plt Count MPV Immature Gran % (Auto) Neut % (Auto) Lymph % (Auto) [place] % (Auto) Eos % (Auto) Baso % (Auto) Lymph # (Auto) [place] # (Auto) Eos # (Auto) Baso # (Auto) Abs Immat Gran (auto) Absolute Neuts (auto) Absolute Nucleated RBC Nucleated RBC % (auto) PT INR APTT Anion Gap 14 Estim Creat Clear Calc 64.2 Estimated GFR > 60 Random Glucose 95 Lactic Acid Calcium 8.7 Total Bilirubin AST ALT Alkaline Phosphatase C-Reactive Protein Total Protein Albumin Lipase Urine Color Urine Appearance Urine pH Ur Specific [place] Urine Protein Urine Glucose (UA) Urine Ketones Urine Blood Urine Nitrite Ur Leukocyte Esterase COVID-19 (ASHOK) COVID-19 Clin Com Influenza Type A (UVALDO) Influenza Type B (UVALDO) Influenza A & B Note Procedures Date of Service Date of Service: 01/30/22 Progress Note: A&P Assessment and plan (1) Abscess of abdominal cavity: Status: Acute Assessment and Plan: recent CT scan shows reaccumulation of fluid on same area adjacent to the liver started on ceftriaxone based on cultures from previous drainage pain management encourage out of bed ambulation restarted on Ensure abdominal exam otherwise benign discussed with radiologist re:IR drainage Time Spent With Patient Time: Total time spent is greater than 50% in coordination of care (as documented) at patient's floor/unit and/or counseling patient: Quality Stroke Does the patient have a stroke diagnosis?: No VTE Prior VTE?: No VTE Risk Level:: Medical - moderate - high VTE Device Contraindication: N/A - Device Ordered VTE Drug Contraindication: Treatment Not Indicated
--- NOTE | 2022-01-30 09:45 | PM.IMCN ---
History of Present Illness Data of Consult Service Date: 01/30/22 Primary Care Provider: Jeff Rivas, [facility]- HPI Reason for consult: afib 71M with pmh paroxysmal afib, celiac, presented with fevers/recurrence of perihepatic abscess. patient had recent admission for sepsis from perihepatic abscess due to ecoli, s/p drainage, complicated by afib with rvr. patient has been having right sided 10/10 abd pain, non radiating, releived with pain meds, associated with fevers up to 101, repeat ct showed reaccumulation of perhepatic abscess. patient denies chest pain, sob. Review of Systems Review of Systems: Constitutional: fevers Eyes: denies blurry vision ENT: denies sore throat CVS: denies chest pain Respiratory: Denies dyspnea GI: abdominal pain : denies dysuria MSK: denies neck pain Skin: denies rash Neuro: denies specific motor weakness Psych: denies suicidal ideation Endocrine: denies heat/cold intolerance Hematologic: denies easy bleeding Allergy: denies hives [facility] Medical History Abscess of abdominal wall Barretts esophagus Celiac disease Chronic neck and back pain Failed back syndrome Frequent PVCs GERD (gastroesophageal reflux disease) History of blood transfusion History of thyrotoxicosis Implantable loop recorder present LBBB (left bundle branch block) Paroxysmal atrial fibrillation PHN (postherpetic neuralgia) Sepsis with acute hypoxic respiratory failure Subcapsular hematoma of liver Family History Father CVD (cardiovascular disease) Mother Leukemia Son No problems noted. Son No problems noted. Daughter No problems noted. Daughter No problems noted. Surgical History H/O prior ablation treatment History of appendectomy History of back surgery History of colonoscopy History of esophagogastroduodenoscopy (EGD) History of exploratory laparotomy (12/28/21) History of inguinal hernia History of lymph node excision Hx laparoscopic cholecystectomy Social History Household Members: Spouse and Children Housing: House Are you a primary resident care assistant to a significant other at home: Yes (- mod dementia) Do you presently have visiting nurse or other home services: Yes (vna) Alcohol intake: current Alcohol intake frequency: does not drink Patient Tobacco Use Status: Never used Tobacco e-Cigarette/Vaping Use: Never Used Second Hand Smoke Exposure: No Use of substances other than those prescribed or required for medical reasons: No Currently Displaying Signs/Symptoms of Drug Intoxication Withdrawal: No Any prior treatment program specific to substance use: No Have you been hit, kicked, punched, or otherwise hurt by someone within the past year? If so, by whom?: No Do you feel safe in your current relationship?: Yes Is there a partner from a previous relationship who is making you feel unsafe now?: No Are you made to feel afraid or neglected: No Advance Directives: No Advance Directives Information Provided: No Do you have thoughts of harming others: None Do you have a plan to hurt others: No Plan Recently lost weight without trying: Yes How much weight loss: 24-33 pounds Eating poorly because of decreased appetite: Yes Nutrition screen score: 6 service: Yes Current occupational status: employed Current occupation: [employer] Current occupational exposures/hazards: No Cognitive needs: No Hearing needs: No Vision needs: Yes Meds Allergies Allergy/AdvReac Type Severity Reaction Status Date / Time Iodinated Contrast Media Allergy Severe ANAPHYLAXIS Verified 01/21/22 14:27 [IV DYE, IODINE CONTAINING] gluten [GLUTEN] Allergy Intermediate BLOATING,SEVERE Verified 01/21/22 14:27 GI PAIN amiodarone AdvReac Severe hyperthyroi Verified 01/21/22 14:27 d morphine AdvReac Nausea and Verified 01/21/22 14:27 Vomiting Active Medications: Current Medications Acetaminophen (Acetaminophen 325 Mg Tablet) 650 mg PO Q6H PRN PRN Reason: Fever >101 Last Admin: 01/30/22 02:12 Dose: 650 mg Diltiazem HCl (Diltiazem Hcl 30 Mg Tablet) 30 mg PO ONCE PRN; Protocol PRN Reason: For atrial fibrillation Hydromorphone HCl (Hydromorphone Hcl 0.5 Mg/0.5 Ml Syringe) 1 mg IVPUSH Q4H PRN; Protocol PRN Reason: Pain, Severe (Pain Scale 7-10) Lactated Ringer's (Lr) 1,000 mls @ 125 mls/hr IVCONT .Q8H ANTIONE Last Admin: 01/30/22 04:52 Dose: 125 mls/hr Ceftriaxone Sodium 1 gm/ (Sodium Chloride) 50 mls @ 100 mls/hr IV Q24H [facility] Last Infusion: 01/29/22 18:56 Dose: Infused Promethazine HCl 6.25 mg/ (Sodium Chloride) 50.25 mls @ 201 mls/hr IV Q6H PRN PRN Reason: nausea Non-Formulary Medication (Acebutolol) 400 mg PO BID [facility] Last Admin: 01/30/22 08:42 Dose: 400 mg Ondansetron HCl (Ondansetron Hcl 4 Mg/2 Ml Vial) 4 mg IVPUSH Q8H PRN PRN Reason: Nausea and Vomiting Last Admin: 01/30/22 02:16 Dose: 4 mg Oxycodone HCl (Oxycodone Hcl Immed Release 5 Mg Tablet) 5 mg PO Q6H PRN PRN Reason: Pain, Moderate (Pain Scale 4-6 Last Admin: 01/30/22 02:17 Dose: 5 mg Pharmacy Consult (Consult Rx Perform Med Rec) 1 each MISCELLANE ONCE PRN PRN Reason: Consult order Sodium Chloride (0.9 % Sodium Chloride Flush 3 Ml Syringe) 3 ml IVFLUSH QSHIFT [facility] Last Admin: 01/30/22 08:42 Dose: Not Given Home Medications Medication Instructions Recorded Confirmed Last Taken Type omeprazole 20 mg capsule,delayed 40 mg PO DAILY 08/11/21 01/29/22 01/29/22 10:00 History release acetaminophen 500 mg tablet 1,000 mg PO TID PRN Pain, Mild 01/29/22 01/29/22 Unknown History Physical Exam Vital Signs and Narrative: Vital Signs: Last Vital Signs Temp 99.5 F 01/30/22 08:00 Pulse 82 01/30/22 08:00 Resp 16 01/30/22 08:00 BP 128/61 01/30/22 08:00 Pulse Ox 95 01/30/22 08:00 O2 Del Method 01/30/22 08:00 BMI result Body Mass Index 24.3 General: in pain HEENT: atraumatic Neck: normal to visual inspection CVS: S1, S2, RRR Resp: CTA bilateral Chest: non tender GI: soft, tender, non distended : no CVA tenderness Skin: no rashes Extremities: no edema Neuro: Oriented X3, grossly intact Psych: cooperative Results Labs CBC and Chem 7: 01/30/22 05:37 01/30/22 05:37 Labs: Laboratory Results - last 24 hr 01/29/22 01/29/22 01/29/22 18:29 18:29 18:29 MCV MCH MCHC RDW Plt Count MPV Immature Gran % (Auto) Neut % (Auto) Lymph % (Auto) [place] % (Auto) Eos % (Auto) Baso % (Auto) Lymph # (Auto) [place] # (Auto) Eos # (Auto) Baso # (Auto) Abs Immat Gran (auto) Absolute Neuts (auto) Absolute Nucleated RBC Nucleated RBC % (auto) PT 14.1 H INR 1.2 H APTT 29.6 Anion Gap 18 Estim Creat Clear Calc 43.5 Estimated GFR 42 Random Glucose 98 Lactic Acid 0.9 Calcium 9.2 Total Bilirubin 0.4 AST 20 ALT 10 Alkaline Phosphatase 110 C-Reactive Protein 25.53 H Total Protein 7.5 D Albumin 3.5 Lipase 9 Urine Color Urine Appearance Urine pH Ur Specific [place] Urine Protein Urine Glucose (UA) Urine Ketones Urine Blood Urine Nitrite Ur Leukocyte Esterase COVID-19 ([facility]OK) COVID-19 Clin Com Influenza Type A (UVALDO) Influenza Type B (UVALDO) Influenza A & B Note 01/29/22 01/29/22 01/29/22 18:29 18:29 18:29 MCV 90.4 MCH 28.9 MCHC 32.0 RDW 14.2 Plt Count 417 H MPV 8.6 L Immature Gran % (Auto) 0.8 H Neut % (Auto) 85.6 H Lymph % (Auto) 7.4 L [place] % (Auto) 4.9 Eos % (Auto) 0.9 Baso % (Auto) 0.4 Lymph # (Auto) 1.3 [place] # (Auto) 0.8 Eos # (Auto) 0.2 Baso # (Auto) 0.1 Abs Immat Gran (auto) 0.13 H Absolute Neuts (auto) 14.5 H Absolute Nucleated RBC 0.000 Nucleated RBC % (auto) 0.0 PT INR APTT Anion Gap Estim Creat Clear Calc Estimated GFR Random Glucose Lactic Acid Calcium Total Bilirubin AST ALT Alkaline Phosphatase C-Reactive Protein Total Protein Albumin Lipase Cancelled Urine Color Urine Appearance Urine pH Ur Specific [place] Urine Protein Urine Glucose (UA) Urine Ketones Urine Blood Urine Nitrite Ur Leukocyte Esterase COVID-19 (ASHOK) Negative COVID-19 Clin Com See Note Influenza Type A (UVALDO) Influenza Type B (UVALDO) Influenza A & B Note 01/29/22 01/29/22 01/30/22 20:09 21:17 05:37 MCV 90.4 MCH 28.8 MCHC 31.9 RDW 14.1 Plt Count 397 MPV 8.8 L Immature Gran % (Auto) 0.7 H Neut % (Auto) 82.6 H Lymph % (Auto) 10.1 L [place] % (Auto) 5.6 Eos % (Auto) 0.7 Baso % (Auto) 0.3 Lymph # (Auto) 1.6 [place] # (Auto) 0.9 Eos # (Auto) 0.1 Baso # (Auto) 0.1 Abs Immat Gran (auto) 0.11 H Absolute Neuts (auto) 13.3 H Absolute Nucleated RBC 0.000 Nucleated RBC % (auto) 0.0 PT INR APTT Anion Gap Estim Creat Clear Calc Estimated GFR Random Glucose Lactic Acid Calcium Total Bilirubin AST ALT Alkaline Phosphatase C-Reactive Protein Total Protein Albumin Lipase Urine Color Yellow Urine Appearance Clear Urine pH 5.5 Ur Specific [place] 1.020 Urine Protein Trace Urine Glucose (UA) Negative Urine Ketones Trace Urine Blood Negative Urine Nitrite Negative Ur Leukocyte Esterase Negative COVID-19 ([facility]OK) COVID-19 Clin Com Influenza Type A (UVALDO) Negative Influenza Type B (UVALDO) Negative Influenza A & B Note See Note 01/30/22 05:37 MCV MCH MCHC RDW Plt Count MPV Immature Gran % (Auto) Neut % (Auto) Lymph % (Auto) [place] % (Auto) Eos % (Auto) Baso % (Auto) Lymph # (Auto) [place] # (Auto) Eos # (Auto) Baso # (Auto) Abs Immat Gran (auto) Absolute Neuts (auto) Absolute Nucleated RBC Nucleated RBC % (auto) PT INR APTT Anion Gap 14 Estim Creat Clear Calc 64.2 Estimated GFR > 60 Random Glucose 95 Lactic Acid Calcium 8.7 Total Bilirubin AST ALT Alkaline Phosphatase C-Reactive Protein Total Protein Albumin Lipase Urine Color Urine Appearance Urine pH Ur Specific [place] Urine Protein Urine Glucose (UA) Urine Ketones Urine Blood Urine Nitrite Ur Leukocyte Esterase COVID-19 (ASHOK) COVID-19 Clin Com Influenza Type A (UVALDO) Influenza Type B (UVALDO) Influenza A & B Note Assessment and Plan (1) Fever: Status: Acute Plan 71M with pmh paroxysmal afib, celiac, presented with fevers/recurrence of perihepatic abscess. perihepatic abscess continue rocephin, follow up cultures paroxysmal afib acebutolol eliquis on hold for possible intervention
[2022-01-30] MEDS: HYDROmorphone HCl 0.5 MG/0.5 ML SYRINGE 1 MG IVPUSH (10:01)
--- NOTE | 2022-01-30 11:06 | MHC.CM.PN ---
Addendum entered by Catalina Brody 01/30/22 11:11: CM CALLED [facility] [phone] (opt#[id number]) AND LEFT A VOICEMAIL INFORMING THEM OF PTS WIFES SITUATION AND NEED FOR INCREASED SERVICES TEMPORARILY. THE MESSAGE INCLUDED CONTACT INFORMATION FOR PTS AND T/W. CM UNABLE TO LEAVE A VM FOR DR CERVANTES OFFICE REQUESTING A VNA FOR PTS THEY ARE CLOSED FOR THE WEEKEND AND ALL CALLS GO TO THE ANSWERING SERVICE CAN BE REATTEMPTED ON TUESDAY Original Note: PT REPORTS HE LIVES WITH, AND CARES FOR, HIS WHO HAS DEMENTIA. HE REPORTS HE WAS ACTIVE WITH [facility] FOR PT AND NURSING AFTER HIS RECENT DC BUT IS UNSURE HOW MUCH LONGER THEY WOULD BE SEEING HIM. HE IS INTERESTED IN HAVING THEM CONTINUE SERVICES. 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 HE IS ALSO INTERESTED IN HIS GETTING A VNA. HE REPORTS HER PCP IS NIEVES MILLS HOWEVER SHE IS IN THE PROCESS OF HAVING CHANGING OVER TO [facility] IMM DELIVERED CURRENT DC PLAN IS HOME WITH RESUMPTION OF (OR NEW ORDER FOR) [facility] FAMILY TO TRANSPORT
[2022-01-30] MEDS: HYDROmorphone HCl 1 MG/ML SYRINGE IVPUSH ×3 (14:36→23:10)
[2022-01-30] MEDS: cefTRIAXone sodium 1 GM in 0.9 % Sodium Chloride 50 ML IV (18:11)
[2022-01-31] VITALS (7 sets, daily range): BP systolic 103–150; BP diastolic 55–73; PULSE 76–88; RESP 16–18; TEMP 36.8–38.3; O2SAT 92–98
[2022-01-31] MEDS: oxyCODONE HCl Immed Release 5 MG TABLET PO ×2 (00:46→10:28)
[2022-01-31] MEDS: HYDROmorphone HCl 1 MG/ML SYRINGE IVPUSH ×6 (03:19→23:16)
[2022-01-31] MEDS: Lactated Ringers 1,000 ML 125 ML IVCONT (05:34)
[2022-01-31 06:13] LABS: Hematocrit 27.5 % (42.0-52.0); Hemoglobin 8.8 g/dl (14.0-18.0); Mean Corpuscular Hemoglobin 28.6 pg (27.0-33.0); Mean Corpuscular Volume 89.3 fL (80.0-98.0); Mean Platelet Volume 8.4 fL (9.4-12.4); Platelet Count 390 X10*3/uL (160-400); Red Blood Count 3.08 X10*6/uL (4.60-5.80); Red Cell Distribution Width 14.1 % (11.0-16.0); White Blood Count 15.3 X10*3/uL (4.8-10.8)
[2022-01-31 06:26] LABS: Anion Gap 14 (12-20); Blood Urea Nitrogen 14 mg/dL (9-16); Calcium 8.7 mg/dL (8.4-10.2); Carbon Dioxide 26 mmol/L (22-29); Chloride 99 mmol/L (96-108); Creatinine Clr Calc Pharmacy 78.7; Estimated Glomerular Filt Rate > 60; Glucose Fasting 97 mg/dL (60-99); Potassium 5.1 mmol/L (3.3-5.1); Sodium 134 mmol/L (135-145)
[2022-01-31] MEDS: Acetaminophen 325 MG TABLET 650 MG PO ×2 (06:32→16:24)
--- NOTE | 2022-01-31 06:38 | PC.NURSE ---
Temperature 100.9 orally medicated with 2 tylenol 0630.
--- NOTE | 2022-01-31 09:07 | HO.PM.IMPN ---
Subjective Subjective Date of Service: 01/31/22 Interval History: cc: abd pain interval history:severe abd pain Cardiovascular Cardiovascular: Reports no additional cardiovascular complaints Respiratory Respiratory: Reports no additional respiratory complaints Physical Exam Vital Signs: Vital Signs: Last Vital Signs Temp 99.7 F 01/31/22 08:00 Pulse 85 01/31/22 08:00 Resp 16 01/31/22 08:00 BP 132/61 01/31/22 08:00 Pulse Ox 93 01/31/22 08:00 O2 Del Method 01/31/22 08:00 BMI result Body Mass Index 24.3 General: AO X 3, in acute distress Resp: CTA bilateral, no accessory muscles used CVS: S1,S2,RRR GI: soft, tender, non distended Neuro: motor grossly intact, alert Psych: appropriate affect, appropriate insight Objective Data Active Medications Acetaminophen (Acetaminophen 325 Mg Tablet) 650 mg PO Q6H PRN PRN Reason: Fever >101 Last Admin: 01/31/22 06:32 Dose: 650 mg Documented By: ALEXEY Diltiazem HCl (Diltiazem Hcl 30 Mg Tablet) 30 mg PO ONCE PRN; Protocol PRN Reason: For atrial fibrillation Hydromorphone HCl (Hydromorphone Hcl 1 Mg/Ml Syringe) 1 mg IVPUSH Q4H PRN; Protocol PRN Reason: Pain, Severe (Pain Scale 7-10) Last Admin: 01/31/22 03:19 Dose: 1 mg Documented By: ALEXEY Lactated Ringer's (Lr) 1,000 mls @ 125 mls/hr IVCONT .Q8H ANTIONE Last Admin: 01/31/22 05:34 Dose: 125 mls/hr Documented By: ALEXEY Ceftriaxone Sodium 1 gm/ (Sodium Chloride) 50 mls @ 100 mls/hr IV Q24H [facility] Last Infusion: 01/30/22 19:22 Dose: 0 mls/hr Documented By: ALEXEY Promethazine HCl 6.25 mg/ (Sodium Chloride) 50.25 mls @ 201 mls/hr IV Q6H PRN PRN Reason: nausea Last Infusion: 01/31/22 03:58 Dose: 0 mls/hr Documented By: ALEXEY Non-Formulary Medication (Acebutolol) 400 mg PO BID [facility] Last Admin: 01/31/22 08:28 Dose: 400 mg Documented By: JD Ondansetron HCl (Ondansetron Hcl 4 Mg/2 Ml Vial) 4 mg IVPUSH Q8H PRN PRN Reason: Nausea and Vomiting Last Admin: 01/30/22 23:15 Dose: 4 mg Documented By: ALEXEY Oxycodone HCl (Oxycodone Hcl Immed Release 5 Mg Tablet) 5 mg PO Q6H PRN PRN Reason: Pain, Moderate (Pain Scale 4-6 Last Admin: 01/31/22 00:46 Dose: 5 mg Documented By: ALEXEY Pharmacy Consult (Consult Rx Perform Med Rec) 1 each MISCELLANE ONCE PRN PRN Reason: Consult order Sodium Chloride (0.9 % Sodium Chloride Flush 3 Ml Syringe) 3 ml IVFLUSH QSHIFT [facility] Last Admin: 01/31/22 08:30 Dose: Not Given Documented By: JD Non-Admin Reason: IV Running Labs CBC & Chem 7: 01/31/22 05:55 01/31/22 05:55 Labs: Laboratory Results - last 24 hr 01/31/22 01/31/22 05:55 05:55 MCV 89.3 MCH 28.6 MCHC 32.0 RDW 14.1 Plt Count 390 MPV 8.4 L Absolute Nucleated RBC 0.000 Nucleated RBC % (auto) 0.0 Anion Gap 14 Estim Creat Clear Calc 78.7 Estimated GFR > 60 Fasting Glucose 97 Calcium 8.7 Microbiology Microbiology Results: Microbiology 01/29/22 18:57 Blood Culture - Preliminary Blood - Venous No growth after 24 hours. 01/29/22 18:29 Blood Culture - Preliminary Blood - Venous No growth after 24 hours. Assessment and Plan (1) Abscess of abdominal cavity: Status: Acute Plan 71M with pmh paroxysmal afib, celiac, presented with fevers/recurrence of perihepatic abscess. sepsis without severe features due to perihepatic abscess continue Rocephin, follow up cultures, plan for IR drainage 02/01/22 pain control DONNY resolved with IV fluids paroxysmal afib acebutolol eliquis on hold for IR drainage Quality Stroke Does the patient have a stroke diagnosis?: No VTE Prior VTE?: No VTE Risk Level:: Medical - moderate - high VTE Device Contraindication: N/A - Device Ordered VTE Drug Contraindication: Treatment Not Indicated
[2022-01-31] MEDS: ondansetron HCL 4 MG/2 ML VIAL IVPUSH ×2 (09:09→19:58)
--- NOTE | 2022-01-31 09:42 | PM.PNGS ---
Subjective Subjective Date of Service: 01/31/22 Interval history: he has same pain on right side of chest and flank/abdomen says he has poor appetite Tm 100.9 last night Physical Exam Vital Signs: Vital Signs: Last Vital Signs Temp 99.7 F 01/31/22 08:00 Pulse 85 01/31/22 08:00 Resp 16 01/31/22 08:00 BP 132/61 01/31/22 08:00 Pulse Ox 93 01/31/22 08:00 O2 Del Method 01/31/22 08:00 BMI result Body Mass Index 24.3 Const: Other: anxious General: no acute distress Resp: Effort & Inspection: normal respiratory effort Cardio: Rate: regular rate GI: Other: tender on right side of abdomen and chest wall, no skin changes, no palpable mass Palpation (GI): Soft to palpation, not firm and no guarding Objective Data Active Medications Acetaminophen (Acetaminophen 325 Mg Tablet) 650 mg PO Q6H PRN PRN Reason: Fever >101 Last Admin: 01/31/22 06:32 Dose: 650 mg Documented By: ALEXEY Diltiazem HCl (Diltiazem Hcl 30 Mg Tablet) 30 mg PO ONCE PRN; Protocol PRN Reason: For atrial fibrillation Hydromorphone HCl (Hydromorphone Hcl 1 Mg/Ml Syringe) 1 mg IVPUSH Q4H PRN; Protocol PRN Reason: Pain, Severe (Pain Scale 7-10) Last Admin: 01/31/22 09:09 Dose: 1 mg Documented By: JD Ceftriaxone Sodium 1 gm/ (Sodium Chloride) 50 mls @ 100 mls/hr IV Q24H [facility] Last Infusion: 01/30/22 19:22 Dose: 0 mls/hr Documented By: ALEXEY Promethazine HCl 6.25 mg/ (Sodium Chloride) 50.25 mls @ 201 mls/hr IV Q6H PRN PRN Reason: nausea Last Infusion: 01/31/22 03:58 Dose: 0 mls/hr Documented By: ALEXEY Non-Formulary Medication (Acebutolol) 400 mg PO BID [facility] Last Admin: 01/31/22 08:28 Dose: 400 mg Documented By: JD Ondansetron HCl (Ondansetron Hcl 4 Mg/2 Ml Vial) 4 mg IVPUSH Q8H PRN PRN Reason: Nausea and Vomiting Last Admin: 01/31/22 09:09 Dose: 4 mg Documented By: JD Oxycodone HCl (Oxycodone Hcl Immed Release 5 Mg Tablet) 5 mg PO Q6H PRN PRN Reason: Pain, Moderate (Pain Scale 4-6 Last Admin: 01/31/22 00:46 Dose: 5 mg Documented By: ALEXEY Pharmacy Consult (Consult Rx Perform Med Rec) 1 each MISCELLANE ONCE PRN PRN Reason: Consult order Sodium Chloride (0.9 % Sodium Chloride Flush 3 Ml Syringe) 3 ml IVFLUSH QSHIFT ANTIONE Last Admin: 01/31/22 08:30 Dose: Not Given Documented By: JD Non-Admin Reason: IV Running Labs CBC & Chem 7: 01/31/22 05:55 01/31/22 05:55 Labs: Laboratory Results - last 24 hr 01/31/22 01/31/22 05:55 05:55 MCV 89.3 MCH 28.6 MCHC 32.0 RDW 14.1 Plt Count 390 MPV 8.4 L Absolute Nucleated RBC 0.000 Nucleated RBC % (auto) 0.0 Anion Gap 14 Estim Creat Clear Calc 78.7 Estimated GFR > 60 Fasting Glucose 97 Calcium 8.7 Microbiology Microbiology Results: Microbiology 01/29/22 18:57 Blood Culture - Preliminary Blood - Venous No growth after 24 hours. 01/29/22 18:29 Blood Culture - Preliminary Blood - Venous No growth after 24 hours. Procedures Date of Service Date of Service: 01/31/22 Progress Note: A&P Assessment and plan (1) Abscess of abdominal cavity: Status: Acute Assessment and Plan: continues to have same pain low grade temps dw radiologist - IR drain can be done tomorrow when staff available continue ceftriaxone diet as tolerated - pt says he has poor appetite however abdomen soft WBC trending down Time Spent With Patient Time: Total time spent is greater than 50% in coordination of care (as documented) at patient's floor/unit and/or counseling patient: Quality Stroke Does the patient have a stroke diagnosis?: No VTE Prior VTE?: No VTE Risk Level:: Medical - moderate - high VTE Device Contraindication: N/A - Device Ordered VTE Drug Contraindication: Treatment Not Indicated
[2022-01-31] MEDS: 0.9 % Sodium Chloride Flush 3 ML SYRINGE IVFLUSH ×2 (16:28→20:00)
[2022-01-31] MEDS: cefTRIAXone sodium 1 GM in 0.9 % Sodium Chloride 50 ML IV (17:26)
[2022-02-01] VITALS (11 sets, daily range): BP systolic 107–141; BP diastolic 51–68; PULSE 71–90; RESP 13–21; TEMP 36.6–39.7; O2SAT 91–99; BMI 24.3
[2022-02-01] MEDS: Acetaminophen 325 MG TABLET 650 MG PO ×2 (00:30→13:50)
[2022-02-01] MEDS: HYDROmorphone HCl 1 MG/ML SYRINGE IVPUSH ×4 (03:39→15:06)
[2022-02-01] MEDS: ondansetron HCL 4 MG/2 ML VIAL IVPUSH ×2 (04:08→11:59)
[2022-02-01] MEDS: 0.9 % Sodium Chloride Flush 3 ML SYRINGE IVFLUSH ×3 (07:47→20:07)
--- NOTE | 2022-02-01 08:58 | HO.PM.IMPN ---
Subjective Subjective Date of Service: 02/01/22 Interval History: cc: abd pain interval history:severe abd pain Cardiovascular Cardiovascular: Reports no additional cardiovascular complaints Respiratory Respiratory: Reports no additional respiratory complaints Physical Exam Vital Signs: Vital Signs: Last Vital Signs Temp 99.3 F 02/01/22 07:12 Pulse 81 02/01/22 07:12 Resp 18 02/01/22 07:12 BP 117/58 L 02/01/22 07:12 Pulse Ox 96 02/01/22 07:12 O2 Del Method 02/01/22 07:12 BMI result Body Mass Index 24.3 Const: Other: anxious General: no acute distress Resp: Effort & Inspection: normal respiratory effort Cardio: Rate: regular rate GI: Other: tender on right side of abdomen and chest wall, no skin changes, no palpable mass Palpation (GI): Soft to palpation, not firm and no guarding Objective Data Active Medications Acetaminophen (Acetaminophen 325 Mg Tablet) 650 mg PO Q6H PRN PRN Reason: Fever >101 Last Admin: 02/01/22 00:30 Dose: 650 mg Documented By: YA Diltiazem HCl (Diltiazem Hcl 30 Mg Tablet) 30 mg PO ONCE PRN; Protocol PRN Reason: For atrial fibrillation Hydromorphone HCl (Hydromorphone Hcl 1 Mg/Ml Syringe) 1 mg IVPUSH Q3H PRN; Protocol PRN Reason: Pain, Severe (Pain Scale 7-10) Last Admin: 02/01/22 07:47 Dose: 1 mg Documented By: JD Ceftriaxone Sodium 1 gm/ (Sodium Chloride) 50 mls @ 100 mls/hr IV Q24H [facility] Last Infusion: 01/31/22 18:12 Dose: 0 mls/hr Documented By: JD Promethazine HCl 6.25 mg/ (Sodium Chloride) 50.25 mls @ 201 mls/hr IV Q6H PRN PRN Reason: nausea Last Infusion: 02/01/22 08:09 Dose: 0 mls/hr Documented By: JD Non-Formulary Medication (Acebutolol) 400 mg PO BID [facility] Last Admin: 02/01/22 07:47 Dose: 400 mg Documented By: JD Ondansetron HCl (Ondansetron Hcl 4 Mg/2 Ml Vial) 4 mg IVPUSH Q8H PRN PRN Reason: Nausea and Vomiting Last Admin: 02/01/22 04:08 Dose: 4 mg Documented By: YA Oxycodone HCl (Oxycodone Hcl Immed Release 5 Mg Tablet) 5 mg PO Q6H PRN PRN Reason: Pain, Moderate (Pain Scale 4-6 Last Admin: 01/31/22 10:28 Dose: 5 mg Documented By: JD Pharmacy Consult (Consult Rx Perform Med Rec) 1 each MISCELLANE ONCE PRN PRN Reason: Consult order Sodium Chloride (0.9 % Sodium Chloride Flush 3 Ml Syringe) 3 ml IVFLUSH QSHIFT ANTIONE Last Admin: 02/01/22 07:47 Dose: 3 ml Documented By: JD Labs CBC & Chem 7: 01/31/22 05:55 01/31/22 05:55 Microbiology Microbiology Results: Microbiology 01/29/22 18:57 Blood Culture - Preliminary Blood - Venous No growth after 48 hours. 01/29/22 18:29 Blood Culture - Preliminary Blood - Venous No growth after 48 hours. Assessment and Plan (1) Abscess of abdominal cavity: Status: Acute Plan 71M with pmh paroxysmal afib, celiac, presented with fevers/recurrence of perihepatic abscess. sepsis without severe features due to perihepatic abscess continue Rocephin, follow up cultures, plan for IR drainage today 02/01/22 pain control DONNY resolved with IV fluids paroxysmal afib acebutolol eliquis on hold for IR drainage Quality Stroke Does the patient have a stroke diagnosis?: No VTE Prior VTE?: No VTE Risk Level:: Medical - moderate - high VTE Device Contraindication: N/A - Device Ordered VTE Drug Contraindication: Treatment Not Indicated
[2022-02-01] MEDS: oxyCODONE HCl Immed Release 5 MG TABLET PO (09:57)
--- NOTE | 2022-02-01 16:09 | P.PNGS_ITS ---
Subjective Subjective Date of Service: 02/01/22 Interval history: Continued right-sided abdominal pain, anorexia, fever Physical Exam Vital Signs: Vital Signs: Last Vital Signs Temp 98.6 F 02/01/22 16:00 Pulse 75 02/01/22 16:00 Resp 18 02/01/22 16:00 BP 107/59 L 02/01/22 16:00 Pulse Ox 92 02/01/22 16:00 O2 Del Method 02/01/22 16:00 BMI result Body Mass Index 24.3 Const: General: ill appearing and tired appearing Resp: Effort & Inspection: normal respiratory effort GI: Inspection: Yes normal to inspection Palpation (GI): Soft to palpation and Tenderness to palpation present (GI) in the RUQ Percussion: Yes normal to percussion Auscultation: normal bowel sounds Skin: General skin exam: no rashes or lesions noted Objective Data Active Medications Acetaminophen (Acetaminophen 325 Mg Tablet) 650 mg PO Q6H PRN PRN Reason: Fever >101 Last Admin: 02/01/22 13:50 Dose: 650 mg Documented By: WILFRIDO Diltiazem HCl (Diltiazem Hcl 30 Mg Tablet) 30 mg PO ONCE PRN; Protocol PRN Reason: For atrial fibrillation Hydromorphone HCl (Hydromorphone Hcl 1 Mg/Ml Syringe) 1 mg IVPUSH Q3H PRN; Protocol PRN Reason: Pain, Severe (Pain Scale 7-10) Last Admin: 02/01/22 15:06 Dose: 1 mg Documented By: JD Ceftriaxone Sodium 1 gm/ (Sodium Chloride) 50 mls @ 100 mls/hr IV Q24H [facility] Last Infusion: 01/31/22 18:12 Dose: 0 mls/hr Documented By: JD Promethazine HCl 6.25 mg/ (Sodium Chloride) 50.25 mls @ 201 mls/hr IV Q6H PRN PRN Reason: nausea Last Infusion: 02/01/22 08:09 Dose: 0 mls/hr Documented By: JD Non-Formulary Medication (Acebutolol) 400 mg PO BID [facility] Last Admin: 02/01/22 07:47 Dose: 400 mg Documented By: JD Ondansetron HCl (Ondansetron Hcl 4 Mg/2 Ml Vial) 4 mg IVPUSH Q8H PRN PRN Reason: Nausea and Vomiting Last Admin: 02/01/22 11:59 Dose: 4 mg Documented By: JD Oxycodone HCl (Oxycodone Hcl Immed Release 5 Mg Tablet) 5 mg PO Q6H PRN PRN Reason: Pain, Moderate (Pain Scale 4-6 Last Admin: 02/01/22 09:57 Dose: 5 mg Documented By: JD Pharmacy Consult (Consult Rx Perform Med Rec) 1 each MISCELLANE ONCE PRN PRN Reason: Consult order Sodium Chloride (0.9 % Sodium Chloride Flush 3 Ml Syringe) 3 ml IVFLUSH QSHIFT [facility] Last Admin: 02/01/22 07:47 Dose: 3 ml Documented By: JD Labs CBC & Chem 7: 01/31/22 05:55 01/31/22 05:55 Microbiology Microbiology Results: Microbiology 02/01/22 13:25 Gram Stain - Final Abdominal Fluid 01/29/22 18:57 Blood Culture - Preliminary Blood - Venous No growth after 48 hours. 01/29/22 18:29 Blood Culture - Preliminary Blood - Venous No growth after 48 hours. Procedures Date of Service Date of Service: 02/01/22 Progress Note: A&P Assessment and plan (1) Abscess of abdominal cavity: Status: Acute Plan Patient returns with a recurrent abscess of the abdominal wall/abdominal cavity related to a dropped gallstone. Patient underwent IR drainage today with production of a large collection of pus. IR catheter left in place for continued drainage. Will await culture results and adjust antibiotics as necessary. Time Spent With Patient Time: Total time spent is greater than 50% in coordination of care (as documented) at patient's floor/unit and/or counseling patient: Quality Stroke Does the patient have a stroke diagnosis?: No VTE Prior VTE?: No VTE Risk Level:: Medical - moderate - high VTE Device Contraindication: N/A - Device Ordered VTE Drug Contraindication: Treatment Not Indicated
[2022-02-01] MEDS: cefTRIAXone sodium 1 GM in 0.9 % Sodium Chloride 50 ML IV (17:26)
[2022-02-01] MEDS: oxyCODONE HCl Immed Release 5 MG TABLET 10 MG PO (18:00)
[2022-02-01] MEDS: HYDROmorphone HCl 1 MG/ML SYRINGE 0.5 MG IVPUSH ×2 (20:02→23:35)
[2022-02-02] VITALS (10 sets, daily range): BP systolic 99–127; BP diastolic 53–66; PULSE 69–76; RESP 17–19; TEMP 36.3–36.8; O2SAT 93–95
[2022-02-02] MEDS: oxyCODONE HCl Immed Release 5 MG TABLET 10 MG PO ×2 (03:39→12:36)
[2022-02-02] MEDS: HYDROmorphone HCl 1 MG/ML SYRINGE 0.5 MG IVPUSH (04:47)
[2022-02-02 06:51] LABS: MANUAL DIFF FLAG NO
[2022-02-02 06:56] LABS: Basophils Absolute Auto 0.1 X10*3/uL (0.0-0.2); Basophils Percent Auto 0.6 % (0-2); Eosinophils Absolute Auto 0.2 X10*3/uL (0.0-0.4); Hematocrit 28.9 % (42.0-52.0); Hemoglobin 9.2 g/dl (14.0-18.0); Imm Gran Abs Auto 0.03 X10*3/uL (0.00-0.03); Imm Gran Pct Auto 0.4 % (0.0-0.4); Lymphocytes Absolute Auto 1.5 X10*3/uL (1.2-4.9); Lymphocytes Percent Auto 18.8 % (20-40); Mean Corpuscular HGB Conc 31.8 g/dl (31.0-36.0); Mean Corpuscular Hemoglobin 28.7 pg (27.0-33.0); Mean Platelet Volume 8.6 fL (9.4-12.4); Monocytes Absolute Auto 0.8 X10*3/uL (0.1-1.2); Monocytes Percent Auto 9.6 % (2-11); Neutrophils Absolute Auto 5.6 x10*3/uL (2.0-8.3); Neutrophils Percent Auto 68.6 % (45-73); Platelet Count 434 X10*3/uL (160-400); Red Blood Count 3.21 X10*6/uL (4.60-5.80); Red Cell Distribution Width 13.9 % (11.0-16.0); White Blood Count 8.1 X10*3/uL (4.8-10.8)
[2022-02-02 07:28] LABS: Anion Gap 15 (12-20); Blood Urea Nitrogen 17 mg/dL (9-16); Calcium 8.7 mg/dL (8.4-10.2); Carbon Dioxide 27 mmol/L (22-29); Chloride 96 mmol/L (96-108); Creatinine Clr Calc Pharmacy 73.7; Estimated Glomerular Filt Rate > 60; Glucose Fasting 94 mg/dL (60-99); Potassium 4.7 mmol/L (3.3-5.1); Sodium 133 mmol/L (135-145)
[2022-02-02 07:32] LABS: Anion Gap 17 (12-20); Blood Urea Nitrogen 17 mg/dL (9-16); Calcium 8.8 mg/dL (8.4-10.2); Carbon Dioxide 26 mmol/L (22-29); Chloride 97 mmol/L (96-108); Creatinine Clr Calc Pharmacy 72.9; Estimated Glomerular Filt Rate > 60; Glucose Random 96 mg/dL (60-115); Potassium 4.9 mmol/L (3.3-5.1); Sodium 135 mmol/L (135-145)
[2022-02-02] MEDS: HYDROmorphone HCl 1 MG/ML SYRINGE IVPUSH ×5 (08:19→21:44)
[2022-02-02] MEDS: ondansetron HCL 4 MG/2 ML VIAL IVPUSH (08:19)
[2022-02-02] MEDS: 0.9 % Sodium Chloride Flush 3 ML SYRINGE IVFLUSH ×3 (08:20→21:58)
[2022-02-02] MEDS: polyethylene glycoL 3350 17 GM POWD.PACK PO (08:31)
--- NOTE | 2022-02-02 09:20 | HO.PM.IMPN ---
Subjective Subjective Date of Service: 02/02/22 Interval History: cc: abd pain interval history:abd pain shifted Cardiovascular Cardiovascular: Reports no additional cardiovascular complaints Respiratory Respiratory: Reports no additional respiratory complaints Physical Exam Vital Signs: Vital Signs: Last Vital Signs Temp 98.2 F 02/02/22 07:43 Pulse 70 02/02/22 07:43 Resp 19 02/02/22 08:19 BP 103/53 L 02/02/22 07:43 Pulse Ox 94 02/02/22 07:43 O2 Del Method 02/02/22 07:43 BMI result Body Mass Index 24.3 Const: General: ill appearing and tired appearing Resp: Effort & Inspection: normal respiratory effort GI: Inspection: Yes normal to inspection Palpation (GI): Soft to palpation and Tenderness to palpation present (GI) in the RUQ Percussion: Yes normal to percussion Auscultation: normal bowel sounds Skin: General skin exam: no rashes or lesions noted Objective Data Active Medications Acetaminophen (Acetaminophen 325 Mg Tablet) 650 mg PO Q6H PRN PRN Reason: Fever >101 Last Admin: 02/01/22 13:50 Dose: 650 mg Documented By: WILFRIDO Diltiazem HCl (Diltiazem Hcl 30 Mg Tablet) 30 mg PO ONCE PRN; Protocol PRN Reason: For atrial fibrillation Hydromorphone HCl (Hydromorphone Hcl 1 Mg/Ml Syringe) 1 mg IVPUSH Q2H PRN; Protocol PRN Reason: Pain, Severe (Pain Scale 7-10) Last Admin: 02/02/22 08:19 Dose: 1 mg Documented By: ARLEY Ceftriaxone Sodium 1 gm/ (Sodium Chloride) 50 mls @ 100 mls/hr IV Q24H [facility] Last Infusion: 02/01/22 18:31 Dose: 0 mls/hr Documented By: JD Promethazine HCl 6.25 mg/ (Sodium Chloride) 50.25 mls @ 201 mls/hr IV Q6H PRN PRN Reason: nausea Last Infusion: 02/01/22 08:09 Dose: 0 mls/hr Documented By: JD Non-Formulary Medication (Acebutolol) 400 mg PO BID [facility] Last Admin: 02/02/22 08:19 Dose: 400 mg Documented By: ARLEY Ondansetron HCl (Ondansetron Hcl 4 Mg/2 Ml Vial) 4 mg IVPUSH Q8H PRN PRN Reason: Nausea and Vomiting Last Admin: 02/02/22 08:19 Dose: 4 mg Documented By: COTEMA Oxycodone HCl (Oxycodone Hcl Immed Release 5 Mg Tablet) 10 mg PO Q4H PRN PRN Reason: [facility] Consult (Consult Rx Perform Med Rec) 1 each MISCELLANE ONCE PRN PRN Reason: Consult order Polyethylene Glycol (Polyethylene Glycol 3350 17 Gm Powd.Pack) 17 gm PO DAILY PRN PRN Reason: Constipation Last Admin: 02/02/22 08:31 Dose: 17 gm Documented By: MICHIEMA Sodium Chloride (0.9 % Sodium Chloride Flush 3 Ml Syringe) 3 ml IVFLUSH QSHIFT ANTIONE Last Admin: 02/02/22 08:20 Dose: 3 ml Documented By: ARLEY Labs CBC & Chem 7: 02/02/22 05:57 02/02/22 05:57 Labs: Laboratory Results - last 24 hr 02/02/22 02/02/22 02/02/22 05:57 05:57 05:57 MCV 90.0 MCH 28.7 MCHC 31.8 RDW 13.9 Plt Count 434 H MPV 8.6 L Immature Gran % (Auto) 0.4 Neut % (Auto) 68.6 Lymph % (Auto) 18.8 L [place] % (Auto) 9.6 Eos % (Auto) 2.0 Baso % (Auto) 0.6 Lymph # (Auto) 1.5 [place] # (Auto) 0.8 Eos # (Auto) 0.2 Baso # (Auto) 0.1 Abs Immat Gran (auto) 0.03 Absolute Neuts (auto) 5.6 Absolute Nucleated RBC 0.000 Nucleated RBC % (auto) 0.0 Anion Gap 17 15 Estim Creat Clear Calc 72.9 73.7 Estimated GFR > 60 > 60 Random Glucose 96 Fasting Glucose 94 Calcium 8.8 8.7 Microbiology Microbiology Results: Microbiology 02/01/22 13:25 Gram Stain - Final Abdominal Fluid Routine Culture - Preliminary Gram negative sandra Assessment and Plan (1) Abscess of abdominal cavity: Status: Acute Plan 71M with pmh paroxysmal afib, celiac, presented with fevers/recurrence of perihepatic abscess. sepsis without severe features due to perihepatic abscess continue Rocephin, follow up cultures, s/p IR drainage 02/01/22 initially purulent, now serosangounous, drain in place, gram stain of fluid GNR, was ecoli previously pain control DONNY resolved with IV fluids paroxysmal afib acebutolol eliquis was on hold for IR drainage, can restart if no further intervention anticipated Quality Stroke Does the patient have a stroke diagnosis?: No VTE Prior VTE?: No VTE Risk Level:: Medical - moderate - high VTE Device Contraindication: N/A - Device Ordered VTE Drug Contraindication: Treatment Not Indicated
--- NOTE | 2022-02-02 11:54 | P.PNGS_ITS ---
Subjective Subjective Date of Service: 02/02/22 Interval history: Patient complains of right-sided pain, did not tolerate change to oral pain medication. ADIEL is now producing serosanguineous fluid. Physical Exam Vital Signs: Vital Signs: Last Vital Signs Temp 98.2 F 02/02/22 11:18 Pulse 69 02/02/22 11:18 Resp 19 02/02/22 11:18 BP 124/61 02/02/22 11:18 Pulse Ox 95 02/02/22 11:18 O2 Del Method 02/02/22 11:18 BMI result Body Mass Index 24.3 Const: General: tired appearing Nutritional Appearance: thin Orientation/consciousness: patient oriented x3 Resp: Effort & Inspection: normal respiratory effort GI: Other: Drain site is clean, dry and intact. ADIEL with serosanguineous output. Skin: Other: Warm, dry, no rash Neuro: General: patient oriented x3 Extrem: General: Yes no pedal edema Objective Data Active Medications Acetaminophen (Acetaminophen 325 Mg Tablet) 650 mg PO Q6H PRN PRN Reason: Fever >101 Last Admin: 02/01/22 13:50 Dose: 650 mg Documented By: WILFRIDO Diltiazem HCl (Diltiazem Hcl 30 Mg Tablet) 30 mg PO ONCE PRN; Protocol PRN Reason: For atrial fibrillation Hydromorphone HCl (Hydromorphone Hcl 1 Mg/Ml Syringe) 1 mg IVPUSH Q2H PRN; Protocol PRN Reason: Pain, Severe (Pain Scale 7-10) Last Admin: 02/02/22 10:37 Dose: 1 mg Documented By: ARLEY Ceftriaxone Sodium 1 gm/ (Sodium Chloride) 50 mls @ 100 mls/hr IV Q24H [facility] Last Infusion: 02/01/22 18:31 Dose: 0 mls/hr Documented By: JD Promethazine HCl 6.25 mg/ (Sodium Chloride) 50.25 mls @ 201 mls/hr IV Q6H PRN PRN Reason: nausea Last Infusion: 02/01/22 08:09 Dose: 0 mls/hr Documented By: JD Non-Formulary Medication (Acebutolol) 400 mg PO BID [facility] Last Admin: 02/02/22 08:19 Dose: 400 mg Documented By: ARLEY Ondansetron HCl (Ondansetron Hcl 4 Mg/2 Ml Vial) 4 mg IVPUSH Q8H PRN PRN Reason: Nausea and Vomiting Last Admin: 02/02/22 08:19 Dose: 4 mg Documented By: COTEMA Oxycodone HCl (Oxycodone Hcl Immed Release 5 Mg Tablet) 10 mg PO Q4H PRN PRN Reason: [facility] Consult (Consult Rx Perform Med Rec) 1 each MISCELLANE ONCE PRN PRN Reason: Consult order Polyethylene Glycol (Polyethylene Glycol 3350 17 Gm Powd.Pack) 17 gm PO DAILY PRN PRN Reason: Constipation Last Admin: 02/02/22 08:31 Dose: 17 gm Documented By: COTEMA Sodium Chloride (0.9 % Sodium Chloride Flush 3 Ml Syringe) 3 ml IVFLUSH QSHIFT ANTIONE Last Admin: 02/02/22 08:20 Dose: 3 ml Documented By: ARLEY Labs CBC & Chem 7: 02/02/22 05:57 02/02/22 05:57 Labs: Laboratory Results - last 24 hr 02/02/22 02/02/22 02/02/22 05:57 05:57 05:57 MCV 90.0 MCH 28.7 MCHC 31.8 RDW 13.9 Plt Count 434 H MPV 8.6 L Immature Gran % (Auto) 0.4 Neut % (Auto) 68.6 Lymph % (Auto) 18.8 L [place] % (Auto) 9.6 Eos % (Auto) 2.0 Baso % (Auto) 0.6 Lymph # (Auto) 1.5 [place] # (Auto) 0.8 Eos # (Auto) 0.2 Baso # (Auto) 0.1 Abs Immat Gran (auto) 0.03 Absolute Neuts (auto) 5.6 Absolute Nucleated RBC 0.000 Nucleated RBC % (auto) 0.0 Anion Gap 17 15 Estim Creat Clear Calc 72.9 73.7 Estimated GFR > 60 > 60 Random Glucose 96 Fasting Glucose 94 Calcium 8.8 8.7 Microbiology Microbiology Results: Microbiology 02/01/22 13:25 Gram Stain - Final Abdominal Fluid Routine Culture - Preliminary Gram negative sandra Anaerobic Culture - Preliminary Culture in progress. Procedures Date of Service Date of Service: 02/02/22 Progress Note: A&P Assessment and plan (1) Abscess of abdominal cavity: Status: Acute Plan Patient has increased discomfort due to pain medication switch. Will increase his Dilaudid for better pain control. Continue antibiotics pending wound cul ture results. WBC is now normalized. Monitor ADIEL output. Time Spent With Patient Time: Total time spent is greater than 50% in coordination of care (as documented) at patient's floor/unit and/or counseling patient: Quality Stroke Does the patient have a stroke diagnosis?: No VTE Prior VTE?: No VTE Risk Level:: Medical - moderate - high VTE Device Contraindication: N/A - Device Ordered VTE Drug Contraindication: Treatment Not Indicated
[2022-02-02] MEDS: Omeprazole 20 MG CAPSULE.DR PO (16:43)
[2022-02-02] MEDS: cefTRIAXone sodium 1 GM in 0.9 % Sodium Chloride 50 ML IV (18:07)
[2022-02-03] VITALS (11 sets, daily range): BP systolic 103–128; BP diastolic 54–72; PULSE 68–79; RESP 16–18; TEMP 35.7–37.2; O2SAT 94–97
[2022-02-03] MEDS: oxyCODONE HCl Immed Release 5 MG TABLET 10 MG PO ×2 (00:03→23:49)
[2022-02-03] MEDS: HYDROmorphone HCl 1 MG/ML SYRINGE IVPUSH ×6 (03:57→20:35)
[2022-02-03] MEDS: Omeprazole 20 MG CAPSULE.DR PO ×2 (06:10→16:00)
[2022-02-03 07:00] LABS: Hematocrit 27.7 % (42.0-52.0); Hemoglobin 8.7 g/dl (14.0-18.0); Mean Corpuscular HGB Conc 31.4 g/dl (31.0-36.0); Mean Corpuscular Hemoglobin 28.3 pg (27.0-33.0); Mean Corpuscular Volume 90.2 fL (80.0-98.0); Mean Platelet Volume 8.4 fL (9.4-12.4); Platelet Count 462 X10*3/uL (160-400); Red Blood Count 3.07 X10*6/uL (4.60-5.80); Red Cell Distribution Width 13.9 % (11.0-16.0); White Blood Count 6.9 X10*3/uL (4.8-10.8)
[2022-02-03 07:16] LABS: Anion Gap 14 (12-20); Blood Urea Nitrogen 18 mg/dL (9-16); Calcium 8.7 mg/dL (8.4-10.2); Carbon Dioxide 28 mmol/L (22-29); Chloride 99 mmol/L (96-108); Creatinine Clr Calc Pharmacy 85.4; Estimated Glomerular Filt Rate > 60; Glucose Fasting 96 mg/dL (60-99); Potassium 4.8 mmol/L (3.3-5.1); Sodium 136 mmol/L (135-145)
[2022-02-03] MEDS: 0.9 % Sodium Chloride Flush 3 ML SYRINGE IVFLUSH ×3 (08:31→20:36)
--- NOTE | 2022-02-03 10:37 | P.PNGS_ITS ---
Subjective Subjective Date of Service: 02/03/22 Interval history: Continuyes to require IV analgesics for pain. Po intake is increasing. Would like to see PT and nutrition. Physical Exam Vital Signs: Vital Signs: Last Vital Signs Temp 96.7 F L 02/03/22 07:31 Pulse 68 02/03/22 07:31 Resp 18 02/03/22 07:31 BP 110/60 02/03/22 07:31 Pulse Ox 96 02/03/22 07:31 O2 Del Method 02/03/22 07:31 BMI result Body Mass Index 24.3 Const: General: no acute distress and alert Nutritional Appearance: thin Orientation/consciousness: patient oriented x3 Resp: Effort & Inspection: normal respiratory effort GI: Other: small hematoma at drain insertion; drain continues with purulence Inspection: No distended Palpation (GI): Soft to palpation, Tenderness to palpation present (GI) (tender at RUQ and drain site), no guarding and not rigid Skin: General skin exam: no rashes or lesions noted Neuro: General: patient oriented x3 Objective Data Active Medications Acetaminophen (Acetaminophen 325 Mg Tablet) 650 mg PO Q6H PRN PRN Reason: Fever >101 Last Admin: 02/01/22 13:50 Dose: 650 mg Documented By: WILFRIDO Diltiazem HCl (Diltiazem Hcl 30 Mg Tablet) 30 mg PO ONCE PRN; Protocol PRN Reason: For atrial fibrillation Hydromorphone HCl (Hydromorphone Hcl 1 Mg/Ml Syringe) 1 mg IVPUSH Q2H PRN; Protocol PRN Reason: Pain, Severe (Pain Scale 7-10) Last Admin: 02/03/22 08:30 Dose: 1 mg Documented By: EFREN Comments: threw away vile Ceftriaxone Sodium 1 gm/ (Sodium Chloride) 50 mls @ 100 mls/hr IV Q24H [facility] Last Infusion: 02/02/22 18:43 Dose: 0 mls/hr Documented By: COTEMA Promethazine HCl 6.25 mg/ (Sodium Chloride) 50.25 mls @ 201 mls/hr IV Q6H PRN PRN Reason: nausea Last Infusion: 02/03/22 09:10 Dose: 0 mls/hr Documented By: COTEMA Non-Formulary Medication (Acebutolol) 400 mg PO BID [facility] Last Admin: 02/03/22 08:29 Dose: 400 mg Documented By: EFREN Omeprazole (Omeprazole 20 Mg Capsule.Dr) 20 mg PO BID@0630,1630 [facility] Last Admin: 02/03/22 06:10 Dose: 20 mg Documented By: MARK Ondansetron HCl (Ondansetron Hcl 4 Mg/2 Ml Vial) 4 mg IVPUSH Q8H PRN PRN Reason: Nausea and Vomiting Last Admin: 02/02/22 08:19 Dose: 4 mg Documented By: MICHIEMA Oxycodone HCl (Oxycodone Hcl Immed Release 5 Mg Tablet) 10 mg PO Q4H PRN PRN Reason: [facility] Last Admin: 02/03/22 00:03 Dose: 10 mg Documented By: MARK Pharmacy Consult (Consult Rx Perform Med Rec) 1 each MISCELLANE ONCE PRN PRN Reason: Consult order Polyethylene Glycol (Polyethylene Glycol 3350 17 Gm Powd.Pack) 17 gm PO DAILY PRN PRN Reason: Constipation Last Admin: 02/02/22 08:31 Dose: 17 gm Documented By: ARLEY Sodium Chloride (0.9 % Sodium Chloride Flush 3 Ml Syringe) 3 ml IVFLUSH QSHIFT [facility] Last Admin: 02/03/22 08:31 Dose: 3 ml Documented By: EFREN Labs CBC & Chem 7: 02/03/22 05:59 02/03/22 05:59 Labs: Laboratory Results - last 24 hr 02/03/22 02/03/22 05:59 05:59 MCV 90.2 MCH 28.3 MCHC 31.4 RDW 13.9 Plt Count 462 H MPV 8.4 L Absolute Nucleated RBC 0.000 Nucleated RBC % (auto) 0.0 Anion Gap 14 Estim Creat Clear Calc 85.4 Estimated GFR > 60 Fasting Glucose 96 Calcium 8.7 Microbiology Microbiology Results: Microbiology 02/01/22 13:25 Gram Stain - Final Abdominal Fluid Routine Culture - Final Escherichia coli Anaerobic Culture - Preliminary Culture in progress. Procedures Date of Service Date of Service: 02/03/22 Progress Note: A&P Assessment and plan (1) Abscess of abdominal cavity: Status: Acute Plan Remains inpatient for pain control. Continue ceftriaxone. Monitor ADIEL output, continues with purulent drainage. PT consult. Time Spent With Patient Time: Total time spent is greater than 50% in coordination of care (as documented) at patient's floor/unit and/or counseling patient: Quality Stroke Does the patient have a stroke diagnosis?: No VTE Prior VTE?: No VTE Risk Level:: Medical - moderate - high VTE Device Contraindication: N/A - Device Ordered VTE Drug Contraindication: Treatment Not Indicated
[2022-02-03] MEDS: polyethylene glycoL 3350 17 GM POWD.PACK PO (10:58)
--- NOTE | 2022-02-03 11:28 | HO.PM.IMPN ---
Subjective Subjective Date of Service: 02/03/22 Interval History: the patient was seen and evaluated this morning Laying in bed, feels comfortable with less pain and fever Drainage more serous, pain under control Culture growing E coli No reported other overnight events. Systemic review: No fever, chills or weakness No chest pain, palpitation No shortness of breath or coughing Improved abdominal pain, nausea or vomiting No urinary symptoms Physical Exam Vital Signs: Vital Signs: Last Vital Signs Temp 96.7 F L 02/03/22 07:31 Pulse 68 02/03/22 07:31 Resp 16 02/03/22 10:56 BP 110/60 02/03/22 07:31 Pulse Ox 96 02/03/22 07:31 O2 Del Method 02/03/22 07:31 BMI result Body Mass Index 24.3 Const: Other: Constitutional : Alert, oriented, not in distress Neck : Normal inspection, Supple Cardiovascular : RRR, no JVP, no lower extremity edema Respiratory : fair bilateral air entry, no crackles, wheezes or rhonchi Gastrointestinal: soft, lax, Normal bowel sounds, Non tender, clear serous drainage in ADIEL drain Skin : Warm, Dry Neurological : Alert & oriented x3, No focal deficit Objective Data Active Medications Acetaminophen (Acetaminophen 325 Mg Tablet) 650 mg PO Q6H PRN PRN Reason: Fever >101 Last Admin: 02/01/22 13:50 Dose: 650 mg Documented By: WILFRIDO Diltiazem HCl (Diltiazem Hcl 30 Mg Tablet) 30 mg PO ONCE PRN; Protocol PRN Reason: For atrial fibrillation Hydromorphone HCl (Hydromorphone Hcl 1 Mg/Ml Syringe) 1 mg IVPUSH Q2H PRN; Protocol PRN Reason: Pain, Severe (Pain Scale 7-10) Last Admin: 02/03/22 10:56 Dose: 1 mg Documented By: BEHZAD Ceftriaxone Sodium 1 gm/ (Sodium Chloride) 50 mls @ 100 mls/hr IV Q24H [facility] Last Infusion: 02/02/22 18:43 Dose: 0 mls/hr Documented By: COTEMA Promethazine HCl 6.25 mg/ (Sodium Chloride) 50.25 mls @ 201 mls/hr IV Q6H PRN PRN Reason: nausea Last Infusion: 02/03/22 09:10 Dose: 0 mls/hr Documented By: COTELROY Non-Formulary Medication (Acebutolol) 400 mg PO BID [facility] Last Admin: 02/03/22 08:29 Dose: 400 mg Documented By: EFREN Omeprazole (Omeprazole 20 Mg Capsule.Dr) 20 mg PO BID@0630,1630 [facility] Last Admin: 02/03/22 06:10 Dose: 20 mg Documented By: MARK Ondansetron HCl (Ondansetron Hcl 4 Mg/2 Ml Vial) 4 mg IVPUSH Q8H PRN PRN Reason: Nausea and Vomiting Last Admin: 02/02/22 08:19 Dose: 4 mg Documented By: COTEMA Oxycodone HCl (Oxycodone Hcl Immed Release 5 Mg Tablet) 10 mg PO Q4H PRN PRN Reason: Breakthrough Pain Last Admin: 02/03/22 00:03 Dose: 10 mg Documented By: MARK Pharmacy Consult (Consult Rx Perform Med Rec) 1 each MISCELLANE ONCE PRN PRN Reason: Consult order Polyethylene Glycol (Polyethylene Glycol 3350 17 Gm Powd.Pack) 17 gm PO DAILY PRN PRN Reason: Constipation Last Admin: 02/03/22 10:58 Dose: 17 gm Documented By: BEHZAD Sodium Chloride (0.9 % Sodium Chloride Flush 3 Ml Syringe) 3 ml IVFLUSH QSHIFT [facility] Last Admin: 02/03/22 08:31 Dose: 3 ml Documented By: EFREN Labs CBC & Chem 7: 02/03/22 05:59 02/03/22 05:59 Labs: Laboratory Results - last 24 hr 02/03/22 02/03/22 05:59 05:59 MCV 90.2 MCH 28.3 MCHC 31.4 RDW 13.9 Plt Count 462 H MPV 8.4 L Absolute Nucleated RBC 0.000 Nucleated RBC % (auto) 0.0 Anion Gap 14 Estim Creat Clear Calc 85.4 Estimated GFR > 60 Fasting Glucose 96 Calcium 8.7 Microbiology Microbiology Results: Microbiology 02/01/22 13:25 Gram Stain - Final Abdominal Fluid Routine Culture - Final Escherichia coli Anaerobic Culture - Preliminary Culture in progress. Assessment and Plan (1) Abscess of abdominal cavity: Status: Acute (2) Paroxysmal atrial fibrillation: Status: Acute Plan 71M with pmh paroxysmal afib, celiac, presented with fevers/recurrence of perihepatic abscess. Sepsis due to perihepatic abscess Fluid culture growing sensitive E coli s/p IR drainage 02/01/22 initially purulent, now serosangounous drain in place Continue ceftriaxone, plan prolonged antibiotic course at the time of discharge this time Pain management DONNY resolved with IV fluids paroxysmal afib acebutolol Restart Sandraquis Thank you for the consult, please contact hospitalist team with any further questions. Quality Stroke Does the patient have a stroke diagnosis?: No VTE Prior VTE?: No VTE Risk Level:: Medical - moderate - high VTE Device Contraindication: N/A - Device Ordered VTE Drug Contraindication: Treatment Not Indicated
--- NOTE | 2022-02-03 11:42 | MHC.CLN ---
NUTRITION DIET=REGULAR, GLUTEN FREE. SUPPLEMENT ENSURE TID PROVIDES ADDITIONAL 1050 KCALS, 60 G PROTEIN. INTAKE VARIABLE WITH 50-100% X PRIOR TWO DAYS. DISCUSSED HIGHER PROTEIN FOODS/PROVIDED HANDOUTS WITH PATIENT PER HIS REQUEST. TAKES ENSURE PRODUCT AT HOME WITH 350 KCALS, 30 G PROTEIN. FOLLOW FOR INTAKE, WEIGHT.
--- NOTE | 2022-02-03 16:25 | MHC.CM.PN ---
PATIENT IS AWARE THAT [facility] IS FOLLOWING FOR PATIENT'S DC HOME. HE IS CONCERNED ABOUT NEEDING EXTRA SERVICES AND OPEN TO [facility] REFERRAL AT TIME OF DC IF HE STILL FEELS HE NEEDS THIS
[2022-02-03] MEDS: cefTRIAXone sodium 1 GM in 0.9 % Sodium Chloride 50 ML IV (17:40)
[2022-02-04] VITALS (8 sets, daily range): BP systolic 106–129; BP diastolic 57–65; PULSE 59–77; RESP 16–20; TEMP 36–36.6; O2SAT 94–96
[2022-02-04] MEDS: HYDROmorphone HCl 1 MG/ML SYRINGE IVPUSH ×6 (03:40→21:31)
[2022-02-04] MEDS: Omeprazole 20 MG CAPSULE.DR PO ×2 (05:56→15:58)
[2022-02-04] MEDS: 0.9 % Sodium Chloride Flush 3 ML SYRINGE IVFLUSH ×3 (06:51→19:25)
[2022-02-04] MEDS: cefTRIAXone sodium 1 GM in 0.9 % Sodium Chloride 50 ML IV (17:54)
[2022-02-05] VITALS (7 sets, daily range): BP systolic 106–134; BP diastolic 58–66; PULSE 65–79; RESP 16–18; TEMP 36.2–36.8; O2SAT 95–96
[2022-02-05] MEDS: HYDROmorphone HCl 1 MG/ML SYRINGE IVPUSH ×7 (00:11→21:42)
[2022-02-05] MEDS: Omeprazole 20 MG CAPSULE.DR PO ×2 (07:48→18:05)
[2022-02-05] MEDS: 0.9 % Sodium Chloride Flush 3 ML SYRINGE IVFLUSH ×2 (07:49→23:49)
--- NOTE | 2022-02-05 11:04 | PM.PNGS ---
Subjective Subjective Date of Service: 02/05/22 <Magnolia Lobato PA-C - Last Filed: 02/05/22 11:09> 02/05/22 <Jeff Ramos MD - Last Filed: 02/05/22 11:47> Interval history: Continues to report severe RUQ pain and pain at drain site. Requiring IV analgesics. States oxycodone does not work fast enough and then wears off. Seen by PT and nutrition. <Magnolia Lobato PA-C - Last Filed: 02/05/22 11:09> Physical Exam Vital Signs: Vital Signs: Last Vital Signs Temp 98.3 F 02/05/22 07:57 Pulse 70 02/05/22 07:57 Resp 18 02/05/22 07:57 BP 111/58 L 02/05/22 07:57 Pulse Ox 96 02/05/22 07:57 O2 Del Method 02/05/22 07:57 BMI result Body Mass Index 24.3 <Magnolia Lobato PA-C - Last Filed: 02/05/22 11:09> Const: General: no acute distress and alert <Magnolia Lobato PA-C - Last Filed: 02/05/22 11:09> Nutritional Appearance: cachectic <Magnolia Lobato PA-C - Last Filed: 02/05/22 11:09> Orientation/consciousness: patient oriented x3 <Magnolia Lobato PA-C - Last Filed: 02/05/22 11:09> Resp: Effort & Inspection: normal respiratory effort <Magnolia Lobato PA-C - Last Filed: 02/05/22 11:09> GI: Other: Drain continues with purulent output in tubing <Magnolia Lobato PA-C - Last Filed: 02/05/22 11:09> Inspection: No distended <RACHEAL Cardozo Last Filed: 02/05/22 11:09> Palpation (GI): Soft to palpation, Tenderness to palpation present (GI) in the RUQ and no guarding <RACHEAL Cardozo Last Filed: 02/05/22 11:09> Skin: General skin exam: no rashes or lesions noted <Magnolia Lobato PA-C - Last Filed: 02/05/22 11:09> Neuro: General: patient oriented x3 <Magnolia Lobtao PA-C - Last Filed: 02/05/22 11:09> Objective Data Active Medications Acetaminophen (Acetaminophen 325 Mg Tablet) 975 mg PO Q6H [facility] Diltiazem HCl (Diltiazem Hcl 30 Mg Tablet) 30 mg PO ONCE PRN; Protocol PRN Reason: For atrial fibrillation Hydromorphone HCl (Hydromorphone Hcl 1 Mg/Ml Syringe) 1 mg IVPUSH Q2H PRN; Protocol PRN Reason: Pain, Severe (Pain Scale 7-10) Last Admin: 02/05/22 07:49 Dose: 1 mg Documented By: FLORY Hydromorphone HCl (Hydromorphone Hcl 4 Mg Tablet) 4 mg PO Q4H PRN PRN Reason: Pain, Severe (Pain Scale 7-10) Ceftriaxone Sodium 1 gm/ (Sodium Chloride) 50 mls @ 100 mls/hr IV Q24H [facility] Last Infusion: 02/04/22 18:35 Dose: 0 mls/hr Documented By: EVAN Promethazine HCl 6.25 mg/ (Sodium Chloride) 50.25 mls @ 201 mls/hr IV Q6H PRN PRN Reason: nausea Last Infusion: 02/05/22 09:24 Dose: 0 mls/hr Documented By: FLORY Non-Formulary Medication (Acebutolol) 400 mg PO BID [facility] Last Admin: 02/05/22 07:49 Dose: 400 mg Documented By: FLORY Omeprazole (Omeprazole 20 Mg Capsule.Dr) 20 mg PO BID@0900,1630 [facility] Last Admin: 02/05/22 07:48 Dose: 20 mg Documented By: FLORY Ondansetron HCl (Ondansetron Hcl 4 Mg/2 Ml Vial) 4 mg IVPUSH Q8H PRN PRN Reason: Nausea and Vomiting Last Admin: 02/02/22 08:19 Dose: 4 mg Documented By: COTEMA Pharmacy Consult (Consult Rx Perform Med Rec) 1 each MISCELLANE ONCE PRN PRN Reason: Consult order Polyethylene Glycol (Polyethylene Glycol 3350 17 Gm Powd.Pack) 17 gm PO DAILY PRN PRN Reason: Constipation Last Admin: 02/03/22 10:58 Dose: 17 gm Documented By: BEHZAD Sodium Chloride (0.9 % Sodium Chloride Flush 3 Ml Syringe) 3 ml IVFLUSH QSHIFT [facility] Last Admin: 02/05/22 07:49 Dose: 3 ml Documented By: FLORY <Magnolia Lobato PA-C - Last Filed: 02/05/22 11:09> Labs CBC & Chem 7: : 02/03/22 05:59 02/03/22 05:59 <Magnolia Lobato PA-C - Last Filed: 02/05/22 11:09> Microbiology Microbiology Results: Microbiology 02/01/22 13:25 Gram Stain - Final Abdominal Fluid Routine Culture - Final Escherichia coli Anaerobic Culture - Preliminary Culture in progress. <RACHEAL Cardozo Last Filed: 02/05/22 11:09> Procedures Date of Service Date of Service: 02/05/22 <Magnolia Lobato PA-C - Last Filed: 02/05/22 11:09> Progress Note: A&P Assessment and plan (1) Abscess of abdominal cavity: Status: Acute <Magnolia Lobato PA-C - Last Filed: 02/05/22 11:09> Assessment and Plan: Remains inpatient for pain control. Will change PO analgesics to dilaudid, tylenol ATC. Wean off IV meds. Continue ceftriaxone. Repeat CT- fluid collection decreased status post drainage catheter. ?ADIEL output decreasing, continues with purulent drainage. On miralax, added colace for colon FOS. Hopefully home over the weekend when pain is controlled on PO analgesics. <Magnolia Lobato PA-C - Last Filed: 02/05/22 11:09> Remains inpatient for pain control. Will change PO analgesics to dilaudid, tylenol ATC. Wean off IV meds. Continue ceftriaxone. Repeat CT- fluid collection decreased status post drainage catheter. ?ADIEL output decreasing, continues with purulent drainage. On miralax, added colace for colon FOS. Hopefully home over the weekend when pain is controlled on PO analgesics. Patient seen and examined independently; still having right sided abdominal pain. Abdomen is softer but tender near the drain. Agree with the above assessment and plan. Discharge to home if tolerating po main meds exclusively. <Jeff Ramos MD - Last Filed: 02/05/22 11:47> Time Spent With Patient Time: Total time spent is greater than 50% in coordination of care (as documented) at patient's floor/unit and/or counseling patient: <Magnolia Lobato PA-C - Last Filed: 02/05/22 11:09> Quality Stroke Does the patient have a stroke diagnosis?: No <Magnolia Lobato PA-C - Last Filed: 02/05/22 11:09> VTE Prior VTE?: No <Magnolia Lobato PA-C - Last Filed: 02/05/22 11:09> VTE Risk Level:: Medical - moderate - high <Magnolia Lobato PA-C - Last Filed: 02/05/22 11:09> VTE Device Contraindication: N/A - Device Ordered <Magnolia Lobato PA-C - Last Filed: 02/05/22 11:09> VTE Drug Contraindication: Treatment Not Indicated <Magnolia Lobato PA-C - Last Filed: 02/05/22 11:09>
[2022-02-05] MEDS: Acetaminophen 325 MG TABLET 975 MG PO ×3 (12:28→23:46)
--- NOTE | 2022-02-05 12:39 | MHC.CM.PN ---
Discussed plan of care with PA, goal for patient to wean IV pain meds before d/c.
--- NOTE | 2022-02-05 13:45 | MHC.CLN ---
F/U DIET=REGULAR, GLUTEN FREE. SUPPLEMENT ENSURE TID PROVIDES ADDITIONAL 1050 KCALS, 60 G PROTEIN. INTAKE VARIABLE, 50-100%. CONTINUE CURRENT DIET AND SUPPLEMENT. FOLLOW FOR INTAKE, WEIGHT.
[2022-02-05] MEDS: ondansetron HCL 4 MG/2 ML VIAL IVPUSH (15:49)
[2022-02-05] MEDS: cefTRIAXone sodium 1 GM in 0.9 % Sodium Chloride 50 ML IV (18:05)
[2022-02-05] MEDS: Docusate Sodium 100 MG CAPSULE PO (21:19)
[2022-02-06 03:35] VITALS: BP 127/58; PULSE 70; RESP 16; TEMP 36.3; O2SAT 97
[2022-02-06] MEDS: HYDROmorphone HCl 1 MG/ML SYRINGE IVPUSH ×6 (03:47→20:59)
[2022-02-06] MEDS: Acetaminophen 325 MG TABLET 975 MG PO ×3 (06:34→17:07)
[2022-02-06 08:00] VITALS: BP 100/55; PULSE 62; RESP 16; TEMP 36.8; O2SAT 98
--- NOTE | 2022-02-06 09:55 | PM.PNGS ---
Subjective Subjective Date of Service: 02/06/22 Interval history: Reports some pain in the drain site right upper abdomen. Took the oral pain medication last night but now has sharper pain approximately 9 hours later. Denies nausea or vomiting. Bowels are moving, twice yesterday. Does feel somewhat bloated now. Physical Exam Vital Signs: Vital Signs: Last Vital Signs Temp 98.2 F 02/06/22 08:00 Pulse 62 02/06/22 08:00 Resp 16 02/06/22 08:00 BP 100/55 L 02/06/22 08:00 Pulse Ox 98 02/06/22 08:00 O2 Del Method 02/06/22 08:00 BMI result Body Mass Index 24.3 Const: General: no acute distress Nutritional Appearance: thin Orientation/consciousness: patient oriented x3 Limitations: no limitations Resp: Effort & Inspection: normal respiratory effort, no cough and no respiratory distress GI: Palpation (GI): Soft to palpation, Tenderness to palpation present (GI) in the RUQ, no guarding, not rigid and no masses Percussion: Yes normal to percussion Auscultation: normal bowel sounds Skin: General skin exam: no rashes or lesions noted Neuro: General: patient oriented x3 Objective Data Active Medications Acetaminophen (Acetaminophen 325 Mg Tablet) 975 mg PO Q6H [facility] Last Admin: 02/06/22 06:34 Dose: 975 mg Documented By: YA Diltiazem HCl (Diltiazem Hcl 30 Mg Tablet) 30 mg PO ONCE PRN; Protocol PRN Reason: For atrial fibrillation Docusate Sodium (Docusate Sodium 100 Mg Capsule) 100 mg PO BID [facility] Last Admin: 02/05/22 21:19 Dose: 100 mg Documented By: YA Hydromorphone HCl (Hydromorphone Hcl 1 Mg/Ml Syringe) 1 mg IVPUSH Q2H PRN; Protocol PRN Reason: Pain, Severe (Pain Scale 7-10) Last Admin: 02/06/22 06:41 Dose: 1 mg Documented By: YA Hydromorphone HCl (Hydromorphone Hcl 4 Mg Tablet) 4 mg PO Q4H PRN PRN Reason: Pain, Severe (Pain Scale 7-10) Last Admin: 02/05/22 23:47 Dose: 4 mg Documented By: YA Promethazine HCl 6.25 mg/ (Sodium Chloride) 50.25 mls @ 201 mls/hr IV Q6H PRN PRN Reason: nausea Last Infusion: 02/06/22 07:22 Dose: 0 mls/hr Documented By: YA Non-Formulary Medication (Acebutolol) 400 mg PO BID [facility] Last Admin: 02/05/22 21:19 Dose: 400 mg Documented By: YA Omeprazole (Omeprazole 20 Mg Capsule.) 20 mg PO BID@0900,1630 [facility] Last Admin: 02/05/22 18:05 Dose: 20 mg Documented By: FLORY Ondansetron HCl (Ondansetron Hcl 4 Mg/2 Ml Vial) 4 mg IVPUSH Q8H PRN PRN Reason: Nausea and Vomiting Last Admin: 02/05/22 15:49 Dose: 4 mg Documented By: FLORY Pharmacy Consult (Consult Rx Perform Med Rec) 1 each MISCELLANE ONCE PRN PRN Reason: Consult order Polyethylene Glycol (Polyethylene Glycol 3350 17 Gm Powd.Pack) 17 gm PO DAILY PRN PRN Reason: Constipation Last Admin: 02/03/22 10:58 Dose: 17 gm Documented By: BEHZAD Sodium Chloride (0.9 % Sodium Chloride Flush 3 Ml Syringe) 3 ml IVFLUSH QSHIFT [facility] Last Admin: 02/05/22 23:49 Dose: 3 ml Documented By: YA Trimethoprim/Sulfamethoxazole (Sulfamethox/Trimeth 800/160 Tablet) 1 tab PO Q12H [facility] Labs CBC & Chem 7: 02/03/22 05:59 02/03/22 05:59 Microbiology Microbiology Results: Microbiology 02/01/22 13:25 Gram Stain - Final Abdominal Fluid Routine Culture - Final Escherichia coli Anaerobic Culture - Preliminary Culture in progress. Procedures Date of Service Date of Service: 02/06/22 Progress Note: A&P Assessment and plan (1) Abscess of abdominal cavity: Status: Acute Plan Remains inpatient for pain control. Will continue PO dilaudid, tylenol ATC, with IV Dilaudid for breakthrough. Wean off IV meds. Will DC ceftriaxone and start Bactrim ds based on culture results. Repeat CT- fluid collection decreased status post drainage catheter. ?ADIEL output decreasing, continues with purulent drainage. On miralax, colace for colon FOS. Anticipate discharge by Tuesday on oral antibiotics and pain medication Time Spent With Patient Time: Total time spent is greater than 50% in coordination of care (as documented) at patient's floor/unit and/or counseling patient: Quality Stroke Does the patient have a stroke diagnosis?: No VTE Prior VTE?: No VTE Risk Level:: Medical - moderate - high VTE Device Contraindication: N/A - Device Ordered VTE Drug Contraindication: Treatment Not Indicated
[2022-02-06] MEDS: Omeprazole 20 MG CAPSULE.DR PO ×2 (09:58→17:07)
[2022-02-06] MEDS: Sulfamethox/Trimeth 800/160 TABLET 1 TAB PO ×2 (09:58→21:00)
[2022-02-06] MEDS: Docusate Sodium 100 MG CAPSULE PO ×2 (09:58→20:58)
[2022-02-06] MEDS: 0.9 % Sodium Chloride Flush 3 ML SYRINGE IVFLUSH ×2 (09:59→17:07)
[2022-02-06 12:00] VITALS: BP 112/58; PULSE 66; RESP 16; TEMP 36.5; O2SAT 96
[2022-02-06 15:03] VITALS: BP 111/57; PULSE 69; RESP 17; TEMP 36.7; O2SAT 96
[2022-02-06 20:00] VITALS: BP 124/70; PULSE 72; RESP 18; TEMP 36.9; O2SAT 96
[2022-02-07] VITALS (7 sets, daily range): BP systolic 106–130; BP diastolic 54–58; PULSE 65–79; RESP 16–19; TEMP 36.1–37.2; O2SAT 95–97
[2022-02-07] MEDS: Acetaminophen 325 MG TABLET 975 MG PO ×4 (00:44→17:10)
[2022-02-07] MEDS: 0.9 % Sodium Chloride Flush 3 ML SYRINGE IVFLUSH ×4 (00:49→20:32)
[2022-02-07] MEDS: HYDROmorphone HCl 1 MG/ML SYRINGE IVPUSH ×5 (05:43→22:21)
[2022-02-07] MEDS: Omeprazole 20 MG CAPSULE.DR PO ×2 (09:04→17:10)
[2022-02-07] MEDS: Docusate Sodium 100 MG CAPSULE PO ×2 (09:04→22:26)
[2022-02-07] MEDS: Sulfamethox/Trimeth 800/160 TABLET 1 TAB PO ×2 (09:04→22:26)
--- NOTE | 2022-02-07 09:47 | P.PNGS_ITS ---
Subjective Subjective Date of Service: 02/07/22 Interval history: Patient reports a bad day yesterday having trouble getting comfortable, feels improved today. He reports eating well this morning without nausea or vomiting. His bowels continue to move on a daily basis. He denies fever or chills. Continues to have pain mainly in the back on the right side. He is working on ambulating in the hallways and incentive spirometry. Physical Exam Vital Signs: Vital Signs: Last Vital Signs Temp 97.7 F 02/07/22 08:00 Pulse 69 02/07/22 08:00 Resp 18 02/07/22 08:00 BP 130/58 L 02/07/22 08:00 Pulse Ox 95 02/07/22 08:00 O2 Del Method 02/07/22 08:00 BMI result Body Mass Index 24.3 Const: General: no acute distress Nutritional Appearance: thin Orientation/consciousness: patient oriented x3 Limitations: no limitations Resp: Effort & Inspection: normal respiratory effort, no cough and no respirat ory distress GI: Palpation (GI): Soft to palpation, Tenderness to palpation present (GI) in the RUQ, no guarding, not rigid and no masses Percussion: Yes normal to percussion Auscultation: normal bowel sounds Skin: General skin exam: no rashes or lesions noted Neuro: General: patient oriented x3 Objective Data Active Medications Acetaminophen (Acetaminophen 325 Mg Tablet) 975 mg PO Q6H [facility] Last Admin: 02/07/22 05:42 Dose: 975 mg Documented By: YA Diltiazem HCl (Diltiazem Hcl 30 Mg Tablet) 30 mg PO ONCE PRN; Protocol PRN Reason: For atrial fibrillation Docusate Sodium (Docusate Sodium 100 Mg Capsule) 100 mg PO BID [facility] Last Admin: 02/07/22 09:04 Dose: 100 mg Documented By: BERENICE Hydromorphone HCl (Hydromorphone Hcl 1 Mg/Ml Syringe) 1 mg IVPUSH Q2H PRN; P rotocol PRN Reason: Pain, Severe (Pain Scale 7-10) Last Admin: 02/07/22 09:05 Dose: 1 mg Documented By: BERENICE Hydromorphone HCl (Hydromorphone Hcl 4 Mg Tablet) 4 mg PO Q4H PRN PRN Reason: Pain, Severe (Pain Scale 7-10) Last Admin: 02/07/22 00:47 Dose: 4 mg Documented By: ROSY Promethazine HCl 6.25 mg/ (Sodium Chloride) 50.25 mls @ 201 mls/hr IV Q6H PRN PRN Reason: nausea Last Infusion: 02/07/22 00:06 Dose: 0 mls/hr Documented By: YA Non-Formulary Medication (Acebutolol) 400 mg PO BID [facility] Last Admin: 02/07/22 09:04 Dose: 400 mg Documented By: BERENICE Omeprazole (Omeprazole 20 Mg Capsule.) 20 mg PO BID@0900,1630 [facility] Last Admin: 02/07/22 09:04 Dose: 20 mg Documented By: BERENICE Ondansetron HCl (Ondansetron Hcl 4 Mg/2 Ml Vial) 4 mg IVPUSH Q8H PRN PRN Reason: Nausea and Vomiting Last Admin: 02/05/22 15:49 Dose: 4 mg Documented By: FLORY Pharmacy Consult (Consult Rx Perform Med Rec) 1 each MISCELLANE ONCE PRN PRN Reason: Consult order Polyethylene Glycol (Polyethylene Glycol 3350 17 Gm Powd.Pack) 17 gm PO DAILY PRN PRN Reason: Constipation Last Admin: 02/03/22 10:58 Dose: 17 gm Documented By: BEHZAD Sodium Chloride (0.9 % Sodium Chloride Flush 3 Ml Syringe) 3 ml IVFLUSH QSHIFT [facility] Last Admin: 02/07/22 09:04 Dose: 3 ml Documented By: BERENICE Trimethoprim/Sulfamethoxazole (Sulfamethox/Trimeth 800/160 Tablet) 1 tab PO Q12H [facility] Last Admin: 02/07/22 09:04 Dose: 1 tab Documented By: BERENICE Labs CBC & Chem 7: 02/03/22 05:59 02/03/22 05:59 Microbiology Microbiology Results: Microbiology 02/01/22 13:25 Gram Stain - Final Abdominal Fluid Routine Culture - Final Escherichia coli Anaerobic Culture - Final Procedures Date of Service Date of Service: 02/07/22 Progress Note: A&P Assessment and plan (1) Abscess of abdominal cavity: Status: Acute Plan Remains inpatient for pain control. Will continue PO dilaudid, tylenol ATC, with IV Dilaudid for breakthrough. We will continue to attempt to wean off IV pain meds in preparation for discharge to home. Continue Bactrim ds based on culture results. Repeat CT- fluid collection decreased status post drainage catheter. ? ADIEL output decreasing, continues with purulent drainage. On miralax, colace, moving his bowels daily.. Anticipate discharge by Tuesday on oral antibiotics and pain medication Time Spent With Patient Time: Total time spent is greater than 50% in coordination of care (as documented) at patient's floor/unit and/or counseling patient: No Severe Sepsis: No Severe Sepsis Quality Stroke Does the patient have a stroke diagnosis?: No VTE Prior VTE?: No VTE Risk Level:: Medical - moderate - high VTE Device Contraindication: N/A - Device Ordered VTE Drug Contraindication: Treatment Not Indicated
[2022-02-08] VITALS: BP 111/55; PULSE 68; RESP 16; TEMP 36.1; O2SAT 97
[2022-02-08] MEDS: HYDROmorphone HCl 1 MG/ML SYRINGE IVPUSH ×7 (00:36→23:52)
[2022-02-08 03:49] VITALS: BP 116/65; PULSE 71; RESP 17; TEMP 36.1; O2SAT 95
[2022-02-08 07:58] VITALS: BP 124/59; PULSE 69; RESP 18; TEMP 36.8; O2SAT 96
[2022-02-08] MEDS: Sulfamethox/Trimeth 800/160 TABLET 1 TAB PO ×2 (09:32→19:55)
[2022-02-08] MEDS: Docusate Sodium 100 MG CAPSULE PO ×2 (09:32→19:55)
[2022-02-08] MEDS: Omeprazole 20 MG CAPSULE.DR PO ×2 (09:32→17:23)
[2022-02-08] MEDS: 0.9 % Sodium Chloride Flush 3 ML SYRINGE IVFLUSH ×3 (09:32→23:47)
[2022-02-08 11:38] VITALS: BP 124/61; PULSE 69; RESP 18; TEMP 36.3; O2SAT 98
[2022-02-08] MEDS: Acetaminophen 325 MG TABLET 975 MG PO ×3 (12:08→23:46)
[2022-02-08] MEDS: HYDROmorphone HCl 2 MG TABLET PO ×2 (13:46→19:54)
--- NOTE | 2022-02-08 15:06 | P.PNGS_ITS ---
Subjective Subjective Date of Service: 02/08/22 Interval history: Reports feeling awful this morning after taking the oral Dilaudid, feels the dose is too strong for him. He would like to try a smaller dose. Physical Exam Vital Signs: Vital Signs: Last Vital Signs Temp 97.3 F 02/08/22 11:38 Pulse 69 02/08/22 11:38 Resp 18 02/08/22 11:38 BP 124/61 02/08/22 11:38 Pulse Ox 98 02/08/22 11:38 O2 Del Method 02/08/22 11:38 BMI result Body Mass Index 24.3 Const: General: no acute distress Nutritional Appearance: thin Orientation/consciousness: patient oriented x3 Limitations: no limitations Resp: Effort & Inspection: normal respiratory effort, no cough and no respiratory distress GI: Palpation (GI): Soft to palpation, Tenderness to palpation present (GI) in the RUQ, no guarding, not rigid and no masses Percussion: Yes normal to percussion Auscultation: normal bowel sounds Skin: General skin exam: no rashes or lesions noted Neuro: General: patient oriented x3 Objective Data Active Medications Acetaminophen (Acetaminophen 325 Mg Tablet) 975 mg PO Q6H [facility] Last Admin: 02/08/22 12:08 Dose: 975 mg Documented By: FLORY Diltiazem HCl (Diltiazem Hcl 30 Mg Tablet) 30 mg PO ONCE PRN; Protocol PRN Reason: For atrial fibrillation Docusate Sodium (Docusate Sodium 100 Mg Capsule) 100 mg PO BID [facility] Last Admin: 02/08/22 09:32 Dose: 100 mg Documented By: FLORY Hydromorphone HCl (Hydromorphone Hcl 1 Mg/Ml Syringe) 1 mg IVPUSH Q2H PRN; Protocol PRN Reason: Pain, Severe (Pain Scale 7-10) Last Admin: 02/08/22 12:01 Dose: 1 mg Documented By: FLORY Hydromorphone HCl (Hydromorphone Hcl 2 Mg Tablet) 2 mg PO Q4H PRN PRN Reason: Pain, Severe (Pain Scale 7-10) Last Admin: 02/08/22 13:46 Dose: 2 mg Documented By: FLORY Promethazine HCl 6.25 mg/ (Sodium Chloride) 50.25 mls @ 201 mls/hr IV Q6H PRN PRN Reason: nausea Last Infusion: 02/08/22 14:26 Dose: 0 mls/hr Documented By: FLORY Non-Formulary Medication (Acebutolol) 400 mg PO BID [facility] Last Admin: 02/08/22 09:32 Dose: 400 mg Documented By: FLORY Omeprazole (Omeprazole 20 Mg Capsule.) 20 mg PO BID@0900,1630 [facility] Last Admin: 02/08/22 09:32 Dose: 20 mg Documented By: FLORY Ondansetron HCl (Ondansetron Hcl 4 Mg/2 Ml Vial) 4 mg IVPUSH Q8H PRN PRN Reason: Nausea and Vomiting Last Admin: 02/05/22 15:49 Dose: 4 mg Documented By: FLORY Pharmacy Consult (Consult Rx Perform Med Rec) 1 each MISCELLANE ONCE PRN PRN Reason: Consult order Polyethylene Glycol (Polyethylene Glycol 3350 17 Gm Powd.Pack) 17 gm PO DAILY PRN PRN Reason: Constipation Last Admin: 02/03/22 10:58 Dose: 17 gm Documented By: BEHZAD Sodium Chloride (0.9 % Sodium Chloride Flush 3 Ml Syringe) 3 ml IVFLUSH QSHIFT [facility] Last Admin: 02/08/22 09:32 Dose: 3 ml Documented By: FLORY Trimethoprim/Sulfamethoxazole (Sulfamethox/Trimeth 800/160 Tablet) 1 tab PO Q12H [facility] Last Admin: 02/08/22 09:32 Dose: 1 tab Documented By: FLORY Labs CBC & Chem 7: 02/03/22 05:59 02/03/22 05:59 Procedures Date of Service Date of Service: 02/08/22 Progress Note: A&P Assessment and plan (1) Abscess of abdominal cavity: Status: Acute Plan Overall the patient feels improved but had some bad side effects from the pain medication. He continues to have pain in the back. He has been up ambulating and seems to have increased his endurance. He is eating reasonably well now without nausea or vomiting. Continue antibiotics and continue to wean off intravenous pain medications. Time Spent With Patient Time: Total time spent is greater than 50% in coordination of care (as documented) at patient's floor/unit and/or counseling patient: Quality Stroke Does the patient have a stroke diagnosis?: No VTE Prior VTE?: No VTE Risk Level:: Medical - moderate - high VTE Device Contraindication: N/A - Device Ordered VTE Drug Contraindication: Treatment Not Indicated
--- NOTE | 2022-02-08 16:02 | MHC.CLN ---
F/U DIET=REGULAR, GLUTEN FREE. SUPPLEMENT ENSURE TID PROVIDES ADDITIONAL 1050 KCALS, 60 G PROTEIN. INTAKE VARIABLE, 50-100%. CONTINUE CURRENT DIET AND SUPPLEMENT. FOLLOW FOR INTAKE, WEIGHT.
[2022-02-08 20:00] VITALS: BP 121/64; PULSE 74; RESP 18; TEMP 36.7; O2SAT 96
[2022-02-08 23:49] VITALS: BP 128/60; PULSE 78; RESP 18; TEMP 36.6; O2SAT 97
[2022-02-09 04:00] VITALS: BP 116/56; PULSE 74; RESP 18; TEMP 35.9; O2SAT 96
[2022-02-09] MEDS: Acetaminophen 325 MG TABLET 975 MG PO ×2 (05:00→11:52)
[2022-02-09 06:01] LABS: MANUAL DIFF FLAG NO
[2022-02-09 06:32] LABS: Alanine Aminotransferase 18 U/L (0-40); Albumin Level 3.4 g/dL (3.5-5.0); Alkaline Phosphatase 106 U/L (39-117); Anion Gap 16 (12-20); Aspartate Amino Transferase 23 U/L (5-37); Bilirubin Direct < 0.2 mg/dL (0.0-0.5); Bilirubin Total < 0.2 mg/dL (0.0-1.0); Blood Urea Nitrogen 28 mg/dL (9-16); Calcium 8.9 mg/dL (8.4-10.2); Carbon Dioxide 24 mmol/L (22-29); Chloride 101 mmol/L (96-108); Creatinine Clr Calc Pharmacy 62.5; Estimated Glomerular Filt Rate > 60; Glucose Random 90 mg/dL (60-115); Potassium 4.7 mmol/L (3.3-5.1); Sodium 136 mmol/L (135-145); Total Protein 6.9 g/dL (6.5-8.0)
[2022-02-09 07:49] VITALS: BP 128/60; PULSE 78; RESP 18; TEMP 36.4; O2SAT 99
[2022-02-09 08:09] LABS: Basophils Absolute Auto 0.1 X10*3/uL (0.0-0.2); Basophils Percent Auto 1.1 % (0-2); Eosinophils Absolute Auto 0.4 X10*3/uL (0.0-0.4); Eosinophils Percent Auto 4.8 % (0-4); Hematocrit 29.4 % (42.0-52.0); Hemoglobin 9.5 g/dl (14.0-18.0); Imm Gran Abs Auto 0.08 X10*3/uL (0.00-0.03); Imm Gran Pct Auto 1.1 % (0.0-0.4); Lymphocytes Absolute Auto 2.2 X10*3/uL (1.2-4.9); Lymphocytes Percent Auto 29.2 % (20-40); Mean Corpuscular HGB Conc 32.3 g/dl (31.0-36.0); Mean Corpuscular Hemoglobin 29.8 pg (27.0-33.0); Mean Corpuscular Volume 92.2 fL (80.0-98.0); Mean Platelet Volume 8.8 fL (9.4-12.4); Monocytes Absolute Auto 0.7 X10*3/uL (0.1-1.2); Monocytes Percent Auto 9.3 % (2-11); Neutrophils Absolute Auto 4.1 x10*3/uL (2.0-8.3); Neutrophils Percent Auto 54.5 % (45-73); Platelet Count 465 X10*3/uL (160-400); Red Blood Count 3.19 X10*6/uL (4.60-5.80); White Blood Count 7.5 X10*3/uL (4.8-10.8)
[2022-02-09] MEDS: Docusate Sodium 100 MG CAPSULE PO (08:36)
[2022-02-09] MEDS: 0.9 % Sodium Chloride Flush 3 ML SYRINGE IVFLUSH (08:36)
[2022-02-09] MEDS: Omeprazole 20 MG CAPSULE.DR PO (08:36)
[2022-02-09] MEDS: Sulfamethox/Trimeth 800/160 TABLET 1 TAB PO (08:36)
[2022-02-09 11:31] VITALS: BP 118/62; PULSE 78; RESP 18; TEMP 36; O2SAT 97
[2022-02-09] MEDS: HYDROmorphone HCl 2 MG TABLET PO (11:52)
--- NOTE | 2022-02-09 11:59 | W.MHC.F2F ---
Service Date Service Date: 02/09/22 Encounter Date of encounter: 02/09/22 Encounter: Abdominal examination, drain check Reasons for Services Signs and symptoms assessed: Back pain, continued ADIEL output Reason for senior living: wound care (ADIEL drain check) Reason for occupational therapy: home safety and mobility Homebound: Leaving the home is medically contraindicated at this time without the asist of a device and/or another person due th the listed conditions above and below. Reason homebound: unsteady gait / fall risk, shortness of breath with minimal effort and pain with ambulation Homebound supporting statement: Patient weak from prolonged hospitalization, decreased appetite Certification: Based on the above findings, I certify that this patient is confined to the home and needs intermittent senior living care, physical therapy and/or speech therapy, or continues to need occupational therapy. The patient is under my care, and I have initiated the establishment of the plan of care. The patient will be followed by a physician who will periodically review the plan of care.
--- NOTE | 2022-02-09 12:13 | MHC.CM.PN ---
Addendum entered by Ila Jauregui RN 02/09/22 12:37: SON IS ON HIS WAY TO TRANSPORT PATIENT HOME. [facility] REFERRAL PLACED PER PATIENT REQUEST IMM 02/09 IN CHART Addendum entered by Ila Jauregui RN 02/09/22 12:19: CORRECTION; PATIENT IS ACTIVE WITH [facility]. THEY ARE AWARE OF HIS ANTICIPATED DC Original Note: DC HOME TODAY REFERRAL TO [facility] UPDATED. OF THIS NOTE, THEY HAVE NOT ACCEPTED. CM FOLLOWING
--- NOTE | 2022-02-11 10:43 | P.DS_ITS ---
DS: Providers Provider Date of Service: 02/09/22 Date of admission: 01/29/22 17:52 Date of discharge: 02/09/22 Primary care physician: [facility] Attending physician on admission: Carlos Stroud Consults: 01/29/22 17:35 Consult to Hospitalist Routine Consulting Provider: Hospitalist Reason For Exam: atrial fibrillation Attending physician on discharge: Jeff Ramos DS: Diagnosis Discharge Diagnosis (1) Abscess of abdominal cavity: Status: Acute DS: Summary Hospital Course Hospital Course: BRIEF HPI: Wilfred Mccarthy Sr is a 71 year old male who is here in the ER for low-grade fevers. He is familiar to the surgical service. He had a cholecystectomy last July,. He complaints of abdominal pain on the right upper quadrant and right flank earlier this year. He had a CAT scan her son showing what appeared to be a dropped gallstone in the middle of a collection adjacent to the rightupper lobe of the liver near the chest wall. He therefore underwent diagnostic this laparoscopy, with drainage of an abscess on this area with Dr. Ramos on December 28, 2021. He also had retrieval of a dropped gallstone on the same area at that time. The abscess appeared to be just inside the chest wall and outside the capsule of the liver. He had a prolonged hospital stay and was discharged on 01/11 off of antibiotics and on diltiazem and eliquis for new onset A fib. He states that for the past week, he has been having low-grade fevers at home about 99 to 100 degrees F with tmax of 101. He denies any other complaints although he has had this right-sided pain in his upper abdomen and his chest and back which has been worse for the past few days. He did have a CT scan ordered by Dr. Ramos on 01/26/2022 which reaccumulation of fluid collection the same area adjacent to the right lobe of the liver and the wall, although smaller. He was febrile with a leukocytosis in the ED. HOSPITAL COURSE: He was admitted to the surgical service for further treatment of the intraabdominal fluid collection. He was started on IV ceftriaxone as his abscess cultures December 30 grew E coli sensitive to this. He was kept on IVF. He was actually comfortable appearing and did not appear septic at the time of admission. Hospitalist consult was obtained for medical management of his HTN and recent atrial fibrillation. His eliquis was held in view of possible need for intervention. The abscess was deemed amenable to drainage by IR when staff was available the next day (Tuesday). Fluoroscopy-guided right perihepatic fluid drainage with placement of drainage catheter connected to ADIEL drain was performed on 02/01/[address] Batista without complication. The patient tolerated the procedure well. The patient had a lengthy hospital stay for pain management. His fevers resolved and WBC count normalized following the IR drainage. Follow up scan on 02/03/22 showed the fluid collection was decreased in size and there were no new fluid collections. His colon was also full of stool on imaging and he was therefore started on a bowel regimen of colace and miralax. He began to move his bowels daily. His appetite and PO intake increased throughout his stay and he was also seen by the travel accommodations rater regarding a high protein diet. He was started on ensure supplements. He was seen by PT for deconditioning who recommended home PT. Throughout his stay, multiple attempts were made to switch the patient from IV analgesics to PO and failed. He eventually tolerated the transition to PO analgesics with tylenol ATC and PO dilaudid. His ADIEL output continually downtrended however it remained purulent in nature and was left in place upon discharge. He completed a 7 day course of IV ceftriaxone and started on Bactrim DS BID based on culture results. He completed 3 days of PO bactrim and was discharged on 10 more days. On 02/09/22, he was stable for discharge and was discharged to home with [facility] and PT services with a walker. He is to follow up in the office with Dr. Ramos in 1 week. Status at Discharge Functional status at discharge: uses cane/walker Overall status at discharge: patient is not back to baseline Time Spent with Patient Time attestation: Total time spent providing and/or coordinating discharge services: Discharge coordination time: Greater than 30 minutes Quality: Safe Use of Opioids Does Pt have an Active Cancer Diagnosis on the Problem List?: No Quality: Stroke Does the patient have a stroke diagnosis?: No Physical Exam Vital Signs: Vital Signs: Last Vital Signs Temp 96.8 F 02/09/22 11:31 Pulse 78 02/09/22 11:31 Resp 18 02/09/22 11:31 BP 118/62 02/09/22 11:31 Pulse Ox 97 02/09/22 11:31 O2 Del Method 02/09/22 11:31 BMI result Body Mass Index 24.3 Const: General: comfortable, no acute distress and alert Nutritional Appearance: cachectic and thin Orientation/consciousness: patient oriented x3 Resp: Effort & Inspection: normal respiratory effort GI: Other: ADIEL bulb with purulent drainage, mild tenderness at drain site Inspection: No distended Palpation (GI): Soft to palpation and Tenderness to palpation present (GI) (mild RUQ) Skin: General skin exam: no rashes or lesions noted Neuro: General: patient oriented x3 and moves all extremities Extrem: General: Yes no clubbing, cyanosis or edema DS: Data Data Completed and Pending Completed studies during hospitalization [Text1]: Procedures Drainage of Chest Wall, Percutaneous Endoscopic Approach (12/30/21) Drainage of Peritoneum, Percutaneous Approach (01/29/22) Extirpation of Matter from Peritoneal Cavity, Percutaneous Endoscopic Approach (12/30/21) Release Peritoneum, Percutaneous Endoscopic Approach (12/30/21) Transfusion of Nonautologous Red Blood Cells into Peripheral Vein, Percutaneous Approach (12/30/21) Discharge Plan Discharge Anticipated Discharge Date/Time: 02/09/22 11:46 Patient Disposition: Home Health Service Discharge Diagnosis: abdominal wall abscess Referrals: Jordan SIMPSON [Outside] - 1 Week [facility] [Outside] - 1 Week Jeff Rivas FNP- [Primary Care Provider] - Jeff Ramos MD [Physician] - 1 Week Discharge Medications: New hydromorphone 2 mg Tablet 2 mg PO Q4H PRN (Reason: Pain, Severe (Pain Scale 7-10)) Qty: 30 0RF Rx Instructions: Partial Fill upon patient request. (DME) Ultra-Light Rollator Misc See Rx Instructions .Route Qty: 1 0RF Rx Instructions: As directed ondansetron HCl 4 mg tablet 4 mg PO TID PRN (Reason: nausea and vomiting) 5 Days Qty: 15 0RF Continued acebutolol 200 mg capsule 400 mg PO BID Qty: 360 0RF acetaminophen 500 mg Tablet 1,000 mg PO TID PRN (Reason: Pain, Mild) sulfamethoxazole-trimethoprim [Bactrim DS] 800-160 mg tablet 1 tab PO Q12H Qty: 20 0RF omeprazole 20 mg capsule,delayed release(DR/EC) 40 mg PO DAILY diltiazem HCl [Cardizem] 30 mg tablet 30 mg PO ONCE PRN (Reason: For atrial fibrillation) Qty: 20 0RF Discharge Orders: Discharge Order (Routine); Ordered 02/09/22 Ordered By: Jeff Ramos Diet: Advance to usual diet Activity on Discharge: As tolerated Stand Alone Forms: Patient Portal Discharge page Care Plan Goals: Return to normal diet and activity, resolution of abscess cavity Health Concerns: Abdominal pain, fever, chills Plan of Treatment: Drainage of abscess, antibiotics Assessment: Abdominal wall abscess Discharge Date/Time: 02/09/22 13:29
== END 2022-02-09 13:29 | disposition home health service (06) | DRG 871 ==
LOC: HO.ED 18:09 → HO.EDOVER 23:23 → HO.S3 23:37
PROVIDERS: Internal Medicine; Radiology Diagnostic Radiology; Admitting Provider Surgery; Emergency Provider Emergency Medicine Emergency Medical Services; PCP Nurse Practitioner Family; Visit Provider Surgery
PROC: 0D9W3ZZ Drainage of Peritoneum, Percutaneous Approach (ICD-10-PCS; principal; 2022-02-01 11:30)
DX: A41.9 Sepsis, unspecified organism (principal); K65.1 Peritoneal abscess; N17.9 Acute kidney failure, unspecified; K90.0 Celiac disease; B96.20 Unspecified Escherichia coli [E. coli] as the cause of diseases classified elsewhere; I48.0 Paroxysmal atrial fibrillation; Z20.822 Contact with and (suspected) exposure to COVID-19; Z88.8 Allergy status to other drugs, medicaments and biological substances; Z95.818 Presence of other cardiac implants and grafts; Z91.041 Radiographic dye allergy status; Z79.899 Other long term (current) drug therapy
CPT/HCPCS: 36415; 49406; 74176; 80048; 80053; 80076; 81003; 83605; 83690; 85025; 85027; 85610; 85730; 86140; 87040; 87070; 87073; 87077; 87186; 87205; 87502; 87635; 93005; 97116; 97162; 99285; C1729; J0696; J1170; J2405; J2550; Q4186

== ENCOUNTER 2022-02-23 12:07 | Outpatient (REF) | payer MEDICARE, MEDICAID, SELFPAY ==
[2022-02-23 13:51] LABS: MANUAL DIFF FLAG NO
[2022-02-23 14:11] LABS: Basophils Absolute Auto 0.1 X10*3/uL (0.0-0.2); Basophils Percent Auto 1.3 % (0-2); Eosinophils Absolute Auto 0.5 X10*3/uL (0.0-0.4); Eosinophils Percent Auto 7.1 % (0-4); Hematocrit 35.1 % (42.0-52.0); Hemoglobin 10.7 g/dl (14.0-18.0); Imm Gran Abs Auto 0.03 X10*3/uL (0.00-0.03); Imm Gran Pct Auto 0.4 % (0.0-0.4); Lymphocytes Absolute Auto 1.8 X10*3/uL (1.2-4.9); Lymphocytes Percent Auto 26.6 % (20-40); Mean Corpuscular HGB Conc 30.5 g/dl (31.0-36.0); Mean Corpuscular Volume 95.1 fL (80.0-98.0); Mean Platelet Volume 9.1 fL (9.4-12.4); Monocytes Absolute Auto 0.7 X10*3/uL (0.1-1.2); Monocytes Percent Auto 9.9 % (2-11); Neutrophils Absolute Auto 3.7 x10*3/uL (2.0-8.3); Neutrophils Percent Auto 54.7 % (45-73); Red Blood Count 3.69 X10*6/uL (4.60-5.80); Red Cell Distribution Width 16.3 % (11.0-16.0); White Blood Count 6.8 X10*3/uL (4.8-10.8)
[2022-02-23 14:13] LABS: Platelet Count 263 X10*3/uL (160-400)
[2022-02-23 14:21] LABS: Alanine Aminotransferase 16 U/L (0-40); Alkaline Phosphatase 98 U/L (39-117); Anion Gap 12 (12-20); Aspartate Amino Transferase 28 U/L (5-37); Bilirubin Total 0.3 mg/dL (0.0-1.0); Blood Urea Nitrogen 35 mg/dL (9-16); Calcium 9.1 mg/dL (8.4-10.2); Carbon Dioxide 22 mmol/L (22-29); Chloride 105 mmol/L (96-108); Estimated Glomerular Filt Rate 39; Glucose Random 77 mg/dL (60-115); Potassium 5.4 mmol/L (3.3-5.1); Sodium 134 mmol/L (135-145); Total Protein 7.4 g/dL (6.5-8.0)
== END 2022-02-23 12:08 | disposition home or self-care (01) ==
LOC: HO.10HDL 12:07
PROVIDERS: Visit Provider Surgery
DX: K65.1 Peritoneal abscess (principal)
CPT/HCPCS: 36415; 80053; 85025

== ENCOUNTER 2022-02-24 11:22 | Outpatient (REF) | payer MEDICAID, SELFPAY ==
--- NOTE | ~2022-02-24 | CT_ITS ---
EXAMINATION: CT ABDOMEN AND PELVIS WITHOUT CONTRAST CLINICAL INFORMATION: Peritoneal abscess, follow-up. COMPARISON: 02/03/2022 CT scan of the abdomen and pelvis. TECHNIQUE: Multidetector volumetric imaging was performed from the superior aspect of the liver through the pubic symphysis. Sagittal and coronal reformatted images were obtained on the technologist's workstation. Lack of intravenous and oral contrast limits visceral evaluation. This CT examination was performed using dose optimization techniques as appropriate, variously including the following: *Automated exposure control *Adjustment of mA and/or kV according to patient size (this includes techniques or standardized protocols for targeted exams where dose is matched to indication/reason for exam; i.e. extremities or head) *Use of iterative reconstruction technique DLP: 480 mGy-cm FINDINGS: LUNG BASES: Minimal right basilar atelectasis/scarring. No pleural or pericardial effusions. LIVER, GALLBLADDER, AND BILIARY TREE: Small right perihepatic fluid collection with right-sided pigtail drain in place appears minimally decreased. The hepatic parenchyma is unremarkable. Status post cholecystectomy with minimal residual pneumobilia. PANCREAS: Fatty atrophy without surrounding abnormality. SPLEEN: Unremarkable. ADRENAL GLANDS: Unremarkable. KIDNEYS AND URETERS: Noncalcified, fluid attenuation cysts bilaterally without significant change. No nephrolithiasis or hydroureteronephrosis. BLADDER: Mildly distended limiting evaluation without focal abnormality. GASTROINTESTINAL TRACT: The stomach is unremarkable. Small second segment duodenum diverticulum without associated abnormality. The remainder of the small bowel is unremarkable. The appendix is not confidently identified. No evidence for acute appendicitis. The colon and rectum are unremarkable. ABDOMINAL WALL: No significant hernia is appreciated. LYMPH NODES: No lymphadenopathy. VASCULAR: Unremarkable. PELVIC VISCERA: Unremarkable. OSSEOUS STRUCTURES: Mild to severe multilevel degenerative changes in the thoracolumbar spine. No acute or suspicious abnormality. CT/CT abdomen pelvis wo IV con IMPRESSION: 1. Minimal interval decrease in small right perihepatic fluid collection with drain in place. No significant new abnormality. 2. Interval resolution of small right pleural effusion.
[2022-02-24 11:55] LABS: MANUAL DIFF FLAG NO
[2022-02-24 12:23] LABS: Basophils Absolute Auto 0.1 X10*3/uL (0.0-0.2); Basophils Percent Auto 1.1 % (0-2); Eosinophils Absolute Auto 0.4 X10*3/uL (0.0-0.4); Eosinophils Percent Auto 7.7 % (0-4); Hematocrit 34.2 % (42.0-52.0); Hemoglobin 10.7 g/dl (14.0-18.0); Imm Gran Abs Auto 0.02 X10*3/uL (0.00-0.03); Imm Gran Pct Auto 0.4 % (0.0-0.4); Lymphocytes Absolute Auto 1.4 X10*3/uL (1.2-4.9); Lymphocytes Percent Auto 25.9 % (20-40); Mean Corpuscular HGB Conc 31.3 g/dl (31.0-36.0); Mean Corpuscular Hemoglobin 29.3 pg (27.0-33.0); Mean Corpuscular Volume 93.7 fL (80.0-98.0); Mean Platelet Volume 8.7 fL (9.4-12.4); Monocytes Absolute Auto 0.6 X10*3/uL (0.1-1.2); Monocytes Percent Auto 10.2 % (2-11); Neutrophils Absolute Auto 3.1 x10*3/uL (2.0-8.3); Neutrophils Percent Auto 54.7 % (45-73); Platelet Count 233 X10*3/uL (160-400); Red Blood Count 3.65 X10*6/uL (4.60-5.80); Red Cell Distribution Width 16.1 % (11.0-16.0); White Blood Count 5.6 X10*3/uL (4.8-10.8)
[2022-02-24 13:00] LABS: Alanine Aminotransferase 19 U/L (0-40); Albumin Level 4.1 g/dL (3.5-5.0); Alkaline Phosphatase 105 U/L (39-117); Amylase 79 U/L (28-100); Anion Gap 14 (12-20); Aspartate Amino Transferase 26 U/L (5-37); Bilirubin Direct < 0.2 mg/dL (0.0-0.5); Bilirubin Total 0.2 mg/dL (0.0-1.0); Blood Urea Nitrogen 35 mg/dL (9-16); C Reactive Protein 0.85 mg/dL (< or = 0.50); Carbon Dioxide 20 mmol/L (22-29); Chloride 107 mmol/L (96-108); Estimated Glomerular Filt Rate 50; Glucose Random 92 mg/dL (60-115); Lipase 18 U/L (8-78); Sodium 136 mmol/L (135-145); Total Protein 7.5 g/dL (6.5-8.0)
[2022-02-24 13:01] LABS: Erythrocyte Sedimentation Rate 40 MM/HR (0-15)
== END 2022-02-24 11:23 | disposition home or self-care (01) ==
LOC: HO.CT 11:22
PROVIDERS: Absent Provider Internal Medicine; PCP Nurse Practitioner Family; Visit Provider Surgery
DX: K65.1 Peritoneal abscess (principal); R10.13 Epigastric pain
CPT/HCPCS: 36415; 74176; 80048; 80076; 82150; 83690; 85025; 85652; 86140

== ENCOUNTER 2022-07-07 10:57 | Outpatient (REF) | payer MEDICAID, SELFPAY ==
[2022-07-07 11:05] VITALS: BMI 26.9
[2022-07-07 11:07] VITALS: BP 154/74; PULSE 69; RESP 16; TEMP 36.9; O2SAT 98
--- NOTE | 2022-07-07 12:14 | P.BOP_ITS ---
Brief Operative Note Date of Service: 07/07/22 Pre-op diagnosis: Implantable loop recorder in place Post-op diagnosis: same Procedure: Removal of implantable loop recorder Implants: After obtaining consent patient was in the minor surgery suite. Patient was laid supine on the operating table. The precordial area was then prepped and draped in a sterile fashion. Patient was then given 2% lidocaine with epinephrine intradermally and subcutaneously around the device. A small incision was then made at the head of the device. However required lot of manipulation to remove the device due to scar tissue. The device was then removed with help of a Hilaria. The wound was then closed with Steri-Strips and sterile pressure dressing applied. Surgeon: Suhas Anton MD Anesthesia: local Was an Electrical Accessories Assembler used for this Procedure?: No Estimated blood loss (mL): 30 Pathology: none sent Condition: stable Disposition: same day
[2022-07-07 12:15] VITALS: BP 154/81; PULSE 69; RESP 16; O2SAT 97
== END 2022-07-07 10:58 | disposition home or self-care (01) ==
LOC: HO.MS 10:57
PROVIDERS: PCP Nurse Practitioner Family; Visit Provider Internal Medicine Cardiovascular Disease
PROC: (CPT 33286; principal; 2022-07-07 11:30)
DX: Z95.818 Presence of other cardiac implants and grafts (principal); I48.20 Chronic atrial fibrillation, unspecified; Z79.01 Long term (current) use of anticoagulants
CPT/HCPCS: 33286

== ENCOUNTER → 2022-07-15 13:24 | Outpatient (BNVA) | payer MEDICAID, SELFPAY | PROVIDERS: PCP Nurse Practitioner Family; Referring Provider Nurse Practitioner Family; Visit Provider Nurse Practitioner Family | DX: I48.0 Paroxysmal atrial fibrillation (principal); I44.7 Left bundle-branch block, unspecified; Z51.89 Encounter for other specified aftercare; Z95.818 Presence of other cardiac implants and grafts | CPT/HCPCS: 99212 ==

== ENCOUNTER 2022-07-23 11:25 | Outpatient (REF) | payer MEDICAID, SELFPAY ==
[2022-07-23 13:55] LABS: MANUAL DIFF FLAG NO
[2022-07-23 14:03] LABS: Basophils Absolute Auto 0.1 X10*3/uL (0.0-0.2); Basophils Percent Auto 0.9 % (0-2); Eosinophils Absolute Auto 0.3 X10*3/uL (0.0-0.4); Eosinophils Percent Auto 4.6 % (0-4); Hematocrit 38.4 % (42.0-52.0); Hemoglobin 12.4 g/dl (14.0-18.0); Imm Gran Abs Auto 0.02 X10*3/uL (0.00-0.03); Imm Gran Pct Auto 0.4 % (0.0-0.4); Lymphocytes Absolute Auto 1.6 X10*3/uL (1.2-4.9); Lymphocytes Percent Auto 28.5 % (20-40); Mean Corpuscular HGB Conc 32.3 g/dl (31.0-36.0); Mean Platelet Volume 9.3 fL (9.4-12.4); Monocytes Absolute Auto 0.5 X10*3/uL (0.1-1.2); Monocytes Percent Auto 9.4 % (2-11); Neutrophils Absolute Auto 3.2 x10*3/uL (2.0-8.3); Neutrophils Percent Auto 56.2 % (45-73); Platelet Count 224 X10*3/uL (160-400); Red Blood Count 3.88 X10*6/uL (4.60-5.80); Red Cell Distribution Width 13.9 % (11.0-16.0); White Blood Count 5.6 X10*3/uL (4.8-10.8)
[2022-07-23 14:07] LABS: Appearance Urine Clear; Color Urine Yellow; Glucose Urine UA Negative (Negative); Leukocyte Esterase Urine Negative (Negative); Nitrite Urine Negative (Negative); PH 5.5 (5.0-9.0); Specific Gravity - Urine 1.025 (1.005-1.025); Urine Blood Negative (Negative); Urine Ketones Negative (Negative); Urine Protein Negative (Neg-Trace)
[2022-07-23 14:21] LABS: Alanine Aminotransferase 28 U/L (0-40); Albumin Level 4.3 g/dL (3.5-5.0); Alkaline Phosphatase 103 U/L (39-117); Anion Gap 16 (12-20); Aspartate Amino Transferase 28 U/L (5-37); Bilirubin Total 0.5 mg/dL (0.0-1.0); Blood Urea Nitrogen 26 mg/dL (9-16); Calcium 9.2 mg/dL (8.4-10.2); Carbon Dioxide 22 mmol/L (22-29); Chloride 109 mmol/L (96-108); Cholesterol 149 mg/dL; Estimated Glomerular Filt Rate 57; Glucose Fasting 91 mg/dL (60-99); HDL Cholesterol 39 mg/dL; LDL Cholesterol Calculated 91 mg/dl; Potassium 5.5 mmol/L (3.3-5.1); Sodium 141 mmol/L (135-145); Triglycerides 96 mg/dL
[2022-07-23 14:40] LABS: TSH reflex Free T4 1.38 uIU/mL (0.32-4.0)
== END 2022-07-23 11:26 | disposition home or self-care (01) ==
LOC: HO.HMGCLDS 11:25
PROVIDERS: PCP Nurse Practitioner Family; Visit Provider Nurse Practitioner Family
DX: K65.1 Peritoneal abscess (principal); E78.5 Hyperlipidemia, unspecified; R53.83 Other fatigue
CPT/HCPCS: 36415; 80053; 80061; 81003; 84443; 85025

== ENCOUNTER 2022-07-29 11:20 | Outpatient (REF) | payer MEDICAID, SELFPAY ==
[2022-07-29 14:18] LABS: Anion Gap 11 (12-20); Carbon Dioxide 24 mmol/L (22-29); Chloride 109 mmol/L (96-108); Sodium 139 mmol/L (135-145)
== END 2022-07-29 11:21 | disposition home or self-care (01) ==
LOC: HO.HMGCLDS 11:20
PROVIDERS: PCP Nurse Practitioner Family; Visit Provider Nurse Practitioner Family
DX: E87.5 Hyperkalemia (principal)
CPT/HCPCS: 36415; 80051

== ENCOUNTER 2022-08-05 13:16 | Outpatient (REF) | payer MEDICAID, SELFPAY ==
[2022-08-05 15:10] LABS: Anion Gap 13 (12-20); Blood Urea Nitrogen 19 mg/dL (9-16); Carbon Dioxide 25 mmol/L (22-29); Chloride 108 mmol/L (96-108); Estimated Glomerular Filt Rate 53; Glucose Random 81 mg/dL (60-115); Potassium 5.1 mmol/L (3.3-5.1); Sodium 141 mmol/L (135-145)
[2022-08-05 15:23] LABS: B Type Natriuretic Peptide 91 pg/mL (<100)
== END 2022-08-05 13:17 | disposition home or self-care (01) ==
LOC: HO.HMGCLDS 13:16
PROVIDERS: Visit Provider Internal Medicine Cardiovascular Disease
DX: I48.0 Paroxysmal atrial fibrillation (principal)
CPT/HCPCS: 36415; 80048; 83880

== ENCOUNTER → 2022-08-23 11:20 | Outpatient (REF) | payer MEDICAID, SELFPAY ==
--- NOTE | 2022-08-23 11:23 | HM_ITS ---
* Total monitoring time 2 days. * Underlying rhythm is sinus. Average ventricular rate 72/Min. Range 60 to 103/Min. * Rare PACs. Very brief runs noted. * No definitive atrial fibrillation. * No significant pauses or AV blocks. * No patient markers or events in diary. MTDD
== END ==
LOC: HO.CARD 11:20
PROVIDERS: PCP Nurse Practitioner Family; Visit Provider Internal Medicine Cardiovascular Disease
DX: I48.0 Paroxysmal atrial fibrillation (principal)
CPT/HCPCS: 93242

== ENCOUNTER 2022-11-16 10:32 | Outpatient (AMB) | payer MEDICAID, SELFPAY ==
--- NOTE | 2022-11-16 10:55 | A.OFFPC_ITS ---
Vital Signs 11/16/22 10:56 Height 5 ft 11 in Weight 208 lb 4 oz BMI 29.0 BP 122/70 Blood Pressure Location Rt brachial Position Sitting Pulse 62 Pulse Source Pulse Oximeter Pulse Oximetry (%) 98 Oxygen Delivery Method Room Air Intake Visit Reasons: 3 Month follow up Allergies Iodinated Contrast Media [IV DYE, IODINE CONTAINING] Allergy (Severe, Verified 11/16/22 11:00) ANAPHYLAXIS gluten [GLUTEN] Allergy (Intermediate, Verified 11/16/22 11:00) BLOATING,SEVERE GI PAIN amiodarone Adverse Reaction (Severe, Verified 11/16/22 11:00) hyperthyroid morphine Adverse Reaction (Verified 11/16/22 11:00) Nausea and Vomiting Medication List - Last Reconciled 11/16/22 by MARISOL Martin acebutolol 400 mg (2 x 200 mg) PO BID acetaminophen 1,000 mg PO TID PRN cholestyramine-aspartame 4 gram (Cholestyramine Light) 4 grams PO DAILY diltiazem HCl (Cardizem) 30 mg PO ONCE PRN omeprazole 40 mg PO DAILY walker (Ultra-Light Rollator misc) As directed Tobacco use date assessed: 11/16/22 Fall risk assessment: No Falls in past year Last assessed Fall Risk: 11/16/22 Dental Screening Dental Screen Date: 11/16/22 Did you have a dental visit in the last 12 months?: No Did you have a dental problem in the last 6 months where you did not have access to dental care?: No Was dental information given to patient?: No HPI 3 Month follow up HPI Details HTN: Blood pressure is stable. Will order labs. Denies chest pain, shortness of breath, and dizziness. Pt reports frequent diarrhea every time he has a bowel movement (over the last 2 weeks). He has had his gallbladder removed. He does follow up with GI. Will send cholestyramine. Denies fever, chills, N/V, and blood in stool. He has tried imodium with little relief. He knows to go to the ER with worsening symptoms FORMERLY [facility], [facility] Medical History Abscess of abdominal wall Atrial fibrillation with RVR Barretts esophagus Celiac disease Chronic neck and back pain Failed back syndrome Frequent PVCs GERD (gastroesophageal reflux disease) History of blood transfusion History of thyrotoxicosis Implantable loop recorder present LBBB (left bundle branch block) Paroxysmal atrial fibrillation PHN (postherpetic neuralgia) Sepsis with acute hypoxic respiratory failure Subcapsular hematoma of liver Surgical History H/O prior ablation treatment History of appendectomy History of back surgery History of colonoscopy History of esophagogastroduodenoscopy (EGD) History of exploratory laparotomy (12/28/21) History of inguinal hernia History of lymph node excision Hx laparoscopic cholecystectomy Family History Father CVD (cardiovascular disease) Mother Leukemia Son No problems noted. Son No problems noted. Daughter No problems noted. Daughter No problems noted. Social History Household Members: Spouse and Children Housing: House Are you a primary care specialist to a significant other at home: Yes (- mod dementia) Do you presently have visiting nurse or other home services: Yes ([facility]na) Alcohol intake: current Alcohol intake frequency: does not drink Patient Tobacco Use Status: Never used Tobacco e-Cigarette/Vaping Use: Never Used Second Hand Smoke Exposure: No service: Yes Current occupational status: employed Current occupation: [employer] Current occupational exposures/hazards: No Cognitive needs: No Hearing needs: No Vision needs: Yes Questionnaire Thrive Questionnaire Date Thrive assessed: 04/28/22 VISHNU-7 AMB Questionnaire VISHNU-7 Date VISHNU - 7 assessed: 04/28/22 Source: Developed by Drs. Rich Conley, Kayla Cota, Mika Connelly and colleagues, with an educational yarely from [employer]. Review of Systems Const Reports as per HPI Physical exam (Primary Care) Vital Signs: Last Vital Signs Pulse 62 11/16/22 10:56 BP 122/70 11/16/22 10:56 Pulse Ox 98 11/16/22 10:56 Oxygen Delivery Method Room Air 11/16/22 10:56 BMI result Body Mass Index 29.0 Tobacco/Smoking Status: Tobacco use Status Tobacco use date assessed 11/16/22 11/16/22 11:03 Patient Tobacco Use Status Never used Tobacco 11/16/22 10:56 e-Cigarette/Vaping Use Never Used 11/16/22 10:56 Thrive Assessment: Date of Thrive Assessment Date Thrive assessed 04/28/22 11/16/22 10:56 Const General: cooperative Orientation/consciousness: patient oriented x3 Resp Effort & Inspection: normal respiratory effort Auscultation: clear to auscultation bilaterally Cardio Rate: regular rate Rhythm: regular rhythm Heart sounds: S1 normal heart sound present and S2 normal heart sound present GI Palpation (GI): No Rebound tenderness present Neuro General: patient oriented x3 Psych Appearance: grossly normal Mental Status: mental status grossly normal Speech and movement: Normal speech and movement present Affect: normal affect Attitude: cooperative Thought process: Normal thought process present Thought content: Normal thought content present Insight: Good insight present (Psych) Judgement: Good judgement present (Psych) Assessment and Plan Assessment & Plan (1) HTN (hypertension): Code(s): I10 - Essential (primary) hypertension (2) Screening PSA (prostate specific antigen): Code(s): Z12.5 - Encounter for screening for malignant neoplasm of prostate (3) Diarrhea: Code(s): R19.7 - Diarrhea, unspecified Plan The patient agreed to the use of a medical assistant secretary for this encounter. Scribed for ANAI Ray by Vaishnavi Cruz medical assistant secretary, on 11/16/2022 at 11:10 EST. Orders: Orders Comprehensive Stanton. Panel Fast Today I10 - Essential (primary) hypertension Lipid Panel Today I10 - Essential (primary) hypertension TSH reflex Free T4 Today I10 - Essential (primary) hypertension Complete Blood Count Auto Diff Today I10 - Essential (primary) hypertension UA CC w/rflx Micro + Cult Today I10 - Essential (primary) hypertension Prostate Specific Antigen Scr Today Z12.5 - Encounter for screening for malignant neoplasm of prostate Medications: New cholestyramine-aspartame 4 gram (Cholestyramine Light) administer w/meal; avoid other meds within 1hr before or 4-6hr after dose 4 grams PO DAILY 60 ea 0RF Coding Level of Care Code Est Pt Level 3 (29736) Diagnoses HTN (hypertension) I10 Screening PSA (prostate specific antigen) Z12.5 Diarrhea R19.7
[2022-11-16 10:56] VITALS: BP 122/70; PULSE 62; O2SAT 98; BMI 29.0
== END 2022-11-16 12:10 | disposition home or self-care (01) ==
PROVIDERS: Visit Provider Nurse Practitioner Family
DX: I10 Essential (primary) hypertension (principal); Z12.5 Encounter for screening for malignant neoplasm of prostate; R19.7 Diarrhea, unspecified
CPT/HCPCS: 99213

== ENCOUNTER 2023-01-17 11:06 | Outpatient (AMB) | payer MEDICAID, SELFPAY ==
[2023-01-17 11:11] VITALS: BP 122/70; PULSE 71; BMI 28.6
--- NOTE | 2023-01-17 11:11 | A.OFFVIS_ITS ---
Intake Vital Signs 01/17/23 11:11 Height 5 ft 11 in Weight 205 lb 0.478 oz BMI 28.6 BP 122/70 Blood Pressure Location Lt brachial Position Sitting Pulse 71 Intake Visit Reasons: 6 mth f/up per dc Intake Note: 6month follow-up ekg feeling good Safety Instruction Police Officer Required: No Allergies Iodinated Contrast Media [IV DYE, IODINE CONTAINING] Allergy (Severe, Verified 11/16/22 11:00) ANAPHYLAXIS gluten [GLUTEN] Allergy (Intermediate, Verified 11/16/22 11:00) BLOATING,SEVERE GI PAIN amiodarone Adverse Reaction (Severe, Verified 11/16/22 11:00) hyperthyroid morphine Adverse Reaction (Verified 11/16/22 11:00) Nausea and Vomiting Medication List - Last Reconciled 01/17/23 by Suhas Anton MD acebutolol 400 mg (2 x 200 mg) PO BID acetaminophen 1,000 mg PO TID PRN diltiazem HCl (Cardizem) 30 mg PO ONCE PRN omeprazole 40 mg PO DAILY walker (Ultra-Light Rollator misc) As directed HPI HPI Comments History of Present Illness Details Wilfred comes for follow-up. He has been doing well from cardiac perspective. He has had no cardiovascular symptoms. He is slowly gaining strength and weight and eating better. No GI issues. No prolonged palpitation irregular heartbeat. No syncopal episodes. Blood pressures been well controlled. No neurologic symptoms. [facility] Medical History Atrial fibrillation with RVR Sepsis with acute hypoxic respiratory failure Abscess of abdominal wall Implantable loop recorder present Subcapsular hematoma of liver History of blood transfusion Chronic neck and back pain History of thyrotoxicosis Paroxysmal atrial fibrillation GERD (gastroesophageal reflux disease) PHN (postherpetic neuralgia) Frequent PVCs Barretts esophagus LBBB (left bundle branch block) Celiac disease Failed back syndrome Surgical History History of exploratory laparotomy (12/28/21) History of colonoscopy History of esophagogastroduodenoscopy (EGD) Hx laparoscopic cholecystectomy History of appendectomy History of lymph node excision History of inguinal hernia H/O prior ablation treatment History of back surgery Family History Father CVD (cardiovascular disease) Mother Leukemia Son No problems noted. Son No problems noted. Daughter No problems noted. Daughter No problems noted. Social History Household Members: Spouse and Children Housing: House Are you a primary aged or disabled care worker to a significant other at home: Yes (- mod dementia) Do you presently have visiting nurse or other home services: Yes (vna) Alcohol intake: current Alcohol intake frequency: does not drink Patient Tobacco Use Status: Never used Tobacco e-Cigarette/Vaping Use: Never Used Second Hand Smoke Exposure: No service: Yes Current occupational status: employed Current occupation: [employer] Current occupational exposures/hazards: No Cognitive needs: No Hearing needs: No Vision needs: Yes Review of Systems Const Denies chills, Denies fatigue, Denies fever(s), Denies frequent falls, Denies weakness, Denies weight gain and Denies weight loss ENT Denies dizziness Card Denies chest pain, Denies leg edema, Denies lightheadedness, Denies palpitations, Denies dyspnea, Denies dyspnea on exertion, Denies orthopnea and Denies other (loss of consciousness) Resp Denies cough, Denies dyspnea and Denies dyspnea on exertion GI Denies hematochezia and Denies change in stool character Musc Denies abnormal gait, Denies muscle weakness, Denies numbness, Denies radiating pain into limb and Denies tingling Neuro Denies abnormal gait, Denies dizziness, Denies frequent falls, Denies numbness, Denies tingling and Denies weakness Endo Denies fatigue and Denies palpitations Physical Exam Vital Signs: Last Vital Signs Pulse 71 01/17/23 11:11 BP 122/70 01/17/23 11:11 BMI result Body Mass Index 28.6 Const General: cooperative, healthy appearing, comfortable and no acute distress Orientation/consciousness: patient oriented x3 Chest Other: I ILR site left chest with dry dressing. Dressing gently removed, Steri-Strips loose and removed. 1/2 inch incision fully approximated with no redness, drainage, resolving ecchymosis is noted. Chest palpation & inspection: normal inspection of the chest Resp Effort & Inspection: normal respiratory effort Auscultation: clear to auscultation bilaterally, no crackles, no rales, no rhonchi and no wheezes Cardio Jugular venous distension: no JVD Rate: regular rate Rhythm: regular rhythm Heart sounds: S1 normal heart sound present, S2 normal heart sound present, no gallops, no murmurs and no rubs Neuro General: patient oriented x3 Psych Appearance: grossly normal Mental Status: mental status grossly normal Speech and movement: Normal speech and movement present Office Procedures EKG Details: EKG shows normal sinus rhythm with left bundle-branch block at 71 beats per minute [id number], Complete Assessment & Plan Assessment & Plan (1) Paroxysmal atrial fibrillation: Code(s): I48.0 - Paroxysmal atrial fibrillation Plan: Paroxysmal atrial fibrillation which has remained suppressed on current therapy with acebutolol. He has not had any recurrent events. Continue p.r.n. Cardizem use. Will avoid any oral antiarrhythmic drug use at this point time. Avoid ance of stimulants was discussed. He has done well with rhythm management will continue pursue rhythm management. Strongly advised oral anticoagulation therapy. He wants to think about it. (2) LBBB (left bundle branch block): Code(s): I44.7 - Left bundle-branch block, unspecified Plan: Left bundle-branch block which has remained stable. No interventions required. However requires echo every 3 years to check for development of LV systolic dysfunction. Will schedule for the same in the near future. (3) HTN (hypertension): Code(s): I10 - Essential (primary) hypertension Plan: Hypertension which is currently well optimized advised to monitor blood pressure at home maintain a log. Goal blood pressure less than 130/84. Advised low- salt diet. Continue maintain activity level as tolerated. Follow up in the clinic in 1 year's time, sooner p.r.n.. Thank you for allowing me to partake in his care Coding Level of Care Code Est Pt Level 4 (11913) Diagnoses Paroxysmal atrial fibrillation I48.0 LBBB (left bundle branch block) I44.7 HTN (hypertension) I10 CPT Codes EKG - CPT: 12073-[id number], Complete ([id number])
== END 2023-01-17 11:39 | disposition home or self-care (01) ==
PROVIDERS: PCP Nurse Practitioner Family; Visit Provider Internal Medicine Cardiovascular Disease
DX: I48.0 Paroxysmal atrial fibrillation (principal); I44.7 Left bundle-branch block, unspecified; I10 Essential (primary) hypertension
CPT/HCPCS: 93010; 99214

== ENCOUNTER → 2023-01-17 11:06 | Outpatient (BNVA) | payer MEDICAID, SELFPAY | PROVIDERS: PCP Nurse Practitioner Family; Visit Provider Internal Medicine Cardiovascular Disease | DX: I44.7 Left bundle-branch block, unspecified (principal); I48.0 Paroxysmal atrial fibrillation; I10 Essential (primary) hypertension; Z95.818 Presence of other cardiac implants and grafts | CPT/HCPCS: 93005; 99212 ==

== ENCOUNTER 2023-04-26 11:39 | Outpatient (AMB) | payer MEDICAID, SELFPAY ==
--- NOTE | 2023-04-26 11:40 | MHC.PC.OV ---
Vital Signs 04/26/23 11:45 Weight 209 lb BP 122/74 Blood Pressure Location Rt brachial Position Sitting Pulse 75 Pulse Source Pulse Oximeter Pulse Oximetry (%) 98 Oxygen Delivery Method Room Air Intake Visit Reasons: Annual PE Intake Note: Patient here for physical exam and would like to talk about sinus issues. Allergies Iodinated Contrast Media [IV DYE, IODINE CONTAINING] Allergy (Severe, Verified 04/26/23 11:46) ANAPHYLAXIS gluten [GLUTEN] Allergy (Intermediate, Verified 04/26/23 11:46) BLOATING,SEVERE GI PAIN amiodarone Adverse Reaction (Severe, Verified 04/26/23 11:46) hyperthyroid morphine Adverse Reaction (Verified 04/26/23 11:46) Nausea and Vomiting Medication List - Last Reconciled 04/26/23 by MARISOL Martin acebutolol 400 mg (2 x 200 mg) PO BID acetaminophen 1,000 mg PO TID PRN diltiazem HCl (Cardizem) 30 mg PO ONCE PRN multivitamin 1 tab PO DAILY omeprazole 40 mg PO DAILY walker (Ultra-Light Rollator misc) As directed Tobacco use date assessed: 04/26/23 Fall risk assessment: No Falls in past year Last assessed Fall Risk: 04/26/23 Dental Screening Dental Screen Date: 04/26/23 Did you have a dental visit in the last 12 months?: No Did you have a dental problem in the last 6 months where you did not have access to dental care?: No Was dental information given to patient?: Patient has dentist HPI Annual PE HPI Details Pt is here for a PE. Labs including PSA have already been ordered. Denies dribbling with urination, weak stream, and frequent nocturia. Colon screen is up to date. Pt has varicose veins to the medial aspect of his RLE. Will refer to vascular. [facility] Medical History Atrial fibrillation with RVR Sepsis with acute hypoxic respiratory failure Abscess of abdominal wall Implantable loop recorder present Subcapsular hematoma of liver History of blood transfusion Chronic neck and back pain History of thyrotoxicosis Paroxysmal atrial fibrillation GERD (gastroesophageal reflux disease) PHN (postherpetic neuralgia) Frequent PVCs Barretts esophagus LBBB (left bundle branch block) Celiac disease Failed back syndrome Surgical History History of exploratory laparotomy (12/28/21) History of colonoscopy History of esophagogastroduodenoscopy (EGD) Hx laparoscopic cholecystectomy History of appendectomy History of lymph node excision History of inguinal hernia H/O prior ablation treatment History of back surgery Family History Father CVD (cardiovascular disease) Mother Leukemia Son No problems noted. Son No problems noted. Daughter No problems noted. Daughter No problems noted. Social History Household Members: Spouse and Children Housing: House Are you a primary senior care specialist to a significant other at home: Yes (- mod dementia) Do you presently have visiting nurse or other home services: Yes (vna) Alcohol intake: current Alcohol intake frequency: does not drink Comment: previously medicated with po tylenol Patient Tobacco Use Status: Never used Tobacco e-Cigarette/Vaping Use: Never Used Second Hand Smoke Exposure: No service: Yes Current occupational status: employed Current occupation: [employer] Current occupational exposures/hazards: No Cognitive needs: No Hearing needs: No Vision needs: Yes Questionnaire Thrive Questionnaire Date Thrive assessed: 04/28/22 AUDIT C Alcohol Use Questionnaire (AUDIT-C) 1. How often do you have a drink containing alcohol?: Never 3. How often do you have six or more drinks on one occasion?: Never Total Score: 0 Score Reviewed/Action Taken: No VISHNU-7 AMB Questionnaire VISHNU-7 Date VISHNU - 7 assessed: 04/28/22 Source: Developed by Drs. Rich Conley, Kayla Cota, Mika Connelly and colleagues, with an educational yarely from [employer]. Review of Systems Const Denies chills and Denies fever(s) Eyes Denies blurry vision ENT Denies vertigo, Denies dizziness and Denies sore throat Card Denies chest pain at rest, Denies chest pain with activity, Denies diaphoresis, Denies dyspnea and Denies dyspnea on exertion Resp Denies cough, Denies dyspnea, Denies dyspnea on exertion and Denies wheezing GI Denies abdominal pain, Denies melena, Denies hematochezia, Denies constipation, Denies diarrhea and Denies loose stools Denies hematuria Musc Denies numbness and Denies tingling Skin/Breast Denies lesions Neuro Denies vertigo, Denies dizziness, Denies numbness and Denies tingling Psych Denies anxiety, Denies depression, Denies homicidal ideation, Denies suicidal ideation and Denies other (substance abuse) Aller/Immun Denies wheezing Physical exam (Primary Care) Vital Signs: Last Vital Signs Pulse 75 04/26/23 11:45 BP 122/74 04/26/23 11:45 Pulse Ox 98 04/26/23 11:45 Oxygen Delivery Method Room Air 04/26/23 11:45 Tobacco/Smoking Status: Tobacco use Status Tobacco use date assessed 04/26/23 04/26/23 11:49 Patient Tobacco Use Status Never used Tobacco 04/26/23 11:42 e-Cigarette/Vaping Use Never Used 04/26/23 11:42 Thrive Assessment: Date of Thrive Assessment Date Thrive assessed 04/28/22 04/26/23 11:42 Const General: cooperative Nutritional Appearance: well nourished Orientation/consciousness: patient oriented x3 HENMT Head: Yes normal to inspection, Yes normocephalic and Yes atraumatic Ears: TM's normal bilaterally Eyes General: appearance normal, both eyes and all related structures Alignment and Position: alignment normal and position normal Neck Neck: Yes normal visual inspection and Yes no lymphadenopathy Thyroid: Thyroid normal Resp Effort & Inspection: normal respiratory effort Auscultation: clear to auscultation bilaterally Cardio Rate: regular rate Rhythm: regular rhythm Heart sounds: S1 normal heart sound present, S2 normal heart sound present and no murmurs GI Palpation (GI): Soft to palpation and nontender Auscultation: normal bowel sounds Male General Exam: Yes normal external exam Penis: normal penis Scrotum: scrotum normal, testes descended bilaterally and no inguinal hernias Testes: no testicular mass Skin Other: BLE with varicose veins, medial aspect R>L Rashes: no rashes Neuro General: patient oriented x3, moves all extremities, no focal motor deficits and deep tendon reflexes 2+ bilaterally Romberg Test: Negative Psych Appearance: grossly normal Mental Status: mental status grossly normal Speech and movement: Normal speech and movement present Affect: normal affect Attitude: cooperative Thought process: Normal thought process present Thought content: Normal thought content present Insight: Good insight present (Psych) Judgement: Good judgement present (Psych) Assessment and Plan Assessment & Plan (1) Varicose vein of leg: Code(s): I83.90 - Asymptomatic varicose veins of unspecified lower extremity Plan: Referred to vascular (2) Physical exam: Code(s): Z00.00 - Encounter for general adult medical examination without abnormal findings Plan: lab orders already placed Plan The patient agreed to the use of a medical receptionist for this encounter. Scribed for MAKENZIE Ray- by Vaishnavi Cruz medical receptionist, on 04/26/2023 at 11:55 EST. Orders: Referrals Vascular Surgery Referral I83.90 - Asymptomatic varicose veins of unspecified lower extremity Coding Level of Care Code Est Pt Prev Care >65y(73158) Diagnoses Varicose vein of leg I83.90 Physical exam Z00.00
[2023-04-26 11:45] VITALS: BP 122/74; PULSE 75; O2SAT 98
== END 2023-04-26 12:14 | disposition home or self-care (01) ==
PROVIDERS: PCP Nurse Practitioner Family; Visit Provider Nurse Practitioner Family
DX: I83.90 Asymptomatic varicose veins of unspecified lower extremity (principal); Z00.00 Encounter for general adult medical examination without abnormal findings
CPT/HCPCS: 99397

== ENCOUNTER 2023-08-02 11:19 | Outpatient (AMB) | payer MEDICAID, SELFPAY ==
[2023-08-02 11:40] VITALS: BMI 29.1
--- NOTE | 2023-08-02 11:40 | MHC.OFFVIS ---
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 No issues on the Left LE. Pt states he has rope like VV on his Right LE when standing for a while and LE swelling. 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 Complaints include pain over varicosities, swelling of lower extremities, cramping, fatigue, and heaviness of the lower extremities. In addition he has significant itching of the legs. He also has the beginnings of what looks to be ulceration. It has been affecting there daily activities including walking. It is noted more so in right leg. Of note he has had a prior right groin dissection for lymph node secondary to cat scratch disease dating back to 1983. Patient prior venous ablation by Dr. Mueller many years prior. Patient denies any history of DVT/ PE. Patient denies any history of phlebitis. Trial of compression includes - prescription compression of 20-30 mmHg They now present for vascular evaluation regarding their varicose veins. [facility] Medical History Atrial fibrillation with RVR Sepsis with acute hypoxic respiratory failure Abscess of abdominal wall Implantable loop recorder present Subcapsular hematoma of liver History of blood transfusion Chronic neck and back pain History of thyrotoxicosis Paroxysmal atrial fibrillation GERD (gastroesophageal reflux disease) PHN (postherpetic neuralgia) Frequent PVCs Barretts esophagus LBBB (left bundle branch block) Celiac disease Failed back syndrome Surgical History History of exploratory laparotomy (12/28/21) History of colonoscopy History of esophagogastroduodenoscopy (EGD) Hx laparoscopic cholecystectomy History of appendectomy History of lymph node excision History of inguinal hernia H/O prior ablation treatment History of back surgery Family History Father CVD (cardiovascular disease) Mother Leukemia Son No problems noted. Son No problems noted. Daughter No problems noted. Daughter No problems noted. Social History Household Members: Spouse and Children Housing: House Are you a primary care analyst to a significant other at home: Yes (- mod dementia) Do you presently have visiting nurse or other home services: Yes (vna) Alcohol intake: current Alcohol intake frequency: does not drink Comment: previously medicated with po tylenol Patient Tobacco Use Status: Never used Tobacco e-Cigarette/Vaping Use: Never Used Second Hand Smoke Exposure: No service: Yes Current occupational status: employed Current occupation: [employer] Current occupational exposures/hazards: No Cognitive needs: No Hearing needs: No Vision needs: Yes Review of Systems Const Reports as per HPI ENT Reports no additional complaints Card Denies chest pain, Denies chest pain at rest and Denies chest pain with activity Resp Denies chest congestion and Denies cough GI Reports no additional complaints Musc Details: pain over varicosities, aching of lower extremities, swelling, cramping, heaviness and tiredness, itching Denies abnormal gait Skin/Breast Reports pruritus and Denies wounds Neuro Reports no additional complaints and Denies abnormal gait Psych Denies no additional complaints Physical Exam Vital Signs: BMI result Body Mass Index 29.1 Const General: cooperative, healthy appearing and comfortable Orientation/consciousness: oriented to person, oriented to place and oriented to time Neck Carotids: no bruits Chest Chest palpation & inspection: normal inspection of the chest and normal palpation of entire chest wall Resp Effort & Inspection: normal respiratory effort and able to speak in complete sentences Cardio Rate: regular rate Heart sounds: S1 normal heart sound present and S2 normal heart sound present Peripheral pulses: Peripheral pulses 2+ throughout GI Inspection: Yes normal to inspection Skin Other: +2 edema, large rope-like varicosities greater than 4 mm right calf and thigh CEAP Classification C4 - skin color changes Ep - Etiology Primary As - superficial veins P - reflux Right groin incision from prior lymph node dissection General skin exam: dry skin Neuro General: oriented to person, oriented to place and oriented to time Extrem Right lower extremity: full ROM, normal capillary refill and edema Left lower extremity: full ROM, normal capillary refill and edema Psych Mental Status: mental status grossly normal Assessment & Plan Assessment & Plan (1) Varicose veins of right lower extremity with inflammation: Code(s): I83.11 - Varicose veins of right lower extremity with inflammation Plan: In short, the patient has evidence of venous insufficiency. I have discussed the pathophysiology with the patient. In addition I have provided informational material regarding venous disease to the patient. We have discussed conservative measures including compression, elevation, and exercise. I have also provided a handout regarding appropriate use of compression stockings and where to purchase good compression stockings as well. I have taken the liberty of ordering venous insufficiency testing with the patient. They will follow up with me after testing. The patient had an opportunity to ask questions regarding the treatment plan. All questions were answered. Imaging studies, laboratory studies and physical exam results were discussed and reviewed in detail. No major barriers to understanding were identified. The patient expressed understanding and agreement with the above treatment plan. The patient is aware they should contact our office by phone for worsening of the current condition or the appearance of new symptoms. Thank you for allowing me to participate in the vascular care of this patient. If you have any questions or concerns regarding the treatment for the above condition please do not hesitate to contact me. The office telephone contact is [phone]. This note is constructed using voice recognition software. While every effort has been made to ensure accuracy, green building architect errors may have been included. Thank you for allowing me to participate in the care of your patient. Yours sincerely, Justo Almanza MD, FACS, R.P.V.I. (2) Lymphedema: Code(s): I89.0 - Lymphedema, not elsewhere classified Plan: In addition to venous disease the patient definitely has a component of lymphedema. He has a prior groin dissection for lymph nodes secondary to cat scratch disease. In addition had significant abdominal surgery although laparoscopic he did have a significant abscess which may have disrupted the lymphatics as well. We will treat him for venous disease 1st. After that we will address his lymphedema. Of note he did have lymphedema treatment therapy dating back to the 90s at a lymphedema clinic. Orders: Orders US venous duplex LE BI 1 Week I83.11 - Varicose veins of right lower extremity with inflammation Coding Level of Care Code New Pt Level 4 (07384) Diagnoses Varicose veins of right lower extremity with inflammation I83.11 Lymphedema I89.0
== END 2023-08-02 12:04 | disposition home or self-care (01) ==
PROVIDERS: PCP Nurse Practitioner Family; Visit Provider Surgery Vascular Surgery
DX: I83.11 Varicose veins of right lower extremity with inflammation (principal); I89.0 Lymphedema, not elsewhere classified
CPT/HCPCS: 99204

== ENCOUNTER → 2023-08-02 11:19 | Outpatient (BNVA) | payer MEDICAID, SELFPAY | PROVIDERS: PCP Nurse Practitioner Family; Visit Provider Surgery Vascular Surgery | DX: I83.11 Varicose veins of right lower extremity with inflammation (principal); I89.0 Lymphedema, not elsewhere classified | CPT/HCPCS: 99202 ==

== ENCOUNTER 2023-08-12 10:25 | Outpatient (REF) | payer MEDICAID, SELFPAY ==
--- NOTE | ~2023-08-12 | US_ITS ---
EXAMINATION: US LOWER EXTREMITY VENOUS (REFLUX EXAM), BILATERAL CLINICAL INDICATION: Varicose veins COMPARISON: None. TECHNIQUE: Color flow triplex imaging and compression Doppler was performed to evaluate both the deep and the superficial systems bilaterally. To evaluate the superficial system, the examination was performed in the upright position. Color-flow Doppler ultrasound and compression ultrasound were utilized. In addition, maneuvers were utilized to demonstrate reflux. FINDINGS: 1. DEEP VENOUS ULTRASOUND OF THE RIGHT LOWER EXTREMITY: Common Femoral Vein: Compressible, normal respiratory variation and augmented flow. Femoral Vein: Compressible, normal color flow and augmentation. Popliteal Vein: Compressible, normal augmentation. Deep Reflux: There is no evidence of reflux in the deep system in either the common femoral vein, superficial femoral or the popliteal vein. There is no evidence of a Lopez's cyst. 2. SUPERFICIAL ULTRASOUND WITH DOPPLER OF RIGHT LOWER EXTREMITY: GREAT SAPHENOUS VEIN: Saphenofemoral Junction: 0.7 cm; Reflux: 2425 ms Proximal Thigh: 0.4 cm; Reflux: 2312 ms Mid Thigh: not seen Above Knee: not seen At Knee: 0.1 cm; Reflux: 0 ms Below Knee: 0.2 cm; Reflux: 0 ms Mid Calf: 0.1 cm; Reflux: 0 ms Ankle: 0.1 cm; Reflux: 0 ms DUPLICATED MEDIAL GREAT SAPHENOUS VEIN: Diameter: None imaged Reflux: NA DUPLICATED LATERAL GREAT SAPHENOUS VEIN: Saphenopopliteal Junction: 0.2 cm; Reflux: 0 ms Proximal: 0.2 cm; Reflux: 0 ms SMALL SAPHENOUS VEIN: Saphenopopliteal Junction: 0.3 cm; Reflux: 0 ms Proximal: 0.2 cm; Reflux: 2412 ms Distal: 0.3 cm; Reflux: 1788 ms Multiple calcifications in the right SSV. VEIN OF GIACOMINI: Size: NA Reflux: NA PERFORATORS: Location: Multiple thigh and mid calf Size: 0.2cm Reflux: 2600-2884ms VARICOSITIES: Location: mid SSV Size: 0.3-0.6cm Reflux: 2280-2688ms 3. DEEP VENOUS ULTRASOUND OF THE LEFT LOWER EXTREMITY: Common Femoral Vein: Compressible, normal respiratory variation and augmented flow. Femoral Vein: Compressible, normal color flow and augmentation. Popliteal Vein: Compressible, normal augmentation. Deep Reflux: There is no evidence of reflux in the deep system in either the common femoral vein, superficial femoral or the popliteal vein. There is no evidence of a Lopez's cyst. 4. SUPERFICIAL ULTRASOUND WITH DOPPLER OF LEFT LOWER EXTREMITY: GREAT SAPHENOUS VEIN: Saphenofemoral Junction: 0.7 cm; Reflux: 0 ms Proximal Thigh: 0.4 cm; Reflux: 0 ms Mid Thigh: 0.2 cm; Reflux: 0 ms Above Knee: 0.2 cm; Reflux: 0 ms At Knee: 0.2 cm; Reflux: 0 ms Below Knee: 0.2 cm; Reflux: 504 ms Mid Calf: 0.1 cm; Reflux: 2408 ms Ankle: 0.2 cm; Reflux: 0 ms DUPLICATED MEDIAL GREAT SAPHENOUS VEIN: Diameter: None imaged Reflux: NA DUPLICATED LATERAL GREAT SAPHENOUS VEIN: Diameter: None imaged Reflux: NA SMALL SAPHENOUS VEIN: Saphenopopliteal Junction: 0.3 cm; Reflux: 0 ms Proximal: 0.1 cm; Reflux: 0 ms Distal: 0.2 cm; Reflux: 0 ms VEIN OF GIACOMINI: Size: NA Reflux: NA PERFORATORS: Location: Distal calf Size: 0.2cm Reflux: NA VARICOSITIES: Location: None Imaged Size: NA Reflux: NA US/US venous duplex LE BI IMPRESSION: 1. Right: Severe reflux in the right small saphenous vein. 2. Left: No significant reflux in the great saphenous vein. 3. Left small saphenous venous insufficiency.
== END 2023-08-12 10:26 | disposition home or self-care (01) ==
LOC: HO.US 10:25
PROVIDERS: PCP Nurse Practitioner Family; Visit Provider Surgery Vascular Surgery
DX: I83.11 Varicose veins of right lower extremity with inflammation (principal)
CPT/HCPCS: 93970

== ENCOUNTER 2023-09-27 11:02 | Outpatient (AMB) | payer MEDICAID, SELFPAY ==
[2023-09-27 11:25] VITALS: BMI 29.1
--- NOTE | 2023-09-27 11:25 | A.OFFVIS_ITS ---
Vital Signs 09/27/23 11:25 Height 5 ft 11 in Weight 209 lb BMI 29.1 Intake Visit Reasons: f/u s/p 08/12/23 Intake Note: follow up 08/12/23 for Right LE VV w/ Hx of lymphedema, lymph node removal and Hx of vein procedure w/ . Pt states no changes, still has Right LE swelling at the end of the day. Equipment Installer Required: No Accompanied by: Self / Same As Patient Allergies Iodinated Contrast Media [IV DYE, IODINE CONTAINING] Allergy (Severe, Verified 09/27/23 11:32) ANAPHYLAXIS gluten [GLUTEN] Allergy (Intermediate, Verified 09/27/23 11:32) BLOATING,SEVERE GI PAIN amiodarone Adverse Reaction (Severe, Verified 09/27/23 11:32) hyperthyroid morphine Adverse Reaction (Verified 09/27/23 11:32) Nausea and Vomiting HPI HPI f/u s/p 08/12/23: Details: Very pleasant 72-year-old gentleman presents for venous insufficiency follow-up. He has rather large varicosities of the right lower extremity which have been a source of pain and discomfort for him. Has significant swelling which has been an issue for him as well. He now presents for follow-up with venous insufficiency testing. Please note that he did have prior venous ablation is by Dr. Mueller. [facility] Medical History Atrial fibrillation with RVR Sepsis with acute hypoxic respiratory failure Abscess of abdominal wall Implantable loop recorder present Subcapsular hematoma of liver History of blood transfusion Chronic neck and back pain History of thyrotoxicosis Paroxysmal atrial fibrillation GERD (gastroesophageal reflux disease) PHN (postherpetic neuralgia) Frequent PVCs Barretts esophagus LBBB (left bundle branch block) Celiac disease Failed back syndrome Surgical History History of exploratory laparotomy (12/28/21) History of colonoscopy History of esophagogastroduodenoscopy (EGD) Hx laparoscopic cholecystectomy History of appendectomy History of lymph node excision History of inguinal hernia H/O prior ablation treatment History of back surgery Family History Father CVD (cardiovascular disease) Mother Leukemia Son No problems noted. Son No problems noted. Daughter No problems noted. Daughter No problems noted. Social History Household Members: Spouse and Children Housing: House Are you a primary post acute care nurse practitioner to a significant other at home: Yes (- mod dementia) Do you presently have visiting nurse or other home services: Yes (vna) Alcohol intake: current Alcohol intake frequency: does not drink Comment: previously medicated with po tylenol Patient Tobacco Use Status: Never used Tobacco e-Cigarette/Vaping Use: Never Used Second Hand Smoke Exposure: No service: Yes Current occupational status: employed Current occupation: [employer] Current occupational exposures/hazards: No Cognitive needs: No Hearing needs: No Vision needs: Yes Review of Systems Const Reports as per HPI ENT Reports no additional complaints Card Denies chest pain, Denies chest pain at rest and Denies chest pain with activity Resp Denies chest congestion and Denies cough GI Reports no additional complaints Musc Details: pain over varicosities, aching of lower extremities, swelling, cramping, heaviness and tiredness, itching Denies abnormal gait Skin/Breast Reports pruritus and Denies wounds Neuro Reports no additional complaints and Denies abnormal gait Psych Denies no additional complaints Physical Exam Vital Signs: BMI result Body Mass Index 29.1 Const General: cooperative, healthy appearing and comfortable Orientation/consciousness: oriented to person, oriented to place and oriented to time Neck Carotids: no bruits Chest Chest palpation & inspection: normal inspection of the chest and normal palpation of entire chest wall Resp Effort & Inspection: normal respiratory effort and able to speak in complete sentences Cardio Rate: regular rate Heart sounds: S1 normal heart sound present and S2 normal heart sound present Peripheral pulses: Peripheral pulses 2+ throughout GI Inspection: Yes normal to inspection Skin Other: +2 edema, large rope-like varicosities greater than 4 mm right thigh and calf CEAP Classification C4 - skin color changes Ep - Etiology Primary As - superficial veins P - reflux General skin exam: dry skin Neuro General: oriented to person, oriented to place and oriented to time Extrem Right lower extremity: full ROM, normal capillary refill and edema Left lower extremity: full ROM, normal capillary refill and edema Psych Mental Status: mental status grossly normal Results Reviewed Results Reviewed: Brief summary of venous insufficiency testing is as follows: right great saphenous vein: Only positive at junction right small saphenous vein: Positive right accessory vein: none present left great saphenous vein: negative left small saphenous vein: negative left accessory vein: none present Please note there is no evidence of any venous aneurysms or significant tortuosity Assessment & Plan Assessment & Plan (1) Varicose veins of right lower extremity with inflammation: Code(s): I83.11 - Varicose veins of right lower extremity with inflammation Category: Medical Plan: This patient has varicose veins with inflammation. They continue to be a source of discomfort for the patient. The patient has tried conservative treatment with compression, leg elevation and exercise program for over 3 months time. They have been compliant with all treatment. This has provided minimal relief for the patient. I do not anticipate this course of treatment will alter the underlying etiology. The patient has been scheduled for lower extremity venous treatment inclusive of --- right small saphenous vein radiofrequency ablation. Risks, benefits, and complications of this procedure has been discussed in detail with the patient including but not limited to bleeding, infection, and the development of a DVT. The patient has demonstrated a clear understanding and has consented. We will schedule the patient as soon as possible. Thank you for allowing us to participate in this patient's care. If there are any questions or concerns please do not hesitate to contact us. Coding Level of Care Code Est Pt Level 4 (90263) Diagnoses Varicose veins of right lower extremity with inflammation I83.11
== END 2023-09-27 11:58 | disposition home or self-care (01) ==
PROVIDERS: PCP Nurse Practitioner Family; Visit Provider Surgery Vascular Surgery
DX: I83.11 Varicose veins of right lower extremity with inflammation (principal)
CPT/HCPCS: 99214

== ENCOUNTER → 2023-09-27 11:02 | Outpatient (BNVA) | payer MEDICAID, SELFPAY | PROVIDERS: PCP Nurse Practitioner Family; Visit Provider Surgery Vascular Surgery | DX: I83.11 Varicose veins of right lower extremity with inflammation (principal) | CPT/HCPCS: 99212 ==

== ENCOUNTER 2023-12-30 10:13 | Outpatient (AMB) | payer MEDICARE, MEDICAID, SELFPAY ==
--- NOTE | 2023-12-30 10:50 | A.OFFVIS_ITS ---
Intake Visit Reasons: Right SSV RFA Allergies Iodinated Contrast Media [IV DYE, IODINE CONTAINING] Allergy (Severe, Verified 12/30/23 10:50) ANAPHYLAXIS gluten [GLUTEN] Allergy (Intermediate, Verified 12/30/23 10:50) BLOATING,SEVERE GI PAIN amiodarone Adverse Reaction (Severe, Verified 12/30/23 10:50) hyperthyroid morphine Adverse Reaction (Verified 12/30/23 10:50) Nausea and Vomiting PFSH Medical History Atrial fibrillation with RVR Sepsis with acute hypoxic respiratory failure Abscess of abdominal wall Implantable loop recorder present Subcapsular hematoma of liver History of blood transfusion Chronic neck and back pain History of thyrotoxicosis Paroxysmal atrial fibrillation GERD (gastroesophageal reflux disease) PHN (postherpetic neuralgia) Frequent PVCs Barretts esophagus LBBB (left bundle branch block) Celiac disease Failed back syndrome Surgical History History of exploratory laparotomy (12/28/21) History of colonoscopy History of esophagogastroduodenoscopy (EGD) Hx laparoscopic cholecystectomy History of appendectomy History of lymph node excision History of inguinal hernia H/O prior ablation treatment History of back surgery Family History Father CVD (cardiovascular disease) Mother Leukemia Son No problems noted. Son No problems noted. Daughter No problems noted. Daughter No problems noted. Social History Household Members: Spouse and Children Housing: House Are you a primary hospice care consultant to a significant other at home: Yes (- mod dementia) Do you presently have visiting nurse or other home services: Yes (vna) Alcohol intake: current Alcohol intake frequency: does not drink Comment: previously medicated with po tylenol Patient Tobacco Use Status: Never used Tobacco e-Cigarette/Vaping Use: Never Used Second Hand Smoke Exposure: No service: Yes Current occupational status: employed Current occupation: [employer] Current occupational exposures/hazards: No Cognitive needs: No Hearing needs: No Vision needs: Yes Office Procedures Vascular Office Procedure Details Details: Diagnosis: Varicose veins with inflammation of right leg Procedure: Endovenous radiofrequency ablation of the right small saphenous vein(s) of the lower extremity with closure fast Anesthesia: Local infiltration 5 cc, Tumescent 100 cc. Estimated Blood Loss: Minimal The patient was transferred to the procedure suite and the insufficient small saphenous vein was mapped by ultrasound and diagrammed on the overlying skin. The depth and diameter of the vein(s) to be treated was documented. The varicose tributary veins and suitable access sites were identified and mapped as well. The patient was then positioned prone on the procedure table. The affected limb was prepped and draped in the usual sterile fashion. The RF catheter was placed on the sterile field, flushed and wiped down, prepared, and connected by a sterile cable. The patient was placed in a prone position and local anesthesia was instilled in the skin overlying the access site. A skin incision was made overlying the identified and mapped small saphenous vein entry site. The vein was accessed using ultrasound guidance and the Seldinger technique, a guide wire was introduced through the needle, which was then exchanged over the guide wire for a 7F sheath, which was secured in place. The guide wire was removed and the sheath was flushed. The RF catheter was placed into the vein through the sheath and preferentially, imaging was used to place the catheter tip just inferior to the saphenopopliteal junction. Additionally, it was confirmed by ultrasound guidance that the catheter tip was also placed a minimum of 1.5cm distal to the saphenopopliteal junction. After the RF catheter position was verified by ultrasound, tumescent anesthesia was infiltrated, under ultrasound guidance, precisely into the perivenous compartment along the entire length of vein from the entry site to the saphenofemoral junction until a halo of fluid was noted around the vein. The patient was appropriately position. After RF catheter position was again confirmed with ultrasound imaging, and under direct external compression along the length of the heating element, RF energy was applied. The vein was segmentally ablated by heating a 3 cm segment and then indexing the catheter forward by 2.5 cm until the treatment length is completed. Device temperature was maintained at 120 plus or minus 5 degrees C with an initial power level of 4W/cm dropping to below 2W/cm for each treatment. Total vein length treated 6 cm Total cycles of RF 3. Repeat ultrasound of the saphenous vein was performed, confirming successful treatment. The catheter and sheath were withdrawn and hemostasis established with direct pressure. After assuring hemostasis, the skin incision over the saphenous vein was closed with a bandage and a compression wrap was applied from the level of the foot to the most proximal level of the thigh. Discharge instructions were given to the patient inclusive of follow-up ultrasound and recommended follow-up with us 61904 - Endovenous RF, 1st Vein All charges added?: Procedure code (CPT) selection complete Assessment & Plan Assessment & Plan (1) Varicose veins of right lower extremity with inflammation: Comment: 12/30/2023 - right small saphenous vein radiofrequency ablation Code(s): I83.11 - Varicose veins of right lower extremity with inflammation Category: Medical Plan: See op note Coding Level of Care Code Procedure Only Diagnoses Varicose veins of right lower extremity with inflammation I83.11 CPT Codes Details - Vascular 1: 21842 - Endovenous RF, 1st Vein ([id number])
== END 2023-12-30 11:40 | disposition home or self-care (01) ==
PROVIDERS: PCP Nurse Practitioner Family; Visit Provider Surgery Vascular Surgery
DX: I83.11 Varicose veins of right lower extremity with inflammation (principal)
CPT/HCPCS: 36475

== ENCOUNTER → 2023-12-30 10:13 | Outpatient (BNVA) | payer MEDICARE, MEDICAID, SELFPAY | PROVIDERS: PCP Nurse Practitioner Family; Visit Provider Surgery Vascular Surgery | DX: I83.11 Varicose veins of right lower extremity with inflammation (principal) | CPT/HCPCS: 36475 ==

== ENCOUNTER 2024-01-02 11:24 | Outpatient (REF) | payer MEDICAID, SELFPAY ==
--- NOTE | ~2024-01-02 | US_ITS ---
EXAMINATION: US TRIPLEX LOWER EXTREMITY, RIGHT CLINICAL INFORMATION: Right lower extremity pain COMPARISON: Bilateral lower extremity venous duplex dated 08/12/2023 TECHNIQUE: Color-flow triplex imaging with spectral analysis and compression Doppler were performed on the right lower extremity. FINDINGS: Respiratory variation, normal compression and augmented flow are noted throughout the right lower extremity. The visualized common femoral vein, superficial femoral vein, profunda femoral vein, popliteal vein and midcalf peroneal and posterior tibial venous segments show no evidence of deep venous thrombosis. There is no Lopez's cyst. US/US venous duplex LE RT IMPRESSION: No evidence of deep venous thrombosis involving the right lower extremity. Electronically signed by: Eva Overton MD 01/03/2024 04:17 PM EDT
== END 2024-01-02 11:25 | disposition home or self-care (01) ==
LOC: HO.HMGCX 11:24
PROVIDERS: PCP Nurse Practitioner Family; Visit Provider Surgery Vascular Surgery
DX: M79.604 Pain in right leg (principal)
CPT/HCPCS: 93971

== ENCOUNTER 2024-01-17 10:12 | Outpatient (AMB) | payer MEDICAID, SELFPAY ==
--- NOTE | 2024-01-17 10:27 | MHC.OFFVIS ---
Vital Signs 01/17/24 10:28 Height 5 ft 11 in Weight 209 lb BMI 29.1 Intake Visit Reasons: 2w follow up s/p Right SSV RFA 12/30/23 Intake Note: 2 week follow up Right SSV RFA 12/30/23. Pt states he did have to do some heavy lifting after the procedure due to emergency and has some soreness in treated area. But is doing okay otherwise. Accompanied by: Self / Same As Patient Allergies Iodinated Contrast Media [IV DYE, IODINE CONTAINING] Allergy (Severe, Verified 01/17/24 10:31) ANAPHYLAXIS gluten [GLUTEN] Allergy (Intermediate, Verified 01/17/24 10:31) BLOATING,SEVERE GI PAIN amiodarone Adverse Reaction (Severe, Verified 01/17/24 10:31) hyperthyroid morphine Adverse Reaction (Verified 01/17/24 10:31) Nausea and Vomiting HPI HPI 2w follow up s/p Right SSV RFA 12/30/23: Details: Very pleasant 73-year-old gentleman presents for follow-up status post right small saphenous vein radiofrequency ablation. He has had no interval issues. Appears to be doing relatively well. Overall swelling appears to have significantly decreased. Does have some larger varicosities which have been a source of discomfort for him. He now presents for routine follow-up. Of note he had lymph node removal in 1983 secondary to cat scratch disease. [facility] Medical History Atrial fibrillation with RVR Sepsis with acute hypoxic respiratory failure Abscess of abdominal wall Implantable loop recorder present Subcapsular hematoma of liver History of blood transfusion Chronic neck and back pain History of thyrotoxicosis Paroxysmal atrial fibrillation GERD (gastroesophageal reflux disease) PHN (postherpetic neuralgia) Frequent PVCs Barretts esophagus LBBB (left bundle branch block) Celiac disease Failed back syndrome Surgical History History of exploratory laparotomy (12/28/21) History of colonoscopy History of esophagogastroduodenoscopy (EGD) Hx laparoscopic cholecystectomy History of appendectomy History of lymph node excision History of inguinal hernia H/O prior ablation treatment History of back surgery Family History Father CVD (cardiovascular disease) Mother Leukemia Son No problems noted. Son No problems noted. Daughter No problems noted. Daughter No problems noted. Social History Household Members: Spouse and Children Housing: House Are you a primary day care attendant to a significant other at home: Yes (- mod dementia) Do you presently have visiting nurse or other home services: Yes (vna) Alcohol intake: current Alcohol intake frequency: does not drink Comment: previously medicated with po tylenol Patient Tobacco Use Status: Never used Tobacco e-Cigarette/Vaping Use: Never Used Second Hand Smoke Exposure: No service: Yes Current occupational status: employed Current occupation: [employer] Current occupational exposures/hazards: No Cognitive needs: No Hearing needs: No Vision needs: Yes Review of Systems Const Reports as per HPI ENT Reports no additional complaints Card Denies chest pain, Denies chest pain at rest and Denies chest pain with activity Resp Denies chest congestion and Denies cough GI Reports no additional complaints Musc Details: pain over varicosities, aching of lower extremities, swelling, cramping, heaviness and tiredness, itching Denies abnormal gait Skin/Breast Reports pruritus and Denies wounds Neuro Reports no additional complaints and Denies abnormal gait Psych Denies no additional complaints Physical Exam Vital Signs: BMI result Body Mass Index 29.1 Const General: cooperative, healthy appearing and comfortable Orientation/consciousness: oriented to person, oriented to place and oriented to time Neck Carotids: no bruits Chest Chest palpation & inspection: normal inspection of the chest and normal palpation of entire chest wall Resp Effort & Inspection: normal respiratory effort and able to speak in complete sentences Cardio Rate: regular rate Heart sounds: S1 normal heart sound present and S2 normal heart sound present Peripheral pulses: Peripheral pulses 2+ throughout GI Inspection: Yes normal to inspection Skin Other: +2 edema, CEAP Classification C4 - skin color changes Ep - Etiology Primary As - superficial veins P - reflux General skin exam: dry skin Neuro General: oriented to person, oriented to place and oriented to time Extrem Right lower extremity: full ROM, normal capillary refill and edema Left lower extremity: full ROM, normal capillary refill and edema Psych Mental Status: mental status grossly normal Assessment & Plan Assessment & Plan (1) Varicose veins of right lower extremity with inflammation: Comment: 12/30/2023 - right small saphenous vein radiofrequency ablation Code(s): I83.11 - Varicose veins of right lower extremity with inflammation Category: Medical Plan: Doing well status post ablation. Continues to have some edema of the legs. We will follow him for lymphedema. We did discuss routine conservative measures including compression elevation and exercise. He will follow up with us in approximately 6 months time. Coding Level of Care Code Est Pt Level 4 (51018) Diagnoses Varicose veins of right lower extremity with inflammation I83.11
[2024-01-17 10:28] VITALS: BMI 29.1
== END 2024-01-17 10:57 | disposition home or self-care (01) ==
PROVIDERS: PCP Nurse Practitioner Family; Visit Provider Surgery Vascular Surgery
DX: I83.11 Varicose veins of right lower extremity with inflammation (principal)
CPT/HCPCS: 99214

== ENCOUNTER → 2024-01-17 10:12 | Outpatient (BNVA) | payer MEDICARE, MEDICAID, SELFPAY | PROVIDERS: PCP Nurse Practitioner Family; Visit Provider Surgery Vascular Surgery | DX: I83.11 Varicose veins of right lower extremity with inflammation (principal) | CPT/HCPCS: 99212 ==

== ENCOUNTER 2024-04-16 12:26 | Outpatient (AMB) | payer MEDICARE, MEDICAID, SELFPAY ==
[2024-04-16 12:39] VITALS: BP 120/80; PULSE 72; BMI 28.0
--- NOTE | 2024-04-16 12:39 | A.OFFVIS_ITS ---
Vital Signs 04/16/24 12:39 Height 5 ft 11 in Weight 200 lb 9.93 oz BMI 28.0 BP 120/80 Blood Pressure Location Lt brachial Position Sitting Pulse 72 Intake Visit Reasons: 1 yr f/up Intake Note: 1 year follow-up with ekg feeling good [facility] Specialist Required: No Allergies Iodinated Contrast Media [IV DYE, IODINE CONTAINING] Allergy (Severe, Verified 01/17/24 10:31) ANAPHYLAXIS gluten [GLUTEN] Allergy (Intermediate, Verified 01/17/24 10:31) BLOATING,SEVERE GI PAIN amiodarone Adverse Reaction (Severe, Verified 01/17/24 10:31) hyperthyroid morphine Adverse Reaction (Verified 01/17/24 10:31) Nausea and Vomiting Medication List - Last Reconciled 04/16/24 by Suhas Anton MD acebutolol 400 mg (2 x 200 mg) PO BID acetaminophen 1,000 mg PO TID PRN diltiazem HCl (Cardizem) 30 mg PO ONCE PRN multivitamin 1 tab PO DAILY omeprazole 40 mg PO DAILY walker (Ultra-Light Rollator [facility] [place]) As directed HPI Comments Details: Wilfred comes for follow-up. Patient says about few weeks ago he had 1 episode of atrial fibrillation that lasted for 3 hours. He took a p.r.n. diltiazem which subsided these episodes. Grieving his 's loss who recently after stroke related to atrial fibrillation in December. He is concerned about his own stroke risk. He denies any heart failure symptoms. Denies any elevated blood pressure. Denies any lightheadedness, syncope. No exertional chest pain. Otherwise remains functional. [facility] Medical History Atrial fibrillation with RVR Sepsis with acute hypoxic respiratory failure Abscess of abdominal wall Implantable loop recorder present Subcapsular hematoma of liver History of blood transfusion Chronic neck and back pain History of thyrotoxicosis Paroxysmal atrial fibrillation GERD (gastroesophageal reflux disease) PHN (postherpetic neuralgia) Frequent PVCs Barretts esophagus LBBB (left bundle branch block) Celiac disease Failed back syndrome Surgical History History of exploratory laparotomy (12/28/21) History of colonoscopy History of esophagogastroduodenoscopy (EGD) Hx laparoscopic cholecystectomy History of appendectomy History of lymph node excision History of inguinal hernia H/O prior ablation treatment History of back surgery Family History Father CVD (cardiovascular disease) Mother Leukemia Son No problems noted. Son No problems noted. Daughter No problems noted. Daughter No problems noted. Social History Household Members: Spouse and Children Housing: House Are you a primary home care manager rn to a significant other at home: Yes (- mod dementia) Do you presently have visiting nurse or other home services: Yes (vna) Alcohol intake: current Alcohol intake frequency: does not drink Comment: previously medicated with po tylenol Patient Tobacco Use Status: Never used Tobacco e-Cigarette/Vaping Use: Never Used Second Hand Smoke Exposure: No service: Yes Current occupational status: employed Current occupation: [employer] Current occupational exposures/hazards: No Cognitive needs: No Hearing needs: No Vision needs: Yes Review of Systems Const Denies chills, Denies fatigue, Denies fever(s), Denies frequent falls, Denies weakness, Denies weight gain and Denies weight loss ENT Denies dizziness Card Denies chest pain, Denies leg edema, Denies lightheadedness, Denies palpitations, Denies dyspnea, Denies dyspnea on exertion, Denies orthopnea and Denies other (loss of consciousness) Resp Denies cough, Denies dyspnea and Denies dyspnea on exertion GI Denies hematochezia and Denies change in stool character Musc Denies abnormal gait, Denies muscle weakness, Denies numbness, Denies radiating pain into limb and Denies tingling Neuro Denies abnormal gait, Denies dizziness, Denies frequent falls, Denies numbness, Denies tingling and Denies weakness Endo Denies fatigue and Denies palpitations Physical Exam Vital Signs: Last Vital Signs Pulse 72 04/16/24 12:39 BP 120/80 04/16/24 12:39 BMI result Body Mass Index 28.0 Const General: cooperative, healthy appearing, comfortable and no acute distress Orientation/consciousness: patient oriented x3 Chest Other: I ILR site left chest with dry dressing. Dressing gently removed, Steri-Strips loose and removed. 1/2 inch incision fully approximated with no redness, drainage, resolving ecchymosis is noted. Chest palpation & inspection: normal inspection of the chest Resp Effort & Inspection: normal respiratory effort Auscultation: clear to auscultation bilaterally, no crackles, no rales, no rhonchi and no wheezes Cardio Jugular venous distension: no JVD Rate: regular rate Rhythm: regular rhythm Heart sounds: S1 normal heart sound present, S2 normal heart sound present, no gallops, no murmurs and no rubs Neuro General: patient oriented x3 Psych Appearance: grossly normal Mental Status: mental status grossly normal Speech and movement: Normal speech and movement present Office Procedures EKG Details: EKG shows normal sinus rhythm with left bundle-branch block, unchanged at 72 beats per minute [id number], Complete Assessment & Plan Assessment & Plan (1) Paroxysmal atrial fibrillation: Code(s): I48.0 - Paroxysmal atrial fibrillation Category: Medical Plan: Paroxysmal atrial fibrillation which has remained suppressed overall with 1 recent episode in the last 1 year that subsided quickly with Cardizem therapy. At this point time would avoid any antiarrhythmic drug therapy. Continue acebutolol and use of diltiazem as a p.r.n. drug. Given his recent stroke event related to atrial fibrillation he is more keen on starting oral anticoagulation therapy. We discussed about risks and benefits including bleeding risk. Will start him on Eliquis 5 mg b.i.d.. Will obtain baseline CBC as well as basic metabolic profile. Continue avoid stimulants. Continue current therapy. (2) HTN (hypertension): Code(s): I10 - Essential (primary) hypertension Category: Medical Plan: Hypertension which is currently well optimized advised to monitor blood pressure at home maintain a log. Goal blood pressure less than 130/84. Low-salt diet was discussed. Continue labetalol therapy. Continue maintain activity level as tolerated. (3) LBBB (left bundle branch block): Code(s): I44.7 - Left bundle-branch block, unspecified Category: Medical Plan: Chronic left bundle-branch block without any new symptoms. Needs echo every 3-5 years to assess for development of cardiomyopathy process. Will schedule 1 in the near future. Continue aggressive blood pressure control. No specific intervention for left bundle-branch block at this time. Will follow with him in 1 year's time. Orders: Orders CA echo transthoracic complete Today I44.7 - Left bundle-branch block, unspecified Basic Metabolic Panel Today I48.0 - Paroxysmal atrial fibrillation Complete Blood Count no Diff Today I48.0 - Paroxysmal atrial fibrillation Medications: New apixaban (Eliquis) 5 mg PO BID 60 tabs 5RF I48.0 - Paroxysmal atrial fibrillation Coding Level of Care Code Est Pt Level 4 (30694) Complex EM visit Add On G2211 Diagnoses Paroxysmal atrial fibrillation I48.0 HTN (hypertension) I10 LBBB (left bundle branch block) I44.7 CPT Codes EKG - CPT: 22500-[id number], Complete ([id number])
== END 2024-04-16 13:08 | disposition home or self-care (01) ==
PROVIDERS: PCP Nurse Practitioner Family; Visit Provider Internal Medicine Cardiovascular Disease
DX: I48.0 Paroxysmal atrial fibrillation (principal); I10 Essential (primary) hypertension; I44.7 Left bundle-branch block, unspecified
CPT/HCPCS: 93010; 99214; G2211

== ENCOUNTER → 2024-04-16 12:26 | Outpatient (BNVA) | payer MEDICARE, MEDICAID, SELFPAY | PROVIDERS: PCP Nurse Practitioner Family; Visit Provider Internal Medicine Cardiovascular Disease | DX: I44.7 Left bundle-branch block, unspecified (principal); I48.0 Paroxysmal atrial fibrillation; I10 Essential (primary) hypertension | CPT/HCPCS: 93005; 99212 ==

== ENCOUNTER 2024-04-20 11:42 | Outpatient (REF) | payer MEDICAID, SELFPAY ==
[2024-04-20 13:15] LABS: Hematocrit 37.9 % (42.0-52.0); Hemoglobin 12.4 g/dl (14.0-18.0); Mean Corpuscular HGB Conc 32.7 g/dl (31.0-36.0); Mean Corpuscular Hemoglobin 32.5 pg (27.0-33.0); Mean Corpuscular Volume 99.5 fL (80.0-98.0); Mean Platelet Volume 9.3 fL (9.4-12.4); Platelet Count 218 X10*3/uL (160-400); Red Blood Count 3.81 X10*6/uL (4.60-5.80); Red Cell Distribution Width 13.2 % (11.0-16.0); White Blood Count 6.4 X10*3/uL (4.8-10.8)
[2024-04-20 14:09] LABS: Anion Gap 10 (12-20); Blood Urea Nitrogen 24 mg/dL (9-16); Calcium 9.3 mg/dL (8.4-10.2); Carbon Dioxide 25 mmol/L (22-29); Chloride 111 mmol/L (96-108); Estimated Glomerular Filt Rate 57; Glucose Random 85 mg/dL (60-115); Potassium 4.9 mmol/L (3.3-5.1); Sodium 141 mmol/L (135-145)
== END 2024-04-20 11:43 | disposition home or self-care (01) ==
LOC: HO.HMGCLDS 11:42
PROVIDERS: PCP Nurse Practitioner Family; Visit Provider Internal Medicine Cardiovascular Disease
DX: I48.0 Paroxysmal atrial fibrillation (principal)
CPT/HCPCS: 36415; 80048; 85027

== ENCOUNTER → 2024-05-04 09:53 | Outpatient (REF) | payer MEDICAID, SELFPAY ==
--- NOTE | 2024-05-04 09:56 | CA_ITS ---
Transthoracic Echocardiogram Patient (Last, First, Middle): Wilfred Mccarthy C Gender: Male Date of : 1950 Age: 73 Procedure Date: 05/04/2024 Procedure Type: Transthoracic Echocardiogram Location: OP Height: 180.34 cm Weight: 90.72 kg BSA: 2.11 m2 Heart Rate: bpm BP: 130 / 68 mmHg Guest Service Agent: TO Referring MD: Suhas Anton MD Symptoms: I44.7 - Left bundle-branch block, unspecified Study Quality: Adequate Conclusions: - Normal left ventricular cavity size. There is normal left ventricular wall thickness. The left ventricular systolic function is borderline reduced. The visually estimated ejection fraction is between 45-50%. - Apical wall motion abnormality likely due to LBBB. - Normal right ventricular cavity size and systolic function. - Mildly elevated right atrial pressure. Findings Left Ventricle Normal left ventricular cavity size. There is normal left ventricular wall thickness. The left ventricular systolic function is borderline reduced. The visually estimated ejection fraction is between 45-50%. There is paradoxical septal motion consistent with a left bundle branch block. Diastolic function is indeterminate on the basis of available data. Apical wall motion abnormality likely due to LBBB. Right Ventricle Normal right ventricular cavity size and systolic function. Atria The left atrium is likely dilated. The right atrium is normal in size. Aortic Valve Normal aortic valve structure and function. There is no aortic valve stenosis. There is trace (trivial) aortic valve regurgitation. Mitral Valve The mitral valve appears normal. There is trace mitral valve regurgitation. There is no mitral valve stenosis. Pulmonic Valve The pulmonic valve is likely normal. Tricuspid Valve Normal tricuspid valve structure. There is trace tricuspid valve regurgitation. Mildly elevated right atrial pressure. There is no evidence of pulmonary hypertension. Great Vessels All visible segments of the aorta are normal in size. Venous The inferior vena cava is dilated and collapses greater than 50% with inspiration. Pericardium/Pleural There is no evidence of pericardial effusion. Prior Study Comparison Changes noted compared to prior study dated: 02/21/2020. EF 45-50 (was normal previously). Measurements 2D Linear Measurements IVSd: 1.16 0.6-0.9/0.6-1.0 cm LVIDd: 4.62 3.9-5.3/4.2-5.9 cm LVIDd Index: 2.19 2.4-3.2/2.2-3.1 cm/m2 LVIDs: 3.22 2.0-3.6 cm LVPWd: 0.78 0.7-1.1 cm LA Diam: 3.60 2.7-3.8/3.0-4.0 cm LAIDs Index: 1.71 1.5-2.3 cm/m2 LV Mass: 190.63 67-162/88-224 g LV Mass Index: 90.35 43-95/49-115 g/m2 LVOT Diam: 2.40 3.0+(-)1.3 cm 2D Systolic Function EF 4C: 55.70 >55% EF 2C: 66.30 >55% Mitral Valve MV Pk E: 0.67 MV PK A: 0.58 MV Decel Time: 146.00 E/A: 1.20 E'Lateral: 7.07 E'Medial: 6.53 E/E' Med: 10.20 E/E' Lat: 9.40 PHT: 43.00 MVA PHT: 5.12 Decel Henry: 4.57 Aortic Valve AoV Pk Dominic: 1.14 AoV Mn Dominic: 0.87 AoV VTI: 0.25 AoV Pk Grad: 5.00 Aov Mn Grad: 3.00 MARLEE Cont.VTI: 3.34 LVOT LVOT Pk Dominic: 0.86 LVOT Mn Dominic: 0.61 LVOT VTI: 0.19 LVOT Pk Grad: 3.00 LVOT Mn Grad: 2.00 LVOT Diam: 2.40 LVOT Area: 4.52 Diastolic Function MV Pk E: 0.67 MV Pk A: 0.58 E/A: 1.20 E'Medial: 6.53 E/E' Med: 10.20 E' Laterial: 7.07 E/E' Lat: 9.40 Right Ventricle TAPSE (mm): 24.40 TVS' Dominic: 14.40 Tricuspid Valve TR Pk Dominic: 2.06 TR Pk Grad: 17.00 RA Press: 8.00 RVSP: 25.00 Great Vessels Aorta Sinus of Valsalva: 3.73 2.0-3.5 cm Ao Asc: 3.40 2.1-3.4 cm Updated in Other Vendor System with Status of Final Mac Schreiber MD electronically signed on 05/05/2024 1:53:35 PM with status of Final
== END ==
LOC: HO.CARD 09:53
PROVIDERS: PCP Nurse Practitioner Family; Visit Provider Internal Medicine Cardiovascular Disease
DX: I44.7 Left bundle-branch block, unspecified (principal)
CPT/HCPCS: 93306

== ENCOUNTER → 2024-05-04 09:56 | Outpatient (BNV) | payer MEDICAID, SELFPAY | PROVIDERS: PCP Nurse Practitioner Family; Visit Provider Internal Medicine Cardiovascular Disease | DX: I35.1 Nonrheumatic aortic (valve) insufficiency (principal); I44.7 Left bundle-branch block, unspecified | CPT/HCPCS: 93306 ==

== ENCOUNTER 2024-05-10 10:52 | Outpatient (AMB) | payer MEDICAID, SELFPAY ==
[2024-05-10 10:56] VITALS: BP 160/80; PULSE 77; RESP 16; TEMP 36.6; O2SAT 97; BMI 28.9
--- NOTE | 2024-05-10 10:56 | A.OFFPC_ITS ---
Vital Signs 05/10/24 10:56 05/10/24 11:43 Height 5 ft 11 in Weight 207 lb BMI 28.9 BP 160/80 H 136/80 Blood Pressure Location Rt brachial Rt brachial Position Sitting Sitting Respiration 16 Pulse 77 Pulse Source Pulse Oximeter Temp 97.9 F Temp Source Oral Pulse Oximetry (%) 97 Oxygen Delivery Method Room Air Intake Visit Reasons: PE Intake Note: pt is here for PE Allergies Iodinated Contrast Media [IV DYE, IODINE CONTAINING] Allergy (Severe, Verified 05/10/24 10:57) ANAPHYLAXIS gluten [GLUTEN] Allergy (Intermediate, Verified 05/10/24 10:57) BLOATING,SEVERE GI PAIN amiodarone Adverse Reaction (Severe, Verified 05/10/24 10:57) hyperthyroid morphine Adverse Reaction (Verified 05/10/24 10:57) Nausea and Vomiting Medication List - Last Reconciled 05/10/24 by MAKENZIE Martin- acebutolol 400 mg (2 x 200 mg) PO BID acetaminophen 1,000 mg PO TID PRN apixaban (Eliquis) 5 mg PO BID diltiazem HCl (Cardizem) 30 mg PO ONCE PRN multivitamin 1 tab PO DAILY omeprazole 40 mg PO DAILY walker (Ultra-Light Rollator misc) As directed Tobacco use date assessed: 05/10/24 Fall risk assessment: No Falls in past year Last assessed Fall Risk: 05/10/24 Dental Screening Dental Screen Date: 05/10/24 Did you have a dental visit in the last 12 months?: Yes Did you have a dental problem in the last 6 months where you did not have access to dental care?: No Was dental information given to patient?: Patient has dentist HPI PE HPI Details History of Present Illness The patient is a 73-year-old male presenting with right lower extremity swelling and varicose veins. The swelling began subsequent to a lymph node removal in the right groin some years ago. Since the removal, he has developed varicose veins prominently on the medial proximal aspect of the right lower extremity. The patient denies any numbness, tingling, chest pain, or shortness of breath. He has attended grief counseling following the recent passing of his and reports doing well. No recent history of blood in stool, constipation, or diarrhea has been noted. refuses vaccinations Health Maintenance - Refuses all vaccinations. - Up-to-date with colonoscopy screenings . - Follows up with cardiology. Social History - Recently . - Engaged in grief counseling with gildardo ofe outcomes reported. Review of Systems - Cardiovascular: Denies chest pain or s hortness of breath. - Gastrointestinal: Denies blood in stoo l, constipation, diarrhea. - Neurological: Denies numbness or tingl ing. -denies any fevers, chills, SI or HI Physical Exam General: Cooperative, healthy appearing, comfortable, no acute distress and well developed Orientation: Patient oriented x3 Limitations: No limitations Head: Normal to inspection Ears: Hearing grossly normal bilaterally, TM is intact Nose: Normal external nose present Face and sinus: Normal facial exam Eyes: Appearance normal, both eyes and all related structures Neck: Normal visual inspection and Yes full ROM Respiratory: Normal respiratory effort and able to speak in complete sentences. Clear to auscultation bilaterally Cardiovascular: Regular rate and rhythm. Normal S1 and S2 : prostate did not feel enlarged, though did feel nodular GI: Normal to inspection. Soft to palpation and nontender Skin: No rashes or lesions noted Neuro: Patient oriented x3 Extremities: +1 edema to right lower extremity, varicose veins noted especially to the medial proximal aspect of right lower extremity Results Plan - Referral to Urology for evaluation due to nodular prostate identified during exam. - Encourage follow-up with cardiology. - Continue attending grief counseling se ssicathie. - Suggest monitoring of right lower extr emity edema and varicose veins. Patient was informed and verbally consented to the use of an ambient scribe for clinic note documentation during this visit. Discussion Notes During our discussion, we reviewed the patient's current condition, particularly the edema and varicose veins of the right lower extremity. I explained the need for continued monitoring of these conditions, emphasizing the importance of maintaining follow-up appointments with cardiology. Given the nodular prostate noted during examination, I recommended a referral to Urology for further evaluation. We discussed his recent bereavement and the positive effects of counseling. The patient declined vaccinations; he understood the implications and preferred to maintain his current stance. Patient Instructions - Continue with grief counseling session s as planned. - Monitor swelling and symptoms in the r ight lower extremity. - Follow up with Urology for further jaziel luation of the prostate. - Maintain cardiovascular follow-ups as scheduled. - Notify me immediately if there are any significant changes or concerns. [facility] Medical History Atrial fibrillation with RVR Sepsis with acute hypoxic respiratory failure Abscess of abdominal wall Implantable loop recorder present Subcapsular hematoma of liver History of blood transfusion Chronic neck and back pain History of thyrotoxicosis Paroxysmal atrial fibrillation GERD (gastroesophageal reflux disease) PHN (postherpetic neuralgia) Frequent PVCs Barretts esophagus LBBB (left bundle branch block) Celiac disease Failed back syndrome Surgical History History of exploratory laparotomy (12/28/21) History of colonoscopy History of esophagogastroduodenoscopy (EGD) Hx laparoscopic cholecystectomy History of appendectomy History of lymph node excision History of inguinal hernia H/O prior ablation treatment History of back surgery Family History Father CVD (cardiovascular disease) Mother Leukemia Son No problems noted. Son No problems noted. Daughter No problems noted. Daughter No problems noted. Social History Household Members: Spouse and Children Housing: House Are you a primary care navigator to a significant other at home: Yes (- mod dementia) Do you presently have visiting nurse or other home services: Yes (vna) Alcohol intake: current Alcohol intake frequency: does not drink Comment: previously medicated with po tylenol Patient Tobacco Use Status: Never used Tobacco e-Cigarette/Vaping Use: Never Used Second Hand Smoke Exposure: No service: Yes Current occupational status: employed Current occupation: [employer] Current occupational exposures/hazards: No Cognitive needs: No Hearing needs: No Vision needs: Yes Questionnaire PHQ-9 Over the last 2 weeks, how often have you been bothered by any of the following problems? 1. Little interest or pleasure in doing things: not at all 2. Feeling down, depressed, or hopeless: not at all 3. Trouble falling or staying asleep, or sleeping too much: not at all 4. Feeling tired or having little energy: not at all 5. Poor appetite or overeating: not at all 6. Feeling bad about yourself - or that you are a failure or have let yourself or your family down: not at all 7. Trouble concentrating on things, such as reading the newspaper or watching television: not at all 8. Moving or speaking so slowly that other people could have noticed. Or the opposite - being so fidgety or restless that you have been moving around a lot more than usual: not at all 9. Thoughts that you would be better off or of hurting yourself in some way: not at all Total score: 0 Depression Screening Interpretation: Negative Depression Screening Done: Yes 34655 - PHQ-9 Billing: Yes Source: Developed by Drs. Rich Conley, Kayla Cota, Mika Connelly and colleagues, with an educational yarely from [employer]. Thrive Questionnaire Date Thrive assessed: 05/10/24 I am a: Patient What is your living situation today?: I have a steady place to live Within the past 12 months, did the food you bought not last and you didn't have the money to get more?: Never true Within the past 12 months, did you worry whether your food would run out before you got money to buy more?: Never true Do you have trouble paying for medicines?: No Do you have trouble getting transportation to medical appointments?: No Do you have trouble paying your heating and electricity bill?: No Do you have trouble taking care of your child, family member or friend?: No Do you have trouble with day-to-day activities such as bathing, preparing meals, shopping, managing finances, etc.?: No Are you currently unemployed and looking for a job?: No Are you interested in more education?: No Please select the resources that you would like help with: None Currently or been in a relationship where the following occur: I choose not to answer THRIVE Score: 0 AUDIT C Alcohol Use Questionnaire (AUDIT-C) 1. How often do you have a drink containing alcohol?: Monthly or less 3. How often do you have six or more drinks on one occasion?: Never Total Score: 1 Score Reviewed/Action Taken: Yes VISHNU-7 AMB Questionnaire VISHNU-7 Date VISHNU - 7 assessed: 05/10/24 Feeling nervous, anxious, or on edge: 0 = Not at all Not being able to stop or control worryin = Not at all Worrying too much about different things: 0 = Not at all Trouble relaxin = Not at all Being so restless that it is hard to sit still: 0 = Not at all Becoming easily annoyed or irritable: 0 = Not at all Feeling afraid as if something awful might happen: 0 = Not at all Total VISHNU-7 score (0-4 normal; 5-9 mild; 10-14 moderate; 15-21 severe): 0 Source: Developed by Drs. Rich Conley, Kayla Cota, Mika Connelly and colleagues, with an educational yarely from [employer]. VISHNU-7 Assessment Billing VISHNU-7 Assessment Tool: VISHNU-7 Assessment 36120 Physical exam (Primary Care) Vital Signs: Last Vital Signs Temp 97.9 F 05/10/24 10:56 Pulse 77 05/10/24 10:56 Resp 16 05/10/24 10:56 BP 160/80 H 05/10/24 10:56 Pulse Ox 97 05/10/24 10:56 Oxygen Delivery Method Room Air 05/10/24 10:56 BMI result Body Mass Index 28.9 Tobacco/Smoking Status: Tobacco use Status Tobacco use date assessed 05/10/24 05/10/24 10:59 Patient Tobacco Use Status Never used Tobacco 05/10/24 10:59 e-Cigarette/Vaping Use Never Used 05/10/24 10:59 PHQ-9: PHQ-9 Score PHQ-9: Total score 0 05/10/24 11:25 Depression Screening Interpretation: Negative Thrive Assessment: Date of Thrive Assessment Date Thrive assessed 05/10/24 05/10/24 10:59 Currently or been in a relationship where the following occur: I choose not to answer Coding Level of Care Code Est Pt Prev Care >65y(05194) Diagnoses Physical exam Z00.00 Vitamin D deficiency E55.9 Screening PSA (prostate specific antigen) Z12.5 Nodular prostate N40.2 Additional Codes VISHNU-7 Assessment Billing - VISHNU-7 Assessment Tool: VISHNU-7 Assessment 79416 ([id number]) PHQ-9 - 54348 - PHQ-9 Billing: Yes ([id number]) Assessment & Plan Assessment & Plan (1) Physical exam: Code(s): Z00.00 - Encounter for general adult medical examination without abnormal findings Category: Medical (2) Vitamin D deficiency: Code(s): E55.9 - Vitamin D deficiency, unspecified Category: Medical (3) Screening PSA (prostate specific antigen): Code(s): Z12.5 - Encounter for screening for malignant neoplasm of prostate Category: Medical (4) Nodular prostate: Code(s): N40.2 - Nodular prostate without lower urinary tract symptoms Category: Medical Plan . Orders: Orders Complete Blood Count Auto Diff Today Z00.00 - Encounter for general adult medical examination without abnormal findings TSH reflex Free T4 Today Z00.00 - Encounter for general adult medical examination without abnormal findings UA CC w/rflx Micro + Cult Today Z00.00 - Encounter for general adult medical examination without abnormal findings Lipid Panel Today Z00.00 - Encounter for general adult medical examination without abnormal findings Vitamin D 25-OH Total Today E55.9 - Vitamin D deficiency, unspecified Comprehensive Hasty. Panel Fast Today Z00.00 - Encounter for general adult medical examination without abnormal findings Prostate Specific Antigen Scr Today Z12.5 - Encounter for screening for malignant neoplasm of prostate Referrals Urology Referral N40.2 - Nodular prostate without lower urinary tract symptoms
[2024-05-10 11:43] VITALS: BP 136/80
== END 2024-05-10 12:57 | disposition home or self-care (01) ==
PROVIDERS: PCP Nurse Practitioner Family; Visit Provider Nurse Practitioner Family
DX: Z00.00 Encounter for general adult medical examination without abnormal findings (principal); E55.9 Vitamin D deficiency, unspecified; Z12.5 Encounter for screening for malignant neoplasm of prostate; N40.2 Nodular prostate without lower urinary tract symptoms

== ENCOUNTER → 2024-05-10 10:52 | Outpatient (BNVA) | payer MEDICAID, SELFPAY | PROVIDERS: PCP Nurse Practitioner Family; Visit Provider Nurse Practitioner Family | DX: Z00.00 Encounter for general adult medical examination without abnormal findings (principal); I83.891 Varicose veins of right lower extremity with other complications; E55.9 Vitamin D deficiency, unspecified; N40.2 Nodular prostate without lower urinary tract symptoms; Z12.5 Encounter for screening for malignant neoplasm of prostate | CPT/HCPCS: 96127; 99397 ==

== ENCOUNTER 2024-05-16 10:29 | Outpatient (REF) | payer MEDICAID, SELFPAY ==
--- OUTSIDE RECORDS SUMMARY | 2024-05-16 12:35 | XMS_ITS | Patient Health Record ---
Author Organization [facility] Address [address] [place] [address] Care Team Providers Care Hims Manager Name Role Phone LORIE CLEMONS Primary Care Provider Rich Vasquez Unavailable [phone] ALLERGIES Allergen (clinical drug ingredient) Drug/Non Drug Allergy documented on EMR Reaction Allergy Type Onset Date Status Non-steroidal anti-inflammatory agent (FN) NSAIDS (uncoded) Unknown Allergy Active ivp dye (uncoded) Unknown Allergy Ac tive High doses of aspiri n (uncoded) Unknown Allergy Active codeine codeine (uncoded) Unknown Allergy Ac tive REASON FOR REFERRAL No Information MEDICATIONS Medication SIG (Take, Route, Fr equency, Duration) Notes Start Date End Date Status Promethazine HCl 25 MG Oral for 15 Active Dicyclomine HCl 10 MG 1 or 2 capsules Or ally Q 6 hours prn abdominal pain/discomfort for 30 day(s) 11/08/2021 Ac tive oxyCODONE HCl 5 MG Oral for 10 Active Omeprazole 20 MG TAKE 1 CAPSULE BY [facility] TWICE DAILY for 30 Active Acebutolol HCl 200mg 1 capsule Orally Once a day Active IMMUNIZATIONS Vaccine Route Administration Date Status Comme nts Influenza Unknown 10/09/2020 Refused SOCIAL HISTORY Sex Assigned At : Social History Observation Description Sex Assigned At Unknown PROBLEMS Problem Type ICD Code Onset Dates Problem Status W/U Status Risk SNOMED Code Notes Problem Encounter for screening for malignant neoplasm of colon (Z12.11) Active confirmed 387346683 Problem History of adenomatous polyp of colon (Z86.010) Active confirmed 102932056 Problem Abdominal bloating (R14.0) Active confirmed 079419258 Problem Anemia in other chronic diseases classified elsewhere (D63.8) Active confirmed 549718862 Problem Celiac disease (K90.0) Active confirmed 437765274 Problem Contusion of liver, initial encounter (S36.112A) Active confirmed Contusion of liver (810522052) Problem Encounter for screening for malignant neoplasm of rectum (Z12.12) Active confirmed Screening for malignant neoplasm of rectum (336336046) Problem Gastroesophageal reflux disease without esophagitis (K21.9) Active confirmed 011127635 Problem History of colon polyps (Z86.010) Active confirmed History of polyp of colon (536834293) Problem Barretts esophagus without dysplasia (K22.70) Active confirmed 026275109 Problem Change in bowel function (R19.4) Active confirmed 21909354 Problem Abdominal pain, RUQ (R10.11) Active confirmed Right upper quadrant pain (981673468) Problem Abdominal pain, acute, epigastric (R10.13) Active confirmed Epigastric pain (29977964) Problem Diverticulosis of colon (K57.30) Active confirmed Diverticulosi s of colon (717264419) Problem Abdominal pain, acute, generalized (R10.84) Active confirmed Generalized abdominal pain (129187225) PLAN OF TREATMENT Pending Test Test Name Order Date CHEM 7 PROFILE 02/23/2022 CHEM 7 PROFILE 02/23/2022 BUN 11/04/2021 CREATININE 11/04/2021 LIVER PROFILE 11/04/2021 LIVER PROFILE 02/23/2022 LIVER PROFILE 02/23/2022 IRON + IBC (FE) 08/16/2017 FERRITIN 08/16/2017 CRP 02/23/2022 CRP 02/23/2022 VITAMIN B12 AND FOLATE 08/16/2017 CEA 11/04/2021 CBC w DIFF 02/23/2022 CBC w DIFF 05/26/2011 CBC w DIFF 02/23/2022 CBC w DIFF 10/11/2012 CBC w DIFF 11/04/2021 SED RATE (ESR) 02/23/2022 SED RATE (ESR) 02/23/2022 CELIAC PANEL #10 12/24/2017 CELIAC PANEL #10 10/09/2020 CELIAC PANEL #10 05/26/2011 CELIAC PANEL #10 07/28/2021 CELIAC PANEL #10 08/16/2017 CELIAC PANEL #10 12/01/2017 CELIAC PANEL #10 10/11/2012 ENDOMYSIAL IGA 10/11/2012 ENDOMYSIAL IGA 05/31/2012 ENDOMYSIAL IGA 05/26/2011 TRANSGLUTAMINASE AB IGA 10/11/2012 TRANSGLUTAMINASE AB IGA 05/31/2012 TRANSGLUTAMINASE AB IGA 05/26/2011 TRANSGLUTAMINASE AB IGG 05/26/2011 TRANSGLUTAMINASE AB IGG 10/11/2012 TRANSGLUTAMINASE AB IGG 05/31/2012 MRI ABD W&WO CONTRAST 11/04/2021 US ABD 12/01/2017 Amylase 02/23/2022 Lipase 02/23/2022 Alpha Fetoprotein 11/04/2021 Future Test Test Name Order Date UPPER GI ENDOSCOPY 10/31/2015 COLONOSCOPY 10/31/2015 UPPER GI ENDOSCOPY 07/28/2021 COLONOSCOPY 07/28/2021 Insurance Providers Payer Name Payer Address Payer Phone Subscriber Number Group Number Insured Name Patient Relationship to Insured Coverage Start Date Coverage End Date MEDICAID OF [facility] [address] [place] [address] [id number] CATHIE CADET Self - patient is the insured MEDICARE OF [place] [address] [place] [address] [id number] CATHIE CADET Self - patient is the insured MEDICAL (GENERAL) HISTORY Medical History History ICD Code Celiac disease-diagnosed in 05/2010 with biopsies and positive celiac labs---had neg celiac labs in 10/2012. EGD in 06/2016-normal duodenal biopsies AFib-sees Dr. Anton-- s/p EP and 4 ablation treatments-3 in 2005 and 1 in 2008--last time in Afib was in 10/2012 after EGD and bronchoscopy for removal of a swallowed pushpin--was in his bronchus. As of the 10/09/2020 office visit he describes that he has a cardiac monitoring recording device that was implanted in his heart and will be staying in there for about one or 2 years. 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 Denies [place],DM,CVA,Lung disease,renal dise ase GERD/Peacock's--EGD in 7 with a very small area of Peacock's esophagus with biopsies negative for dysplasia, small hiatal hernia Colon polyps-tubular adenomas removed in 05/2010 Back and neck pain, hip pain, shoulder p ain--on Oxycodone and Morphine Neg colonoscopy in 06/2016 Negative colonoscopy in August of 2021 Upper endoscopy in August with a miniml hiatal hernia, minimal area of Peacock's without dysplasia, and minimal changes of his celiac disease Surgical History Surgery Date(Month/Year) 3 Back surgeries Appy Right inguinal hernia Heart monitor placed by Dr. Anton Lap [facility] in 07/2018 with preop ERCP/sphinc terotomy for 2 CBD stones Intraabdominal abscess due t o a dropped gallstone--drained by Dr. Ramos and by CT-guidance 2021
[2024-05-16 13:25] LABS: Appearance Urine Clear; Color Urine Dark Yellow; Glucose Urine UA Negative (Negative); Leukocyte Esterase Urine Negative (Negative); Nitrite Urine Negative (Negative); PH 5.5 (5.0-9.0); Specific Gravity - Urine 1.025 (1.005-1.025); Urine Blood Negative (Negative); Urine Ketones Trace mg/dL (Negative); Urine Protein Negative (Neg-Trace)
[2024-05-16 13:34] LABS: MANUAL DIFF FLAG NO
[2024-05-16 13:54] LABS: Basophils Absolute Auto 0.1 X10*3/uL (0.0-0.2); Basophils Percent Auto 1.2 % (0-2); Eosinophils Absolute Auto 0.2 X10*3/uL (0.0-0.4); Eosinophils Percent Auto 4.2 % (0-4); Hematocrit 36.4 % (42.0-52.0); Hemoglobin 11.9 g/dl (14.0-18.0); Imm Gran Abs Auto 0.01 X10*3/uL (0.00-0.03); Imm Gran Pct Auto 0.2 % (0.0-0.4); Lymphocytes Absolute Auto 1.5 X10*3/uL (1.2-4.9); Mean Corpuscular HGB Conc 32.7 g/dl (31.0-36.0); Mean Corpuscular Hemoglobin 32.2 pg (27.0-33.0); Mean Corpuscular Volume 98.4 fL (80.0-98.0); Mean Platelet Volume 9.1 fL (9.4-12.4); Monocytes Absolute Auto 0.5 X10*3/uL (0.1-1.2); Monocytes Percent Auto 9.1 % (2-11); Neutrophils Absolute Auto 2.7 x10*3/uL (2.0-8.3); Neutrophils Percent Auto 54.3 % (45-73); Platelet Count 221 X10*3/uL (160-400); Red Cell Distribution Width 13.1 % (11.0-16.0)
[2024-05-16 14:10] LABS: Alanine Aminotransferase 28 U/L (0-40); Albumin Level 4.1 g/dL (3.5-5.0); Alkaline Phosphatase 84 U/L (39-117); Anion Gap 11 (12-20); Aspartate Amino Transferase 35 U/L (5-37); Bilirubin Total 0.2 mg/dL (0.0-1.0); Blood Urea Nitrogen 23 mg/dL (9-16); Calcium 8.9 mg/dL (8.4-10.2); Carbon Dioxide 22 mmol/L (22-29); Chloride 109 mmol/L (96-108); Cholesterol 144 mg/dL (<200); Estimated Glomerular Filt Rate > 60; Glucose Fasting 103 mg/dL (60-99); HDL Cholesterol 38 mg/dL (>40); LDL Cholesterol Calculated 93 mg/dL (<100); Potassium 4.9 mmol/L (3.3-5.1); Sodium 137 mmol/L (135-145); Total Protein 7.1 g/dL (6.5-8.0); Triglycerides 65 mg/dL (<150)
[2024-05-16 14:21] LABS: Prostate Specific Antigen Scr 0.36 ng/mL (<0.05-4.0)
[2024-05-16 14:29] LABS: TSH reflex Free T4 1.07 uIU/mL (0.32-4.0); Vitamin D 25-OH Total 41.3 ng/mL (>30)
== END 2024-05-16 10:30 | disposition home or self-care (01) ==
LOC: HO.HMGCLDS 10:29
PROVIDERS: PCP Nurse Practitioner Family; Visit Provider Nurse Practitioner Family
DX: Z00.00 Encounter for general adult medical examination without abnormal findings (principal); E55.9 Vitamin D deficiency, unspecified; Z12.5 Encounter for screening for malignant neoplasm of prostate
CPT/HCPCS: 36415; 80053; 80061; 81003; 82306; 84153; 84443; 85025

== ENCOUNTER 2024-07-04 10:01 | Outpatient (REF) | payer MEDICAID, SELFPAY ==
[2024-07-04 13:50] LABS: MANUAL DIFF FLAG NO
[2024-07-04 13:58] LABS: Basophils Absolute Auto 0.1 X10*3/uL (0.0-0.2); Basophils Percent Auto 0.7 % (0-2); Eosinophils Absolute Auto 0.3 X10*3/uL (0.0-0.4); Eosinophils Percent Auto 3.6 % (0-4); Hematocrit 35.2 % (42.0-52.0); Hemoglobin 11.5 g/dl (14.0-18.0); Imm Gran Abs Auto 0.03 X10*3/uL (0.00-0.03); Imm Gran Pct Auto 0.4 % (0.0-0.4); Lymphocytes Absolute Auto 1.4 X10*3/uL (1.2-4.9); Mean Corpuscular HGB Conc 32.7 g/dl (31.0-36.0); Mean Corpuscular Hemoglobin 32.3 pg (27.0-33.0); Mean Corpuscular Volume 98.9 fL (80.0-98.0); Mean Platelet Volume 9.1 fL (9.4-12.4); Monocytes Absolute Auto 0.7 X10*3/uL (0.1-1.2); Monocytes Percent Auto 9.5 % (2-11); Neutrophils Absolute Auto 4.9 x10*3/uL (2.0-8.3); Neutrophils Percent Auto 66.8 % (45-73); Platelet Count 216 X10*3/uL (160-400); Red Blood Count 3.56 X10*6/uL (4.60-5.80); Red Cell Distribution Width 13.5 % (11.0-16.0); Retic HGB Equivalent 36.1 pg (30.0-35.0); Reticulocyte Percent 1.5 % (0.5-1.8); Reticulocytes Absolute 0.053 X10*6/uL (0.026-0.095); White Blood Count 7.3 X10*3/uL (4.8-10.8)
[2024-07-04 14:11] LABS: Alanine Aminotransferase 28 U/L (0-40); Albumin Level 4.1 g/dL (3.5-5.0); Alkaline Phosphatase 86 U/L (39-117); Anion Gap 8 (12-20); Aspartate Amino Transferase 35 U/L (5-37); Bilirubin Total 0.3 mg/dL (0.0-1.0); Blood Urea Nitrogen 21 mg/dL (9-16); Carbon Dioxide 24 mmol/L (22-29); Chloride 112 mmol/L (96-108); Estimated Glomerular Filt Rate 56; Glucose Random 102 mg/dL (60-115); Iron 69 mcg/dL (45-160); Lactate Dehydrogenase 300 U/L (118-273); Percent Iron Saturation 25 % (15-50); Potassium 5.1 mmol/L (3.3-5.1); Sodium 139 mmol/L (135-145); Total Iron Binding Capacity 273 mcg/dL (228-428); Total Protein 7.3 g/dL (6.5-8.0); Unsaturated Iron Binding 204 ug/dL
[2024-07-04 14:25] LABS: Ferritin 114 ng/mL (20-250)
[2024-07-04 14:46] LABS: Folate 19.5 ng/mL (> or = 4.0); Vitamin B12 812 pg/mL (200-900)
== END 2024-07-04 10:02 | disposition home or self-care (01) ==
LOC: HO.HMGCLDS 10:01
PROVIDERS: PCP Nurse Practitioner Family; Visit Provider Nurse Practitioner Family
DX: D64.9 Anemia, unspecified (principal)
CPT/HCPCS: 36415; 80053; 82607; 82728; 82746; 83540; 83615; 85025; 85045

== ENCOUNTER 2024-07-10 12:30 | Outpatient (REF) | payer MEDICAID, SELFPAY ==
--- OUTSIDE RECORDS SUMMARY | 2024-07-10 15:11 | XMS_ITS | Patient Health Record ---
Author Organization [facility] Address [address] [place] [address] Care Team Providers Care Mine Inspector Federal Name Role Phone LORIE CLEMONS Primary Care Provider Rich Vasquez Unavailable [phone] Allergies Allergen (clinical drug ingredient) Drug/Non Drug Allergy documented on EMR Reaction Allergy Type Onset Date Status Non-steroidal anti-inflammatory agent (FN) NSAIDS (uncoded) Unknown Allergy Active ivp dye (uncoded) Unknown Allergy Ac tive High doses of aspiri n (uncoded) Unknown Allergy Active codeine codeine (uncoded) Unknown Allergy Ac tive Reason For Referral No Information Medications Medication SIG (Take, Route, Fr equency, Duration) Notes Start Date End Date Status Promethazine HCl 25 MG Oral for 15 Active Dicyclomine HCl 10 MG 1 or 2 capsules Or ally Q 6 hours prn abdominal pain/discomfort for 30 day(s) 11/08/2021 Ac tive oxyCODONE HCl 5 MG Oral for 10 Active Omeprazole 20 MG TAKE 1 CAPSULE BY [facility] TWICE DAILY for 30 Active Acebutolol HCl 200mg 1 capsule Orally Once a day Active Immunizations Vaccine Route Administration Date Status Comme nts Influenza Unknown 10/09/2020 Refused Problems Problem Type SNOMED Code ICD Code Onset Dates Problem Status W/U Status Risk Notes Problem 326632726 Encounter for screening for malignant neoplasm of colon (Z12.11) Active confirmed Problem 573718487 History of adenomatous polyp of colon (Z86.010) Active confirmed Problem 388632018 Abdominal bloati ng (R14.0) Active confirmed Problem 522312646 Anemia in other chronic diseases classified elsewhere (D63.8) Active confirmed Problem 674863618 Celiac disease (K90.0) Active confirmed Problem Contusion of liver (852399614) Contusion of liver, initial encounter (S36.112A) Active confirmed Problem Screening for malignant neoplasm of rectum (256651949) Encounter for screening for malignant neoplasm of rectum (Z12.12) Active confirmed Problem 406164236 Gastroesophageal reflux disease without esophagitis (K21.9) Active confirmed Problem History of polyp of colon (801543129) History of colon polyps (Z86.010) Active confirmed Problem 952173171 Barretts esophag us without dysplasia (K22.70) Active confirmed Problem 97272755 Change in bowel function (R19.4) Active confirmed Problem Right upper quadrant pain (174114510) Abdominal pain, RUQ (R10.11) Active confirmed Problem Epigastric pain (63062639) Abdominal pain, acute, epigastric (R10.13) Active confirmed Problem Diverticulosis of colon (573109526) Diverticulosis of colon (K57.30) Active confirmed Problem Generalized abdominal pain (880144415) Abdominal pain, acute, generalized (R10.84) Active confirmed Plan Of Treatment Pending Test Test Name Order Date CHEM 7 PROFILE 02/23/2022 CHEM 7 PROFILE 02/23/2022 BUN 11/04/2021 CREATININE 11/04/2021 LIVER PROFILE 11/04/2021 LIVER PROFILE 02/23/2022 LIVER PROFILE 02/23/2022 IRON + IBC (FE) 08/16/2017 FERRITIN 08/16/2017 CRP 02/23/2022 CRP 02/23/2022 VITAMIN B12 AND FOLATE 08/16/2017 CEA 11/04/2021 CBC w DIFF 10/11/2012 CBC w DIFF 11/04/2021 CBC w DIFF 05/26/2011 CBC w DIFF 02/23/2022 CBC w DIFF 02/23/2022 SED RATE (ESR) 02/23/2022 SED RATE (ESR) 02/23/2022 CELIAC PANEL #10 12/01/2017 CELIAC PANEL #10 12/24/2017 CELIAC PANEL #10 10/11/2012 CELIAC PANEL #10 10/09/2020 CELIAC PANEL #10 05/26/2011 CELIAC PANEL #10 07/28/2021 CELIAC PANEL #10 08/16/2017 ENDOMYSIAL IGA 05/31/2012 ENDOMYSIAL IGA 10/11/2012 ENDOMYSIAL IGA 05/26/2011 TRANSGLUTAMINASE AB IGA 05/26/2011 TRANSGLUTAMINASE AB IGA 05/31/2012 TRANSGLUTAMINASE AB IGA 10/11/2012 TRANSGLUTAMINASE AB IGG 05/31/2012 TRANSGLUTAMINASE AB IGG 10/11/2012 TRANSGLUTAMINASE AB IGG 05/26/2011 MRI ABD W&WO CONTRAST 11/04/2021 US ABD 12/01/2017 Amylase 02/23/2022 Lipase 02/23/2022 Alpha Fetoprotein 11/04/2021 Future Test Test Name Order Date UPPER GI ENDOSCOPY 10/31/2015 COLONOSCOPY 10/31/2015 UPPER GI ENDOSCOPY 07/28/2021 COLONOSCOPY 07/28/2021 Insurance Providers Payer Name Payer Address Payer Phone Subscriber Number Group Number Insured Name Patient Relationship to Insured Coverage Start Date Coverage End Date [place] [employer] [address] [place] [phone] [id number] CHICHI CATHIE Self - patient is the insured MEDICARE OF [place] [address] [place] [id number] [phone] [id number] CHICHI CATHIE Self - patient is the insured Medical (General) History Medical History History ICD Code Celiac disease-diagnosed [...] years. 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 Denies [place],DM,CVA,Lung disease,renal dise ase GERD/Peacock's--EGD in 7 with a very small area of Peacock's esophagus with biopsies negative for dysplasia, small hiatal hernia Colon polyps-tubular adenomas removed in 05/2010 Back and neck pain, hip pain, shoulder p ain--on Oxycodone and Morphine Neg colonoscopy in 06/2016 Negative colonoscopy in August of 2021 Upper endoscopy in August 22 with a miniml hiatal hernia, minimal area of Peacock's without dysplasia, and minimal changes of his celiac disease Surgical History Surgery Date(Month/Year) 3 Back surgeries Appy Right inguinal hernia Heart monitor placed by Dr. Anton Lap [facility] in 07/2018 with preop ERCP/sphinc terotomy for 2 CBD stones Intraabdominal abscess due t o a dropped gallstone--drained by Dr. Rmaos and by CT-guidance 2021
[2024-07-10 16:16] LABS: MANUAL DIFF FLAG NO
[2024-07-10 16:35] LABS: Basophils Absolute Auto 0.1 X10*3/uL (0.0-0.2); Basophils Percent Auto 0.7 % (0-2); Eosinophils Absolute Auto 0.2 X10*3/uL (0.0-0.4); Eosinophils Percent Auto 1.8 % (0-4); Hematocrit 39.3 % (42.0-52.0); Hemoglobin 13.2 g/dl (14.0-18.0); Imm Gran Abs Auto 0.05 X10*3/uL (0.00-0.03); Imm Gran Pct Auto 0.6 % (0.0-0.4); Lymphocytes Absolute Auto 1.6 X10*3/uL (1.2-4.9); Lymphocytes Percent Auto 18.9 % (20-40); Mean Corpuscular HGB Conc 33.6 g/dl (31.0-36.0); Mean Corpuscular Hemoglobin 32.7 pg (27.0-33.0); Mean Corpuscular Volume 97.3 fL (80.0-98.0); Mean Platelet Volume 9.1 fL (9.4-12.4); Monocytes Absolute Auto 0.5 X10*3/uL (0.1-1.2); Monocytes Percent Auto 6.2 % (2-11); Neutrophils Percent Auto 71.8 % (45-73); Platelet Count 272 X10*3/uL (160-400); Red Blood Count 4.04 X10*6/uL (4.60-5.80); Red Cell Distribution Width 13.2 % (11.0-16.0); White Blood Count 8.3 X10*3/uL (4.8-10.8)
[2024-07-10 16:58] LABS: Alanine Aminotransferase 42 U/L (0-40); Albumin Level 4.4 g/dL (3.5-5.0); Alkaline Phosphatase 85 U/L (39-117); Anion Gap 13 (12-20); Aspartate Amino Transferase 47 U/L (5-37); Bilirubin Total 0.3 mg/dL (0.0-1.0); Blood Urea Nitrogen 25 mg/dL (9-16); Calcium 9.5 mg/dL (8.4-10.2); Carbon Dioxide 24 mmol/L (22-29); Chloride 109 mmol/L (96-108); Estimated Glomerular Filt Rate 55; Glucose Random 96 mg/dL (60-115); Potassium 5.5 mmol/L (3.3-5.1); Sodium 140 mmol/L (135-145); Total Protein 7.3 g/dL (6.5-8.0)
[2024-07-10 17:11] LABS: Haptoglobin 147 mg/dL (40-268)
== END 2024-07-10 12:31 | disposition home or self-care (01) ==
LOC: HO.HMGCLDS 12:30
PROVIDERS: PCP Nurse Practitioner Family; Visit Provider Nurse Practitioner Family
DX: D64.9 Anemia, unspecified (principal)
CPT/HCPCS: 36415; 80053; 83010; 85025; 86880

== ENCOUNTER → 2024-07-19 09:54 | Outpatient (REF) | payer MEDICARE, MEDICAID, SELFPAY ==
--- OUTSIDE RECORDS SUMMARY | 2024-07-19 10:37 | XMS_ITS | Patient Health Record ---
Author Organization [facility] Address [address] [place] [address] Care Team Providers Care Ribbing Machine Operator Name Role Phone LORIE CLEMONS Primary Care Provider Rich Vasquez Unavailable [phone] Allergies Allergen (clinical drug ingredient) Drug/Non Drug [...] Omeprazole 20 MG TAKE 1 CAPSULE BY [facility] TWICE DAILY for 30 Active Acebutolol HCl 200mg 1 capsule Orally Once a day Active Immunizations Vaccine Route Administration Date Status Comme nts Influenza Unknown 10/09/2020 Refused Problems Problem Type SNOMED Code ICD Code Onset Dates Problem Status W/U Status Risk Notes Problem 244663717 Encounter for screening for malignant neoplasm of colon (Z12.11) Active confirmed Problem 657667811 History of adenomatous polyp of colon (Z86.010) Active confirmed Problem 141216362 Abdominal bloati ng (R14.0) Active confirmed Problem 958680666 Anemia in other chronic diseases classified elsewhere (D63.8) Active confirmed Problem 175793922 Celiac disease (K90.0) Active confirmed Problem Contusion of liver (214794000) Contusion of liver, initial encounter (S36.112A) Active confirmed Problem Screening for malignant neoplasm of rectum (896982235) Encounter for screening for malignant neoplasm of rectum (Z12.12) Active confirmed Problem 756626550 Gastroesophageal reflux disease without esophagitis (K21.9) Active confirmed Problem History of polyp of colon (506085717) History of colon polyps (Z86.010) Active confirmed Problem 748268394 Barretts esophag us without dysplasia (K22.70) Active confirmed Problem 17051291 Change in bowel function (R19.4) Active confirmed Problem Right upper quadrant pain (821149296) Abdominal pain, RUQ (R10.11) Active confirmed Problem Epigastric pain (08398146) Abdominal pain, acute, epigastric (R10.13) Active confirmed Problem Diverticulosis of colon (951562820) Diverticulosis of colon (K57.30) Active confirmed Problem Generalized abdominal pain (656179476) Abdominal pain, acute, generalized (R10.84) Active confirmed [...] Date Coverage End Date [place] [employer] [address] [place] [address] [id number] CHICHI CATHIE Self - patient is the insured MEDICARE OF [place] [address] [place] [id number] CHICHI CATHIE Self - patient is the [...] years. 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
== END ==
LOC: HO.CARD 09:54
PROVIDERS: PCP Nurse Practitioner Family; Visit Provider Internal Medicine Cardiovascular Disease
DX: I48.0 Paroxysmal atrial fibrillation (principal)
CPT/HCPCS: 93242

== ENCOUNTER → 2024-07-19 09:57 | Outpatient (BNV) | payer MEDICAID, SELFPAY | PROVIDERS: PCP Nurse Practitioner Family; Visit Provider Internal Medicine Cardiovascular Disease | DX: I49.1 Atrial premature depolarization (principal); I49.3 Ventricular premature depolarization | CPT/HCPCS: 93244 ==

== ENCOUNTER 2024-07-19 10:44 | Outpatient (AMB) | payer MEDICARE, MEDICAID, SELFPAY ==
--- NOTE | 2024-07-19 10:49 | MHC.OFFVIS ---
Vital Signs 07/19/24 10:52 Height 5 ft 11 in Weight 206 lb BMI 28.7 Intake Visit Reasons: 6m R leg check Intake Note: Patient presents for 6 month right leg check. Patient states his legs swell off and on . He is wearing compression socks. Accompanied by: Self / Same As Patient Allergies Iodinated Contrast Media [IV DYE, IODINE CONTAINING] Allergy (Severe, Verified 07/19/24 10:51) ANAPHYLAXIS gluten [GLUTEN] Allergy (Intermediate, Verified 07/19/24 10:51) BLOATING,SEVERE GI PAIN amiodarone Adverse Reaction (Severe, Verified 07/19/24 10:51) hyperthyroid morphine Adverse Reaction (Verified 07/19/24 10:51) Nausea and Vomiting HPI HPI 6m R leg check: Details: The patient is a 73-year-old male presenting with chronic lower extremity edema. Despite undergoing right small saphenous vein ablation in December of the previous year, he reports continued significant leg swelling, particularly with prolonged standing, mitigated by compression stocking use. His occupation requires intermittent standing, contributing to symptoms. Anemia persists as a long-standing issue, along with recently identified hyperkalemia correlating with previous hospitalizations for sepsis. His cardiac history includes recurrent atrial fibrillation, managed with Acebutolol and past ablation procedures, with current exacerbation possibly linked to emotional stress due to bereavement. His has this past March. He now presents for evaluation regarding right lower extremity venous insufficiency. [facility] Medical History Atrial fibrillation with RVR Sepsis with acute hypoxic respiratory failure Abscess of abdominal wall Implantable loop recorder present Subcapsular hematoma of liver History of blood transfusion Chronic neck and back pain History of thyrotoxicosis Paroxysmal atrial fibrillation GERD (gastroesophageal reflux disease) PHN (postherpetic neuralgia) Frequent PVCs Barretts esophagus LBBB (left bundle branch block) Celiac disease Failed back syndrome Surgical History History of exploratory laparotomy (12/28/21) History of colonoscopy History of esophagogastroduodenoscopy (EGD) Hx laparoscopic cholecystectomy History of appendectomy History of lymph node excision History of inguinal hernia H/O prior ablation treatment History of back surgery Family History Father CVD (cardiovascular disease) Mother Leukemia Son No problems noted. Son No problems noted. Daughter No problems noted. Daughter No problems noted. Social History Household Members: Spouse and Children Housing: House Are you a primary continuum of care manager to a significant other at home: Yes (- mod dementia) Do you presently have visiting nurse or other home services: Yes (vna) Alcohol intake: current Alcohol intake frequency: does not drink Comment: previously medicated with po tylenol Patient Tobacco Use Status: Never used Tobacco e-Cigarette/Vaping Use: Never Used Second Hand Smoke Exposure: No service: Yes Current occupational status: employed Current occupation: [employer] Current occupational exposures/hazards: No Cognitive needs: No Hearing needs: No Vision needs: Yes Review of Systems Const Reports as per HPI ENT Reports no additional complaints Card Denies chest pain, Denies chest pain at rest and Denies chest pain with activity Resp Denies chest congestion and Denies cough GI Reports no additional complaints Musc Details: pain over varicosities, aching of lower extremities, swelling, cramping, heaviness and tiredness, itching Denies abnormal gait Skin/Breast Reports pruritus and Denies wounds Neuro Reports no additional complaints and Denies abnormal gait Psych Denies no additional complaints Physical Exam Vital Signs: BMI result Body Mass Index 28.7 Const General: cooperative, healthy appearing and comfortable Orientation/consciousness: oriented to person, oriented to place and oriented to time Neck Carotids: no bruits Chest Chest palpation & inspection: normal inspection of the chest and normal palpation of entire chest wall Resp Effort & Inspection: normal respiratory effort and able to speak in complete sentences Cardio Rate: regular rate Heart sounds: S1 normal heart sound present and S2 normal heart sound present Peripheral pulses: Peripheral pulses 2+ throughout GI Inspection: Yes normal to inspection Skin Other: +2 edema, right leg CEAP Classification C4 - skin color changes Ep - Etiology Primary As - superficial veins P - reflux General skin exam: dry skin Neuro General: oriented to person, oriented to place and oriented to time Extrem Right lower extremity: full ROM, normal capillary refill and edema Left lower extremity: full ROM, normal capillary refill and edema Psych Mental Status: mental status grossly normal Assessment & Plan Assessment & Plan (1) Varicose veins of right lower extremity with inflammation: Comment: 12/30/2023 - right small saphenous vein radiofrequency ablation Code(s): I83.11 - Varicose veins of right lower extremity with inflammation Category: Medical Plan: In short patient has recurrent right lower extremity venous insufficiency. I have taken the liberty of ordering a repeat right lower extremity testing. He will follow up with us after testing. We did discuss conservative measures including compression elevation and exercise. Thank you for allowing us to assist in his care. If there are any questions or concerns please do not hesitate to contact us. Plan Patient was informed and verbally consented to the use of an ambient scribe for clinic note documentation during this visit. Orders: Orders US venous duplex LE RT 1 Week I83.11 - Varicose veins of right lower extremity with inflammation Patient Instructions: - Schedule an ultrasound for the right leg as soon as authorization is received. - Continue wearing prescribed compression stockings, ensuring proper application to reduce indentation. - Follow current medication regimen for atrial fibrillation. - Elevate legs and incorporate walking during work breaks as often as possible. - Await further instructions post-lab results and contact the office for any acute changes in symptoms. Coding Level of Care Code Est Pt Level 4 (09514) Complex EM visit Add On G2211 Diagnoses Varicose veins of right lower extremity with inflammation I83.11
[2024-07-19 10:52] VITALS: BMI 28.7
== END 2024-07-19 11:04 | disposition home or self-care (01) ==
LOC: HO.HVS 10:45
PROVIDERS: PCP Nurse Practitioner Family; Visit Provider Surgery Vascular Surgery
DX: I83.11 Varicose veins of right lower extremity with inflammation (principal)
CPT/HCPCS: 99214; G2211

== ENCOUNTER 2024-07-20 10:46 | Outpatient (REF) | payer MEDICAID, SELFPAY ==
--- OUTSIDE RECORDS SUMMARY | 2024-07-20 12:26 | XMS_ITS | Patient Health Record ---
Author Organization [facility] Address [address] [place] [address] Care Team Providers Care Food Dehydrator Operator Name Role Phone LORIE CLEMONS Primary Care Provider Rich Vasquez Unavailable [phone] Allergies Allergen (clinical drug ingredient) Drug/Non Drug [...] Omeprazole 20 MG TAKE 1 CAPSULE BY [facility] TWICE DAILY for 30 Active Acebutolol HCl 200mg 1 capsule Orally Once a day Active Immunizations Vaccine Route Administration Date Status Comme nts Influenza Unknown 10/09/2020 Refused Problems Problem Type SNOMED Code ICD Code Onset Dates Problem Status W/U Status Risk Notes Problem 091856148 Encounter for screening for malignant neoplasm of colon (Z12.11) Active confirmed Problem 593608799 History of adenomatous polyp of colon (Z86.010) Active confirmed Problem 812345204 Abdominal bloati ng (R14.0) Active confirmed Problem 981452944 Anemia in other chronic diseases classified elsewhere (D63.8) Active confirmed Problem 844384968 Celiac disease (K90.0) Active confirmed Problem Contusion of liver (396950124) Contusion of liver, initial encounter (S36.112A) Active confirmed Problem Screening for malignant neoplasm of rectum (798165390) Encounter for screening for malignant neoplasm of rectum (Z12.12) Active confirmed Problem 543221348 Gastroesophageal reflux disease without esophagitis (K21.9) Active confirmed Problem History of polyp of colon (886202107) History of colon polyps (Z86.010) Active confirmed Problem 834635749 Barretts esophag us without dysplasia (K22.70) Active confirmed Problem 99406315 Change in bowel function (R19.4) Active confirmed Problem Right upper quadrant pain (170609249) Abdominal pain, RUQ (R10.11) Active confirmed Problem Epigastric pain (61584011) Abdominal pain, acute, epigastric (R10.13) Active confirmed Problem Diverticulosis of colon (096452789) Diverticulosis of colon (K57.30) Active confirmed Problem Generalized abdominal pain (471159871) Abdominal pain, acute, generalized (R10.84) Active confirmed [...] Date Coverage End Date [place] [id number] [address] [place] [address] [id number] CHICHI CATHIE Self - patient is the insured MEDICARE OF [place] [address] [place] [id number] CHICHI CATHIE Self - patient is the [...] years. 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
[2024-07-20 14:27] LABS: Alanine Aminotransferase 33 U/L (0-40); Albumin Level 4.3 g/dL (3.5-5.0); Alkaline Phosphatase 79 U/L (39-117); Anion Gap 12 (12-20); Aspartate Amino Transferase 39 U/L (5-37); Bilirubin Total 0.3 mg/dL (0.0-1.0); Blood Urea Nitrogen 28 mg/dL (9-16); Calcium 9.2 mg/dL (8.4-10.2); Carbon Dioxide 23 mmol/L (22-29); Chloride 109 mmol/L (96-108); Estimated Glomerular Filt Rate 43; Glucose Random 86 mg/dL (60-115); Potassium 5.3 mmol/L (3.3-5.1); Sodium 139 mmol/L (135-145)
== END 2024-07-20 10:47 | disposition home or self-care (01) ==
LOC: HO.HMGCLDS 10:46
PROVIDERS: PCP Nurse Practitioner Family; Visit Provider Nurse Practitioner Family
DX: E87.5 Hyperkalemia (principal)
CPT/HCPCS: 36415; 80053

== ENCOUNTER 2024-07-27 12:11 | Outpatient (REF) | payer MEDICAID, SELFPAY ==
--- OUTSIDE RECORDS SUMMARY | 2024-07-27 12:58 | XMS_ITS | Patient Health Record ---
Author Organization [facility] Address [address] [place] [address] Care Team Providers Care Hat And Cap Parts Cutter Hand Name Role Phone LORIE CLEMONS Primary Care Provider Rich Vasquez Unavailable [phone] Allergies Allergen (clinical drug ingredient) Drug/Non Drug [...] Omeprazole 20 MG TAKE 1 CAPSULE BY [facility] TWICE DAILY for 30 Active Acebutolol HCl 200mg 1 capsule Orally Once a day Active Immunizations Vaccine Route Administration Date Status Comme nts Influenza Unknown 10/09/2020 Refused Problems Problem Type SNOMED Code ICD Code Onset Dates Problem Status W/U Status Risk Notes Problem 822501734 Encounter for screening for malignant neoplasm of colon (Z12.11) Active confirmed Problem 270226747 History of adenomatous polyp of colon (Z86.010) Active confirmed Problem 108333325 Abdominal bloati ng (R14.0) Active confirmed Problem 841348051 Anemia in other chronic diseases classified elsewhere (D63.8) Active confirmed Problem 725168683 Celiac disease (K90.0) Active confirmed Problem Contusion of liver (742475267) Contusion of liver, initial encounter (S36.112A) Active confirmed Problem Screening for malignant neoplasm of rectum (999115833) Encounter for screening for malignant neoplasm of rectum (Z12.12) Active confirmed Problem 209207082 Gastroesophageal reflux disease without esophagitis (K21.9) Active confirmed Problem History of polyp of colon (147235290) History of colon polyps (Z86.010) Active confirmed Problem 932677053 Barretts esophag us without dysplasia (K22.70) Active confirmed Problem 87074500 Change in bowel function (R19.4) Active confirmed Problem Right upper quadrant pain (911297001) Abdominal pain, RUQ (R10.11) Active confirmed Problem Epigastric pain (11346611) Abdominal pain, acute, epigastric (R10.13) Active confirmed Problem Diverticulosis of colon (256040510) Diverticulosis of colon (K57.30) Active confirmed Problem Generalized abdominal pain (070789448) Abdominal pain, acute, generalized (R10.84) Active confirmed [...] SED RATE (ESR) 02/23/2022 CELIAC PANEL #10 08/16/2017 CELIAC PANEL #10 12/01/2017 CELIAC PANEL #10 12/24/2017 CELIAC PANEL #10 10/11/2012 CELIAC PANEL #10 10/09/2020 CELIAC PANEL #10 05/26/2011 CELIAC PANEL #10 07/28/2021 ENDOMYSIAL IGA 05/26/2011 ENDOMYSIAL IGA 05/31/2012 ENDOMYSIAL IGA 10/11/2012 TRANSGLUTAMINASE AB IGA 05/31/2012 TRANSGLUTAMINASE AB IGA 10/11/2012 TRANSGLUTAMINASE AB IGA 05/26/2011 TRANSGLUTAMINASE AB IGG 05/31/2012 TRANSGLUTAMINASE AB IGG [...] Date Coverage End Date MEDICAID OF [employer] [address] [place] [address] [id number] CHICHI CATHIE Self - patient is the insured MEDICARE OF [place] [address] [place] [id number] CHICHI CATHIE Self - patient is the [...] years. 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
[2024-07-27 13:44] LABS: Alanine Aminotransferase 36 U/L (0-40); Albumin Level 4.4 g/dL (3.5-5.0); Alkaline Phosphatase 83 U/L (39-117); Anion Gap 9 (12-20); Aspartate Amino Transferase 36 U/L (5-37); Bilirubin Total 0.3 mg/dL (0.0-1.0); Blood Urea Nitrogen 23 mg/dL (9-16); Calcium 9.2 mg/dL (8.4-10.2); Carbon Dioxide 25 mmol/L (22-29); Chloride 107 mmol/L (96-108); Estimated Glomerular Filt Rate 54; Glucose Random 88 mg/dL (60-115); Potassium 5.1 mmol/L (3.3-5.1); Sodium 136 mmol/L (135-145); Total Protein 7.2 g/dL (6.5-8.0)
== END 2024-07-27 12:12 | disposition home or self-care (01) ==
LOC: HO.HMGCLDS 12:11
PROVIDERS: PCP Nurse Practitioner Family; Visit Provider Nurse Practitioner Family
DX: E87.5 Hyperkalemia (principal)
CPT/HCPCS: 36415; 80053

== ENCOUNTER 2024-09-03 10:15 | Outpatient (REF) | payer MEDICAID, SELFPAY ==
--- NOTE | ~2024-09-03 | US_ITS ---
EXAMINATION: US LOWER EXTREMITY VENOUS (REFLUX EXAM), RIGHT CLINICAL INFORMATION: Status post right superficial saphenous vein ablation December 2023. Varicose veins of right lower extremity with inflammation. COMPARISON: 08/12/2023. 01/02/2024. TECHNIQUE: Color flow triplex imaging and compression Doppler was performed to evaluate both the deep and the superficial systems bilaterally. To evaluate the superficial system, the examination was performed in the upright position. Color-flow Doppler ultrasound and compression ultrasound were utilized. In addition, maneuvers were utilized to demonstrate reflux. FINDINGS: 1. DEEP VENOUS ULTRASOUND OF THE RIGHT LOWER EXTREMITY: Common Femoral Vein: Compressible, normal respiratory variation and augmented flow. Femoral Vein: Compressible, normal color flow and augmentation. Popliteal Vein: Compressible, normal augmentation. Deep Reflux: There is no evidence of reflux in the deep system in either the common femoral vein, superficial femoral or the popliteal vein. There is no evidence of a Lopez's cyst. 2. SUPERFICIAL ULTRASOUND WITH DOPPLER OF RIGHT LOWER EXTREMITY: GREAT SAPHENOUS VEIN: Saphenofemoral Junction: 0.8 cm; Reflux: 0 ms Proximal Thigh: 0.5 cm; Reflux: 1484 ms Mid Thigh: 0.2 cm; Reflux: 0 ms Distal Thigh: Not well seen. At Knee: 0.2 cm; Reflux: 2452 ms Proximal Calf: 0.2 cm; Reflux: 0 ms Mid Calf: 0.2 cm; Reflux: 0 ms Distal Calf: 0.3 cm; Reflux: 0 ms DUPLICATED MEDIAL GREAT SAPHENOUS VEIN: Diameter: None imaged Reflux: NA DUPLICATED LATERAL GREAT SAPHENOUS VEIN: Diameter: None imaged Reflux: NA SMALL SAPHENOUS VEIN: Saphenopopliteal Junction: 0.4 cm; Reflux: 0 ms Proximal: Status post ablation. Distal: Status post ablation. VEIN OF GIACOMINI: Size: NA Reflux: NA PERFORATORS: Superficial saphenous vein proximally, 0.3 cm, no reflux. Greater saphenous vein proximal calf, 0.3 cm, no reflux. Greater saphenous vein mid calf, 0.1 cm, no reflux. VARICOSITIES: SSV mid, 0.5 cm, reflux: 2620 ms. SSV mid, 0.5 cm, reflux: 2632 ms. SSV mid, 0.4 cm, reflux: 2728 ms. SSV distal, 0.3 cm, reflux: 2296 ms. GSV proximal thigh, 0.4 cm, reflux: 2428 ms. GSV proximal thigh, 1.7 cm, reflux: 60828 seconds. GSV distal thigh, 0.5 cm, reflux: 2104 ms. GSV at knee, 0.6 cm, reflux: 2316 ms. GSV mid calf, 0.4 cm, no reflux. US/US venous duplex LE RT IMPRESSION: RIGHT: 1. No evidence of deep venous thrombosis. Reflux is seen in the GSV proximal thigh only, approximately 1484 ms. No additional deep venous reflux. GSV at the distal thigh is not well seen. 2. Status post ablation of the right proximal and distal SSV, which are not well seen. 3. Three right perforators as discussed. 4. There are 9 imaged varicosities of the right SSV and GSV with significant reflux present. See above for details. Electronically signed by: Rodolfo Cerrato MD 09/04/2024 08:29 AM EDT
--- OUTSIDE RECORDS SUMMARY | 2024-09-03 10:49 | XMS_ITS | Patient Health Record ---
Author Organization [facility] Address [address] [place] [address] Care Team Providers Care Mental Health Associate Name Role Phone LORIE CLEOMNS Primary Care Provider Rich Vasquez Unavailable [phone] Allergies Allergen (clinical drug ingredient) Drug/Non Drug [...] 20 MG TAKE 1 CAPSULE BY [facility] TWICE DAILY for 30 Active Acebutolol HCl 200mg 1 capsule Orally Once a day Active Immunizations Vaccine Route Administration Date Status Comme nts Influenza Unknown 10/09/2020 Refused Problems Problem Type SNOMED Code ICD Code Onset Dates Problem Status W/U Status Risk Notes Problem 945180714 Encounter for screening for malignant neoplasm of colon (Z12.11) Active confirmed Problem 583017353 History of adenomatous polyp of colon (Z86.010) Active confirmed Problem 947691533 Abdominal bloati ng (R14.0) Active confirmed Problem 837479768 Anemia in other chronic diseases classified elsewhere (D63.8) Active confirmed Problem 508717662 Celiac disease (K90.0) Active confirmed Problem Contusion of liver (136171208) Contusion of liver, initial encounter (S36.112A) Active confirmed Problem Screening for malignant neoplasm of rectum (034270174) Encounter for screening for malignant neoplasm of rectum (Z12.12) Active confirmed Problem 220839872 Gastroesophageal reflux disease without esophagitis (K21.9) Active confirmed Problem History of polyp of colon (680464478) History of colon polyps (Z86.010) Active confirmed Problem 707530558 Barretts esophag us without dysplasia (K22.70) Active confirmed Problem 31611499 Change in bowel function (R19.4) Active confirmed Problem Right upper quadrant pain (345369459) Abdominal pain, RUQ (R10.11) Active confirmed Problem Epigastric pain (55980909) Abdominal pain, acute, epigastric (R10.13) Active confirmed Problem Diverticulosis of colon (907335961) Diverticulosis of colon (K57.30) Active confirmed Problem Generalized abdominal pain (703225649) Abdominal pain, acute, generalized (R10.84) Active confirmed Plan Of Treatment Pending Test Test Name Order Date CHEM 7 PROFILE 02/23/2022 CHEM 7 PROFILE 02/23/2022 BUN 11/04/2021 CREATININE 11/04/2021 LIVER PROFILE 02/23/2022 LIVER PROFILE 02/23/2022 LIVER PROFILE 11/04/2021 IRON + IBC (FE) 08/16/2017 FERRITIN 08/16/2017 [...] Start Date Coverage End Date MEDICAID OF [facility] [address] [place] [address] [id number] CATHIE CADET Self - patient is the insured MEDICARE OF [place] [address] [place] [id number] IRINACATHIE Galvan Self - patient is the insured Medical [...] years. 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
== END 2024-09-03 10:16 | disposition home or self-care (01) ==
LOC: HO.US 10:15
PROVIDERS: PCP Nurse Practitioner Family; Visit Provider Surgery Vascular Surgery
DX: I83.11 Varicose veins of right lower extremity with inflammation (principal)
CPT/HCPCS: 93971

== ENCOUNTER → 2024-09-03 10:17 | Outpatient (BNV) | payer MEDICAID, SELFPAY | PROVIDERS: PCP Nurse Practitioner Family; Visit Provider Radiology Diagnostic Radiology | DX: I83.11 Varicose veins of right lower extremity with inflammation (principal) | CPT/HCPCS: 93971 ==

== ENCOUNTER 2024-09-25 12:03 | Outpatient (REF) | payer MEDICAID, SELFPAY ==
[2024-09-25 13:29] LABS: MANUAL DIFF FLAG NO
[2024-09-25 13:35] LABS: Basophils Absolute Auto 0.1 X10*3/uL (0.0-0.2); Basophils Percent Auto 0.9 % (0-2); Eosinophils Absolute Auto 0.3 X10*3/uL (0.0-0.4); Eosinophils Percent Auto 3.6 % (0-4); Hematocrit 36.1 % (42.0-52.0); Hemoglobin 12.1 g/dl (14.0-18.0); Imm Gran Abs Auto 0.06 X10*3/uL (0.00-0.03); Imm Gran Pct Auto 0.8 % (0.0-0.4); Lymphocytes Absolute Auto 1.7 X10*3/uL (1.2-4.9); Lymphocytes Percent Auto 22.2 % (20-40); Mean Corpuscular HGB Conc 33.5 g/dl (31.0-36.0); Mean Corpuscular Hemoglobin 32.4 pg (27.0-33.0); Mean Corpuscular Volume 96.8 fL (80.0-98.0); Mean Platelet Volume 8.9 fL (9.4-12.4); Monocytes Absolute Auto 0.5 X10*3/uL (0.1-1.2); Monocytes Percent Auto 6.7 % (2-11); Neutrophils Absolute Auto 5.2 x10*3/uL (2.0-8.3); Neutrophils Percent Auto 65.8 % (45-73); Platelet Count 240 X10*3/uL (160-400); Red Blood Count 3.73 X10*6/uL (4.60-5.80); White Blood Count 7.8 X10*3/uL (4.8-10.8)
[2024-09-25 13:54] LABS: Alanine Aminotransferase 28 U/L (0-40); Albumin Level 4.4 g/dL (3.5-5.0); Alkaline Phosphatase 79 U/L (39-117); Anion Gap 11 (12-20); Aspartate Amino Transferase 32 U/L (5-37); Bilirubin Total 0.3 mg/dL (0.0-1.0); Blood Urea Nitrogen 20 mg/dL (9-16); Calcium 9.4 mg/dL (8.4-10.2); Carbon Dioxide 26 mmol/L (22-29); Chloride 107 mmol/L (96-108); Estimated Glomerular Filt Rate 52; Glucose Random 88 mg/dL (60-115); Sodium 139 mmol/L (135-145)
[2024-09-25 14:17] LABS: TSH reflex Free T4 1.05 uIU/mL (0.32-4.0)
== END 2024-09-25 12:04 | disposition home or self-care (01) ==
LOC: HO.HMGCLDS 12:03
PROVIDERS: PCP Nurse Practitioner Family; Visit Provider Nurse Practitioner Family
DX: I48.0 Paroxysmal atrial fibrillation (principal); D64.9 Anemia, unspecified
CPT/HCPCS: 36415; 80053; 84443; 85025

== ENCOUNTER → 2024-10-02 09:27 | Outpatient (REF) | payer MEDICAID, SELFPAY ==
--- NOTE | ~2024-10-02 | NM_ITS ---
Lexiscan Myocardial perfusion study Indication: Left bundle branch block, atrial fibrillation Technique: The patient was brought in for a Lexiscan perfusion study on 10/02/2024 and was injected 0.4 mg of Lexiscan intravenously. Within a minute of this injection 30 mCi of sestamibi was given intravenously. Images were obtained using the SPECT gamma camera interlaced with the gating device. Images were obtained in supine position. Resting perfusion study was performed on 10/04/2024. Patient was administered 30 mCi of sestamibi intravenously at rest. Images were then obtained in supine position. Total DLP 71 mGy-cm. Images were processed with the software and compared side to side in short axis, horizontal long axis and vertical long axis views. Findings: Raw aquisition reviewed. The stress perfusion study showed decreased tracer uptake in the basal to mid septum, apex, basal part of inferior septum. [place] remains the same with CT attenuation correction but other areas improvement and hence could be from attenuation artifact. The gated study shows normal LV systolic function. Calculated LVEF does not appear reliable. LV cavity is mildly dilated in size. The gated study shows inferoseptal/inferior hypokinesis. Resting study shows diminished tracer uptake at the apex, basal inferior septum, basal inferior wall. Gating at rest reveals reduced contractility in the basal part of inferior septum inferior wall and ejection fraction of 63%. The findings are consistent with fixed perfusion defect at the apex. No clear reversible defects. NM/NM cardiolite stress test Impression: 1. Myocardial perfusion imaging study shows fixed perfusion defect of the apex possibly related to underlying left bundle branch block. Cannot exclude prior nontransmural infarct. 2. Gated LVEF is 63% during rest.. Stress gated LVEF does not appear reliable. Correlate with echocardiogram EKG component of the test reported separately. Electronically signed by: Gilbert Mojica MD 10/04/2024 04:14 PM EDT RP
--- NOTE | 2024-10-02 09:30 | CA_ITS ---
Acquisition Time: 2024-10-02 09:49:59 Total Exercise Time: 00:02:00 Test Indications: CARDIOMYOPATHY Medications: CARDIZEM Protocol: LEXISCAN Max HR: 82 BPM 56% of Pred: 145 BPM Max BP: 120/78 mmHG Max Work Load: 1.6 METS Pharmacological stress test with Lexiscan while pt walks slowly on treadmill, with reports of SOB and nausea, with isolated PACs, with normotensive response to injection. Nondiagnostic EKG for ischemia. In recovery, pt treated with IVP Aminophylline 75 mg to reverse Lexiscan after which pt feeling back to baseline. Nuclear images pending. Test reviewed with Dr. Schreiber. Referred By: Suhas Anton Electronically Signed By: Gonzalo Hanson
--- OUTSIDE RECORDS SUMMARY | 2024-10-02 10:13 | XMS_ITS | Patient Health Record ---
Author Organization [facility] Address [address] [place] [address] Care Team Providers Care Master Cook Name Role Phone LORIE CLEMONS Primary Care Provider Rich Vasquez Unavailable [phone] Allergies Allergen (clinical drug ingredient) Drug/Non Drug [...] Omeprazole 20 MG TAKE 1 CAPSULE BY [facility] TWICE DAILY for 30 Active Acebutolol HCl 200mg 1 capsule Orally Once a day Active Immunizations Vaccine Route Administration Date Status Comme nts Influenza Unknown 10/09/2020 Refused Problems Problem Type SNOMED Code ICD Code Onset Dates Problem Status W/U Status Risk Notes Problem 030665335 Encounter for screening for malignant neoplasm of colon (Z12.11) Active confirmed Problem 838568745 History of adenomatous polyp of colon (Z86.010) Active confirmed Problem 064379101 Abdominal bloati ng (R14.0) Active confirmed Problem 825201855 Anemia in other chronic diseases classified elsewhere (D63.8) Active confirmed Problem 346684488 Celiac disease (K90.0) Active confirmed Problem Contusion of liver (011264611) Contusion of liver, initial encounter (S36.112A) Active confirmed Problem Screening for malignant neoplasm of rectum (787340231) Encounter for screening for malignant neoplasm of rectum (Z12.12) Active confirmed Problem 429032164 Gastroesophageal reflux disease without esophagitis (K21.9) Active confirmed Problem History of polyp of colon (061395878) History of colon polyps (Z86.010) Active confirmed Problem 226802438 Barretts esophag us without dysplasia (K22.70) Active confirmed Problem 79576042 Change in bowel function (R19.4) Active confirmed Problem Right upper quadrant pain (046578538) Abdominal pain, RUQ (R10.11) Active confirmed Problem Epigastric pain (83596797) Abdominal pain, acute, epigastric (R10.13) Active confirmed Problem Diverticulosis of colon (506753772) Diverticulosis of colon (K57.30) Active confirmed Problem Generalized abdominal pain (659162347) Abdominal pain, acute, generalized (R10.84) Active confirmed [...] Start Date Coverage End Date MEDICAID OF [facility] [address] [place] [address] [id number] CATHIE CADET Self - patient is the insured MEDICARE OF [place] [address] [place] [id number] IRINACATHIE Galvan Self - patient is the [...] years. 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
== END ==
LOC: HO.CARD 09:27
PROVIDERS: PCP Nurse Practitioner Family; Visit Provider Internal Medicine Cardiovascular Disease
DX: I42.9 Cardiomyopathy, unspecified (principal)
CPT/HCPCS: 78452; 93017; A9500; J0280; J2785

== ENCOUNTER → 2024-10-02 09:30 | Outpatient (BNV) | payer MEDICAID, SELFPAY | PROVIDERS: PCP Nurse Practitioner Family | DX: R06.02 Shortness of breath (principal); I49.1 Atrial premature depolarization | CPT/HCPCS: 78452; 93016; 93018 ==

== ENCOUNTER 2024-10-23 10:55 | Outpatient (AMB) | payer MEDICAID, SELFPAY ==
--- NOTE | 2024-10-23 10:56 | A.OFFVIS_ITS ---
Intake Visit Reasons: Follow Up US Intake Note: Follow up US, no complaints. Accompanied by: Self / Same As Patient Allergies Iodinated Contrast Media (IV DYE, IODINE CONTAINING) Allergy (Severe, Verified 10/23/24 10:58) ANAPHYLAXIS gluten (GLUTEN) Allergy (Intermediate, Verified 10/23/24 10:58) BLOATING,SEVERE GI PAIN amiodarone Adverse Reaction (Severe, Verified 10/23/24 10:58) hyperthyroid morphine Adverse Reaction (Verified 10/23/24 10:58) Nausea and Vomiting HPI HPI Follow Up US: Details: The patient is a 73-year-old male presenting with right leg swelling and varicose veins. He has a history of lymphedema since 1983 after lymph node removal, leading to persistent swelling and varicose veins. Compression stockings are difficult for him to wear, leading to the use of diabetic socks instead. He has a large right medial thigh and calf varicosities that have been a source for pain and discomfort for him. He now presents for follow-up with venous insufficiency testing. The patient is on Eliquis for atrial fibrillation. PENDING SALE TO [facility] Medical History Atrial fibrillation with RVR Sepsis with acute hypoxic respiratory failure Abscess of abdominal wall Implantable loop recorder present Subcapsular hematoma of liver History of blood transfusion Chronic neck and back pain History of thyrotoxicosis Paroxysmal atrial fibrillation GERD (gastroesophageal reflux disease) PHN (postherpetic neuralgia) Frequent PVCs Barretts esophagus LBBB (left bundle branch block) Celiac disease Failed back syndrome Surgical History History of exploratory laparotomy (12/28/21) History of colonoscopy History of esophagogastroduodenoscopy (EGD) Hx laparoscopic cholecystectomy History of appendectomy History of lymph node excision History of inguinal hernia H/O prior ablation treatment History of back surgery Family History Father CVD (cardiovascular disease) Mother Leukemia Son No problems noted. Son No problems noted. Daughter No problems noted. Daughter No problems noted. Social History Household Members: Spouse and Children Housing: House Are you a primary life care planner to a significant other at home: Yes (- mod dementia) Do you presently have visiting nurse or other home services: Yes (vna) Alcohol intake: current Alcohol intake frequency: does not drink Comment: previously medicated with po tylenol Patient Tobacco Use Status: Never used Tobacco e-Cigarette/Vaping Use: Never Used Second Hand Smoke Exposure: No service: Yes Current occupational status: employed Current occupation: [employer] Current occupational exposures/hazards: No Cognitive needs: No Hearing needs: No Vision needs: Yes Review of Systems Const Reports as per HPI ENT Reports no additional complaints Card Denies chest pain, Denies chest pain at rest and Denies chest pain with activity Resp Denies chest congestion and Denies cough GI Reports no additional complaints Musc Details: pain over varicosities, aching of lower extremities, swelling, cramping, heaviness and tiredness, itching Denies abnormal gait Skin/Breast Reports pruritus and Denies wounds Neuro Reports no additional complaints and Denies abnormal gait Psych Denies no additional complaints Physical Exam Const General: cooperative, healthy appearing and comfortable Orientation/consciousness: oriented to person, oriented to place and oriented to time Neck Carotids: no bruits Chest Chest palpation & inspection: normal inspection of the chest and normal palpation of entire chest wall Resp Effort & Inspection: normal respiratory effort and able to speak in complete sentences Cardio Rate: regular rate Heart sounds: S1 normal heart sound present and S2 normal heart sound present Peripheral pulses: Peripheral pulses 2+ throughout GI Inspection: Yes normal to inspection Skin Other: +2 edema, large rope-like varicosities greater than 4 mm right calf and thigh CEAP Classification C4 - skin color changes Ep - Etiology Primary As - superficial veins P - reflux General skin exam: dry skin Neuro General: oriented to person, oriented to place and oriented to time Extrem Right lower extremity: full ROM, normal capillary refill and edema Left lower extremity: full ROM, normal capillary refill and edema Psych Mental Status: mental status grossly normal Results Reviewed Results Reviewed: Brief summary of venous insufficiency testing is as follows: right great saphenous vein: Focally positive at junction only right small saphenous vein: negative right accessory vein: none present Please note there is no evidence of any venous aneurysms or significant tortuosity Assessment & Plan Assessment & Plan (1) Varicose veins of right lower extremity with inflammation: Comment: 12/30/2023 - right small saphenous vein radiofrequency ablation Code(s): I83.11 - Varicose veins of right lower extremity with inflammation Category: Medical Plan: This patient has varicose veins with inflammation. They continue to be a s ource of discomfort for the patient. The patient has tried conservative treatment with compression, leg elevation and exercise program for over 3 months time. They have been compliant with all treatment. This has provided minimal relief for the patient. I do not anticipate this course of treatment will alter the underlying etiology. The patient has been scheduled for lower extremity venous treatment inclusive of --- right leg microphlebectomy. Risks, benefits, and complications of this procedure has been discussed in detail with the patient including but not limited to bleeding, infection, and the development of a DVT. The patient has demonstrated a clear understanding and has consented. We will schedule the patient as soon as possible. Thank you for allowing us to participate in this patient's care. If there are any questions or concerns please do not hesitate to contact us. Coding Level of Care Code Est Pt Level 4 (56288) Complex EM visit Add On G2211 Diagnoses Varicose veins of right lower extremity with inflammation I83.11
--- OUTSIDE RECORDS SUMMARY | 2024-10-23 11:58 | XMS_ITS | Patient Health Record ---
Author Organization [facility] Address [address] [place] [address] Care Team Providers Care Platinum And Palladium Kettle Tender Name Role Phone LORIE CLEMONS Primary Care Provider Rich Vasquez Unavailable [phone] Allergies Allergen (clinical drug ingredient) Drug/Non Drug [...] Omeprazole 20 MG TAKE 1 CAPSULE BY [facility] TWICE DAILY for 30 Active Acebutolol HCl 200mg 1 capsule Orally Once a day Active Immunizations Vaccine Route Administration Date Status Comme nts Influenza Unknown 10/09/2020 Refused Problems Problem Type SNOMED Code ICD Code Onset Dates Problem Status W/U Status Risk Notes Problem 061661186 Encounter for screening for malignant neoplasm of colon (Z12.11) Active confirmed Problem 676884249 History of adenomatous polyp of colon (Z86.010) Active confirmed Problem 002739300 Abdominal bloati ng (R14.0) Active confirmed Problem 758773604 Anemia in other chronic diseases classified elsewhere (D63.8) Active confirmed Problem 356883745 Celiac disease (K90.0) Active confirmed Problem Contusion of liver (708885450) Contusion of liver, initial encounter (S36.112A) Active confirmed Problem Screening for malignant neoplasm of rectum (602914287) Encounter for screening for malignant neoplasm of rectum (Z12.12) Active confirmed Problem 133526713 Gastroesophageal reflux disease without esophagitis (K21.9) Active confirmed Problem History of polyp of colon (537612479) History of colon polyps (Z86.010) Active confirmed Problem 895420640 Barretts esophag us without dysplasia (K22.70) Active confirmed Problem 36210141 Change in bowel function (R19.4) Active confirmed Problem Right upper quadrant pain (371542502) Abdominal pain, RUQ (R10.11) Active confirmed Problem Epigastric pain (05948268) Abdominal pain, acute, epigastric (R10.13) Active confirmed Problem Diverticulosis of colon (723577839) Diverticulosis of colon (K57.30) Active confirmed Problem Generalized abdominal pain (550700834) Abdominal pain, acute, generalized (R10.84) Active confirmed [...] Start Date Coverage End Date MEDICAID OF [facility] [address] [place] [address] [id number] CATHIE CADET Self - patient is the insured MEDICARE OF [place] [address] [place] [id number] [phone] [id number] IRINACATHIE Galvan Self - patient is the [...] years. 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
--- OUTSIDE RECORDS SUMMARY | 2024-10-23 11:59 | XMS_ITS | Clinical Summary ---
Author Organization 175 [facility] Address [address] [place] [address] Phone Care Team Providers Care Criminal Justice Faculty Name Role Phone Jeff Rivas NP Primary Care Provider Social History Tobacco Use Types Packs/Day Years Used Date Smoking Tobacco: Never Assessed Sex and Gender Information Value Date Recorded Sex Assigned at Not on file Legal Sex Male 9:15 AM EST Gender Identity Not on file Sexual Orientation Not on file Plan of Treatment Upcoming Encounters Date Type Department Care Team (Late st Contact Info) Description 12/12/2024 10:15 AM EDT Office Visit Orthopedic Surgery [facility] [address] [phone] Butch Bergeron, DPM [address] [address] Health Maintenance Due Date Last Done Comments DTaP,Tdap,and Td Vaccines (1 - Tdap) 12/22/1969 Pneumococcal Vaccine: 50+ Ye ars (1 of 1 - PCV) 1998 Zoster Vaccines (1 of 2) 1998 COVID-19 Vaccine ( - 2023-2 5 season) 2023 RSV Immunization Adult Patie nts (1 - 1-dose 75+ series) 12/22/2023 Abdominal Aortic Aneurysm (A AA) Screen 09/25/2024 Cholesterol Screening (Lipid Panel) 09/25/2024 Colorectal Cancer Screening: Colonoscopy 09/25/2024 Depression Screening 09/25/2024 Falls Risk Assessment 09/25/2024 Hepatitis C Screening 09/25/2024 Social Influencers of Health Screening 09/25/2024 Influenza Vaccine (#1) 2024 HIB Vaccines Aged Out No longer eligi ble based on patient's age to complete this topic HPV Vaccines Aged Out No longer eligi ble based on patient's age to complete this topic Hepatitis A Vaccines Aged Out No long er eligible based on patient's age to complete this topic Hepatitis B Vaccines Aged Out No long er eligible based on patient's age to complete this topic IPV Vaccines Aged Out No longer eligi ble based on patient's age to complete this topic MMR Vaccines Aged Out No longer eligi ble based on patient's age to complete this topic Meningococcal ACWY Vaccine Aged Out N o longer eligible based on patient's age to complete this topic Meningococcal B Vaccine Aged Out No l onger eligible based on patient's age to complete this topic RSV Immunization Patients Un radha 20 months Aged Out No longer eligible b ased on patient's age to complete this topic Varicella Vaccines Aged Out No longer eligible based on patient's age to complete this topic Insurance MEDICAID - [place] Care Teams Criminal Justice Faculty Relationship Specialty Start Date End Date Jeff Rivas NP [address] [place], [place] PCP - General Family Medicine 09/25/24
== END 2024-10-23 11:17 | disposition home or self-care (01) ==
LOC: HO.HVS 10:56
PROVIDERS: PCP Nurse Practitioner Family; Visit Provider Surgery Vascular Surgery
DX: I83.11 Varicose veins of right lower extremity with inflammation (principal)
CPT/HCPCS: 99214

== ENCOUNTER → 2024-10-23 10:55 | Outpatient (BNVA) | payer MEDICAID, SELFPAY | PROVIDERS: PCP Nurse Practitioner Family; Visit Provider Surgery Vascular Surgery | DX: I83.11 Varicose veins of right lower extremity with inflammation (principal) | CPT/HCPCS: 99212 ==

== ENCOUNTER 2024-10-26 11:14 | Outpatient (REF) | payer MEDICAID, SELFPAY ==
--- OUTSIDE RECORDS SUMMARY | 2024-10-26 11:50 | XMS_ITS | Clinical Summary ---
Author Organization 175 [facility] Address [address] [place] [address] Phone Care Team Providers Care Drier Tender Naphthalene Name Role Phone Jeff Rivas NP Primary [...] 10:15 AM EDT Office Visit Orthopedic Surgery [facility] [address] [phone] Butch Bergeron, DPM [address] [address] Health Maintenance Due Date Last Done Comments [...] topic Insurance [place] - [place] Care Teams Drier Tender Naphthalene Relationship Specialty Start Date End Date Jeff Rivas NP [address] [place], [place] PCP - General Family Medicine 09/25/24
--- OUTSIDE RECORDS SUMMARY | 2024-10-26 11:50 | XMS_ITS | Patient Health Record ---
Author Organization [facility] Address [address] [place] [address] Care Team Providers Care Customs And Border Protection Officer Name Role Phone LORIE CLEMONS Primary Care Provider Rich Vasquez Unavailable [phone] Allergies Allergen (clinical drug ingredient) Drug/Non Drug [...] Omeprazole 20 MG TAKE 1 CAPSULE BY [facility] TWICE DAILY for 30 Active Acebutolol HCl 200mg 1 capsule Orally Once a day Active Immunizations Vaccine Route Administration Date Status Comme nts Influenza Unknown 10/09/2020 Refused Problems Problem Type SNOMED Code ICD Code Onset Dates Problem Status W/U Status Risk Notes Problem 210338719 Encounter for screening for malignant neoplasm of colon (Z12.11) Active confirmed Problem 758130067 History of adenomatous polyp of colon (Z86.010) Active confirmed Problem 325003220 Abdominal bloati ng (R14.0) Active confirmed Problem 342353816 Anemia in other chronic diseases classified elsewhere (D63.8) Active confirmed Problem 839735426 Celiac disease (K90.0) Active confirmed Problem Contusion of liver (796232610) Contusion of liver, initial encounter (S36.112A) Active confirmed Problem Screening for malignant neoplasm of rectum (847403602) Encounter for screening for malignant neoplasm of rectum (Z12.12) Active confirmed Problem 269866640 Gastroesophageal reflux disease without esophagitis (K21.9) Active confirmed Problem History of polyp of colon (651262291) History of colon polyps (Z86.010) Active confirmed Problem 603337092 Barretts esophag us without dysplasia (K22.70) Active confirmed Problem 87329009 Change in bowel function (R19.4) Active confirmed Problem Right upper quadrant pain (954722007) Abdominal pain, RUQ (R10.11) Active confirmed Problem Epigastric pain (37457587) Abdominal pain, acute, epigastric (R10.13) Active confirmed Problem Diverticulosis of colon (604190065) Diverticulosis of colon (K57.30) Active confirmed Problem Generalized abdominal pain (077362052) Abdominal pain, acute, generalized (R10.84) Active confirmed [...] Start Date Coverage End Date MEDICAID OF [facility] [address] [place] [address] [id number] CATHIE CADET Self - patient is the insured MEDICARE OF [place] [address] [place] [id number] IRINACATHIE Galvan Self - patient is the [...] years. 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
[2024-10-26 14:00] LABS: MANUAL DIFF FLAG NO
[2024-10-26 14:12] LABS: Hematocrit 37.4 % (42.0-52.0); Hemoglobin 12.5 g/dl (14.0-18.0); Imm Gran Abs Auto 0.02 X10*3/uL (0.00-0.03); Imm Gran Pct Auto 0.4 % (0.0-0.4); Lymphocytes Absolute Auto 1.7 X10*3/uL (1.2-4.9); Mean Corpuscular HGB Conc 33.4 g/dl (31.0-36.0); Mean Corpuscular Hemoglobin 32.4 pg (27.0-33.0); Mean Corpuscular Volume 96.9 fL (80.0-98.0); NRBC Abs Auto 0.000 X10*3/uL (0.0-0.012); NRBC Pct Auto 0.0 /100WBC (0.0-0.2); Platelet Count 223 X10*3/uL (160-400); Red Blood Count 3.86 X10*6/uL (4.60-5.80); White Blood Count 5.6 X10*3/uL (4.8-10.8)
[2024-10-26 14:23] LABS: B Type Natriuretic Peptide 45 pg/mL (<100)
[2024-10-26 15:03] LABS: Anion Gap 11 (12-20); Blood Urea Nitrogen 30 mg/dL (9-16); Calcium 9.1 mg/dL (8.4-10.2); Carbon Dioxide 24 mmol/L (22-29); Chloride 109 mmol/L (96-108); Estimated Glomerular Filt Rate 50; Potassium 4.8 mmol/L (3.3-5.1); Sodium 139 mmol/L (135-145)
== END 2024-10-26 11:15 | disposition home or self-care (01) ==
LOC: HO.HMGCLDS 11:14
PROVIDERS: PCP Nurse Practitioner Family; Visit Provider Internal Medicine Cardiovascular Disease
DX: I48.0 Paroxysmal atrial fibrillation (principal); I42.9 Cardiomyopathy, unspecified
CPT/HCPCS: 36415; 80048; 83880; 85025

== ENCOUNTER 2024-12-26 09:36 | Outpatient (AMB) | payer MEDICAID, SELFPAY ==
--- NOTE | 2024-12-26 09:37 | A.OFFVIS_ITS ---
Intake Visit Reasons: nodular prostate Intake Note: patient presents today for: new pt nodular prostate urology medications: none blood thinners: none Bookstore Clerk Required: No Accompanied by: Self / Same As Patient Allergies Iodinated Contrast Media (IV DYE, IODINE CONTAINING) Allergy (Severe, Verified 12/26/24 09:38) ANAPHYLAXIS gluten (GLUTEN) Allergy (Intermediate, Verified 12/26/24 09:38) BLOATING,SEVERE GI PAIN amiodarone Adverse Reaction (Severe, Verified 12/26/24 09:38) hyperthyroid morphine Adverse Reaction (Verified 12/26/24 09:38) Nausea and Vomiting HPI Comments Details: Wilfred is a pleasant male. He is a patient of Dr. Orellana. He is seen for the following urologic conditions - nodular prostate - bladder outlet obstruction Nodular prostate Reports PSA low EDUARDO 1+ bilateral nodules firm but not hard Bladder outlet obstruction Nocturia x3 Longstanding Weak stream Trial of Flomax PFSH Medical History Atrial fibrillation with RVR Sepsis with acute hypoxic respiratory failure Abscess of abdominal wall Implantable loop recorder present Subcapsular hematoma of liver History of blood transfusion Chronic neck and back pain History of thyrotoxicosis Paroxysmal atrial fibrillation GERD (gastroesophageal reflux disease) PHN (postherpetic neuralgia) Frequent PVCs Barretts esophagus LBBB (left bundle branch block) Celiac disease Failed back syndrome Surgical History History of exploratory laparotomy (12/28/21) History of colonoscopy History of esophagogastroduodenoscopy (EGD) Hx laparoscopic cholecystectomy History of appendectomy History of lymph node excision History of inguinal hernia H/O prior ablation treatment History of back surgery Family History Father CVD (cardiovascular disease) Mother Leukemia Son No problems noted. Son No problems noted. Daughter No problems noted. Daughter No problems noted. Social History Household Members: Spouse and Children Housing: House Are you a primary pet care technician to a significant other at home: Yes (- mod dementia) Do you presently have visiting nurse or other home services: Yes (vna) Alcohol intake: current Alcohol intake frequency: does not drink Comment: previously medicated with po tylenol Patient Tobacco Use Status: Never used Tobacco e-Cigarette/Vaping Use: Never Used Second Hand Smoke Exposure: No service: Yes Current occupational status: employed Current occupation: [employer] Current occupational exposures/hazards: No Cognitive needs: No Hearing needs: No Vision needs: Yes Review of Systems Const Denies chills and Denies fever(s) Card Reports no additional complaints and Denies syncope Resp Denies cough GI Denies abdominal pain and Denies heartburn Reports as per HPI and Denies change in libido Neuro Denies syncope Psych Denies change in libido Endo Denies change in libido Physical Exam Const General: cooperative, healthy appearing, comfortable and no acute distress Orientation/consciousness: patient oriented x3 HEENT Face and sinus: Yes normal facial exam Mouth: moist mucous membranes Neck Neck: Yes normal visual inspection, Yes full ROM and Yes trachea midline Chest Chest palpation & inspection: normal inspection of the chest Resp Effort & Inspection: normal respiratory effort, able to speak in complete sentences and no respiratory distress GI Inspection: Yes normal to inspection Back/Spine/Pelvis Cervical Spine: normal cervical lordosis Thoracic/Lumbar Spine: thoracic and lumbar spine normal to inspection Skin General skin exam: no rashes or lesions noted Neuro General: patient oriented x3, gait normal, tone normal and moves all extremities Extrem General: Yes normal to inspection and Yes capillary refill normal Assessment & Plan Assessment & Plan (1) Nodular prostate: Code(s): N40.2 - Nodular prostate without lower urinary tract symptoms Category: Medical Plan Six-month follow-up repeat PSA Trial tamsulosin Medications: New tamsulosin (Flomax) 0.4 mg PO BEDTIME 30 tabs 1RF 30 days N40.2 - Nodular prostate without lower urinary tract symptoms Patient Instructions: This note is constructed using voice recognition software. While every effort has been made to ensure accuracy sonography technologist errors may have been included. Imaging studies, laboratory and physical exam results were discussed and reviewed in detail. No major barriers to patient understanding were identified. An opportunity to ask questions regarding the treatment plan was provided. All questions were answered. The patient expressed understanding and agreement with the above treatment plan. The patient is aware they should contact our office by phone for worsening of their current condition or the appearance of new urologic symptoms. Compliance is encouraged with any medications and followup testing that is ordered. It is a privilege to participate in the urologic care of your patient. If you have any questions or concerns regarding treatment for the above conditions, or other urologic issues, please do not hesitate to contact me. The office telephone contact is [phone]. Sincerely, Dr Reed Worthington MD, [facility] - Urology Compassionate Specialist Care for the Genitourinary System Coding Level of Care Code New Pt Level 4 (56997) Diagnoses Nodular prostate N40.2
--- OUTSIDE RECORDS SUMMARY | 2024-12-26 11:32 | XMS_ITS | Patient Health Record ---
Author Organization [facility] Address [address] [place] [address] Care Team Providers Care Color Strainer Name Role Phone LORIE CLEMONS Primary Care Provider Rich Vasquez Unavailable [phone] Allergies Allergen (clinical drug ingredient) Drug/Non Drug [...] 20 MG TAKE 1 CAPSULE BY [facility] TWICE DAILY for 30 Active Acebutolol HCl 200mg 1 capsule Orally Once a day Active Immunizations Vaccine Route Administration Date Status Comme nts Influenza Unknown 10/09/2020 Refused Problems Problem Type SNOMED Code ICD Code Onset Dates Problem Status W/U Status Risk Notes Problem 555381693 Encounter for screening for malignant neoplasm of colon (Z12.11) Active confirmed Problem 235127933 History of adenomatous polyp of colon (Z86.010) Active confirmed Problem 006357591 Abdominal bloati ng (R14.0) Active confirmed Problem 029817671 Anemia in other chronic diseases classified elsewhere (D63.8) Active confirmed Problem 440458067 Celiac disease (K90.0) Active confirmed Problem Contusion of liver (610667686) Contusion of liver, initial encounter (S36.112A) Active confirmed Problem Screening for malignant neoplasm of rectum (146575623) Encounter for screening for malignant neoplasm of rectum (Z12.12) Active confirmed Problem 029976586 Gastroesophageal reflux disease without esophagitis (K21.9) Active confirmed Problem History of polyp of colon (620445402) History of colon polyps (Z86.010) Active confirmed Problem 025634623 Barretts esophag us without dysplasia (K22.70) Active confirmed Problem 64906780 Change in bowel function (R19.4) Active confirmed Problem Right upper quadrant pain (492402876) Abdominal pain, RUQ (R10.11) Active confirmed Problem Epigastric pain (30335677) Abdominal pain, acute, epigastric (R10.13) Active confirmed Problem Diverticulosis of colon (538870240) Diverticulosis of colon (K57.30) Active confirmed Problem Generalized abdominal pain (401948536) Abdominal pain, acute, generalized (R10.84) Active confirmed [...] Start Date Coverage End Date MEDICAID OF [facility] [address] [place] [phone] [id number] CATHIE CADET Self - patient is the insured MEDICARE OF [place] [address] [place] [id number] IRINACATHIE Galvan Self - patient is the [...] years. 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
== END 2024-12-26 10:05 | disposition home or self-care (01) ==
LOC: HO.HUSH 09:40
PROVIDERS: PCP Nurse Practitioner Family; Visit Provider Urology
DX: Z13.9 Encounter for screening, unspecified (principal); N40.2 Nodular prostate without lower urinary tract symptoms
CPT/HCPCS: 99204

== ENCOUNTER → 2024-12-26 09:36 | Outpatient (BNVA) | payer MEDICAID, SELFPAY | PROVIDERS: PCP Nurse Practitioner Family; Visit Provider Urology | DX: N40.2 Nodular prostate without lower urinary tract symptoms (principal) | CPT/HCPCS: 81003; 99202 ==

== ENCOUNTER 2024-12-27 11:19 | Outpatient (AMB) | payer MEDICAID, SELFPAY ==
--- NOTE | 2024-12-27 11:25 | A.OFFPC_ITS ---
Vital Signs 12/27/24 11:27 Height 5 ft 11 in Weight 217 lb BMI 30.3 BP 128/68 Blood Pressure Location Lt brachial Position Sitting Respiration 16 Pulse 70 Pulse Source Pulse Oximeter Pulse Oximetry (%) 97 Oxygen Delivery Method Room Air Intake Visit Reasons: 6M Follow Up Canine Service Teacher Required: No Accompanied by: Self / Same As Patient Allergies Iodinated Contrast Media (IV DYE, IODINE CONTAINING) Allergy (Severe, Verified 12/27/24 11:28) ANAPHYLAXIS gluten (GLUTEN) Allergy (Intermediate, Verified 12/27/24 11:28) BLOATING,SEVERE GI PAIN amiodarone Adverse Reaction (Severe, Verified 12/27/24 11:28) hyperthyroid morphine Adverse Reaction (Verified 12/27/24 11:28) Nausea and Vomiting Medication List - Last Reconciled 12/27/24 by MAKENZIE Martin- acebutolol TAKE 2 CAPSULES (400 MG) BY MOUTH TWICE A DAY acetaminophen 1,000 mg PO TID PRN diltiazem HCl (Cardizem) 30 mg PO ONCE PRN multivitamin 1 tab PO DAILY omeprazole 40 mg PO DAILY tamsulosin (Flomax) 0.4 mg PO BEDTIME 30 days walker (Ultra-Light Rollator misc) As directed Tobacco use date assessed: 12/27/24 Fall risk assessment: No Falls in past year Last assessed Fall Risk: 12/27/24 Dental Screening Dental Screen Date: 12/27/24 Did you have a dental visit in the last 12 months?: No Did you have a dental problem in the last 6 months where you did not have access to dental care?: No Was dental information given to patient?: Patient has dentist HPI 6M Follow Up HPI Details Chief Complaint The patient reports doing well overall with no current chest pain, shortness of breath, or abdominal pain. History of Present Illness The patient is a 74-year-old male presenting with a follow-up visit. He has a history of paroxysmal atrial fibrillation and reports discontinuing Eliquis due to severe diarrhea, which he communicated to his telephony engineer. Currently, he is not experiencing atrial fibrillation, i can feel when i'm in it . The patient also has a history of neuropathy affecting bilateral extremities, which is being evaluated by a pet resort concierge. He is scheduled for EMG testing and possibly physical therapy. He reports chronic postnasal drip and has tried cetirizine without relief. Fluticasone was also ineffective, and he is advised to try Benadryl with caution due to potential side effects on constipation and prostate issues. A referral to an ENT is planned. The patient has chronic kidney disease with a recent GFR of 50, prompting a referral to nephrology for further evaluation. He has Dupuytren's contracture, particularly affecting the left hand, with nodules forming in the palmar aspect. A referral to a hand specialist is planned for further management. Social History Health Maintenance Review of Systems - Cardiovascular: Denies chest pain, joe rtness of breath - Gastrointestinal: Reports severe diarr hea previously with Eliquis - Respiratory: Denies dyspnea - Neurological: Reports neuropathy in bi lateral extremities - ENT: Reports chronic postnasal drip Physical Exam General: Cooperative, healthy appearing, comfortable, no acute distress and well developed Orientation: Patient oriented x3 Limitations: No limitations Head: Normal to inspection Ears: Hearing grossly normal bilaterally Nose: Normal external nose present Face and sinus: Normal facial exam Eyes: Appearance normal, both eyes and all related structures Neck: Normal visual inspection and Yes full ROM Respiratory: Normal respiratory effort and able to speak in complete sentences. Clear to auscultation bilaterally Cardiovascular: Regular rate and rhythm. Normal S1 and S2 GI: Normal to inspection. Soft to palpation and nontender Neuro: Patient oriented x3 Extremities: Bilateral extremities with history of neuropathy. Dupuytren's contracture noted, especially on the left side, with finger 5 being the worst, followed by finger 4. Slight presence on the right with nodules in the MTP joint regions of the palmar aspect. Results - Labs: GFR 50 indicating chronic kidney disease Plan Patient was informed and verbally consented to the use of an ambient scribe for clinic note documentation during this visit. 1. Paroxysmal Atrial Fibrillation The patient has a history of paroxysmal atrial fibrillation and has discontinued Eliquis due to severe diarrhea. He has informed his telephony engineer about this change. 2. Neuropathy The patient is experiencing neuropathy in bilateral extremities and is under the care of a pet resort concierge. He is scheduled for EMG testing and possibly physical therapy. 3. Chronic Postnasal Drip The patient reports chronic postnasal drip and has tried cetirizine without relief. Fluticasone was also ineffective, and he is advised to try Benadryl with caution due to potential side effects. A referral to an ENT is planned. 4. Chronic Kidney Disease The patient has chronic kidney disease with a recent GFR of 50. A referral to nephrology is planned for further evaluation. 5. Dupuytren's Contracture The patient has Dupuytren's contracture, particularly affecting the left hand. A referral to a hand specialist is planned for further management. Discussion Notes I discussed with the patient the management of his chronic postnasal drip, advising the cautious use of Benadryl due to potential side effects on constipation and prostate issues. I also recommended referrals to an ENT for his postnasal drip, nephrology for his chronic kidney disease, and a hand specialist for his Dupuytren's contracture. Patient Instructions - Continue to monitor symptoms and repor t any changes to your healthcare p roviders. - Follow up with the ENT, nephrology, an d hand specialist as recommended. - Be cautious with Benadryl use due to p otential side effects. [facility] Medical History Atrial fibrillation with RVR Sepsis with acute hypoxic respiratory failure Abscess of abdominal wall Implantable loop recorder present Subcapsular hematoma of liver History of blood transfusion Chronic neck and back pain History of thyrotoxicosis Paroxysmal atrial fibrillation GERD (gastroesophageal reflux disease) PHN (postherpetic neuralgia) Frequent PVCs Barretts esophagus LBBB (left bundle branch block) Celiac disease Failed back syndrome Surgical History History of exploratory laparotomy (12/28/21) History of colonoscopy History of esophagogastroduodenoscopy (EGD) Hx laparoscopic cholecystectomy History of appendectomy History of lymph node excision History of inguinal hernia H/O prior ablation treatment History of back surgery Family History Father CVD (cardiovascular disease) Mother Leukemia Son No problems noted. Son No problems noted. Daughter No problems noted. Daughter No problems noted. Social History Household Members: Spouse and Children Housing: House Are you a primary resident care aid to a significant other at home: Yes (- mod dementia) Do you presently have visiting nurse or other home services: Yes (vna) Alcohol intake: current Alcohol intake frequency: does not drink Comment: previously medicated with po tylenol Patient Tobacco Use Status: Never used Tobacco e-Cigarette/Vaping Use: Never Used Second Hand Smoke Exposure: No service: Yes Current occupational status: employed Current occupation: [employer] Current occupational exposures/hazards: No Cognitive needs: No Hearing needs: No Vision needs: Yes Questionnaire PHQ-9 Over the last 2 weeks, how often have you been bothered by any of the following problems? 1. Little interest or pleasure in doing things: several days 2. Feeling down, depressed, or hopeless: not at all 3. Trouble falling or staying asleep, or sleeping too much: not at all 4. Feeling tired or having little energy: not at all 5. Poor appetite or overeating: not at all 6. Feeling bad about yourself - or that you are a failure or have let yourself or your family down: not at all 7. Trouble concentrating on things, such as reading the newspaper or watching television: not at all 8. Moving or speaking so slowly that other people could have noticed. Or the opposite - being so fidgety or restless that you have been moving around a lot more than usual: not at all 9. Thoughts that you would be better off or of hurting yourself in some way: not at all Total score: 1 Depression Screening Interpretation: Negative Depression Screening Done: Yes 39308 - PHQ-9 Billing: Yes Source: Developed by Drs. Rich Conley, Kayla Cota, Mika Connelly and colleagues, with an educational yarely from [email or web address]. Thrive Questionnaire Date Thrive assessed: 05/10/24 I am a: Patient What is your living situation today?: I have a steady place to live Within the past 12 months, did the food you bought not last and you didn't have the money to get more?: Never true Within the past 12 months, did you worry whether your food would run out before you got money to buy more?: Never true Do you have trouble paying for medicines?: No Do you have trouble getting transportation to medical appointments?: No Do you have trouble paying your heating and electricity bill?: No Do you have trouble taking care of your child, family member or friend?: No Do you have trouble with day-to-day activities such as bathing, preparing meals, shopping, managing finances, etc.?: No Are you currently unemployed and looking for a job?: No Are you interested in more education?: No Please select the resources that you would like help with: None Currently or been in a relationship where the following occur: I choose not to answer THRIVE Score: 0 VISNHU-7 AMB Questionnaire VISHNU-7 Date VISHNU - 7 assessed: 12/27/24 Feeling nervous, anxious, or on edge: 0 = Not at all Not being able to stop or control worryin = Not at all Worrying too much about different things: 0 = Not at all Trouble relaxin = Not at all Being so restless that it is hard to sit still: 0 = Not at all Becoming easily annoyed or irritable: 0 = Not at all Feeling afraid as if something awful might happen: 0 = Not at all Total VISHNU-7 score (0-4 normal; 5-9 mild; 10-14 moderate; 15-21 severe): 0 Source: Developed by Drs. Rich Conley, Kayla Cota, Mika Connelly and colleagues, with an educational yarely from [email or web address]. Physical exam (Primary Care) Vital Signs: Last Vital Signs Pulse 70 12/27/24 11:27 Resp 16 12/27/24 11:27 BP 128/68 12/27/24 11:27 Pulse Ox 97 12/27/24 11:27 Oxygen Delivery Method Room Air 12/27/24 11:27 BMI result Body Mass Index 30.3 Tobacco/Smoking Status: Tobacco use Status Tobacco use date assessed 12/27/24 12/27/24 11:32 Patient Tobacco Use Status Never used Tobacco 12/27/24 11:26 e-Cigarette/Vaping Use Never Used 12/27/24 11:26 PHQ-9: PHQ-9 Score PHQ-9: Total score 1 12/27/24 11:32 Depression Screening Interpretation: Negative Thrive Assessment: Date of Thrive Assessment Date Thrive assessed 05/10/24 12/27/24 11:26 Currently or been in a relationship where the following occur: I choose not to answer Coding Level of Care Code Est Pt Level 4 (90280) Diagnoses HTN (hypertension) I10 CKD (chronic kidney disease) N18.9 Chronic rhinosinusitis J32.9 Dupuytren's contracture of both hands M72.0 Additional Codes PHQ-9 - 44452 - PHQ-9 Billing: Yes ([id number]) Assessment & Plan Assessment & Plan (1) HTN (hypertension): Code(s): I10 - Essential (primary) hypertension Category: Medical (2) CKD (chronic kidney disease): Code(s): N18.9 - Chronic kidney disease, unspecified Category: Medical (3) Chronic rhinosinusitis: Code(s): J32.9 - Chronic sinusitis, unspecified Category: Medical (4) Dupuytren's contracture of both hands: Code(s): M72.0 - Palmar fascial fibromatosis [Dupuytren] Category: Medical Plan . Orders: Orders UA CC w/rflx Micro + Cult Today I10 - Essential (primary) hypertension Complete Blood Count Auto Diff Today I10 - Essential (primary) hypertension Comprehensive Hallam. Panel Fast Today I10 - Essential (primary) hypertension TSH reflex Free T4 Today I10 - Essential (primary) hypertension Lipid Panel Today I10 - Essential (primary) hypertension Referrals Orthopedics Referral M72.0 - Palmar fascial fibromatosis [Dupuytren] Nephrology Referral N18.9 - Chronic kidney disease, unspecified Ear/Nose/Throat Referral J32.9 - Chronic sinusitis, unspecified
[2024-12-27 11:27] VITALS: BP 128/68; PULSE 70; RESP 16; O2SAT 97; BMI 30.3
--- OUTSIDE RECORDS SUMMARY | 2024-12-27 15:39 | XMS_ITS | Clinical Summary ---
Author Organization [address] [facility] Address [address] [place] [address] Phone Care Team Providers Care Campus Ambassador Name Role Phone Jeff Rivas NP Primary Care Provider Allergies Active Allergy Reactions Criticality Noted Date Comments Gluten 06/13/2012 Pt has celiac disease Iodinated Contrast Media 04/20/2011 Nsaids (Non-Steroidal Anti-Inflammatory Drug) 04/20/2011 Encounters Date Type Department Care Team Description 12/12/2024 10:15 AM EDT Office Visit Orthopedic Surgery [facility] [address] [phone] Butch Bergeron DPM Pain in both feet (Primary Dx); Lumbosacral radiculopathy; Cavus foot, acquired; Difficulty walking from Last 3 Months Social History Tobacco Use Types Packs/Day Years Used Date Smoking Tobacco: Never Assessed Sex and Gender Information Value Date Recorded Sex Assigned at Not on file Legal Sex Male 9:15 AM EST Gender Identity Not on file Sexual Orientation Not on file Plan of Treatment Upcoming Encounters Date Type Department Care Team (Late st Contact Info) Description 01/11/2025 10:30 AM EDT Evaluation [facility] Outpatient Rehabilitation [facility] [address] [phone] Benedict Degroot, PT 02/13/2025 10:15 AM EDT Office Visit Orthopedic Surgery [facility] [address] [phone] Butch Bergeron DPM [address] [address] Health Maintenance Due Date Last Done Comments DTaP,Tdap,and Td Vaccines (1 - Tdap) 12/22/1967 Zoster Vaccines (1 of 2) 1998 Pneumococcal Vaccine: 50+ Years (2 of 2 - PCV) 03/27/2019 03/27/2018 RSV Immunization Adult Patients (1 - 1-dose 75+ series) 12/22/2023 Depression Screening 04/18/2024 Cholesterol Screening (Lipid Panel) 09/25/2024 Falls Risk Assessment 09/25/2024 Hepatitis C Screening 09/25/2024 Social Influencers of Health Screening 09/25/2024 COVID-19 Vaccine (3 - 2024-2 6 season) 2024 04/25/2021, 02/21/2021 Influenza Vaccine (#1) 2024 8, 02/01/2006 HIB Vaccines Aged Out No longer eligi [...] to complete this topic RSV Immunization Patients Under 20 months Aged Out No longer eligible b ased on patient's age to complete this topic Varicella Vaccines Aged Out No longer eligible based on patient's age to complete this topic Insurance MEDICAID - [place] Care Teams Campus Ambassador Relationship Specialty Start Date End Date Jeff Rivas NP [address] [place], [place] PCP - General Family Medicine 09/25/24
--- OUTSIDE RECORDS SUMMARY | 2024-12-27 15:39 | XMS_ITS | Patient Health Record ---
Author Organization [facility] Address [address] [place] [address] Care Team Providers Care Steam Tank Operator Name Role Phone LORIE CLEMONS Primary Care Provider Rich Vasquez Unavailable [phone] Allergies Allergen (clinical drug ingredient) Drug/Non Drug [...] Omeprazole 20 MG TAKE 1 CAPSULE BY [facility] TWICE DAILY for 30 Active Acebutolol HCl 200mg 1 capsule Orally Once a day Active Immunizations Vaccine Route Administration Date Status Comme nts Influenza Unknown 10/09/2020 Refused Problems Problem Type SNOMED Code ICD Code Onset Dates Problem Status W/U Status Risk Notes Problem 158181497 Encounter for screening for malignant neoplasm of colon (Z12.11) Active confirmed Problem 593913715 History of adenomatous polyp of colon (Z86.010) Active confirmed Problem 741465586 Abdominal bloati ng (R14.0) Active confirmed Problem 889975769 Anemia in other chronic diseases classified elsewhere (D63.8) Active confirmed Problem 705465573 Celiac disease (K90.0) Active confirmed Problem Contusion of liver (854457200) Contusion of liver, initial encounter (S36.112A) Active confirmed Problem Screening for malignant neoplasm of rectum (952808680) Encounter for screening for malignant neoplasm of rectum (Z12.12) Active confirmed Problem 386912898 Gastroesophageal reflux disease without esophagitis (K21.9) Active confirmed Problem History of polyp of colon (363463054) History of colon polyps (Z86.010) Active confirmed Problem 769569753 Barretts esophag us without dysplasia (K22.70) Active confirmed Problem 95727585 Change in bowel function (R19.4) Active confirmed Problem Right upper quadrant pain (923670104) Abdominal pain, RUQ (R10.11) Active confirmed Problem Epigastric pain (62599722) Abdominal pain, acute, epigastric (R10.13) Active confirmed Problem Diverticulosis of colon (045765199) Diverticulosis of colon (K57.30) Active confirmed Problem Generalized abdominal pain (780617823) Abdominal pain, acute, generalized (R10.84) Active confirmed [...] Start Date Coverage End Date MEDICAID OF [facility] [address] [place] [phone] [id number] CATHIE CADET Self - patient is the insured MEDICARE OF [place] [address] [place] [id number] [phone] [id number] IRINACATHIE Galvan Self - patient is the [...] years. 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
== END 2024-12-27 12:39 | disposition home or self-care (01) ==
LOC: HO.HMCC 11:20
PROVIDERS: PCP Nurse Practitioner Family; Visit Provider Nurse Practitioner Family
DX: I12.9 Hypertensive chronic kidney disease with stage 1 through stage 4 chronic kidney disease, or unspecified chronic kidney disease (principal); N18.9 Chronic kidney disease, unspecified; J32.9 Chronic sinusitis, unspecified; M72.0 Palmar fascial fibromatosis [Dupuytren]

== ENCOUNTER → 2024-12-27 11:19 | Outpatient (BNVA) | payer MEDICAID, SELFPAY | PROVIDERS: PCP Nurse Practitioner Family; Visit Provider Nurse Practitioner Family | DX: I12.9 Hypertensive chronic kidney disease with stage 1 through stage 4 chronic kidney disease, or unspecified chronic kidney disease (principal); N18.9 Chronic kidney disease, unspecified; J32.9 Chronic sinusitis, unspecified; M72.0 Palmar fascial fibromatosis [Dupuytren]; I48.0 Paroxysmal atrial fibrillation; G62.9 Polyneuropathy, unspecified; R09.82 Postnasal drip; Z13.31 Encounter for screening for depression; Z13.39 Encounter for screening examination for other mental health and behavioral disorders | CPT/HCPCS: 96127; 99212 ==

== ENCOUNTER 2025-01-23 10:17 | Outpatient (AMB) | payer MEDICAID, SELFPAY ==
--- NOTE | 2025-01-23 10:21 | HO.NEPHOV ---
Vital Signs 01/23/25 10:22 Height 5 ft 11 in Weight 218 lb BMI 30.4 BP 136/80 Blood Pressure Location Lt brachial Position Sitting Pulse 76 Pulse Source Pulse Oximeter Pulse Oximetry (%) 96 Oxygen Delivery Method Room Air Intake Visit Reasons: INP:Chronic kidney disease, left vm. Tip Tester Required: No Accompanied by: Self / Same As Patient Allergies Iodinated Contrast Media (IV DYE, IODINE CONTAINING) Allergy (Severe, Verified 01/23/25 10:23) ANAPHYLAXIS gluten (GLUTEN) Allergy (Intermediate, Verified 01/23/25 10:23) BLOATING,SEVERE GI PAIN amiodarone Adverse Reaction (Severe, Verified 01/23/25 10:23) hyperthyroid morphine Adverse Reaction (Verified 01/23/25 10:23) Nausea and Vomiting Medication List - Last Reconciled 01/23/25 by Chad Carver MD acebutolol TAKE 2 CAPSULES (400 MG) BY MOUTH TWICE A DAY acetaminophen 1,000 mg PO TID PRN diltiazem HCl (Cardizem) 30 mg PO ONCE PRN multivitamin 1 tab PO DAILY omeprazole 40 mg PO DAILY tamsulosin (Flomax) 0.4 mg PO BEDTIME 30 days walker (Ultra-Light Rollator [facility] [place]) As directed HPI Comments Details: Wilfred is a pleasant 74-year-old male referred for CKD and elevated potassium levels. in 2021, he had an episode of DONNY with a creatinine peak of 1.7 He had and abdominal wall wabscess , which was drained and treated with Vanco. Creatinine returned to 1.3 h/o chronically consuming about 6 Ibuprofens a day ( 200 mg each) In July 2024, Creatinine bumped up to 1.5 with mild hyperkalemia of 5.5 Subsequently down to 1.4 in October 2024 and potassium normalized Recently seen by urology . Prostate Nodule, soft, follow-up in six months. Tamsulosin has been added - Atrial Fibrillation since 1996, managed with diltiazem ; s/p Ablation x 4 - h/o Neuropathy with equilibrium issues, cause unknown, history of back surgeries. - - Lymphedema in right leg, related to past cat scratch disease more than 30 yrs ago.s/p removal of right inguinal lymphnode. - Peacock's Esophagus, managed with omeprazole, for several years [facility] Medical History Atrial fibrillation with RVR Sepsis with acute hypoxic respiratory failure Abscess of abdominal wall Implantable loop recorder present Subcapsular hematoma of liver History of blood transfusion Chronic neck and back pain History of thyrotoxicosis Paroxysmal atrial fibrillation GERD (gastroesophageal reflux disease) PHN (postherpetic neuralgia) Frequent PVCs Barretts esophagus LBBB (left bundle branch block) Celiac disease Failed back syndrome Surgical History History of exploratory laparotomy (12/28/21) History of colonoscopy History of esophagogastroduodenoscopy (EGD) Hx laparoscopic cholecystectomy History of appendectomy History of lymph node excision History of inguinal hernia H/O prior ablation treatment History of back surgery Family History Father CVD (cardiovascular disease) Mother Leukemia Son No problems noted. Son No problems noted. Daughter No problems noted. Daughter No problems noted. Social History Household Members: Spouse and Children Housing: House Are you a primary medical care administrator to a significant other at home: Yes (- mod dementia) Do you presently have visiting nurse or other home services: Yes (vna) Alcohol intake: current Alcohol intake frequency: does not drink Comment: previously medicated with po tylenol Patient Tobacco Use Status: Never used Tobacco e-Cigarette/Vaping Use: Never Used Second Hand Smoke Exposure: No service: Yes Current occupational status: employed Current occupation: [employer] Current occupational exposures/hazards: No Cognitive needs: No Hearing needs: No Vision needs: Yes Review of Systems Const Denies fever(s) and Denies weight loss Card Denies chest pain Resp Denies cough and Denies hemoptysis GI Denies abdominal pain, Denies diarrhea and Denies nausea Musc Denies back pain and Reports arthralgias Neuro Denies focal weakness Physical Exam Vital Signs: Last Vital Signs Pulse 76 01/23/25 10:22 BP 136/80 01/23/25 10:22 Pulse Ox 96 01/23/25 10:22 Oxygen Delivery Method Room Air 01/23/25 10:22 BMI result Body Mass Index 30.4 Comfortable Neck supple no JVD. Lungs entry equal no rales. Heart S1-S2 heard no gallop or rub. Abdomen soft nontender. Neuro alert awake oriented. No asterixis. Extremities Trace edema R > L Results Reviewed Nephrology Results: Hgb, (14.0-18.0) 12.5 g/dl L 10/26/24 WBC, (4.8-10.8) 5.6 X10*3/uL 10/26/24 Plt Count, (160-400) 223 X10*3/uL 10/26/24 Sodium, (135-145) 139 mmol/L 10/26/24 Potassium, (3.3-5.1) 4.8 mmol/L 10/26/24 Chloride, (96-108) 109 mmol/L H 10/26/24 Carbon Dioxide, (22-29) 24 mmol/L 10/26/24 BUN, (9-16) 30 mg/dL H 10/26/24 Creatinine, (0.5-1.4) 1.38 mg/dL 10/26/24 Calcium, (8.4-10.2) 9.1 mg/dL 10/26/24 Assessment & Plan Assessment & Plan (1) CKD (chronic kidney disease): Code(s): N18.9 - Chronic kidney disease, unspecified Category: Medical (2) Hyperkalemia: Code(s): E87.5 - Hyperkalemia Category: Medical (3) Anemia: Code(s): D64.9 - Anemia, unspecified Category: Medical Plan DONNY superimposed on CKD Donny most likely due to chronic hypoperfusion from excessive use of NSAIDS - NSAIDS block PG and lead to hypoperfusion/ischemia and tubular damage Obstruction could be another potential cause for DONNY Adn hyperkameia - needs to be ruled out Urine is bland- Ain/AGN seem unlikely Recommend: Renal ultrasonogram to r/o obstruction Renal panel Urine studies Needs to discontinue NSAIDS Increase PO fluids Further work up will be based on outcome of the above baseline investigation Orders: Orders Complete Blood Count Auto Diff Today E87.5 - Hyperkalemia, N18.9 - Chronic kidney disease, unspecified Creatinine Urine Today E87.5 - Hyperkalemia, N18.9 - Chronic kidney disease, unspecified UA and rflx microscopic Today E87.5 - Hyperkalemia, N18.9 - Chronic kidney disease, unspecified Comprehensive Met. Panel Today E87.5 - Hyperkalemia, N18.9 - Chronic kidney disease, unspecified Total Protein Urine Random Today E87.5 - Hyperkalemia, N18.9 - Chronic kidney disease, unspecified Vitamin D 25-OH Total Today E87.5 - Hyperkalemia, N18.9 - Chronic kidney disease, unspecified renal BI Today E87.5 - Hyperkalemia, N18.9 - Chronic kidney disease, unspecified Coding Level of Care Code New Pt Level 4 (48212) Diagnoses CKD (chronic kidney disease) N18.9 Hyperkalemia E87.5 Anemia D64.9
[2025-01-23 10:22] VITALS: BP 136/80; PULSE 76; O2SAT 96; BMI 30.4
== END 2025-01-23 10:44 | disposition home or self-care (01) ==
LOC: HO.HKAS 10:18
PROVIDERS: PCP Nurse Practitioner Family; Referring Provider Nurse Practitioner Family; Visit Provider Internal Medicine Hypertension Specialist
DX: N18.9 Chronic kidney disease, unspecified (principal); E87.5 Hyperkalemia; D64.9 Anemia, unspecified
CPT/HCPCS: 99204

== ENCOUNTER → 2025-01-23 10:17 | Outpatient (BNVA) | payer SELFPAY | PROVIDERS: PCP Nurse Practitioner Family; Referring Provider Nurse Practitioner Family; Visit Provider Internal Medicine Hypertension Specialist | DX: N17.9 Acute kidney failure, unspecified (principal); N18.9 Chronic kidney disease, unspecified; E87.5 Hyperkalemia; D63.1 Anemia in chronic kidney disease | CPT/HCPCS: 99202 ==

== ENCOUNTER 2025-02-15 11:03 | Outpatient (REF) | payer MEDICAID, SELFPAY ==
--- OUTSIDE RECORDS SUMMARY | 2025-02-11 11:00 | XMS_ITS | Encounter Summary ---
Author Organization [facility] Address [address] [place] [address] Care Team Providers Care Manager Story Name Role Phone Jeff Rivas NP Primary Care Provider + [phone] Reason for Visit * Consultation (Routine) - Authorized Specialty Diagnoses / Procedures Referred By Clinton brock Referred To Contact Physical Therapy Diagnoses Difficulty walking Bucth Bergeron DPM [address] [place] [address] Phone: tel: fax: Referral ID Status Reason Start Date Expiration Date Visits Requested Visits Authorized [id number] Authorized Consult and Treat 12/12/2024 12/12/2025 20 13 Encounter Details Date Type Department Care Team ([facility] st Contact Info) Description 02/11/2025 11:00 AM EDT Treatment [address] [phone] Benedict Degroot, PT Neuropathy (Primary Dx); Difficulty walking Social History Tobacco Use Types Packs/Day Years Used Date Smoking Tobacco: Never Assessed Sex and Gender Information Value Date Recorded Sex Assigned at Male 01/11/2025 3:29 PM EDT Legal Sex Male 9:15 AM EST Gender Identity Male 01/11/2025 3:29 PM EDT Sexual Orientation Choose not to disclose 2024 3:29 PM EDT documented as of this encounter Progress Notes * Benedict Degroot, PT - 02/11/2025 11:00 AM EDT [facility] - Outpatient PHYSICAL THERAPY DAILY TREATMENT NOTE - OP Date: 02/11/2025 Visit Number: 3 Patient Name: Wilfred Mccarthy Sr. : 1950 Age: 74 y.o. Gender: male Diagnosis: ICD-10-CM ICD-9-CM 1. Neuropathy G62.9 355.9 2. Difficulty walking R26.2 719.7 Date of Onset/Surgery: 01/11/2025 Referring Provider: Butch Bergeron DPM Insurance: Payor[place] / Plan[place] / Product Type: *No Product type* / Patient Identified by: Benedict Degroot PT Language: Speaks and understands Yakut as preferred language with no public health engineer required Medications: Medications Ordered Prior to Encounter[1] Allergies: is allergic to gluten, iodinated contrast media, and nsaids (non- steroidal anti-inflammatory drug). Precautions: A FIb Fall risk: Explain fall Risk Protocol to patient/family SUBJECTIVE: Subjective Report: Pt reports his balance is off especially when first getting up ffrom sitting at work. Chart Reviewed: Yes Pain: 0/10 OBJECTIVE: Vitals: There were no vitals filed for this visit.; TREATMENT INTERVENTION: Therex: Nu step x 4 min Passive LE stretching Bridges 2 x 10 Calf raises 2 x 10 DF in sitting 2 x 10 with 3 sec holds. Neuro con: Airex wt shifting and marching in place 3 x 10 each SLS on MT with min UE assist 5 x 10 sec L and R Rocker board rocking and balancing x 5 min Lunge to bosu in // bars for assist (fwd and lateral lunges L and R) 2 x 10 each NOT DONE Heel to toe walking in // bars with min UE support x 3 laps ASSESSMENT/Response to Treatment Good. No SOB. Pt did well today with balance activities but requires close S/CG at times Patient Education: Education provided: progression Education Provided To: Patient utilizing Explanation, Demonstration, and Printed Material mode(s) of education Response to Education: Applied Knowledge, Verbal Understanding, and Demonstrated Skills PLAN POC Development/Review: No Change in the Plan of Care; Participants: Patient Interventions Time Entry: Modalities: Therapeutic procedures: Neuromuscular Re-Education Time Entry: 18 Therapeutic Exercise Time Entry: 11 Total Treatment Time: 35 Documentation completed by Benedict Degroot PT [1] No current outpatient medications on file prior to visit. No current facility-administered medications on file prior to visit. documented in this encounter Plan of Treatment Upcoming Encounters Date Type Department Care Team (Late st Contact Info) Description 02/18/2025 11:00 AM EST Treatment [address] [address] Benedict Degroot, PT 02/20/2025 11:00 AM EST Treatment [address] [address] Isael Anguiano, MATE CHIEF 02/25/2025 11:00 AM EST Treatment [address] [address] Benedict Degroot, PT 02/27/2025 11:00 AM EST Treatment [address] [address] Benedict Degroot, PT 03/04/2025 11:00 AM EST Treatment [address] [address] Benedict Degroot, PT 03/05/2025 11:00 AM EST Office Visit Orthopedic Surgery [place] [address] [address] Butch Bergeron, DPM [address] [place] [phone] 03/06/2025 11:00 AM EST Treatment [address] [address] Benedict Degroot, PT 03/11/2025 11:00 AM EST Treatment [address] [address] Benedict Degroot, PT 03/13/2025 11:00 AM EST Treatment [facility] [address] [address] Benedict Degroot, PT documented as of this encounter Visit Diagnoses Diagnosis Neuropathy- Primary Mononeuritis of unspecified site Difficulty walking Difficulty in walking documented in this encounter Care Teams Manager Story Relationship Specialty Start Date End Date Jeff Rivas NP [address] [place], [place] PCP - General Family Medicine 09/25/24 documented as of this encounter
--- OUTSIDE RECORDS SUMMARY | 2025-02-15 12:39 | XMS_ITS | Clinical Summary ---
Author Organization [address] [facility] Address [address] [place] [address] Phone Care Team Providers Care Senior Writer Name Role Phone Jeff Rivas NP Primary Care Provider [phone] Allergies Active Allergy Reactions Criticality Noted Date Comments Gluten 06/13/2012 Pt has celiac disease Iodinated Contrast Media 04/20/2011 Nsaids (Non-Steroidal Anti-Inflammatory Drug) 04/20/2011 Encounters Date Type Department Care Team Description 02/11/2025 11:00 AM EDT Treatment [facility] [address] [phone] Benedict Degroot, PT Neuropathy (Primary Dx); Difficulty walking 02/06/2025 10:00 AM EDT Treatment [facility] [address] [phone] Benedict Degroot, PT Neuropathy (Primary Dx); Difficulty walking 01/11/2025 10:30 AM EDT Evaluation [facility] [address] [phone] Benedict Degroot, PT Neuropathy (Primary Dx); Difficulty walking 01/11/2025 Plan of Care Documentation [facility] [address] [phone] 12/12/2024 10:15 AM EDT Office Visit Orthopedic Surgery [facility] 250 175 [facility] [address] [place] [phone] Butch Bergeron DPM Pain in both feet [...] not to disclose 2024 3:29 PM EDT Plan of Treatment Upcoming Encounters Date Type Department Care Team (Late st Contact Info) Description 02/18/2025 11:00 AM EST Treatment [address] [address] Benedict Degroot, PT 02/20/2025 11:00 AM EST Treatment [address] [address] Isael Anguiano, BEAMING INSPECTOR 02/25/2025 11:00 AM EST Treatment [address] [address] Benedict Degroot, PT 02/27/2025 11:00 AM EST Treatment [address] [address] Benedict Degroot, PT 03/04/2025 11:00 AM EST Treatment [address] [address] Benedict Degroot, PT 03/05/2025 11:00 AM EST Office Visit Orthopedic Surgery [facility] [address] [address] Butch Bergeron DPM [address] [place] [address] 03/06/2025 11:00 AM EST Treatment [facility] [address] [address] Benedict Degroot, PT 03/11/2025 11:00 AM EST Treatment [address] [address] Benedict Degroot, PT 03/13/2025 11:00 AM EST Treatment [address] [address] Benedict Degroot, PT Health Maintenance Due Date Last Done Comments [...] complete this topic Insurance MED[place] - [place] MEDICARE Care Teams Senior Writer Relationship Specialty Start Date End Date Jeff Rivas NP [address] [place], [place] PCP - General Family Medicine 09/25/24
--- OUTSIDE RECORDS SUMMARY | 2025-02-15 12:39 | XMS_ITS | Patient Health Record ---
Author Organization [facility] Address [address] [place] [address] Care Team Providers Care Chief Dietitian Name Role Phone LORIE CLEMONS Primary Care Provider Rich Vasquez Unavailable [phone] Allergies Allergen (clinical drug ingredient) Drug/Non Drug [...] End Date Status Promethazine HCl 25 MG Oral; Duration: 15 Active Dicyclomine HCl 10 MG 1 or 2 capsules Or ally Q 6 hours prn abdominal pain/discomfort; Duration: 30 day(s) 11/08/2021 Active oxyCODONE HCl 5 MG Oral; Duration: 10 Active Omeprazole 20 MG TAKE 1 CAPSULE BY [facility] TWICE DAILY; Duration: 30 Active Acebutolol HCl 200mg 1 capsule Orally Once a day Active Immunizations Vaccine Route Administration Date Status Comme nts Influenza Unknown 10/09/2020 Refused Problems Problem Type SNOMED Code ICD Code Onset Dates Problem Status W/U Status Risk Notes Problem Screening for malignant neoplasm of colon (643477881) Encounter for screening for malignant neoplasm of colon (Z12.11) Active confirmed Problem History of adenomatous polyp of colon (560137702) History of adenomatous polyp of colon (Z86.010) Active confirmed Problem Abdominal bloating (772630694) Abdominal bloating (R14.0) Active confirmed Problem Chronic anemia (839670449) Anemia in other chronic diseases classified elsewhere (D63.8) Active confirmed Problem Celiac disease (019715302) Celiac disease (K90.0) Active confirmed Problem Contusion of liver (128637482) Contusion of liver, initial encounter (S36.112A) Active confirmed Problem Screening for malignant neoplasm of rectum (774066983) Encounter for screening for malignant neoplasm of rectum (Z12.12) Active confirmed Problem Gastroesophageal reflux disease without esophagitis (024032075) Gastroesophageal reflux disease without esophagitis (K21.9) Active confirmed Problem History of polyp of colon (situation) (048041833) History of colon polyps (Z86.010) Active confirmed Problem Peacock's esophagus (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) Barretts esophagus without dysplasia (K22.70) Active confirmed Problem Altered bowel function (72316209) Change in bowel function (R19.4) Active confirmed Problem Right upper quadrant pain (626423633) Abdominal pain, RUQ (R10.11) Active confirmed Problem Epigastric pain (30987863) Abdominal pain, acute, epigastric (R10.13) Active confirmed Problem Diverticulosis of colon (795258930) Diverticulosis of colon (K57.30) Active confirmed Problem Generalized abdominal pain (646906960) Abdominal pain, acute, generalized (R10.84) Active confirmed [...] End Date MEDICAID OF [facility] [address] [place] [address] [id number] CATHIE CADET Self - patient is the insured MEDICARE OF [place] [address] [place] [address] [id number] CATHIE CADET Self - patient is the insured Medical [...] years. 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
[2025-02-15 13:14] LABS: MANUAL DIFF FLAG NO
[2025-02-15 13:25] LABS: Hematocrit 39.5 % (42.0-52.0); Hemoglobin 12.7 g/dl (14.0-18.0); Imm Gran Abs Auto 0.01 X10*3/uL (0.00-0.03); Imm Gran Pct Auto 0.2 % (0.0-0.4); Lymphocytes Absolute Auto 1.9 X10*3/uL (1.2-4.9); Mean Corpuscular HGB Conc 32.2 g/dl (31.0-36.0); Mean Corpuscular Hemoglobin 32.2 pg (27.0-33.0); Mean Corpuscular Volume 100.0 fL (80.0-98.0); NRBC Abs Auto 0.000 X10*3/uL (0.0-0.012); NRBC Pct Auto 0.0 /100WBC (0.0-0.2); Platelet Count 203 X10*3/uL (160-400); Red Blood Count 3.95 X10*6/uL (4.60-5.80); White Blood Count 5.4 X10*3/uL (4.8-10.8)
[2025-02-15 13:27] LABS: Appearance Urine Clear; Glucose Urine UA Negative (Negative); PH 5.5 (5.0-9.0); Specific Gravity - Urine 1.020 (1.005-1.025); UMIC TRIGGER UA YES
[2025-02-15 13:45] LABS: Alanine Aminotransferase 28 U/L (0-40); Albumin Level 4.5 g/dL (3.5-5.0); Alkaline Phosphatase 70 U/L (39-117); Anion Gap 10 (12-20); Aspartate Amino Transferase 35 U/L (5-37); Blood Urea Nitrogen 27 mg/dL (9-16); Calcium 8.9 mg/dL (8.4-10.2); Carbon Dioxide 23 mmol/L (22-29); Chloride 110 mmol/L (96-108); Estimated Glomerular Filt Rate 51; Potassium 4.8 mmol/L (3.3-5.1); Sodium 138 mmol/L (135-145); Total Protein 7.1 g/dL (6.5-8.0)
[2025-02-15 14:17] LABS: Total Protein Urine Random 14 mg/dL (<12)
== END 2025-02-15 11:04 | disposition home or self-care (01) ==
LOC: HO.HMGCLDS 11:03
PROVIDERS: PCP Nurse Practitioner Family; Visit Provider Internal Medicine Hypertension Specialist
DX: E87.5 Hyperkalemia (principal); N18.9 Chronic kidney disease, unspecified
CPT/HCPCS: 36415; 80053; 81001; 82306; 82570; 84156; 85025

== ENCOUNTER 2025-03-06 09:09 | Outpatient (AMB) | payer MEDICAID, SELFPAY ==
--- OUTSIDE RECORDS SUMMARY | 2025-03-04 11:00 | XMS_ITS | Encounter Summary ---
Author Organization [facility] Address [address] [place] [address] Care Team Providers Care Supervisor Coin Machine Name Role Phone Jeff Rivas NP Primary Care Provider + [phone] Reason for Visit * Consultation (Routine) - Authorized Specialty Diagnoses / Procedures Referred By Clinton brock Referred To Contact Physical Therapy Diagnoses Difficulty walking Butch Bergeron DPM Phone: tel: fax: [address] [address] Phone: tel: fax: Referral ID Status Reason Start Date Expiration Date Visits Requested Visits Authorized [id number] Authorized Consult and Treat 12/12/2024 12/12/2025 20 13 Encounter Details Date Type Department Care Team (Late st Contact Info) Description 03/04/2025 11:00 AM EST Treatment [address] [address] Benedict Degroot PT Neuropathy (Primary Dx); Difficulty walking Social [...] Progress Notes * Benedict Degroot, PT - 03/04/2025 11:00 AM EST [facility] - Outpatient PHYSICAL THERAPY DAILY TREATMENT NOTE - OP Date: 03/04/2025 Visit Number: 8 Patient Name: Wilfred Mccarthy Sr. : 1950 Age: 74 y.o. Gender: male Diagnosis: ICD-10-CM ICD-9-CM 1. Neuropathy G62.9 355.9 2. Difficulty walking R26.2 719.7 Date of Onset/Surgery: 01/11/2025 Referring Provider: Butch Bergeron DPM Insurance: Payor[place] / Plan[place] / Product Type: *No Product type* / Patient Identified by: Benedict Degroot PT Language: Speaks and understands Armenian as preferred language with no employment coach required Medications: Medications Ordered Prior to Encounter[1] Allergies: is allergic to gluten, iodinated contrast media, and nsaids (non- steroidal anti-inflammatory drug). Precautions: A FIb Fall risk: Explain fall Risk Protocol to patient/family SUBJECTIVE: Subjective Report: Feel like Im walking a little better. Wearing the boots today. Seems to give me more support. Chart Reviewed: Yes Pain: R hip and low back get sore OBJECTIVE: Vitals: There were no vitals filed for this visit.; TREATMENT INTERVENTION: Therex: Nu step x 5 min lv 5 Standing hip flexor and HS stretch, 3 x 20 secs ea Slant board stretch 3 x 20 sec Calf raises 2 x 10 DF in standing with back against wall x 15 Sit to stand from mat (hands on knees) x 10, hands across chest x 10 Rows and pulldowns 2 x 10 each purple (added to HEP) Neuro con: Airex wt shifting and marching in place 3 x 10 each SLS on MT with min UE assist 5 x 10 sec L and R -NOT DONE Rocker board rocking and balancing x 5 min - NOT DONE Lunge to bosu in // bars for assist x10 ea fatigued Heel to toe walking in // bars on foam beams with min UE support x 3 laps Side stepping on foam beam in // bars min A x 3 laps Toe taps on 8 inch step 2 x 20 B-held - NOT DONE ASSESSMENT/Response to Treatment Good. Need cuing to not look down at feet while walking or exercising Patient Education: Education provided: posture Education Provided To: Patient utilizing Explanation, Demonstration, and Printed Material mode(s) of education Response to Education: Applied Knowledge, Verbal Understanding, and Demonstrated Skills PLAN POC Development/Review: No Change in the Plan of Care; Participants: Patient Interventions Time Entry: Modalities: Therapeutic procedures: Neuromuscular Re-Education Time Entry: 15 Therapeutic Exercise Time Entry: 16 Total Treatment Time: 30 Documentation completed by Benedict Degroot PT [1] No current outpatient medications on file prior to visit. No current facility-administered medications on file prior to visit. documented in this encounter Plan of Treatment Upcoming Encounters Date Type Department Care Team (Late st Contact Info) Description 03/11/2025 11:00 AM EST Treatment [facility] [address] [phone] Benedict Degroot, PT 03/13/2025 11:00 AM EST Treatment [facility] [address] [address] Benedict Degroot, PT 06/06/2025 11:00 AM EST Office Visit Orthopedic Surgery - [place] [address] [address] Butch Bergeron, LUCAS [address] [address] documented as of this encounter Visit Diagnoses Diagnosis Neuropathy- Primary Mononeuritis of unspecified site Difficulty walking Difficulty in walking documented in this encounter Care Teams Supervisor Coin Machine Relationship Specialty Start Date End Date Jeff Rivas NP [address] [place], [place] PCP - General Family Medicine 09/25/24 documented as of this encounter
--- OUTSIDE RECORDS SUMMARY | 2025-03-05 11:00 | XMS_ITS | Encounter Summary ---
Author Organization [facility] Address [address] [place] [address] Care Team Providers Care Adjunct Professor Of U.[place]. History Name Role Phone Jeff Rivas NP Primary Care Provider [phone] Reason for Visit * Reason Comments Foot Pain Pain in both feetLum bosacral radiculopathyCavus foot, acquiredDifficulty walking Encounter Details Date Type Department Care Team (Late st Contact Info) Description 03/05/2025 11:00 AM EST Office Visit Orthopedic Surgery [facility] [address] [phone] Butch Bergeron DPM [address] [address] Pain in both feet (Primary Dx); Lumbosacral radiculopathy; Difficulty walking; Cavus foot, acquired Social History Tobacco Use Types Packs/Day Years Used Date Smoking Tobacco: Never Assessed Sex and Gender Information Value Date Recorded Sex Assigned at Male 01/11/2025 3:29 PM EDT Legal Sex Male 9:15 AM EST Gender Identity Male 01/11/2025 3:29 PM EDT Sexual Orientation Choose not to disclose 2024 3:29 PM EDT documented as of this encounter Progress Notes * Butch Bergeron DPM - 03/05/2025 11:00 AM EST Referring MD: [email or web address] Last PCP visit: 11/09/2024 IDENTIFIER: Fabio is a 74 y.o. year old male who presents for consultation. CC: Bilateral foot pain HPI: 74-year-old male returns office chief complaint of bilateral foot pain. Patient notes that he has been going to physical therapy for balance and gait training and has been developing better walking skills and less tripping. Patient notes that he was encouraged to start using a walking stick but hasnot started yet. Patient is wearing supportive shoes. Patient notes he continues to feel tightness around the feet. Patient is concerned with discoloration to the great toes bilaterally ROS: GENERAL: Pt denies nausea, fever, vomiting, chills, or shortness of breath. Pt in NAD. CARDIOLOGY: pt denies chest pain, palpitations LUNGS: pt denies shortness of breath MUSCULOSKELETAL: See HPI, otherwise no joint pain or swelling, back pain, or muscle pain. SKIN: see HPI, otherwise no lesions, rash or itching NEURO: No persistent headache, weakness or numbness The remainder of the review of systems is noncontributory PAST MEDICAL HISTORY: There is no problem list on file for this patient. SOCIAL HISTORY: Social History Tobacco Use Smoking status: Not on file Smokeless tobacco: Not on file Substance Use Topics Alcohol use: Not on file ACTIVE MEDICATIONS: No outpatient medications have been marked as taking for the 03/05/25 encounter (Office Visit) Shabnam Bergeron DPM. ALLERGIES: Gluten, Iodinated contrast media, and Nsaids (non-steroidal anti-inflammatory drug) PHYSICAL EXAM: There were no vitals taken for this visit. PODIATRIC EXAMINATION: GENERAL: Patient appears well nourished, with NAD. VASCULAR: Dorsalis pedis pulses are 2/4 bilaterally and Posterior tibial pulses are 2/4 bilaterally. Capillary filling time within normal limits the digits. No pallor on elevation or rubor on dependency. Positive hair growth. Few varicosities. Denies rest pain or claudication pain. NEUROLOGICAL: Sharp/dull sensation intact, protective sensation diminished on [place]. Peripheral neuropathy of bilateral feet ORTHOPEDIC: Good muscle strength 5/5 of all flexors and extensors. Dorsi flexion of ankle ,10 degrees, plantar flexion WNL. No muscle atrophy. Severely increased arch height with arthritic changes ofthe midtarsal joint. Fat pad atrophy with bony prominences of the metatarsal heads. Rigid contracture of digits 2 through 5 DERMATOLOGICAL:.No masses or skin lesions noted. Normal skin temperature, normal skin turgor. Nailsare thickened misshapened discolored x 10 with subungual debris BIOMECHANICS: STJ ROM wnl, MTJ ROM wnl, 1st MPJ ROM wnl. IMPRESSION: 1. Pain in both feet 2. Lumbosacral radiculopathy 3. Difficulty walking 4. Cavus foot, acquired PLAN: Pt was seen and examined, history reviewed. Patient continues to suffer with severe pes cavus. Patient was encouraged to wear an insole in his shoes. Patient notes that pressure to the midfoot can be uncomfortable Patient is continuing with physical therapy and is getting more confident in his ambulatory activity. Patient encouraged to continue with physical therapy and to consider using assistive device Patient understands that with the lower back pathology and the neuropathy in the feet he can use topical analgesics to help with symptoms though the underlying pathology will remain the same when he will have difficulty with sensation in the toes Butch Bergeron DPM documented in this encounter Plan of Treatment Upcoming Encounters Date Type Department Care Team (Late st Contact Info) Description 03/11/2025 11:00 AM EST Treatment [facility] [address] [phone] Benedict Degroot, PT 03/13/2025 11:00 AM EST Treatment [facility] [address] [address] Benedict Degroot, PT 06/06/2025 11:00 AM EST Office Visit Orthopedic Surgery - [place] [address] [address] Butch Bergeron DPM [address] [address] documented as of this encounter Visit Diagnoses Diagnosis Pain in both feet- Primary Lumbosacral radiculopathy Thoracic or lumbosacral neuritis or radiculitis, unspecified Difficulty walking Difficulty in walking Cavus foot, acquired Cavus deformity of foot, acquired documented in this encounter Care Teams Adjunct Professor Of U.S. History Relationship Specialty Start Date End Date Jeff Rivas NP [address] [facility] DEA Ke[place] PCP - General Family Medicine 09/25/24 documented as of this encounter
--- NOTE | 2025-03-06 09:52 | A.OFFVIS_ITS ---
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 States his left hand is worse. He states no numbness, tingling or locking of any finger. He finds it difficult to do certain things w ith his hands. Patient noticed his symptoms started a couple years ago. Patient mentions that his hands and fingers get stiff at times. No hx of previous treatment. 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 States his left hand is worse. The left small finger sustained an injury to the PIP joint as a child which did leave him with a bit of a flexion contracture. However over the last few years she has noticed the contracture get worse at both the PIP and D IP joints. He has also appreciated the bumpy cords in the palms of both hands with a more mild contracture involving both ring fingers. No history of previous treatment He also notes that he has trouble manipulating objects like money between his thumb index and middle fingers which is likely unrelated to the above. He is no t sure if he has trouble with numbness and tingling. He does give a history of having some trouble with numbness and tingling in his feet and balance problems, that may be neuropathy or may be related to his lumbar fusion. 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 [facility] Medical History Atrial fibrillation with RVR Sepsis with acute hypoxic respiratory failure Abscess of abdominal wall Implantable loop recorder present Subcapsular hematoma of liver History of blood transfusion Chronic neck and back pain History of thyrotoxicosis Paroxysmal atrial fibrillation GERD (gastroesophageal reflux disease) PHN (postherpetic neuralgia) Frequent PVCs Barretts esophagus LBBB (left bundle branch block) Celiac disease Failed back syndrome Surgical History History of exploratory laparotomy (12/28/21) History of colonoscopy History of esophagogastroduodenoscopy (EGD) Hx laparoscopic cholecystectomy History of appendectomy History of lymph node excision History of inguinal hernia H/O prior ablation treatment History of back surgery Family History Father CVD (cardiovascular disease) Mother Leukemia Son No problems noted. Son No problems noted. Daughter No problems noted. Daughter No problems noted. Social History Household Members: Spouse and Children Housing: House Are you a primary primary care nurse to a significant other at home: Yes (- mod dementia) Do you presently have visiting nurse or other home services: Yes (vna) Alcohol intake: current Alcohol intake frequency: does not drink Comment: previously medicated with po tylenol Patient Tobacco Use Status: Never used Tobacco e-Cigarette/Vaping Use: Never Used Second Hand Smoke Exposure: No service: Yes Current occupational status: employed Current occupation: [employer] Current occupational exposures/hazards: No Cognitive needs: No Hearing needs: No Vision needs: Yes Physical Exam Const General: cooperative, healthy appearing and no acute distress Orientation/consciousness: oriented to person and oriented to place HEENT Head: Yes normocephalic and Yes atraumatic Eyes EOM: EOMs intact bilaterally Resp Effort & Inspection: normal respiratory effort and able to speak in complete sentences Cardio Jugular venous distension: no JVD Skin General skin exam: turgor normal Rashes: no rashes Neuro General: oriented to person and oriented to place Extrem Other: Evaluation of bilateral Upper Extremity: Neuro: Median, ulnar, radial nerves motor and sensory intact. Vascular: Cap refill brisk. ROM: Can bring fingers closed to a fist With regards to the left hand: Again he had a previous PIP contracture of the small finger from a childhood injury, but this has gotten worse over the last 20 years. Left small finger contracture 0 degree MCP/70 degree PIP/50 degree D IP. There is a palpable cord on the radial side extending from the radial aspect of the proximal phalanx to the distal phalanx and I do believe this is likely causing at least some of this contracture Left ring finger contracture 15 degree MCP/20 degree PIP, with a central cord extending from the palm to about the proximal phalanx With regards to the right hand: There is a Dupuytren's cord extending from the palm in line with the ring finger that is giving him a mild Dupuytren's contracture Right Ring finger 15 degree/0 degree No lacerations or abrasions. No eccymosis. No erythema or evidence of infection. Radiographs: None Psych Appearance: grossly normal Affect: normal affect Attitude: cooperative Assessment & Plan Assessment & Plan (1) Dupuytren's contracture of both hands: Code(s): M72.0 - Palmar fascial fibromatosis [Dupuytren] Category: Medical Plan 1. Left small finger Dupuytren's contracture, 0/70/50 With previous childhood injury related contracture of PIP Radial cord extending from P1 to P3 2. Left ring finger Dupuytren's contracture, 15/20/0 Central cord 3. Right ring finger Dupuytren's contracture, 15/0/0 I educated him about this condition I discussed operative and non-operative treatment options The patient would like to proceed with surgery likely The risks and benefits of operative treatment were discussed with the patient and the patient wishes to proceed with surgery. These risks include, but are not limited to risk of damage to blood vessels, nerves, tendons, infection, recurrence, incomplete relief of preoperative symptoms, persistent pain, possible need for further surgery and the risks associated with regional blocks and anesthesia. The plan is to take the patient to the operating room sometime in the next few weeks for the following procedures: 1. left small finger partial dupuytren fasciectomy 2. left ring figner partial dupuytren fasciectomy All of the preoperative paperwork including the consent was filled out today. All the patient's questions were answered. The patient understands that they will be contacted by our neurosurgery research director soon to schedule this procedure He is taking Eliquis. And has AFib for which he sees his medical collections representative Denies Diabetes, asthma, lung, kidney issues Scribed for Elena Dickinson MD by Michelle Levin, medical technologist generalist, on 03/06/25 at 10:26 AM, EST. Coding Level of Care Code New Pt Level 4 (61740) Diagnoses Dupuytren's contracture of both hands M72.0
--- OUTSIDE RECORDS SUMMARY | 2025-03-06 11:00 | XMS_ITS | Encounter Summary ---
Author Organization [facility] Address [address] [place] [address] Care Team Providers Care Bedspread Folder Name Role Phone Jeff Rivas NP Primary Care Provider + [phone] Reason for Visit * Consultation (Routine) - Authorized Specialty Diagnoses / Procedures Referred By Clinton brock Referred To Contact Physical Therapy Diagnoses Difficulty walking Butch Bergeron DPM Phone: tel: fax: [address] [address] Phone: tel: fax: Referral ID Status Reason Start Date Expiration Date Visits Requested Visits Authorized [id number] Authorized Consult and Treat 12/12/2024 12/12/2025 20 13 Encounter Details Date Type Department Care Team (Late st Contact Info) Description 03/06/2025 11:00 AM EST Treatment [address] [address] Deepti Bay PT Neuropathy (Primary Dx); Difficulty walking Social [...] as of this encounter Progress Notes * Deepti Bay, PT - 03/06/2025 11:00 AM EST [facility] - Outpatient PHYSICAL THERAPY DAILY TREATMENT NOTE - OP Date: 03/06/2025 Visit Number: [id number] Patient Name: Wilfred Mccarthy Sr. : 1950 Age: 74 y.o. Gender: male Diagnosis: ICD-10-CM ICD-9-CM 1. Neuropathy G62.9 355.9 2. Difficulty walking R26.2 719.7 Date of Onset/Surgery: 01/11/2025 Referring Provider: Butch Bergeron DPM Insurance: [place] / [place] / Product Type: *No Product type* / Patient Identified by: Deepti Bay PT Language: Speaks and understands Bulgarian as preferred language with no label stitcher required Medications: Medications Ordered Prior to Encounter[1] Allergies: is allergic to gluten, iodinated contrast media, and nsaids (non- steroidal anti-inflammatory drug). Precautions: A FIb Fall risk: Explain fall Risk Protocol to patient/family SUBJECTIVE: Subjective Report: Feeling some progress in his strength. Still sometimes gets off balance, but it has been like this for a long time. He is trying to work on his posture. Chart Reviewed: Yes Pain: R hip and low back get sore OBJECTIVE: Vitals: There were no vitals filed for this visit.; TREATMENT INTERVENTION: Therex: Nu step x 5 min lv 5 Standing hip flexor and HS stretch, 3 x 20 secs ea Slant board stretch 3 x 20 sec Side stepping on yellow theraband in // bars min A x 3 laps Sit to stand from hands across chest 2 x 10 Rows and pulldowns 2 x 10 each purple- HELD Neuro con: Airex wt shifting and marching [...] with min UE support x 3 laps - NOT DONE Toe taps on 8 inch step 2 x 20 B-held - NOT DONE ASSESSMENT/Response to Treatment Good. Cueing for posture with standing exercises. Overall tolerated session well. Patient Education: Education provided: posture Education Provided To: Patient utilizing Explanation, Demonstration, and Printed Material mode(s) of education Response to Education: Applied Knowledge, Verbal Understanding, and Demonstrated Skills PLAN POC Development/Review: No Change in the Plan of Care; Participants: Patient Interventions Time Entry: Modalities: Therapeutic procedures: Neuromuscular Re-Education Time Entry: 10 Therapeutic Exercise Time Entry: 20 Total Treatment Time: 30 Documentation completed by Deepti Bay PT [1] No current outpatient medications on file prior to visit. No current facility-administered medications on file prior to visit. documented in this encounter Plan of Treatment Upcoming Encounters Date Type Department Care Team (Late st Contact Info) Description 03/11/2025 11:00 AM EST Treatment [facility] [address] [address] Benedict Degroot, PT 03/13/2025 11:00 AM EST Treatment [facility] [address] [address] Benedict Degroot, PT 06/06/2025 11:00 AM EST Office Visit Orthopedic Surgery [place] [address] [address] Butch Bergeron DPM [address] [address] documented as of this encounter Visit Diagnoses Diagnosis Neuropathy- Primary Mononeuritis of unspecified site Difficulty walking Difficulty in walking documented in this encounter Care Teams Bedspread Folder Relationship Specialty Start Date End Date Jeff Rivas NP [address] [place], [place] PCP - General Family Medicine 09/25/24 documented as of this encounter
--- OUTSIDE RECORDS SUMMARY | 2025-03-06 17:04 | XMS_ITS | Patient Health Record ---
Author Organization [facility] Address [address] [place] [address] Care Team Providers Care Physicist Acoustics Name Role Phone LORIE CLEMONS Primary Care Provider Rich Vasquez [phone] Allergies Allergen (clinical drug ingredient) Drug/Non Drug Allergy documented on EMR Reaction Allergy Type Onset Date Status High doses of aspiri n (uncoded) Unknown Allergy Active codeine codeine (uncoded) Unknown Allergy Ac tive ivp dye (uncoded) Unknown Allergy Ac tive Non-steroidal anti-inflammatory agent (FN) NSAIDS (uncoded) Unknown Allergy Active Reason For Referral No Information Medications Medication SIG (Take, Route, Frequency, Duration) Notes Start Date End Date Status Promethazine HCl 25 MG Tablet Oral; Duration: 15 Active Dicyclomine HCl 10 MG Capsule 1 or 2 capsules Orally Q 6 hours prn abdominal pain/discomfort; Duration: 30 day(s) 11/08/2021 Active oxyCODONE HCl 5 MG Tablet Oral; Duration: 10 Active Omeprazole 20 MG Capsule Delayed Release TAKE 1 CAPSULE BY MOUTH TWICE DAILY; Duration: 30 Active Acebutolol HCl 200mg Capsule 1 capsule Orally Once a day Active Immunizations Vaccine Route Administration Date Status Comme nts Influenza Unknown 10/09/2020 Refused Social History Social History Additional Details Category Social Info Options Details Miscellaneous: Marital status: 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 Section Notes: Nonsmoker; no alcohol Nonsmoker; no alcohol Nonsmoker; no alcohol Nonsmoker; no alcohol Nonsmoker; no alcohol Nonsmoker; no alcohol Nonsmoker; no alcohol Nonsmoker; no alcohol Nonsmoker; no alcohol Problems Problem Type SNOMED Code ICD Code Onset Dates Problem Status W/U Status Risk Notes Problem Screening for malignant neoplasm of colon (454081074) Encounter for screening for malignant neoplasm of colon (Z12.11) Active confirmed Problem History of adenomatous polyp of colon (403189040) History of adenomatous polyp of colon (Z86.010) Active confirmed Problem Abdominal bloating (354533711) Abdominal bloating (R14.0) Active confirmed Problem Chronic anemia (966277800) Anemia in other chronic diseases classified elsewhere (D63.8) Active confirmed Problem Celiac disease (744866071) Celiac disease (K90.0) Active confirmed Problem Contusion of liver (703309913) Contusion of liver, initial encounter (S36.112A) Active confirmed Problem Screening for malignant neoplasm of rectum (792311104) Encounter for screening for malignant neoplasm of rectum (Z12.12) Active confirmed Problem Gastroesophageal reflux disease without esophagitis (566112552) Gastroesophageal reflux disease without esophagitis (K21.9) Active confirmed Problem History of polyp of colon (situation) (573212463) History of colon polyps (Z86.010) Active confirmed Problem Peacock's esophagus (381262810) Barretts esophagus without dysplasia (K22.70) Active confirmed Problem Altered bowel function (86260083) Change in bowel function (R19.4) Active confirmed Problem Right upper quadrant pain (386370718) Abdominal pain, RUQ (R10.11) Active confirmed Problem Epigastric pain (63449957) Abdominal pain, acute, epigastric (R10.13) Active confirmed Problem Diverticulosis of colon (676481253) Diverticulosis of colon (K57.30) Active confirmed Problem Generalized abdominal pain (214767348) Abdominal pain, acute, generalized (R10.84) Active confirmed Plan Of Treatment Pending Test Test Name Order Date CHEM 7 PROFILE 02/23/2022 CHEM 7 PROFILE 02/23/2022 BUN 11/04/2021 CREATININE 11/04/2021 LIVER PROFILE 11/04/2021 LIVER PROFILE 02/23/2022 LIVER PROFILE 02/23/2022 IRON + IBC (FE) 08/16/2017 FERRITIN 08/16/2017 CRP 02/23/2022 CRP 02/23/2022 VITAMIN B12 AND FOLATE 08/16/2017 CEA 11/04/2021 CBC w DIFF 11/04/2021 CBC w DIFF 10/11/2012 CBC w DIFF 02/23/2022 CBC w DIFF 05/26/2011 CBC w DIFF 02/23/2022 SED RATE (ESR) 02/23/2022 SED RATE (ESR) 02/23/2022 CELIAC PANEL #10 10/09/2020 CELIAC PANEL #10 07/28/2021 CELIAC PANEL #10 12/01/2017 CELIAC PANEL #10 08/16/2017 CELIAC PANEL #10 05/26/2011 CELIAC PANEL #10 10/11/2012 CELIAC PANEL #10 12/24/2017 ENDOMYSIAL IGA 10/11/2012 ENDOMYSIAL IGA 05/26/2011 ENDOMYSIAL IGA 05/31/2012 TRANSGLUTAMINASE AB IGA 10/11/2012 TRANSGLUTAMINASE AB IGA 05/31/2012 TRANSGLUTAMINASE AB IGA 05/26/2011 TRANSGLUTAMINASE AB IGG 05/26/2011 TRANSGLUTAMINASE AB IGG 05/31/2012 TRANSGLUTAMINASE AB IGG 10/11/2012 MRI ABD W&WO CONTRAST 11/04/2021 US ABD 12/01/2017 Amylase 02/23/2022 Lipase 02/23/2022 Alpha Fetoprotein 11/04/2021 Future Test Test Name Order Date UPPER GI ENDOSCOPY 10/31/2015 COLONOSCOPY 10/31/2015 UPPER GI ENDOSCOPY 07/28/2021 COLONOSCOPY 07/28/2021 Insurance Providers Payer Name Payer Address Payer Phone Subscriber Number Group Number Insured Name Patient Relationship to Insured Coverage Start Date Coverage End Date [place] [address] [place] [address] [id number] IRINACATHIE Galvan Self - patient is the insured MEDICARE OF [place] [address] [place] [address] [id number] CATHIE CADET Self - patient is the [...]
--- OUTSIDE RECORDS SUMMARY | 2025-03-06 17:04 | XMS_ITS | Clinical Summary ---
Author Organization [facility] Address [address] [place] [address] Phone Care Team Providers Care Petroleum Products Sales Representative Name Role Phone Jeff Rivas NP Primary Care Provider Allergies Active Allergy Reactions Criticality Noted Date Comments Gluten 06/13/2012 Pt has celiac disease Iodinated Contrast Media 04/20/2011 Nsaids (Non-Steroidal Anti-Inflammatory Drug) 04/20/2011 Medications No known medications Encounters Date Type Department Care Team Description 03/06/2025 11:00 AM EST Treatment [address] [phone] Deepti Bay, PT Neuropathy (Primary Dx); Difficulty walking 03/05/2025 11:00 AM EST Office Visit Orthopedic Surgery [facility] [address] [phone] Butch Bergeron DPM Pain in both feet (Primary Dx); Lumbosacral radiculopathy; Difficulty walking; Cavus foot, acquired 03/04/2025 11:00 AM EST Treatment [facility] [address] [phone] Benedict Degroot, PT Neuropathy (Primary Dx); Difficulty walking 02/27/2025 11:00 AM EST Treatment [address] [phone] Benedict Degroot, PT Neuropathy (Primary Dx); Difficulty walking 02/25/2025 11:00 AM EST Treatment [address] [address] Jason Cruz, TUBE PUSHER Neuropathy (Primary Dx) 02/20/2025 11:00 AM EST Treatment [address] [address] Isael Anguiano, TUBE PUSHER Neuropathy (Primary Dx); Difficulty walking 02/18/2025 11:00 AM EST Treatment [address] [address] Benedict Degroot, PT Neuropathy (Primary Dx); Difficulty walking 02/11/2025 11:00 AM EDT Treatment [address] [address] Benedict Degroot, PT Neuropathy (Primary Dx); Difficulty walking 02/06/2025 10:00 AM EDT Treatment [address] [address] Benedict Degroot, PT Neuropathy (Primary Dx); Difficulty walking 01/11/2025 10:30 AM EDT Evaluation [address] [address] Benedict Degroot, PT Neuropathy (Primary Dx); Difficulty walking 01/11/2025 Plan of Care Documentation [address] [address] 12/12/2024 10:15 AM EDT Office Visit Orthopedic Surgery [place] [address] [address] Butch Bergeron, LUCAS Pain in both feet (Primary Dx); Lumbosacral [...] Info) Description 03/11/2025 11:00 AM EST Treatment [facility] [address] [phone] Benedict Degroot, PT 03/13/2025 11:00 AM EST Treatment [facility] 175 [facility] [address] [place] [phone] Benedict Degroot, PT 06/06/2025 11:00 AM EST Office Visit Orthopedic Surgery - [place] [address] [phone] Butch Bergeron, DPM [address] [address] Health Maintenance Due Date Last Done Comments [...] 2024 04/25/2021, 02/21/2021 Influenza Vaccine (#1) 2024 , 02/01/2006 HIB Vaccines Aged Out No longer [...] Insurance [place] - [place] MEDICARE Care Teams Petroleum Products Sales Representative Relationship Specialty Start Date End Date Jeff Rivas NP [address] [place], [place] PCP - General Family Medicine 09/25/24
== END 2025-03-06 10:57 | disposition home or self-care (01) ==
PROVIDERS: PCP Nurse Practitioner Family; Visit Provider Orthopaedic Surgery
DX: M72.0 Palmar fascial fibromatosis [Dupuytren] (principal)
CPT/HCPCS: 99204

== ENCOUNTER → 2025-03-06 09:09 | Outpatient (BNVA) | payer MEDICAID, SELFPAY | PROVIDERS: PCP Nurse Practitioner Family; Visit Provider Orthopaedic Surgery | DX: M72.0 Palmar fascial fibromatosis [Dupuytren] (principal) | CPT/HCPCS: 99202 ==

== ENCOUNTER 2025-03-21 10:17 | Outpatient (REF) | payer MEDICAID, SELFPAY ==
--- NOTE | ~2025-03-21 | US_ITS ---
EXAMINATION: US RETROPERITONEAL LIMITED (RENAL ONLY) CLINICAL INFORMATION: Chronic kidney disease. COMPARISON: Ultrasound 11/13/2021. CT 02/24/2022 TECHNIQUE: Ultrasound bilateral kidneys FINDINGS: RIGHT KIDNEY: 11.1 x 5.6 x 5.1 cm (SAG x AP x TRV). The kidney is normal in size, contour, and echogenicity. Renal cortical thickness is normal. 4.5 x 4.3 x 4.6 cm cyst with thin internal septation. This previously measured 4.7 cm in maximum dimension the prior ultrasound. Additional smaller simple appearing cyst present. No hydronephrosis. LEFT KIDNEY: 12.8 x 5.7 x 4.4 cm (SAG x AP x TRV). The kidney is normal in size, contour, and echogenicity. Renal cortical thickness is normal. Upper pole 2.9 x 2.4 x 1.9 cm simple appearing cyst.. Previously measuring 2.2 cm in maximum dimension. No hydronephrosis. US/US renal BI IMPRESSION: * Right renal 4.6 cm cyst, stable in size as compared to prior ultrasound. Thin thin septation within the cyst. Consistent with a Bosniak 2 classification cyst. * Left renal 2.9 cm simple appearing cyst. * No hydronephrosis. Electronically signed by: Benito Ayala MD 03/21/2025 11:03 AM AGNES
--- OUTSIDE RECORDS SUMMARY | 2025-03-21 12:25 | XMS_ITS | Patient Health Record ---
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: Nonsmoker; no alcohol Nonsmoker; no alcohol Nonsmoker; no alcohol Nonsmoker; no alcohol Nonsmoker; no alcohol Nonsmoker; no alcohol Nonsmoker; no alcohol Nonsmoker; no alcohol Nonsmoker; no alcohol Problems Problem Type SNOMED Code ICD Code Onset Dates Problem Status W/U Status Risk Notes Problem Screening for malignant neoplasm of colon (981397149) Encounter for screening for malignant neoplasm of colon (Z12.11) Active confirmed Problem History of adenomatous polyp of colon (179495325) History of adenomatous polyp of colon (Z86.010) Active confirmed Problem Abdominal bloating (121614596) Abdominal bloating (R14.0) Active confirmed Problem Chronic anemia (324321163) Anemia in other chronic diseases classified elsewhere (D63.8) Active confirmed Problem Celiac disease (151371924) Celiac disease (K90.0) Active confirmed Problem Contusion of liver (137676233) Contusion of liver, initial encounter (S36.112A) Active confirmed Problem Screening for malignant neoplasm of rectum (054889565) Encounter for screening for malignant neoplasm of rectum (Z12.12) Active confirmed Problem Gastroesophageal reflux disease without esophagitis (685686701) Gastroesophageal reflux disease without esophagitis (K21.9) Active confirmed Problem History of polyp of colon (situation) (884903710) History of colon polyps (Z86.010) Active confirmed Problem Peacock's esophagus (567612242) Barretts esophagus without dysplasia (K22.70) Active confirmed Problem Altered bowel function (75906977) Change in bowel function (R19.4) Active confirmed Problem Right upper quadrant pain (451924520) Abdominal pain, RUQ (R10.11) Active confirmed Problem Epigastric pain (49949136) Abdominal pain, acute, epigastric (R10.13) Active confirmed Problem Diverticulosis of colon (036956295) Diverticulosis of colon (K57.30) Active confirmed Problem Generalized abdominal pain (642655642) Abdominal pain, acute, generalized (R10.84) Active confirmed [...] Date [place] [address] [place] [address] [id number] IRINACATHIE Galvan Self - patient is the insured MEDICARE OF [place] [address] [place] [address] [id number] CATHIE CADET Self - patient is the [...] years. 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
--- OUTSIDE RECORDS SUMMARY | 2025-03-21 12:25 | XMS_ITS | Clinical Summary ---
Author Organization 175 [facility] Address 175 [place] [address] Phone Care Team Providers Care Machine Grinder Name Role Phone Jeff Rivas NP Primary Care Provider Allergies Active Allergy Reactions Criticality Noted Date Comments Gluten 06/13/2012 Pt has celiac disease Iodinated Contrast Media 04/20/2011 Nsaids (Non-Steroidal Anti-Inflammatory Drug) 04/20/2011 Medications No known medications Encounters Date Type Department Care Team Description 03/13/2025 11:00 AM EST Treatment [facility] [address] [phone] Benedict Degroot, PT Neuropathy (Primary Dx); Difficulty walking 03/11/2025 11:00 AM EST Treatment [facility] [address] [phone] Benedict Degroot, PT Neuropathy (Primary Dx); Difficulty walking 03/06/2025 11:00 AM EST Treatment [facility] [address] [phone] Deepti Bay, PT Neuropathy (Primary Dx); Difficulty walking 03/05/2025 11:00 AM EST Office Visit Orthopedic Surgery [facility] 250 175 [facility] [address] [place] [phone] Butch Bergeron, DPM Pain in both feet (Primary Dx); Lumbosacral radiculopathy; Difficulty walking; Cavus foot, acquired 03/04/2025 11:00 AM EST Treatment [address] [address] Brown Benedict, PT Neuropathy (Primary Dx); Difficulty walking 02/27/2025 11:00 AM EST Treatment [address] [phone] Brown Benedict, PT Neuropathy (Primary Dx); Difficulty walking 02/25/2025 11:00 AM EST Treatment [address] [address] Jason Cruz, BEVERAGE DISTILLER Neuropathy (Primary Dx) 02/20/2025 11:00 AM EST Treatment [address] [address] Isael Anguiano, BEVERAGE DISTILLER Neuropathy (Primary Dx); Difficulty walking 02/18/2025 11:00 AM EST Treatment [address] [address] Brown Benedict, PT Neuropathy (Primary Dx); Difficulty walking 02/11/2025 11:00 AM EDT Treatment [address] [address] Brown Benedict, PT Neuropathy (Primary Dx); Difficulty walking 02/06/2025 10:00 AM EDT Treatment [address] [address] Brown Benedict, PT Neuropathy (Primary Dx); Difficulty walking 01/11/2025 10:30 AM EDT Evaluation [address] [phone] Brown Benedict, PT Neuropathy (Primary Dx); Difficulty walking 01/11/2025 Plan of Care Documentation [address] [phone] from Last 3 Months Social History Tobacco [...] Care Team (Late st Contact Info) Description 06/06/2025 11:00 AM EST Office Visit Orthopedic Surgery - [place] 250 175 [facility] [address] [place] [address] Butch Bergeron, DPM [address] [address] Health Maintenance Due Date Last Done Comments [...] Insurance MEDICA[place] - [place] MEDICARE Care Teams Machine Grinder Relationship Specialty Start Date End Date Jeff Rivas NP [address] [place], [place] PCP - General Family Medicine 09/25/24
== END 2025-03-21 10:18 | disposition home or self-care (01) ==
LOC: HO.US 10:17
PROVIDERS: PCP Nurse Practitioner Family; Visit Provider Internal Medicine Hypertension Specialist
DX: E87.5 Hyperkalemia (principal); N18.9 Chronic kidney disease, unspecified
CPT/HCPCS: 76775

== ENCOUNTER → 2025-03-21 10:19 | Outpatient (BNV) | payer MEDICAID, SELFPAY | PROVIDERS: PCP Nurse Practitioner Family; Visit Provider Radiology Diagnostic Ultrasound | DX: N18.9 Chronic kidney disease, unspecified (principal); N28.1 Cyst of kidney, acquired | CPT/HCPCS: 76775 ==

== ENCOUNTER 2025-03-28 11:19 | Outpatient (AMB) | payer MEDICARE, MEDICAID, SELFPAY ==
--- NOTE | 2025-03-28 11:24 | HO.NEPHOV_ITS ---
Vital Signs 3 03/28/25 11:25 Height 5 ft 11 in Weight 218 lb BMI 30.4 BP 132/70 Blood Pressure Location Lt brachial Position Sitting Pulse 69 Pulse Source Pulse Oximeter Pulse Oximetry (%) 96 Oxygen Delivery Method Room Air Intake Visit Reasons: 1mnth w/ Ultrasound Meal Room Hand Required: No Accompanied by: Self / Same As Patient Allergies Iodinated Contrast Media (IV DYE, IODINE CONTAINING) Allergy (Severe, Verified 03/28/25 11:26) ANAPHYLAXIS gluten (GLUTEN) Allergy (Intermediate, Verified 03/28/25 11:26) BLOATING,SEVERE GI PAIN amiodarone Adverse Reaction (Severe, Verified 03/28/25 11:26) hyperthyroid morphine Adverse Reaction (Verified 03/28/25 11:26) Nausea and Vomiting Medication List - Last Reconciled 03/28/25 by Chad Carver MD acebutolol TAKE 2 CAPSULES (400 MG) BY MOUTH TWICE A DAY acetaminophen 1,000 mg PO TID PRN apixaban (Eliquis) 5 mg PO BID diltiazem HCl 30 mg PO ONCE PRN multivitamin 1 tab PO DAILY omeprazole 40 mg PO DAILY tamsulosin (Flomax) 0.4 mg PO BEDTIME 30 days walker (Ultra-Light Rollator [facility]) As directed HPI Comments Details: Wilfred is a pleasant 74-year-old male referred for CKD and elevated potassium levels. in 2021, he had an episode of DONNY with a creatinine peak of 1.7 He had and abdominal wall wabscess , which was drained and treated with Vanco. Creatinine returned to 1.3 h/o chronically consuming about 6 Ibuprofens a day ( 200 mg each) In July 2024, Creatinine bumped up to 1.5 with mild hyperkalemia of 5.5 Subsequently down to 1.4 in October 2024 and potassium normalized Recently seen by urology . Prostate Nodule, soft, follow-up in six months. Tamsulosin has been added - Atrial Fibrillation since 1996, managed with diltiazem ; s/p Ablation x 4 - h/o Neuropathy with equilibrium issues, cause unknown, history of back surgeries. - - Lymphedema in right leg, related to past cat scratch disease more than 30 yrs ago.s/p removal of right inguinal lymphnode. - Peacock's Esophagus, managed with omeprazole, for several years 03/28/25 Here for follow up A recent kidney ultrasound revealed a 4.6 cm simple cyst on the right kidney and a 2.9 cm simple cyst on the left kidney, which were deemed benign. He has been cutting back on ibuprofen use. The patient reports urinary symptoms, including nocturia 2-3 times per night, and has been taking Flomax for a couple of months for his prostate. His blood pressure was reported as being in the 130s during the visit. He has a history of atrial fibrillation, with the last ablation in 2008, but he has experienced some minor, intermittent episodes recently. He associates these episodes with dehydration. His potassium levels have been normal in the last four readings. Past medical history is significant for a lifelong history of anemia, for which he was evaluated by an oncologist in the past. He also had a history of an abdominal wall infection in 2021 that resulted in sepsis, requiring a month-long hospitalization that affected his kidneys and liver. 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 [facility] Medical History Atrial fibrillation with RVR Sepsis with acute hypoxic respiratory failure Abscess of abdominal wall Implantable loop recorder present Subcapsular hematoma of liver History of blood transfusion Chronic neck and back pain History of thyrotoxicosis Paroxysmal atrial fibrillation GERD (gastroesophageal reflux disease) PHN (postherpetic neuralgia) Frequent PVCs Barretts esophagus LBBB (left bundle branch block) Celiac disease Failed back syndrome Surgical History History of exploratory laparotomy (12/28/21) History of colonoscopy History of esophagogastroduodenoscopy (EGD) Hx laparoscopic cholecystectomy History of appendectomy History of lymph node excision History of inguinal hernia H/O prior ablation treatment History of back surgery Family History Father CVD (cardiovascular disease) Mother Leukemia Son No problems noted. Son No problems noted. Daughter No problems noted. Daughter No problems noted. 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 Comfortable. HENT: Neck supple. Mucosa moist. Pulmonary: Lungs aeration equal. No rales. Reports occasional shortness of breath, especially when walking. Cardiology: Heart S1-S2 heard. No gallop. Heart rate stable, no recent symptoms. Abdomen: Soft. Non tender. Bowel sounds normal. Neurologic: No involuntary movements. No myoclonus. Reports neuropathy in feet and muscle pain when walking. Extremities: No edema. No rash. Reports very dry hands and feet, and itching in certain spots, especially when air hits the skin. Vital Signs: Last Vital Signs Pulse 69 03/28/25 11:25 BP 132/70 03/28/25 11:25 Pulse Ox 96 03/28/25 11:25 Oxygen Delivery Method Room Air 03/28/25 11:25 BMI result Body Mass Index 30.4 Results Reviewed Results Reviewed: Mar 2025 USG US/US renal BI IMPRESSION: * Right renal 4.6 cm cyst, stable in size as compared to prior ultrasound. Thin thin septation within the cyst. Consistent with a Bosniak 2 classification cyst. * Left renal 2.9 cm simple appearing cyst. * No hydronephrosis. Nephrology Results: 2 Hgb, (14.0-18.0) 12.7 g/dl L 02/15/25 WBC, (4.8-10.8) 5.4 X10*3/uL 02/15/25 Plt Count, (160-400) 203 X10*3/uL 02/15/25 Sodium, (135-145) 138 mmol/L 02/15/25 Potassium, (3.3-5.1) 4.8 mmol/L 02/15/25 Chloride, (96-108) 110 mmol/L H 02/15/25 Carbon Dioxide, (22-29) 23 mmol/L 02/15/25 BUN, (9-16) 27 mg/dL H 02/15/25 Creatinine, (0.5-1.4) 1.35 mg/dL 02/15/25 Calcium, (8.4-10.2) 8.9 mg/dL 02/15/25 Urine Protein, (Neg-Trace) Negative mg/dL 02/15/25 Urine Creatinine 179.01 mg/dL 02/15/25 Renal US 03/21/25 Assessment & Plan Assessment & Plan (1) Dupuytren's contracture of both hands: Code(s): M72.0 - Palmar fascial fibromatosis [Dupuytren] Category: Medical (2) HTN (hypertension): Code(s): I10 - Essential (primary) hypertension Category: Medical (3) CKD (chronic kidney disease): Code(s): N18.9 - Chronic kidney disease, unspecified Category: Medical Plan Plan 1. Chronic Kidney Disease Most likely due to chronic NSAIDS use - The patient's kidney function is considered stable with a creatinine level near baseline. - Laboratory tests will be ordered today to re-evaluate kidney function. - The patient was advised to continue drinking plenty of fluids. - Follow-up is scheduled in six months, unless new issues arise. 2. Chronic Nsaid Use - The patient was counseled that excessive ibuprofen use can negatively impact kidney function and was advised to minimize its use. 3. Renal Cysts - The bilateral simple renal cysts identified on ultrasound are considered benign, fluid-filled, and common for the patient's age. - No further investigation or intervention is planned for the cysts at this time, as they are not a cause for concern. 4. Pruritus - The patient's itching is likely related to dry skin. - He was advised to use moisturizers, such as Vaseline, to keep his skin well- hydrated. - A repeat blood count will be checked to assess for eosinophilia as a potential allergic contributor, given a previous slight elevation. Orders: Orders 2 Basic Metabolic Panel 6 Months N18.9 - Chronic kidney disease, unspecified Basic Metabolic Panel Today I10 - Essential (primary) hypertension, N18.9 - Chronic kidney disease, unspecified Complete Blood Count Auto Diff Today I10 - Essential (primary) hypertension, N18.9 - Chronic kidney disease, unspecified Coding Level of Care Code Est Pt Level 4 (22907) Diagnoses Dupuytren's contracture of both hands M72.0 HTN (hypertension) I10 CKD (chronic kidney disease) N18.9
[2025-03-28 11:25] VITALS: BP 132/70; PULSE 69; O2SAT 96; BMI 30.4
--- OUTSIDE RECORDS SUMMARY | 2025-03-28 17:34 | XMS_ITS | Patient Health Record ---
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 Section Notes: Nonsmoker; no alcohol Nonsmoker; no alcohol Nonsmoker; no alcohol Nonsmoker; no alcohol Nonsmoker; no alcohol Nonsmoker; no alcohol Nonsmoker; no alcohol Nonsmoker; no alcohol Nonsmoker; no alcohol Problems Problem Type SNOMED Code ICD Code Onset Dates Problem Status W/U Status Risk Notes Problem Screening for malignant neoplasm of colon (982514853) Encounter for screening for malignant neoplasm of colon (Z12.11) Active confirmed Problem History of adenomatous polyp of colon (785335968) History of adenomatous polyp of colon (Z86.010) Active confirmed Problem Abdominal bloating (372260700) Abdominal bloating (R14.0) Active confirmed Problem Chronic anemia (631440220) Anemia in other chronic diseases classified elsewhere (D63.8) Active confirmed Problem Celiac disease (910982247) Celiac disease (K90.0) Active confirmed Problem Contusion of liver (831962896) Contusion of liver, initial encounter (S36.112A) Active confirmed Problem Screening for malignant neoplasm of rectum (362722674) Encounter for screening for malignant neoplasm of rectum (Z12.12) Active confirmed Problem Gastroesophageal reflux disease without esophagitis (927278247) Gastroesophageal reflux disease without esophagitis (K21.9) Active confirmed Problem History of polyp of colon (situation) (281572708) History of colon polyps (Z86.010) Active confirmed Problem Peacock's esophagus (405420235) Barretts esophagus without dysplasia (K22.70) Active confirmed Problem Altered bowel function (94649241) Change in bowel function (R19.4) Active confirmed Problem Right upper quadrant pain (476255254) Abdominal pain, RUQ (R10.11) Active confirmed Problem Epigastric pain (31628274) Abdominal pain, acute, epigastric (R10.13) Active confirmed Problem Diverticulosis of colon (360042929) Diverticulosis of colon (K57.30) Active confirmed Problem Generalized abdominal pain (895645391) Abdominal pain, acute, generalized (R10.84) Active confirmed [...] Date MEDICA[place] [address] [place] [address] [id number] IRINACATHIE Galvan Self - patient is the insured MEDICARE OF [place] [address] [place] [address] [id number] CATHIE CADET Self - patient is the [...]
--- OUTSIDE RECORDS SUMMARY | 2025-03-28 17:36 | XMS_ITS | Clinical Summary ---
Author Organization 175 [facility] Address [address] [place] [address] Phone Care Team Providers Care Edge Grinder Name Role Phone Jeff Rivas NP Primary Care Provider Allergies Active Allergy Reactions Criticality Noted Date Comments Gluten 06/13/2012 Pt has celiac disease Iodinated Contrast Media 04/20/2011 Nsaids (Non-Steroidal Anti-Inflammatory Drug) 04/20/2011 Medications No known medications Encounters Date Type Department Care Team Description 03/13/2025 11:00 AM EST Treatment [facility] [address] [phone] Benedict Degroot, PT Neuropathy (Primary Dx); Difficulty walking 03/11/2025 11:00 AM EST Treatment [facility] [address] [phone] Benedict Degroot, PT Neuropathy (Primary Dx); Difficulty walking 03/06/2025 11:00 AM EST Treatment [facility] [address] [phone] Deepti Bay, PT Neuropathy (Primary Dx); Difficulty walking 03/05/2025 11:00 AM EST Office Visit Orthopedic Surgery [facility] 250 175 [facility] 250 [place] [phone] Butch Bergeron, DPM Pain in both feet (Primary Dx); Lumbosacral radiculopathy; Difficulty walking; Cavus foot, acquired 03/04/2025 11:00 AM EST Treatment [address] [phone] Brown Benedict, PT Neuropathy (Primary Dx); Difficulty walking 02/27/2025 11:00 AM EST Treatment [address] [phone] Brown Benedict, PT Neuropathy (Primary Dx); Difficulty walking 02/25/2025 11:00 AM EST Treatment [address] [phone] Jason Cruz, DIE FILER Neuropathy (Primary Dx) 02/20/2025 11:00 AM EST Treatment [address] [phone] Isael Anguiano, DIE FILER Neuropathy (Primary Dx); Difficulty walking 02/18/2025 11:00 AM EST Treatment [address] [address] Brown Benedict, PT Neuropathy (Primary Dx); Difficulty walking 02/11/2025 11:00 AM EDT Treatment [address] [phone] Brown Benedict, PT Neuropathy (Primary Dx); Difficulty walking 02/06/2025 10:00 AM EDT Treatment [address] [phone] Brown Benedict, PT Neuropathy (Primary Dx); Difficulty walking 01/11/2025 10:30 AM EDT Evaluation [address] [phone] Brown Benedict, PT Neuropathy (Primary Dx); Difficulty walking 01/11/2025 Plan of Care Documentation [address] [phone] from Last 3 Months Social History Tobacco [...] AM EST Office Visit Orthopedic Surgery - [place] 250 175 [facility] 250 [place] [address] Butch Bergeron, DPM [address] [address] Health Maintenance Due Date Last Done Comments [...] Insurance [place] - [place] MEDICARE Care Teams Edge Grinder Relationship Specialty Start Date End Date Jeff Rivas NP [address] [place], [place] PCP - General Family Medicine 09/25/24
== END 2025-03-28 11:42 | disposition home or self-care (01) ==
LOC: HO.HKA 11:20
PROVIDERS: PCP Nurse Practitioner Family; Visit Provider Internal Medicine Hypertension Specialist
DX: M72.0 Palmar fascial fibromatosis [Dupuytren] (principal); I12.9 Hypertensive chronic kidney disease with stage 1 through stage 4 chronic kidney disease, or unspecified chronic kidney disease; N18.9 Chronic kidney disease, unspecified
CPT/HCPCS: 99214

== ENCOUNTER → 2025-03-28 11:19 | Outpatient (BNVA) | payer MEDICAID, SELFPAY | PROVIDERS: PCP Nurse Practitioner Family; Visit Provider Internal Medicine Hypertension Specialist | DX: I12.9 Hypertensive chronic kidney disease with stage 1 through stage 4 chronic kidney disease, or unspecified chronic kidney disease (principal); N18.9 Chronic kidney disease, unspecified; M72.0 Palmar fascial fibromatosis [Dupuytren]; N28.1 Cyst of kidney, acquired; L29.9 Pruritus, unspecified; Z79.1 Long term (current) use of non-steroidal anti-inflammatories (NSAID) | CPT/HCPCS: 99212 ==

== ENCOUNTER 2025-04-05 10:27 | Outpatient (AMB) | payer MEDICAID, SELFPAY ==
--- NOTE | 2025-04-05 10:31 | A.OFFVIS_ITS ---
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 Allergies Iodinated Contrast Media (IV DYE, IODINE CONTAINING) Allergy (Severe, Verified 04/05/25 10:34) ANAPHYLAXIS gluten (GLUTEN) Allergy (Intermediate, Verified 04/05/25 10:34) BLOATING,SEVERE GI PAIN amiodarone Adverse Reaction (Severe, Verified 04/05/25 10:34) hyperthyroid morphine Adverse Reaction (Verified 04/05/25 10:34) Nausea and Vomiting Medication List - Last Reconciled 04/05/25 by TED Riggs acebutolol TAKE 2 CAPSULES (400 MG) BY MOUTH TWICE A DAY acetaminophen 1,000 mg PO TID PRN apixaban (Eliquis) 5 mg PO BID diltiazem HCl 30 mg PO ONCE PRN multivitamin 1 tab PO DAILY omeprazole 40 mg PO DAILY tamsulosin (Flomax) 0.4 mg PO BEDTIME 30 days walker (Ultra-Light Rollator mis) As directed HPI HPI 1 yr fu r/s 03/28 NS: Details: The patient is a 74-year-old male presenting for follow-up of paroxysmal atrial fibrillation, left bundle branch block, and hypertension. His last prior visit was on 04/16/2024. He has a history of paroxysmal atrial fibrillation since 1996, which has become more frequent recently. The patient underwent three radiofrequency ablations in 2005 and a final ablation in 2008, after which he was started on acebutolol. He reports an episode two days ago that lasted four hours and resolved with PRN diltiazem; his episodes typically last 6-8 hours and are associated with palpitations, feeling flushed, anxiety, and weakness, but no chest pain. His medical history includes an implantable loop recorder for two years that showed no other significant arrhythmias. The patient has a long-standing left bundle branch block. An echocardiogram on 05/04/2024 showed a reduced ejection fraction of 45-50% with an apical wall motion abnormality and a likely dilated left atrium, a decline from an ejection fraction of 60-65% in 02/2020. A Holter monitor in 06/2024 showed sinus rhythm with occasional PACs and PVCs, and a pharmacological nuclear stress test in 09/2024 revealed a fixed apical perfusion defect, possibly related to his LBBB. His other medical history includes chronic back pain, severe peripheral neuropathy in his feet, balance problems, muscle pain, and leg cramps. He is currently undergoing physical therapy for his balance issues and has been advised to see a neurologist to rule out multiple sclerosis. He also reports chronic postnasal drip and constantly blocked ears. The patient experienced significant stress after his a year ago, around which time his atrial fibrillation episodes increased in frequency. 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 He is compliant with his medications and denies any bleeding issues. [facility]LY [facility] Medical History Atrial fibrillation with RVR Sepsis with acute hypoxic respiratory failure Abscess of abdominal wall Implantable loop recorder present Subcapsular hematoma of liver History of blood transfusion Chronic neck and back pain History of thyrotoxicosis Paroxysmal atrial fibrillation GERD (gastroesophageal reflux disease) PHN (postherpetic neuralgia) Frequent PVCs Barretts esophagus LBBB (left bundle branch block) Celiac disease Failed back syndrome Surgical History History of exploratory laparotomy (12/28/21) History of colonoscopy History of esophagogastroduodenoscopy (EGD) Hx laparoscopic cholecystectomy History of appendectomy History of lymph node excision History of inguinal hernia H/O prior ablation treatment History of back surgery Family History Father CVD (cardiovascular disease) Mother Leukemia Son No problems noted. Son No problems noted. Daughter No problems noted. Daughter No problems noted. Social History Household Members: Spouse and Children Housing: House Are you a primary gericare aide teacher to a significant other at home: Yes (- mod dementia) Do you presently have visiting nurse or other home services: Yes (vna) Alcohol intake: current Alcohol intake frequency: does not drink Comment: previously medicated with po tylenol Patient Tobacco Use Status: Never used Tobacco e-Cigarette/Vaping Use: Never Used Second Hand Smoke Exposure: No service: Yes Current occupational status: employed Current occupation: [employer] Current occupational exposures/hazards: No Cognitive needs: No Hearing needs: No Vision needs: Yes Review of Systems Const All systems reviewed & are unremarkable except as noted in HPI and below ENT Denies dizziness Card Denies chest pain, Denies chest pain at rest, Denies chest pain with activity, Reports rapid heart rate, Denies pedal edema, Denies edema, Denies leg edema, Denies lightheadedness, Reports palpitations, Denies dyspnea, Denies dyspnea on exertion and Denies orthopnea Resp Denies cough, Denies dyspnea and Denies dyspnea on exertion GI Denies hematochezia and Denies change in stool character Musc Reports abnormal gait, Denies limited range of motion, Reports muscle cramps, Reports muscle weakness, Denies numbness, Denies radiating pain into limb, Denies stiffness and Denies tingling Neuro Reports abnormal gait, Denies dizziness, Denies numbness and Denies tingling Endo Reports palpitations Physical Exam Vital Signs: Last Vital Signs Pulse 70 04/05/25 10:32 BP 124/82 04/05/25 10:32 BMI result Body Mass Index 30.6 Const General: cooperative, healthy appearing, comfortable and no acute distress Orientation/consciousness: patient oriented x3 Neck Neck: Yes normal visual inspection and Yes no JVD Resp Effort & Inspection: normal respiratory effort Auscultation: clear to auscultation bilaterally, no rales, no rhonchi and no wheezes Cardio Rate: regular rate Rhythm: regular rhythm Heart sounds: S1 normal heart sound present, S2 normal heart sound present, no gallops, no murmurs and no rubs Neuro General: patient oriented x3 Extrem General: Yes normal to inspection, No no pedal edema and No calf tenderness Psych Appearance: grossly normal Mental Status: mental status grossly normal Speech and movement: Normal speech and movement present Office Procedures EKG Details: Today, read by me, sinus rhythm with left bundle branch block, rate 70, QTC 479 milliseconds [id number], Complete Assessment & Plan Assessment & Plan (1) Paroxysmal atrial fibrillation: Code(s): I48.0 - Paroxysmal atrial fibrillation Category: Medical Plan: History of chronic paroxysmal atrial fibrillation with prior ablation lines and recurrent PAF. EKG today showing sinus rhythm with left bundle branch block, rate 70. Continue acebutolol, and PRN diltiazem to help maintain rhythm control. Continue Eliquis for anticoagulation. Biannual CBC and BMP recommended. Cardiology follow-up 6 months, sooner if needed. (2) LBBB (left bundle branch block): Code(s): I44.7 - Left bundle-branch block, unspecified Category: Medical Plan: Left bundle branch block, chronic. (3) Cardiomyopathy: Code(s): I42.9 - Cardiomyopathy, unspecified Category: Medical Plan: Last echocardiogram 04/2024 showing mildly reduced EF 45-50%. He did undergo a pharmacological nuclear stress test to evaluate for ischemia which did show a fixed defect, likely related to his left bundle branch block. No anginal symptoms and no clinical signs of heart failure on examination. Mild cardiomyopathy may be related to the left bundle branch block itself. Will recheck echocardiogram and plan to call him with results. (4) HTN (hypertension): Code(s): I10 - Essential (primary) hypertension Category: Medical Plan: Blood pressure goal less than 130/80. Well controlled at this time. No med changes made. Plan I discussed the patient's current EKG, noting it showed his chronic left bundle branch block (LBBB) in a normal sinus rhythm. I explained that the LBBB is an electrical delay in the lower chambers of the heart and is a distinct issue from his atrial fibrillation, which originates in the upper chambers. I expressed my concern regarding the decline in his heart's pumping function, or ejection fraction, from 60-65% in 2019 to 45-50% in April 2024. I explained that the LBBB could cause this by creating dyssynchrony in the heartbeat, which can weaken the heart muscle over time and potentially lead to congestive heart failure. To assess this further, I am ordering a repeat echocardiogram. I informed him that if the results show further weakening, we will need to consider additional treatments, including medications or a specialized pacemaker to help resynchronize the heart's pumping action. We also reviewed his ongoing episodes of atrial fibrillation, and I confirmed that no changes to his current medication regimen are needed at this time. I informed him that I will review this with his primary corporate real estate specialist. I advised him that centralized scheduling will call him to arrange the echocardiogram, and we will follow up with him once the results are available. Orders: Orders CA echo transthoracic complete Today I42.9 - Cardiomyopathy, unspecified, I44.7 - Left bundle-branch block, unspecified Patient Instructions: - Continue taking your current medications as prescribed, including Eliquis, acebutolol, and diltiazem for episodes of a fast or irregular heartbeat. - We are ordering an echocardiogram, which is an ultrasound of your heart, to check its pumping function. - The hospital's scheduling department will call you to set up this appointment. - We will call you with the test results and discuss any next steps that may be needed. - Based on the results, we may need to adjust your medications or consider other treatments. - Continue to stay active and maintain a healthy diet and hydration. Patient was informed and verbally consented to the use of an ambient scribe for clinic note documentation during this visit. Visit time spent on chart review, interview, assessment, orders, documentation. Coding Level of Care Code Est Pt Level 4 (86184) Add On Problem Visit Only Diagnoses Paroxysmal atrial fibrillation I48.0 LBBB (left bundle branch block) I44.7 Cardiomyopathy I42.9 HTN (hypertension) I10 CPT Codes EKG - CPT: [id number], Complete ([id number]) Time Spent (min) 32
[2025-04-05 10:32] VITALS: BP 124/82; PULSE 70; BMI 30.6
--- OUTSIDE RECORDS SUMMARY | 2025-04-05 12:04 | XMS_ITS | Clinical Summary ---
Author Organization [address] [facility] Address [address] [place] [address] Phone Care Team Providers Care Bar Steward Name Role Phone Jeff Rivas NP Primary Care Provider Allergies Active Allergy Reactions Criticality Noted Date Comments Gluten 06/13/2012 Pt has celiac disease Iodinated Contrast Media 04/20/2011 Nsaids (Non-Steroidal Anti-Inflammatory Drug) 04/20/2011 Medications No known medications Encounters Date Type Department Care Team Description 03/13/2025 11:00 AM EST Treatment [facility] [address] [phone] Benedict Degroot, PT Neuropathy (Primary Dx); Difficulty walking 03/11/2025 11:00 AM EST Treatment [facility] [address] [phone] Benedict Degroot, PT Neuropathy (Primary Dx); Difficulty walking 03/06/2025 11:00 AM EST Treatment [facility] [address] [phone] Deepti Bay, PT Neuropathy (Primary Dx); Difficulty walking 03/05/2025 11:00 AM EST Office Visit Orthopedic Surgery [facility] [address] [facility] [address] [place] [phone] Butch Bergeron, DPM Pain in both feet (Primary Dx); Lumbosacral radiculopathy; Difficulty walking; Cavus foot, acquired 03/04/2025 11:00 AM EST Treatment [address] [phone] Brown Benedict, PT Neuropathy (Primary Dx); Difficulty walking 02/27/2025 11:00 AM EST Treatment [address] [phone] Brown Benedict, PT Neuropathy (Primary Dx); Difficulty walking 02/25/2025 11:00 AM EST Treatment [address] [phone] Jason Cruz, ATTENDANT [employer] Neuropathy (Primary Dx) 02/20/2025 11:00 AM EST Treatment [address] [phone] Isael Anguiano, ATTENDANT [employer] STORE Neuropathy (Primary Dx); Difficulty walking 02/18/2025 11:00 AM EST Treatment [address] [phone] Brown Benedict, PT Neuropathy (Primary Dx); Difficulty walking 02/11/2025 11:00 AM EDT Treatment [address] [phone] Brown Benedict, PT Neuropathy (Primary Dx); Difficulty walking 02/06/2025 10:00 AM EDT Treatment [address] [phone] Brown Benedict, PT Neuropathy (Primary Dx); Difficulty walking 01/11/2025 10:30 AM EDT Evaluation [address] [phone] Brown Benedict, PT Neuropathy (Primary Dx); Difficulty walking 01/11/2025 Plan of Care Documentation [address] [phone] from Last 3 Months Social History Tobacco [...] AM EST Office Visit Orthopedic Surgery - [place] [address] [facility] [address] [place] [address] Butch Bergeron, DPM [address] [address] Health Maintenance Due Date Last Done Comments [...] Insurance MEDICA[place] - [place] MEDICARE Care Teams Bar Steward Relationship Specialty Start Date End Date Jeff Rivas NP [address] [place], [place] PCP - General Family Medicine 09/25/24
--- OUTSIDE RECORDS SUMMARY | 2025-04-05 12:04 | XMS_ITS | Patient Health Record ---
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 Section Notes: Nonsmoker; no alcohol Nonsmoker; no alcohol Nonsmoker; no alcohol Nonsmoker; no alcohol Nonsmoker; no alcohol Nonsmoker; no alcohol Nonsmoker; no alcohol Nonsmoker; no alcohol Nonsmoker; no alcohol Problems Problem Type SNOMED Code ICD Code Onset Dates Problem Status W/U Status Risk Notes Problem Screening for malignant neoplasm of colon (756488373) Encounter for screening for malignant neoplasm of colon (Z12.11) Active confirmed Problem History of adenomatous polyp of colon (089108615) History of adenomatous polyp of colon (Z86.010) Active confirmed Problem Abdominal bloating (273731909) Abdominal bloating (R14.0) Active confirmed Problem Chronic anemia (359188611) Anemia in other chronic diseases classified elsewhere (D63.8) Active confirmed Problem Celiac disease (232346991) Celiac disease (K90.0) Active confirmed Problem Contusion of liver (322529517) Contusion of liver, initial encounter (S36.112A) Active confirmed Problem Screening for malignant neoplasm of rectum (968239281) Encounter for screening for malignant neoplasm of rectum (Z12.12) Active confirmed Problem Gastroesophageal reflux disease without esophagitis (930517780) Gastroesophageal reflux disease without esophagitis (K21.9) Active confirmed Problem History of polyp of colon (situation) (595863302) History of colon polyps (Z86.010) Active confirmed Problem Peacock's esophagus (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) Barretts esophagus without dysplasia (K22.70) Active confirmed Problem Altered bowel function (30301086) Change in bowel function (R19.4) Active confirmed Problem Right upper quadrant pain (114031127) Abdominal pain, RUQ (R10.11) Active confirmed Problem Epigastric pain (44029399) Abdominal pain, acute, epigastric (R10.13) Active confirmed Problem Diverticulosis of colon (337539146) Diverticulosis of colon (K57.30) Active confirmed Problem Generalized abdominal pain (733166358) Abdominal pain, acute, generalized (R10.84) Active confirmed [...] Date MEDICA[place] [address] [place] [address] [id number] IRINACATHIE Galvan Self - patient is the insured MEDICARE OF [place] [address] [place] [address] [id number] CATHIE CADET Self - patient is the [...] years. 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
== END 2025-04-05 11:07 | disposition home or self-care (01) ==
LOC: HO.HCS 10:28
PROVIDERS: PCP Nurse Practitioner Family; Visit Provider Nurse Practitioner Family
DX: I48.0 Paroxysmal atrial fibrillation (principal); I44.7 Left bundle-branch block, unspecified; I42.9 Cardiomyopathy, unspecified; I10 Essential (primary) hypertension
CPT/HCPCS: 93010; 99214

== ENCOUNTER 2025-04-05 11:04 | Outpatient (REF) | payer MEDICAID, SELFPAY ==
[2025-04-05 13:15] LABS: MANUAL DIFF FLAG NO
[2025-04-05 13:21] LABS: Hematocrit 37.4 % (42.0-52.0); Hemoglobin 12.6 g/dl (14.0-18.0); Imm Gran Abs Auto 0.01 X10*3/uL (0.00-0.03); Imm Gran Pct Auto 0.2 % (0.0-0.4); Lymphocytes Absolute Auto 1.6 X10*3/uL (1.2-4.9); Mean Corpuscular HGB Conc 33.7 g/dl (31.0-36.0); Mean Corpuscular Hemoglobin 32.7 pg (27.0-33.0); Mean Corpuscular Volume 97.1 fL (80.0-98.0); NRBC Abs Auto 0.000 X10*3/uL (0.0-0.012); NRBC Pct Auto 0.0 /100WBC (0.0-0.2); Platelet Count 206 X10*3/uL (160-400); Red Blood Count 3.85 X10*6/uL (4.60-5.80); White Blood Count 5.3 X10*3/uL (4.8-10.8)
[2025-04-05 14:04] LABS: Anion Gap 12 (12-20); Blood Urea Nitrogen 24 mg/dL (9-16); Calcium 9.4 mg/dL (8.4-10.2); Carbon Dioxide 22 mmol/L (22-29); Chloride 110 mmol/L (96-108); Estimated Glomerular Filt Rate 55; Potassium 4.9 mmol/L (3.3-5.1); Sodium 139 mmol/L (135-145)
== END 2025-04-05 11:05 | disposition home or self-care (01) ==
LOC: HO.10HDL 11:04
PROVIDERS: Visit Provider Internal Medicine Hypertension Specialist
DX: I48.0 Paroxysmal atrial fibrillation (principal); Z79.01 Long term (current) use of anticoagulants; I44.7 Left bundle-branch block, unspecified; I42.9 Cardiomyopathy, unspecified; I12.9 Hypertensive chronic kidney disease with stage 1 through stage 4 chronic kidney disease, or unspecified chronic kidney disease; N18.9 Chronic kidney disease, unspecified; Z79.899 Other long term (current) drug therapy
CPT/HCPCS: 36415; 80048; 85025; 93005; 99212